=== PATIENT | male | born 1960 | race Caucasian/White ===

== ENCOUNTER 2020-05-17 12:04 | Outpatient (REF) | payer MEDICARE, MEDICAID, SELFPAY | END 2020-05-17 12:05 | disposition home or self-care (01) | LOC: HO.WFDLDS 12:04 | PROVIDERS: Visit Provider Internal Medicine | DX: Z20.822 Contact with and (suspected) exposure to COVID-19 (principal) | CPT/HCPCS: 36415; C9803; U0003 ==

== ENCOUNTER 2020-05-28 09:44 | Outpatient (REF) | payer MEDICARE, MEDICAID, SELFPAY ==
[2020-05-28 11:38] LABS: Anion Gap 13 (12-20); Blood Urea Nitrogen 15 mg/dL (9-16); Calcium 8.6 mg/dL (8.4-10.2); Carbon Dioxide 30 mmol/L (22-29); Chloride 102 mmol/L (96-108); Estimated Glomerular Filt Rate > 60; Glucose Random 97 mg/dL (60-115); Potassium 4.4 mmol/l (3.3-5.1); Sodium 141 mmol/L (135-145)
== END 2020-05-28 09:45 | disposition home or self-care (01) ==
LOC: HO.WFDLDS 09:44
PROVIDERS: Visit Provider Family Medicine
DX: I10 Essential (primary) hypertension (principal)
CPT/HCPCS: 36415; 80048

== ENCOUNTER 2020-09-12 09:05 | Outpatient (REF) | payer MEDICARE, MEDICAID, SELFPAY ==
[2020-09-12 11:26] LABS: Alanine Aminotransferase 14 U/L (0-40); Albumin Level 4.1 g/dL (3.5-5.0); Alkaline Phosphatase 111 U/L (39-117); Anion Gap 11 (12-20); Aspartate Amino Transferase 14 U/L (5-37); Bilirubin Total 0.8 mg/dL (0.0-1.0); Blood Urea Nitrogen 25 mg/dL (9-16); Calcium 9.1 mg/dL (8.4-10.2); Carbon Dioxide 30 mmol/L (22-29); Chloride 102 mmol/L (96-108); Cholesterol 122 mg/dL; Estimated Glomerular Filt Rate > 60; Glucose Random 92 mg/dL (60-115); HDL Cholesterol 35 mg/dL; LDL Cholesterol Calculated 67 mg/dl; Potassium 4.6 mmol/L (3.3-5.1); Sodium 138 mmol/L (135-145); Total Protein 6.6 g/dL (6.5-8.0); Triglycerides 100 mg/dL
[2020-09-12 11:41] LABS: TSH reflex Free T4 1.84 uIU/mL (0.32-4.0)
== END 2020-09-12 09:06 | disposition home or self-care (01) ==
LOC: HO.WFDLDS 09:05
PROVIDERS: Visit Provider Family Medicine
DX: Z00.00 Encounter for general adult medical examination without abnormal findings (principal)
CPT/HCPCS: 36415; 80053; 80061; 84443

== ENCOUNTER 2021-02-13 07:37 | Outpatient (REF) | payer MEDICARE, MEDICAID, SELFPAY ==
[2021-02-13 11:37] LABS: MANUAL DIFF FLAG NO
[2021-02-13 11:45] LABS: Basophils Absolute Auto 0.1 X10*3/uL (0.0-0.2); Basophils Percent Auto 0.9 % (0-2); Eosinophils Absolute Auto 0.2 X10*3/uL (0.0-0.4); Eosinophils Percent Auto 3.6 % (0-4); Hematocrit 39.3 % (42-52); Hemoglobin 12.7 g/dl (14.0-18.0); Imm Gran Abs Auto 0.01 X10*3/uL (0.00-0.03); Imm Gran Pct Auto 0.2 % (0.0-0.4); Lymphocytes Absolute Auto 1.6 X10*3/uL (1.2-4.9); Lymphocytes Percent Auto 28.1 % (20-40); Mean Corpuscular HGB Conc 32.3 g/dl (31.0-36.0); Mean Corpuscular Hemoglobin 28.2 pg (27.0-33.0); Mean Corpuscular Volume 87.3 fL (80-98); Mean Platelet Volume 10.9 fL (9.4-12.4); Monocytes Absolute Auto 0.6 X10*3/uL (0.1-1.2); Monocytes Percent Auto 11.3 % (2-11); Neutrophils Absolute Auto 3.1 X10*3/uL (2.0-8.3); Neutrophils Percent Auto 55.9 % (45-73); Platelet Count 326 X10*3/uL (160-400); White Blood Count 5.6 X10*3/uL (4.8-10.8)
[2021-02-13 12:03] LABS: Appearance Urine CLEAR; Color Urine YELLOW; Glucose Urine UA NEG (NEG); Leukocyte Esterase Urine NEG (NEG); Nitrite Urine NEG (NEG); Specific Gravity - Urine <= 1.005 (1.005-1.025); Urine Blood NEG (NEG); Urine Ketones NEG (NEG); Urine Protein NEG (NEG-TRACE)
[2021-02-13 12:29] LABS: TSH reflex Free T4 2.17 uIU/mL (0.32-4.0)
[2021-02-13 12:37] LABS: Alanine Aminotransferase 12 U/L (0-40); Albumin Level 4.2 g/dL (3.5-5.0); Alkaline Phosphatase 106 U/L (39-117); Anion Gap 11 (12-20); Aspartate Amino Transferase 12 U/L (5-37); Bilirubin Total 0.9 mg/dL (0.0-1.0); Blood Urea Nitrogen 9 mg/dL (9-16); Carbon Dioxide 32 mmol/L (22-29); Chloride 100 mmol/L (96-108); Cholesterol 112 mg/dL; Estimated Glomerular Filt Rate > 60; Glucose Fasting 92 mg/dL (60-99); HDL Cholesterol 37 mg/dL; LDL Cholesterol Calculated 55 mg/dl; Potassium 3.7 mmol/L (3.3-5.1); Sodium 139 mmol/L (135-145); Total Protein 6.5 g/dL (6.5-8.0); Triglycerides 101 mg/dL
== END 2021-02-13 07:38 | disposition home or self-care (01) ==
LOC: HO.WFDLDS 07:37
PROVIDERS: Visit Provider Family Medicine
DX: Z00.00 Encounter for general adult medical examination without abnormal findings (principal)
CPT/HCPCS: 36415; 80053; 80061; 81003; 84443; 85025

== ENCOUNTER 2021-05-22 10:12 | Emergency (ER) | payer MEDICARE, MEDICAID, SELFPAY ==
--- NOTE | ~2021-05-22 | XR_ITS ---
EXAMINATION: XR CHEST CLINICAL INFORMATION: Shortness of breath COMPARISON: June 02, 2019 TECHNIQUE: 2 views of the chest were obtained. FINDINGS: Retrocardiac densities present which may be related to vasculature however focus of disease is not excluded. Cardiac recorder seen in place. No pneumothorax or pleural effusion. Heart normal size. No evidence of pulmonary edema. XR/XR chest 2V IMPRESSION: Retrocardiac density likely vascular in nature however small focus of disease within the left lower lobe is not excluded.
[2021-05-22 10:35] VITALS: BP 135/76; PULSE 74; RESP 19; TEMP 36.1; O2SAT 94; BMI 44.6
[2021-05-22 12:12] LABS: MANUAL DIFF FLAG NO
[2021-05-22 12:13] LABS: Basophils Percent Auto 0.2 % (0-2); Eosinophils Percent Auto 0.3 % (0-4); Hematocrit 40.1 % (42.0-52.0); Hemoglobin 13.2 g/dl (14.0-18.0); Imm Gran Abs Auto 0.04 X10*3/uL (0.00-0.03); Imm Gran Pct Auto 0.5 % (0.0-0.4); Lymphocytes Absolute Auto 0.8 X10*3/uL (1.2-4.9); Lymphocytes Percent Auto 8.8 % (20-40); Mean Corpuscular HGB Conc 32.9 g/dl (31.0-36.0); Mean Corpuscular Hemoglobin 28.8 pg (27.0-33.0); Mean Corpuscular Volume 87.6 fL (80.0-98.0); Mean Platelet Volume 9.9 fL (9.4-12.4); Monocytes Absolute Auto 1.1 X10*3/uL (0.1-1.2); Monocytes Percent Auto 12.1 % (2-11); Neutrophils Absolute Auto 6.9 x10*3/uL (2.0-8.3); Neutrophils Percent Auto 78.1 % (45-73); Platelet Count 204 X10*3/uL (160-400); Red Blood Count 4.58 X10*6/uL (4.60-5.80); Red Cell Distribution Width 14.3 % (11.0-16.0); White Blood Count 8.9 X10*3/uL (4.8-10.8)
[2021-05-22 12:23] LABS: COVID-19 Test Positive (Negative); IDNOW Serial# 9DD0AD1C
[2021-05-22 12:38] LABS: Anion Gap 13 (12-20); Blood Urea Nitrogen 12 mg/dL (9-16); Calcium 8.9 mg/dL (8.4-10.2); Carbon Dioxide 29 mmol/L (22-29); Chloride 103 mmol/L (96-108); Estimated Glomerular Filt Rate > 60; Glucose Random 106 mg/dL (60-115); Potassium 3.7 mmol/L (3.3-5.1); Sodium 141 mmol/L (135-145)
--- NOTE | 2021-05-22 16:41 | ED_ITS ---
HPI - URI/Sore Throat General Chief Complaint: Upper Respiratory Symptoms Stated Complaint: COPD/ CHF Time Seen by Provider: 05/22/21 16:12 Related Data Home Medications Medication Instructions Recorded Confirmed albuterol sulfate mg INHALATION TID PRN 02/23/20 apixaban 5 mg tablet 5 mg PO BID 02/23/20 budesonide-formoterol HFA 80 2 puff PO BID 02/23/20 mcg-4.5 mcg/actuation aerosol inhaler cimetidine 400 mg tablet 400 mg PO BEDTIME 02/23/20 docusate sodium 100 mg capsule 100 mg PO BID PRN 02/23/20 ipratropium bromide 0.02 % INHALATION 02/23/20 solution for inhalation metolazone 5 mg tablet 5 mg PO DAILY 02/23/20 tiotropium bromide 18 mcg capsule 1 cap INHALATION DAILY 02/23/20 with inhalation device Previous Rx's Medication Instructions Recorded famotidine 20 mg tablet 20 mg PO DAILY 90 Days #90 tab 08/23/20 albuterol sulfate 90 mcg/actuation 1 puff INHALATION Q4H PRN #8.5 g 10/25/20 aerosol inhaler metoprolol tartrate 50 mg tablet 75 mg PO BID #270 tab 12/07/20 spironolactone 25 mg tablet 25 mg PO DAILY #90 tab 12/07/20 atorvastatin 80 mg tablet 80 mg PO DAILY #90 tab 02/27/21 furosemide 40 mg tablet 40 mg PO DAILY 30 Days #30 tab 02/27/21 aspirin 81 mg tablet,delayed 81 mg PO DAILY #30 tab 03/05/21 release (Adult Aspirin Regimen) doxycycline hyclate 100 mg tablet 100 mg PO BID 7 Days #14 tab 05/22/21 Allergies Allergy/AdvReac Type Severity Reaction Status Date / Time seafood Allergy Unknown rash, Verified 04/01/21 08:44 swelling LEVONOX Allergy Unknown Rash Uncoded 04/01/21 08:44 ]Swelling [facility] Past Medical History Medical History (Updated 05/22/21 @ 16:41 by MIGNON Arambula) CAD (coronary artery disease) Chronic bronchitis Chronic renal failure, stage 3 (moderate) Essential hypertension GERD (gastroesophageal reflux disease) Paroxysmal atrial fibrillation Surgical History History of carpal tunnel release History of knee replacement Status post laparoscopic sleeve gastrectomy Family History Family History (Updated 04/01/21 @ 08:47 by Madisyn Steve [facility]) Father CVD (cardiovascular disease) Mother Diabetes mellitus Cancer Brother No problems noted. Brother No problems noted. Son No problems noted. Sister No problems noted. Sister No problems noted. Sister No problems noted. Sister No problems noted. Sister No problems noted. Sister No problems noted. Other Mental health disorder Substance use disorder Social History Social History Housing: Apartment Patient Tobacco Use Status: Former Tobacco user (quit 12 years ago ) Years Smoked: 40 Advance Directives: No Advance Directives Information Provided: No Current occupational status: disabled Physical Exam 2 Vital Signs: Vital Signs: Last Vital Signs Temp 97 F 05/22/21 10:35 Pulse 74 05/22/21 10:35 Resp 19 05/22/21 10:35 BP 135/76 05/22/21 10:35 Pulse Ox 94 05/22/21 10:35 BMI result Body Mass Index 44.6 Course Course Course Narrative: [id number]--patient left without being seen. Had lab/imaging drawn in triage, called and spoke to patient to make aware that he is COVID-19 positive. Chest x-ray also could not exclude pneumonia. Discussed lab results. I sent in Doxycycline 100 mg b.i.d. x7 days to [facility] in [place]. Patient reports he does not have enough money to get prescription however sent in anyway and discussed worrisome signs and symptoms and strict return precautions and COVID precautions. MDM - URI/Sore Throat Lab Data Result diagrams: 05/22/21 12:08 05/22/21 12:07 Labs: Lab Results 05/22/21 05/22/21 05/22/21 Range/Units 12:07 12:07 12:08 WBC 8.9 (4.8-10.8) X10*3/uL RBC 4.58 L (4.60-5.80) X10*6/uL Hgb 13.2 L (14.0-18.0) g/dl Hct 40.1 L (42.0-52.0) % MCV 87.6 (80.0-98.0) fL MCH 28.8 (27.0-33.0) pg MCHC 32.9 (31.0-36.0) g/dl RDW 14.3 (11.0-16.0) % Plt Count 204 (160-400) X10*3/uL MPV 9.9 (9.4-12.4) fL Immature Gran % (Auto) 0.5 H (0.0-0.4) % Neut % (Auto) 78.1 H (45-73) % Lymph % (Auto) 8.8 L (20-40) % [place] % (Auto) 12.1 H (2-11) % Eos % (Auto) 0.3 (0-4) % Baso % (Auto) 0.2 (0-2) % Lymph # (Auto) 0.8 L (1.2-4.9) X10*3/uL [place] # (Auto) 1.1 (0.1-1.2) X10*3/uL Eos # (Auto) 0.0 (0.0-0.4) X10*3/uL Baso # (Auto) 0.0 (0.0-0.2) X10*3/uL Abs Immat Gran (auto) 0.04 H (0.00-0.03) X10*3/uL Absolute Neuts (auto) 6.9 (2.0-8.3) x10*3/uL Absolute Nucleated RBC 0.000 (0.0-0.012) X10*3/uL Nucleated RBC % (auto) 0.0 (0.0-0.2) /100WBC Sodium 141 (135-145) mmol/L Potassium 3.7 (3.3-5.1) mmol/L Chloride 103 (96-108) mmol/L Carbon Dioxide 29 (22-29) mmol/L Anion Gap 13 (12-20) BUN 12 (9-16) mg/dL Creatinine 0.92 (0.5-1.4) mg/dL Estim Creat Clear Calc 94.0 Estimated GFR > 60 Random Glucose 106 (60-115) mg/dL Calcium 8.9 (8.4-10.2) mg/dL COVID-19 (JACOB) Positive A (Negative) COVID-19 Clin Com See Note Discharge Plan Discharge Clinical Impression: COVID-19 Pneumonia Qualifiers: Pneumonia type: due to unspecified organism Laterality: left Lung location: lower lobe of lung Qualified Code(s): J18.9 - Pneumonia, unspecified organism Patient Disposition: Left Without Being Seen
[2021-05-22 17:01] LABS: Alanine Aminotransferase 12 U/L (0-40); Alkaline Phosphatase 113 U/L (39-117); Aspartate Amino Transferase 19 U/L (5-37); Bilirubin Direct 0.5 mg/dL (0.0-0.5); Bilirubin Total 1.1 mg/dL (0.0-1.0); Magnesium 1.9 mg/dL (1.6-2.6); Total Protein 6.8 g/dL (6.5-8.0)
== END 2021-05-22 16:50 | disposition left against medical advice (07) ==
PROVIDERS: Physician Assistant; Emergency Provider Emergency Medicine; PCP Family Medicine
DX: U07.1 COVID-19 (principal); J12.82 Pneumonia due to coronavirus disease 2019; Z87.891 Personal history of nicotine dependence; Z79.899 Other long term (current) drug therapy
CPT/HCPCS: 71046; 80048; 80076; 83735; 85025; 87635; 99283

== ENCOUNTER 2021-05-23 12:35 | Inpatient (IN) | payer MEDICARE, MEDICAID, SELFPAY ==
[2021-05-23] VITALS (18 sets, daily range): BP systolic 83–123; BP diastolic 40–71; PULSE 65–133; RESP 18–28; TEMP 36.5–37.3; O2SAT 95–100; BMI 44.2
--- NOTE | ~2021-05-23 | US_ITS ---
EXAMINATION: US VENOUS ULTRASOUND WITH DOPPLER LOWER EXTREMITY, LEFT CLINICAL INFORMATION: Swollen leg and painful. Covid positive COMPARISON: None TECHNIQUE: Ultrasound of the deep veins is performed from the hip to the calf with compression sonography and color and pulse Doppler assessment. Spectral analysis with color-flow imaging is performed. FINDINGS: There is normal venous compression and respiratory variation and augmented flow. The visualized common femoral vein, superficial femoral vein, profunda femoral vein, popliteal vein, and the trifurcation region shows no evidence of deep venous thrombosis. There is no significant popliteal fossa cyst. There are multiple enlarged lymph nodes in the groin region. The largest lymph node measures 4.5 x 1.8 x 2.90 cm. It is normal architecture by ultrasound. If the patient's symptoms persist, followup ultrasound in 5 days 7 days might be of value to exclude proximal propagation from a non-visualized calf vein. US/US venous duplex LE LT IMPRESSION: No DVT demonstrated in the left lower extremity. Multiple enlarged lymph nodes in the left groin largest one measuring 4.5 cm and 1.77 cm.
--- NOTE | ~2021-05-23 | XR_ITS ---
EXAMINATION: XR CHEST CLINICAL INFORMATION: Shortness of breath COMPARISON: May 22, 2021 TECHNIQUE: AP portable view of the chest was obtained. FINDINGS: No significant abnormality is noted involving the heart, lungs, mediastinum, bony thorax or soft tissues. Cardiac recorder seen in place. XR/XR chest 1V IMPRESSION: No acute disease.
--- NOTE | 2021-05-23 12:54 | ECG_ITS ---
Test Reason : SOB Blood Pressure : / mmHG Vent. Rate : 109 BPM Atrial Rate : 000 BPM P-R Int : 000 ms QRS Dur : 082 ms QT Int : 350 ms P-R-T Axes : 000 011 032 degrees QTc Int : 471 ms Atrial fibrillation with rapid ventricular response Low voltage QRS Septal infarct , age undetermined Abnormal ECG No previous ECGs available Referred By: Isatu Mccarthy Electronically Signed By:Colby Pederson
--- NOTE | 2021-05-23 12:55 | PC.NURSE ---
palpable pedal pulse left. swelling left calf is significant. warmth and redness noted
--- NOTE | 2021-05-23 12:56 | ED.SOB ---
HPI - SOB/Dyspnea General Chief Complaint: Dyspnea Stated Complaint: COVID PNEUMONIA,PEDAL EDEMA Time Seen by Provider: 05/23/21 12:40 Source: patient and EMS Mode of arrival: EMS Limitations: no limitations History of Present Illness HPI Narrative: Patient comes to the emergency room complaining of shortness of breath. Patient was tested for COVID-19 yesterday, tested positive. Patient left the emergency room without being seen. Patient states that his shortness of breath is worse. Also complaining of red swollen distal lower extremity leg, painful in the calf. This morning, patient's primary care physician call him and told him to come to the emergency room. Patient denies chest pain. Of note, our nurse practitioner tried calling the patient yesterday to let him know that he tested positive for COVID-19 and antibiotic was sent to the patient's pharmacy. However, patient was unable to get his antibiotic. MD elicited complaint: shortness of breath and cough Related Data Home Medications Medication Instructions Recorded Confirmed apixaban 5 mg tablet 5 mg PO BID 02/23/20 05/23/21 budesonide-formoterol HFA 80 2 puff PO BID 02/23/20 05/23/21 mcg-4.5 mcg/actuation aerosol inhaler tiotropium bromide 18 mcg capsule 1 cap INHALATION DAILY 02/23/20 05/23/21 with inhalation device atorvastatin 80 mg tablet 80 mg PO BEDTIME 05/23/21 05/23/21 furosemide 40 mg tablet 40 mg PO SUTUTHSA 05/23/21 05/23/21 melatonin 10 mg tablet 10 mg PO BEDTIME 05/23/21 05/23/21 spironolactone 25 mg tablet 25 mg PO MOWEFR 05/23/21 05/23/21 Previous Rx's Medication Instructions Recorded famotidine 20 mg tablet 20 mg PO DAILY 90 Days #90 tab 08/23/20 albuterol sulfate 90 mcg/actuation 1 puff INHALATION Q4H PRN #8.5 g 10/25/20 aerosol inhaler metoprolol tartrate 50 mg tablet 75 mg PO BID #270 tab 12/07/20 aspirin 81 mg tablet,delayed 81 mg PO DAILY #30 tab 03/05/21 release (Adult Aspirin Regimen) Allergies Allergy/AdvReac Type Severity Reaction Status Date / Time seafood Allergy Unknown rash, Verified 05/23/21 12:50 swelling LEVONOX Allergy Unknown Rash Uncoded 04/01/21 08:44 ]Swelling Review of Systems Review of Systems: Constitutional : No Weight loss, No Fever, No Chills, No Night Sweats, No Fatigue, No Malaise ENT/Mouth : No Hearing loss, No Ear Pain, No Nasal Congestion, No Sinus Pain, No Hoarseness, No sore throat, No Rhinorrhea, No Swallowing Difficulty Eyes: No Eye Pain, No Swelling, No Redness, No Foreign Body, No Discharge, No Vision Changes Cardiovascular : No Chest Pain, No SOB, No Dyspnea on Exertion, No Orthopnea, complaining of lower extremity edema, No Palpitations Respiratory : Complaining of cough, mild wheezing, shortness of breath worse with exertion Gastrointestinal : No Nausea, No Vomiting, No Diarrhea, No Constipation, No abdominal Pain, No Hematochezia, No Melena Genitourinary : no irregular bleeding, No Dysuria, No Urinary Frequency, No Hematuria, No Urinary Incontinence, No Urgency, No Flank Pain, No Urinary Flow Changes, No Hesitancy Musculoskeletal : No joint pain, complaining of lower extremity redness, swelling and pain in the distal left lower extremity Skin : No Skin Lesions, No rash Neuro : No Weakness, No Numbness, No Paresthesias, No Loss of Consciousness, No Dizziness, No Headache Psych : No Anxiety/Panic, No Depression, No SI/HI/AH/VH, No Social Issues, Heme/Lymph: No Bruising, No Bleeding,No Lymphadenopathy Endocrine : No Polyuria, No Polydipsia, No Temperature Intolerance [facility] Past Medical History Medical History CAD (coronary artery disease) Chronic bronchitis Chronic renal failure, stage 3 (moderate) Essential hypertension GERD (gastroesophageal reflux disease) Paroxysmal atrial fibrillation Surgical History History of carpal tunnel release History of knee replacement Status post laparoscopic sleeve gastrectomy Family History Family History Father CVD (cardiovascular disease) Mother Diabetes mellitus Cancer Brother No problems noted. Brother No problems noted. Son No problems noted. Sister No problems noted. Sister No problems noted. Sister No problems noted. Sister No problems noted. Sister No problems noted. Sister No problems noted. Other Mental health disorder Substance use disorder Social History Social History Housing: Apartment Patient Tobacco Use Status: Former Tobacco user Years Smoked: 40 Use of substances other than those prescribed or required for medical reasons: No Advance Directives: No Advance Directives Information Provided: Yes Current occupational status: disabled Physical Exam Vital Signs: Vital Signs: Last Vital Signs Temp 99.2 F 05/23/21 16:15 Pulse 119 H 05/23/21 16:15 Resp 22 H 05/23/21 16:15 BP 102/57 L 05/23/21 16:15 Pulse Ox 95 05/23/21 16:15 BMI result Body Mass Index 44.2 Const: Other: Appearance: Alert. Oriented X3. No acute distress. Eyes: Pupils equal, round and reactive to light. ENT: Pharynx normal. Neck: Normal inspection. Neck supple. No lymph nodes noted. No crepitus CVS: Normal heart rate and rhythm. Pulses normal. Normal S1 and S2 Respiratory: Complaining of worsening shortness of breath since yesterday, worse with exertion. Mild wheezing, complaining of dry cough Abdomen: Soft and nontender. No rigidity. No distention. good BS x4 Skin: Skin warm and dry. Normal skin color. Normal skin turgor. Extremities: +2 Bilateral lower extremity edema. Left lower extremity below the knee is erythematous, significantly larger than the right lower extremity, tender to touch in the calf Neuro: Oriented X 3. No motor deficit. No sensory deficit. Moving all extermities. No slurred speech. Course Course Course Narrative: 13:06: All of patient's labs are pending. Patient's blood pressure stable, no fever. Patient will be empirically treated with IV antibiotics. At this time sepsis is not suspected Ultrasound negative for DVT, patient has cellulitis. MDM - SOB/Dyspnea Lab Data Result diagrams: 05/23/21 13:08 05/23/21 13:08 Labs: Lab Results 05/23/21 05/23/21 05/23/21 Range/Units 13:08 13:08 13:08 WBC 12.3 H (4.8-10.8) X10*3/uL RBC 4.78 (4.60-5.80) X10*6/uL Hgb 13.9 L (14.0-18.0) g/dl Hct 42.0 (42.0-52.0) % MCV 87.9 (80.0-98.0) fL MCH 29.1 (27.0-33.0) pg MCHC 33.1 (31.0-36.0) g/dl RDW 14.3 (11.0-16.0) % Plt Count 208 (160-400) X10*3/uL MPV 11.3 (9.4-12.4) fL Immature Gran % (Auto) Cancelled Neut % (Auto) Cancelled Lymph % (Auto) Cancelled [place] % (Auto) Cancelled Eos % (Auto) Cancelled Baso % (Auto) Cancelled Lymph # (Auto) Cancelled [place] # (Auto) Cancelled Eos # (Auto) Cancelled Baso # (Auto) Cancelled Abs Immat Gran (auto) Cancelled Absolute Neuts (auto) Cancelled Absolute Nucleated RBC 0.000 (0.0-0.012) X10*3/uL Nucleated RBC % (auto) 0.0 (0.0-0.2) /100WBC Neutrophils % (Manual) 68 (45-73) % Band Neutrophils % 26 H (3-5) % Lymphocytes % (Manual) 4 L (20-40) % Atypical Lymphs % (Man) 1 (0-6) % Monocytes % (Manual) 1 L (2-11) % Abs Neuts (Manual) 11.6 H (2.0-8.3) X10*3/uL Lymphocytes # (Manual) 0.5 L (1.2-4.9) X10*3/uL Atyp Lymphs # (Manual) 0.1 x10*3/uL Monocytes # (Manual) 0.1 (0.1-1.2) X10*3/uL WBC Morphology Comment DYSMORPHIC Platelet Estimate NORMAL (NORMAL) Plt Morphology Comment NORM RBC Morphology NOTED Microcytosis 1+ (5-14) /OIF Acanthocytes (Spur) 2+ (3-5) /OIF Schistocytes 1+ (0-2) /OIF D-Dimer High Sensitivty 318 NG/ML VBG pH (7.32-7.43) VBG pCO2 mmHg VBG pO2 mmHg VBG HCO3 (22-26) mmol/L VBG O2 Saturation % VBG Base Excess mmol/L Sodium 140 (135-145) mmol/L Potassium 3.5 (3.3-5.1) mmol/L Chloride 100 (96-108) mmol/L Carbon Dioxide 27 (22-29) mmol/L Anion Gap 17 (12-20) BUN 23 H D (9-16) mg/dL Creatinine 1.40 (0.5-1.4) mg/dL Estim Creat Clear Calc 61.5 Estimated GFR 51 Random Glucose 124 H (60-115) mg/dL Lactic Acid (0.5-2.0) mmol/L Calcium 8.6 (8.4-10.2) mg/dL Total Bilirubin 1.8 H (0.0-1.0) mg/dL Direct Bilirubin 0.8 H (0.0-0.5) mg/dL AST 21 (5-37) U/L ALT 14 (0-40) U/L Alkaline Phosphatase 76 D (39-117) U/L B-Natriuretic Peptide (<100) pg/mL Total Protein 6.4 L (6.5-8.0) g/dL Albumin 3.7 (3.5-5.0) g/dL 05/23/21 05/23/21 05/23/21 Range/Units 13:08 13:08 13:13 WBC (4.8-10.8) X10*3/uL RBC (4.60-5.80) X10*6/uL Hgb (14.0-18.0) g/dl Hct (42.0-52.0) % MCV (80.0-98.0) fL MCH (27.0-33.0) pg MCHC (31.0-36.0) g/dl RDW (11.0-16.0) % Plt Count (160-400) X10*3/uL MPV (9.4-12.4) fL Immature Gran % (Auto) Neut % (Auto) Lymph % (Auto) [place] % (Auto) Eos % (Auto) Baso % (Auto) Lymph # (Auto) [place] # (Auto) Eos # (Auto) Baso # (Auto) Abs Immat Gran (auto) Absolute Neuts (auto) Absolute Nucleated RBC (0.0-0.012) X10*3/uL Nucleated RBC % (auto) (0.0-0.2) /100WBC Neutrophils % (Manual) (45-73) % Band Neutrophils % (3-5) % Lymphocytes % (Manual) (20-40) % Atypical Lymphs % (Man) (0-6) % Monocytes % (Manual) (2-11) % Abs Neuts (Manual) (2.0-8.3) X10*3/uL Lymphocytes # (Manual) (1.2-4.9) X10*3/uL Atyp Lymphs # (Manual) x10*3/uL Monocytes # (Manual) (0.1-1.2) X10*3/uL WBC Morphology Comment Platelet Estimate (NORMAL) Plt Morphology Comment RBC Morphology Microcytosis /OIF Acanthocytes (Spur) /OIF Schistocytes /OIF D-Dimer High Sensitivty NG/ML VBG pH 7.37 (7.32-7.43) VBG pCO2 51 mmHg VBG pO2 46 mmHg VBG HCO3 30 H (22-26) mmol/L VBG O2 Saturation 69.0 % VBG Base Excess 4.0 mmol/L Sodium (135-145) mmol/L Potassium (3.3-5.1) mmol/L Chloride (96-108) mmol/L Carbon Dioxide (22-29) mmol/L Anion Gap (12-20) BUN (9-16) mg/dL Creatinine (0.5-1.4) mg/dL Estim Creat Clear Calc Estimated GFR Random Glucose (60-115) mg/dL Lactic Acid 3.1 H* (0.5-2.0) mmol/L Calcium (8.4-10.2) mg/dL Total Bilirubin (0.0-1.0) mg/dL Direct Bilirubin (0.0-0.5) mg/dL AST (5-37) U/L ALT (0-40) U/L Alkaline Phosphatase (39-117) U/L B-Natriuretic Peptide 879 H (<100) pg/mL Total Protein (6.5-8.0) g/dL Albumin (3.5-5.0) g/dL Imaging Data Chest x-ray: Radiologist's impression: No significant abnormality is noted involving the heart, lungs, mediastinum, bony thorax or soft tissues. Cardiac recorder seen in place. XR/XR chest 1V IMPRESSION: No acute disease. Venous US: Radiologist's impression: FINDINGS: There is normal venous compression and respiratory variation and augmented flow. The visualized common femoral vein, superficial femoral vein, profunda femoral vein, popliteal vein, and the trifurcation region shows no evidence of deep venous thrombosis. ? There is no significant popliteal fossa cyst. There are multiple enlarged lymph nodes in the groin region. The largest lymph node measures 4.5 x 1.8 x 2.90 cm. It is normal architecture by ultrasound. If the patient's symptoms persist, followup ultrasound in 5 days 7 days might be of value to exclude proximal propagation from a non-visualized calf vein. US/US venous duplex LE LT IMPRESSION: No DVT demonstrated in the left lower extremity. ? Multiple enlarged lymph nodes in the left groin largest one measuring 4.5 cm and 1.77 cm. Discharge Plan Discharge Clinical Impression: Cellulitis, CHF (congestive heart failure) Patient Disposition: Admitted As Inpatient
[2021-05-23 13:18] LABS: Venous Blood Gas Refer to POC result
[2021-05-23 13:20] LABS: VBG HCO3 30 mmol/L (22-26); VBG pCO2 51 mmHg; VBG pH 7.37 (7.32-7.43); VBG pO2 46 mmHg
[2021-05-23 13:26] LABS: D Dimer High Sensitivity 318 NG/ML
[2021-05-23 13:33] LABS: Alanine Aminotransferase 14 U/L (0-40); Albumin Level 3.7 g/dL (3.5-5.0); Alkaline Phosphatase 76 U/L (39-117); Anion Gap 17 (12-20); Aspartate Amino Transferase 21 U/L (5-37); Bilirubin Direct 0.8 mg/dL (0.0-0.5); Bilirubin Total 1.8 mg/dL (0.0-1.0); Blood Urea Nitrogen 23 mg/dL (9-16); Calcium 8.6 mg/dL (8.4-10.2); Carbon Dioxide 27 mmol/L (22-29); Chloride 100 mmol/L (96-108); Creatinine Clr Calc Pharmacy 61.5; Estimated Glomerular Filt Rate 51; Glucose Random 124 mg/dL (60-115); Potassium 3.5 mmol/L (3.3-5.1); Sodium 140 mmol/L (135-145); Total Protein 6.4 g/dL (6.5-8.0)
[2021-05-23] MEDS: cefTRIAXone sodium 1 GM in 0.9 % Sodium Chloride 50 ML IV (13:35)
[2021-05-23] MEDS: 0.9 % Sodium Chloride 1,000 ML 500 ML IVCONT (13:37)
[2021-05-23 13:38] LABS: B Type Natriuretic Peptide 879 pg/mL (<100)
[2021-05-23 13:45] LABS: Lactic Acid 3.1 mmol/L (0.5-2.0)
[2021-05-23 13:57] LABS: Hemoglobin 13.9 g/dl (14.0-18.0); Mean Corpuscular HGB Conc 33.1 g/dl (31.0-36.0); Mean Corpuscular Hemoglobin 29.1 pg (27.0-33.0); Mean Corpuscular Volume 87.9 fL (80.0-98.0); Mean Platelet Volume 11.3 fL (9.4-12.4); Platelet Count 208 X10*3/uL (160-400); Red Blood Count 4.78 X10*6/uL (4.60-5.80); Red Cell Distribution Width 14.3 % (11.0-16.0); White Blood Count 12.3 X10*3/uL (4.8-10.8)
--- NOTE | 2021-05-23 14:02 | PHA.MEDREC ---
Pharmacy Consult ? Medication Reconciliation Pharmacy has completed the medication reconciliation. There are no remarkable issues for provider's attention. Eboni Zelaya, EthelD
[2021-05-23 14:17] LABS: Atypical Lymph Absolute Manual 0.1 x10*3/uL; Atypical Lymphs Percent Manual 1 % (0-6); Band Neutrophils Percent 26 % (3-5); Lymphocytes Absolute Manual 0.5 X10*3/uL (1.2-4.9); Lymphocytes Percent Manual 4 % (20-40); Monocytes Absolute Manual 0.1 X10*3/uL (0.1-1.2); Monocytes Percent Manual 1 % (2-11); Neutrophils Absolute Manual 11.6 X10*3/uL (2.0-8.3); Neutrophils Percent Manual 68 % (45-73); RBC Morphology NOTED
[2021-05-23 14:18] LABS: Acanthocytes 2+ (3-5) /OIF; Platelet Estimate NORMAL (NORMAL); Schistocytes 1+ (0-2) /OIF; WBC Morphology Comment DYSMORPHIC
[2021-05-23 14:19] LABS: Microcytosis 1+ (5-14) /OIF; Platelet Morphology Comment NORM
[2021-05-23 15:12] LABS: Reflex Lactate? Lactic Acid Added
[2021-05-23] MEDS: Azithromycin 500 MG in 0.9 % Sodium Chloride 250 ML 125 MG IV (15:23)
--- NOTE | 2021-05-23 16:31 | PM.IMHP ---
History of Present Illness Date of Service: 05/23/21 Attending physician on admission: Suzie Valles Chief Complaint: Shortness of breath/left leg pain and swelling 60-year-old gentleman with past medical history significant for paroxysmal atrial fibrillation, coronary artery disease, chronic bronchitis, chronic kidney disease stage 3, GERD vaccinated against COVID in August of 2020 did not receive booster came to [facility] Room on May 22 but due to long wait left ER without being seen however labs showed positive COVID infection therefore patient was called and made aware and a prescription of doxycycline was sent to the pharmacy, today patient call his primary care physician due to shortness of breath and was referred to [place] [facility], at present patient is complaining of shortness of breath associated with dry cough, and mild low-grade fever last night, he denies PND orthopnea, no chest palpitations, patient also complaining of left lower extremity swelling and redness worsening over last few days patient denies any injury or trauma but agreed he trimmed his left toenail deeply few days ago , he denies any sick contacts, workup in the emergency room revealed the D-dimer of 318, BP and P 879 chest x-ray showed no acute abnormality left lower extremity Doppler study showed no DVT, patient noted to be tachypneic tachycardic with elevated WBC count and lactic acid therefore meets sepsis criteria due to left lower extremity cellulitis and will be admitted for continued monitoring treatment for cellulitis and COVID-19 infection. Review of Systems Review of Systems: General no headache, no dizziness, mild fever overnight CVS no chest pain, no palpitation. Respiratory dry cough, no sputum production Gastrointestinal no nausea no vomiting, no abdominal pain no urinary urgency, no frequency Musculoskeletal left leg pain and swelling Psych no anxiety Yes all other systems are reviewed and are negative [facility] Medical History CAD (coronary artery disease) Chronic bronchitis Chronic renal failure, stage 3 (moderate) Essential hypertension GERD (gastroesophageal reflux disease) Paroxysmal atrial fibrillation Family History Father CVD (cardiovascular disease) Mother Diabetes mellitus Cancer Brother No problems noted. Brother No problems noted. Son No problems noted. Sister No problems noted. Sister No problems noted. Sister No problems noted. Sister No problems noted. Sister No problems noted. Sister No problems noted. Other Mental health disorder Substance use disorder Surgical History History of carpal tunnel release History of knee replacement Status post laparoscopic sleeve gastrectomy Social History Household Members: Spouse Housing: Other Housing Other:: Hotel Do you presently have visiting nurse or other home services: No Patient Tobacco Use Status: Former Tobacco user Years Smoked: 40 Smoked in Last 30 Days: No Second Hand Smoke Exposure: No Use of substances other than those prescribed or required for medical reasons: No Currently Displaying Signs/Symptoms of Drug Intoxication Withdrawal: No Any prior treatment program specific to substance use: No Have you been hit, kicked, punched, or otherwise hurt by someone within the past year? If so, by whom?: No Do you feel safe in your current relationship?: Yes Is there a partner from a previous relationship who is making you feel unsafe now?: No Are you made to feel afraid or neglected: No Advance Directives: No Advance Directives Information Provided: Yes Do you have thoughts of harming others: None Do you have a plan to hurt others: No Plan Recently lost weight without trying: No Eating poorly because of decreased appetite: No Nutrition Risks: No Nutritional Risk Poor oral hygiene: No service: Yes Current occupational status: disabled Meds Allergies Allergy/AdvReac Type Severity Reaction Status Date / Time seafood Allergy Unknown rash, Verified 05/23/21 12:50 swelling LEVONOX Allergy Unknown Rash Uncoded 04/01/21 08:44 ]Swelling Active Medications: Current Medications Acetaminophen (Acetaminophen 325 Mg Tablet) 650 mg PO Q6H PRN PRN Reason: Pain, Mild (Pain Scale 1-3) Albuterol Sulfate (Albuterol Sulfate 90 Mcg 8 Gm Inhaler) 1 puff INHALE Q4H PRN PRN Reason: for wheezing Apixaban (Apixaban 5 Mg Tablet) 5 mg PO BID [facility] Aspirin (Aspirin Enteric Coated 81 Mg Tablet.) 81 mg PO DAILY [facility] Atorvastatin Calcium (Atorvastatin Calcium 80 Mg Tablet) 80 mg PO BEDTIME [facility] Famotidine (Famotidine 20 Mg Tablet) 20 mg PO DAILY [facility] Furosemide (Furosemide 40 Mg Tablet) 40 mg PO [facility]; Protocol Guaifenesin/Dextromethorphan (Guaifenesin Dm 100/10/5 Ml 5 Ml Syrup) 10 ml PO TID [facility] Vancomycin HCl 1,250 mg/ (Sodium Chloride) 250 mls @ 166.667 mls/hr IV ONCE ONE Stop: 05/23/21 17:57 Piperacillin Sod/Tazobactam (Sod 3.375 gm/ Sodium Chloride) 50 mls @ 100 mls/hr IV Q6H [facility] Metoprolol Tartrate (Metoprolol Tartrate 25 Mg Tablet) 75 mg PO BID [facility]; Protocol Non-Formulary Medication (Budesonide-Formoterol) 2 puff PO BID [facility] Non-Formulary Medication (Melatonin) 10 mg PO BEDTIME [facility] Ondansetron HCl (Ondansetron Hcl 4 Mg/2 Ml Vial) 4 mg IVPUSH Q8H PRN PRN Reason: Nausea and Vomiting Pharmacy Consult (Consult Rx Perform Med Rec) 1 each MISCELLANE ONCE PRN PRN Reason: Consult order Pharmacy Consult (Consult Rx Vancomycin Dosing) 1 each MISCELLANE DAILY PRN PRN Reason: Consult order Sodium Chloride (0.9 % Sodium Chloride Flush 3 Ml Syringe) 3 ml IVFLUSH QSHIFT [facility] Spironolactone (Spironolactone 25 Mg Tablet) 25 mg PO MOWEFR [facility]; Protocol Tiotropium Somers (Tiotropium Somers 18 Mcg Cap.W.Dev) puff INHALE DAILY [facility] Home Medications Medication Instructions Recorded Confirmed Last Taken Type apixaban 5 mg tablet 5 mg PO BID 02/23/20 05/23/21 05/23/21 History budesonide-formoterol HFA 80 2 puff PO BID 02/23/20 05/23/21 05/23/21 History mcg-4.5 mcg/actuation aerosol inhaler tiotropium bromide 18 mcg capsule 1 cap INHALATION DAILY 02/23/20 05/23/21 05/23/21 History with inhalation device atorvastatin 80 mg tablet 80 mg PO BEDTIME 05/23/21 05/23/21 05/22/21 History furosemide 40 mg tablet 40 mg PO SUTUTHSA 05/23/21 05/23/21 05/23/21 History melatonin 10 mg tablet 10 mg PO BEDTIME 05/23/21 05/23/21 05/22/21 History spironolactone 25 mg tablet 25 mg PO MOWEFR 05/23/21 05/23/21 05/23/21 History Physical Exam Vital Signs and Narrative: Vital Signs: Last Vital Signs Temp 99.2 F 05/23/21 16:15 Pulse 119 H 05/23/21 16:15 Resp 22 H 05/23/21 16:15 BP 102/57 L 05/23/21 16:15 Pulse Ox 95 05/23/21 16:15 BMI result Body Mass Index 44.2 General awake alert in no acute distress. Neck supple, no JVD. CVS irregular rate rhythm, Respiratory lungs clear to auscultation, no respiratory distress, no wheeze, no rhonchi. Gastrointestinal abdomen soft, nontender, bowel sounds audible, no guarding , no rigidity. Extremities right lower extremity no edema good peripheral pulses, left lower extremity significant swelling extending from cough to left thigh, with warmth and tenderness to palpation, left toenail mild swelling Neuro nonfocal , speech clear. Psych appropriate affect Back no CVA tenderness Results Labs CBC and Chem 7: 05/24/21 06:22 05/24/21 06:22 Labs: Laboratory Results - last 24 hr 05/23/21 05/23/21 05/23/21 13:08 13:08 13:08 MCV 87.9 MCH 29.1 MCHC 33.1 RDW 14.3 Plt Count 208 MPV 11.3 Immature Gran % (Auto) Cancelled Neut % (Auto) Cancelled Lymph % (Auto) Cancelled [place] % (Auto) Cancelled Eos % (Auto) Cancelled Baso % (Auto) Cancelled Lymph # (Auto) Cancelled [place] # (Auto) Cancelled Eos # (Auto) Cancelled Baso # (Auto) Cancelled Abs Immat Gran (auto) Cancelled Absolute Neuts (auto) Cancelled Absolute Nucleated RBC 0.000 Nucleated RBC % (auto) 0.0 Neutrophils % (Manual) 68 Band Neutrophils % 26 H Lymphocytes % (Manual) 4 L Atypical Lymphs % (Man) 1 Monocytes % (Manual) 1 L Abs Neuts (Manual) 11.6 H Lymphocytes # (Manual) 0.5 L Atyp Lymphs # (Manual) 0.1 Monocytes # (Manual) 0.1 WBC Morphology Comment DYSMORPHIC Platelet Estimate NORMAL Plt Morphology Comment NORM RBC Morphology NOTED Microcytosis 1+ (5-14) Acanthocytes (Spur) 2+ (3-5) Schistocytes 1+ (0-2) D-Dimer High Sensitivty 318 VBG pH VBG pCO2 VBG pO2 VBG HCO3 VBG O2 Saturation VBG Base Excess Anion Gap 17 Estim Creat Clear Calc 61.5 Estimated GFR 51 Random Glucose 124 H Lactic Acid Calcium 8.6 Total Bilirubin 1.8 H Direct Bilirubin 0.8 H AST 21 ALT 14 Alkaline Phosphatase 76 D B-Natriuretic Peptide Total Protein 6.4 L Albumin 3.7 05/23/21 05/23/21 05/23/21 13:08 13:08 13:13 MCV MCH MCHC RDW Plt Count MPV Immature Gran % (Auto) Neut % (Auto) Lymph % (Auto) [place] % (Auto) Eos % (Auto) Baso % (Auto) Lymph # (Auto) [place] # (Auto) Eos # (Auto) Baso # (Auto) Abs Immat Gran (auto) Absolute Neuts (auto) Absolute Nucleated RBC Nucleated RBC % (auto) Neutrophils % (Manual) Band Neutrophils % Lymphocytes % (Manual) Atypical Lymphs % (Man) Monocytes % (Manual) Abs Neuts (Manual) Lymphocytes # (Manual) Atyp Lymphs # (Manual) Monocytes # (Manual) WBC Morphology Comment Platelet Estimate Plt Morphology Comment RBC Morphology Microcytosis Acanthocytes (Spur) Schistocytes D-Dimer High Sensitivty VBG pH 7.37 VBG pCO2 51 VBG pO2 46 VBG HCO3 30 H VBG O2 Saturation 69.0 VBG Base Excess 4.0 Anion Gap Estim Creat Clear Calc Estimated GFR Random Glucose Lactic Acid 3.1 H* Calcium Total Bilirubin Direct Bilirubin AST ALT Alkaline Phosphatase B-Natriuretic Peptide 879 H Total Protein Albumin Imaging Radiologist's Impressions: Impressions Venous Duplex 05/23/21 14:40 IMPRESSION: No DVT demonstrated in the left lower extremity. Multiple enlarged lymph nodes in the left groin largest one measuring 4.5 cm and 1.77 cm. Chest X-Ray 05/23/21 15:42 IMPRESSION: No acute disease. Assessment and Plan (1) COVID-19: Status: Acute (2) Sepsis: Status: Acute (3) Left leg cellulitis: Status: Acute (4) Atrial fibrillation with RVR: Status: Acute (5) CAD (coronary artery disease): Status: Acute (6) Essential hypertension: Status: Acute (7) Paroxysmal atrial fibrillation: Status: Acute (8) Chronic renal failure, stage 3 (moderate): Status: Acute 60-year-old gentleman with past medical history significant for paroxysmal atrial fibrillation, chronic kidney disease stage 3, coronary artery disease presented to [facility] due to symptoms of shortness of breath low-grade fever and dry cough as well as left lower extremity redness and swelling of couple days duration patient workup showed that he has COVID-19 infection patient also noted to have elevated BNP, D-dimer, stable LFTs, mildly elevated lactic acid and leukocytosis patient meets sepsis criteria due to tachycardia, tachypnea and leukocytosis related to left lower extremity cellulitis. Sepsis due to left lower extremity cellulitis Extensive cellulitis extending from left lower leg to left thigh Sepsis focused examination done Will give IV fluids 30 mL/kg, place patient on IV vancomycin and Zosyn Follow CBC, lactic acid and clinical course closely Follow 2 set of blood cultures, id consult COVID-19 infection Patient vaccinated but no booster no evidence of hypoxia Supportive care with cough medications oxygen as needed Paroxysmal atrial fibrillation with rapid ventricular rate Likely due to low-grade fever and infection Patient asymptomatic, soft BP will give digoxin if ventricular rate remains elevated , continue tele monitor Resume home medication metoprolol and Eliquis Chronic kidney disease stage 3 Mild dehydration, received 500 mL of IV fluid in ER, hold Aldactone and Lasix follow BMP Coronary artery disease no chest pain Continue metoprolol, aspirin and statin Chronic bronchitis stable Continue home inhalers will add as needed Xopenex Morbid obesity weight reduction recommended Code status full code DVT prophylaxis with Eliquis Quality Stroke Does the patient have a stroke diagnosis?: No VTE Prior VTE?: No VTE Risk Level:: Medical - moderate - high VTE Device Contraindication: Treatment Not Indicated VTE Drug Contraindication: N/A - Med Ordered
--- NOTE | 2021-05-23 17:35 | PC.NURSE ---
lungs - diminished all lobes.
[2021-05-23] MEDS: Piperacillin Sodium/Tazobactam 3.375 GM in 0.9 % Sodium Chloride 50 ML IV ×2 (17:42→22:55)
[2021-05-23] MEDS: guaiFENesin DM 100/10/5 ML 5 ML SYRUP 10 ML PO ×2 (17:42→20:56)
[2021-05-23 17:49] LABS: ~Lactic Acid-LAB USE ONLY 3.5 mmol/L (0.5-2.0)
[2021-05-23] MEDS: 0.9 % Sodium Chloride 1,000 ML 999 ML IVCONT (17:54)
[2021-05-23 18:24] LABS: COVID-19 Test Positive (Negative)
[2021-05-23] MEDS: vancomycin HCL 1,500 MG in 0.9 % Sodium Chloride 500 ML 333.33 MG IV (18:42)
[2021-05-23 19:32] LABS: Reflex Lactate? 2 Y
[2021-05-23] MEDS: Melatonin 3 MG TABLET 9 MG PO (20:56)
[2021-05-23] MEDS: Metoprolol Tartrate 25 MG TABLET PO (20:56)
[2021-05-23] MEDS: Apixaban 5 MG TABLET PO (20:57)
[2021-05-23] MEDS: Atorvastatin Calcium 80 MG TABLET PO (20:57)
[2021-05-23] MEDS: 0.9 % Sodium Chloride 1,000 ML 75 ML IVCONT (21:06)
[2021-05-24 04:00] VITALS: BP 102/62; PULSE 85; RESP 18; TEMP 37.4; O2SAT 95
[2021-05-24 04:18] VITALS: BMI 45.0
--- NOTE | 2021-05-24 04:21 | PM.EVENT ---
Event Note Date of Service: 06/09/21 Event Note: Afib with RVR: given Dig 0.25mg x1 IV; pt BP soft side. cardiology follow up .
[2021-05-24] MEDS: Piperacillin Sodium/Tazobactam 3.375 GM in 0.9 % Sodium Chloride 50 ML IV ×2 (05:02→12:09)
[2021-05-24] MEDS: Digoxin 0.5 MG/2 ML AMPUL 0.25 MG IVPUSH (05:02)
[2021-05-24 06:52] LABS: MANUAL DIFF FLAG NO
[2021-05-24 06:54] LABS: Basophils Percent Auto 0.1 % (0-2); Hematocrit 38.1 % (42.0-52.0); Hemoglobin 11.9 g/dl (14.0-18.0); Imm Gran Abs Auto 0.06 X10*3/uL (0.00-0.03); Imm Gran Pct Auto 0.6 % (0.0-0.4); Lymphocytes Percent Auto 10.4 % (20-40); Mean Corpuscular HGB Conc 31.2 g/dl (31.0-36.0); Mean Corpuscular Hemoglobin 28.5 pg (27.0-33.0); Mean Corpuscular Volume 91.1 fL (80.0-98.0); Mean Platelet Volume 11.1 fL (9.4-12.4); Monocytes Absolute Auto 0.7 X10*3/uL (0.1-1.2); Monocytes Percent Auto 7.5 % (2-11); Neutrophils Absolute Auto 7.8 x10*3/uL (2.0-8.3); Neutrophils Percent Auto 81.4 % (45-73); Platelet Count 152 X10*3/uL (160-400); Red Blood Count 4.18 X10*6/uL (4.60-5.80); Red Cell Distribution Width 14.5 % (11.0-16.0); White Blood Count 9.6 X10*3/uL (4.8-10.8)
[2021-05-24 07:09] LABS: Anion Gap 11 (12-20); Blood Urea Nitrogen 23 mg/dL (9-16); Calcium 7.8 mg/dL (8.4-10.2); Carbon Dioxide 26 mmol/L (22-29); Chloride 108 mmol/L (96-108); Creatinine Clr Calc Pharmacy 78.3; Estimated Glomerular Filt Rate > 60; Glucose Random 82 mg/dL (60-115); Potassium 3.3 mmol/L (3.3-5.1); Sodium 142 mmol/L (135-145)
[2021-05-24 08:00] VITALS: BP 102/67; PULSE 141; RESP 22; TEMP 36.6; O2SAT 98
--- NOTE | 2021-05-24 08:43 | MHC.CM.PN ---
Patient is Covid (+); CM was able to speak with Patient over the phone, on his cell, at [phone] and address IMM with him, providing him with the original, via Nursing and placing a copy on the chart. Patient lives in an apartment with his /HCP and 16 year old Son and he uses no DME to assist with mobility. Patient receives [employer] assistance 2 hours/day, through [employer] and Patient's goal is to return home with said services. Patient has received Covid vax X2 and his PCP is Dr. Salvador Leon.Patient's or Daughter will provide transport to home.
--- NOTE | 2021-05-24 09:14 | P.CDIC_ITS ---
CDI Concurrent Query Documentation Clarification: PHYSICIAN'S DOCUMENTATION REQUEST Date of Query: 05/24/21913 Patient Name: Andrew Clinton Admit Date: 05/23/21 Dear Doctor, A review of the medical record indicates additional documentation may be needed. Please review below and update the documentation accordingly: Risk Factors/Clinical Indicators/Treatments Nursing assessment height and weight - BMI 44.2 Extreme obesity III S/P Gastrectomy If possible, please provide an associated diagnosis related to the abnormal BMI, such as: For a BMI >= 40: * Overweight * Obesity * Due to excess calories * Drug induced * Due to other cause * Severe or Morbid Obesity * With alveolar hypoventilation * Without alveolar hypoventilation Use of terms such as suspected, likely, concern for, or probable (associated with a specific diagnosis that is being evaluated, monitored, or treated as if it exists) are acceptable and can be coded in the inpatient setting, when documented at the time of discharge. Thank you, Mounika Dey [facility], [facility] Extension: [phone] Please use your independent medical judgment in providing your response. THIS QUERY IS PART OF THE PERMANENT MEDICAL RECORD Provider Response: Other Other Diagnosis: see note
[2021-05-24] MEDS: 0.9 % Sodium Chloride Flush 3 ML SYRINGE IVFLUSH ×2 (09:51→20:10)
[2021-05-24] MEDS: guaiFENesin DM 100/10/5 ML 5 ML SYRUP 10 ML PO ×3 (09:52→20:09)
[2021-05-24] MEDS: Aspirin Enteric Coated 81 MG TABLET.DR PO (09:52)
[2021-05-24] MEDS: Metoprolol Tartrate 25 MG TABLET PO ×4 (09:52→20:10)
[2021-05-24] MEDS: Apixaban 5 MG TABLET PO ×2 (09:52→20:10)
[2021-05-24] MEDS: Famotidine 20 MG TABLET PO (09:52)
--- NOTE | 2021-05-24 11:26 | HO.PM.IMPN ---
Subjective Subjective Date of Service: 05/24/21 Interval History: Feeling better this morning, less shortness of breath, admits to have decreased redness left lower extremity, denies fever, no chills, no headache, no dizziness, tolerating diet, no overnight events. Review of Systems Review of Systems: Yes all other systems are reviewed and are negative Physical Exam Vital Signs: Vital Signs: Last Vital Signs Temp 97.8 F 05/24/21 08:00 Pulse 141 H 05/24/21 08:00 Resp 22 H 05/24/21 08:00 BP 102/67 05/24/21 08:00 Pulse Ox 98 05/24/21 08:00 BMI result Body Mass Index 45.0 General awake aler t in no acute dist ress.? Neck? suppl e, no JVD. CVS irr egular rate rhythm , Respiratory lung s clear to auscult ation, no respirat ory distress, no w heeze, no rhonchi. Gastrointestinal abdomen soft, nont lyn, bowel sound s audible, no guar ding , no rigidity . Extremities righ t lower extremity no edema good amrk pheral pulses left lower extremity s ignificant swellin g extending from c [facility] to left thigh, hyperemia signifi cantly improved,le ss warmth and tend erness to palpatio n, left toenail la teral margin mild erythema and swell ing Neuro nonfocal , speech clear. P sych appropriate a ffect Back no CVA tenderness Objective Data Active Medications Acetaminophen (Acetaminophen 325 Mg Tablet) 650 mg PO Q6H PRN PRN Reason: Pain, Mild (Pain Scale 1-3) Albuterol Sulfate (Albuterol Sulfate 90 Mcg 8 Gm Inhaler) 1 puff INHALE Q4H PRN PRN Reason: for wheezing Apixaban (Apixaban 5 Mg Tablet) 5 mg PO BID [facility] Last Admin: 05/24/21 09:52 Dose: 5 mg Documented by: MANOHAR Aspirin (Aspirin Enteric Coated 81 Mg Tablet.) 81 mg PO DAILY [facility] Last Admin: 05/24/21 09:52 Dose: 81 mg Documented by: MANOHAR Atorvastatin Calcium (Atorvastatin Calcium 80 Mg Tablet) 80 mg PO BEDTIME [facility] Last Admin: 05/23/21 20:57 Dose: 80 mg Documented by: ROBE Famotidine (Famotidine 20 Mg Tablet) 20 mg PO DAILY [facility] Last Admin: 05/24/21 09:52 Dose: 20 mg Documented by: MANOHAR Fluticasone/Vilanterol (Fluticasone/Vilanterol 100/25 Blst.W.Dev) 1 puff INHALE DAILY [facility] Last Admin: 05/24/21 11:12 Dose: Not Given Documented by: VIANEY Non-Admin Reason: Med Not Available Furosemide (Furosemide 40 Mg Tablet) 40 mg PO SUTUTHSA [facility]; Protocol Last Admin: 05/23/21 17:30 Dose: Not Given Documented by: JARRETT Non-Admin Reason: per dr. noe Romeroaifenesin/Dextromethorphan (Guaifenesin Dm 100/10/5 Ml 5 Ml Syrup) 10 ml PO TID [facility] Last Admin: 05/24/21 09:52 Dose: 10 ml Documented by: MANOHAR Piperacillin Sod/Tazobactam (Sod 3.375 gm/ Sodium Chloride) 50 mls @ 100 mls/hr IV Q6H [facility] Last Infusion: 05/24/21 05:36 Dose: 0 mls/hr Documented by: LEONOR Vancomycin HCl 1,500 mg/ (Sodium Chloride) 500 mls @ 333.333 mls/hr IV Q24H [facility] Last Infusion: 05/23/21 20:57 Dose: 0 mls/hr Documented by: ROBE Levalbuterol HCl (Levalbuterol Hcl 1.25 Mg/0.5 Ml Vial.Neb) 1.25 mg INHALE Q3H PRN PRN Reason: sob Melatonin (Melatonin 3 Mg Tablet) 9 mg PO BEDTIME [facility] Last Admin: 05/23/21 20:56 Dose: 9 mg Documented by: ROBE Metoprolol Tartrate (Metoprolol Tartrate 25 Mg Tablet) 25 mg PO BID [facility]; Protocol Last Admin: 05/24/21 09:52 Dose: 25 mg Documented by: MANOHAR Ondansetron HCl (Ondansetron Hcl 4 Mg/2 Ml Vial) 4 mg IVPUSH Q8H PRN PRN Reason: Nausea and Vomiting Pharmacy Consult (Consult Rx Perform Med Rec) 1 each MISCELLANE ONCE PRN PRN Reason: Consult order Pharmacy Consult (Consult Rx Vancomycin Dosing) 1 each MISCELLANE DAILY PRN PRN Reason: Consult order Sodium Chloride (0.9 % Sodium Chloride Flush 3 Ml Syringe) 3 ml IVFLUSH QSHIFT [facility] Last Admin: 05/24/21 09:51 Dose: 3 ml Documented by: MANOHAR Tiotropium [place] (Tiotropium [place] 18 Mcg Cap.W.Dev) 1 puff INHALE DAILY [facility] Last Admin: 05/24/21 08:33 Dose: Not Given Documented by: VIANEY Non-Admin Reason: Med Not Available Labs CBC & Chem 7: 05/24/21 06:22 05/24/21 06:22 Labs: Laboratory Results - last 24 hr 05/23/21 05/23/21 05/23/21 13:08 13:08 13:08 MCV 87.9 MCH 29.1 MCHC 33.1 RDW 14.3 Plt Count 208 MPV 11.3 Immature Gran % (Auto) Cancelled Neut % (Auto) Cancelled Lymph % (Auto) Cancelled Ness % (Auto) Cancelled Eos % (Auto) Cancelled Baso % (Auto) Cancelled Lymph # (Auto) Cancelled Ness # (Auto) Cancelled Eos # (Auto) Cancelled Baso # (Auto) Cancelled Abs Immat Gran (auto) Cancelled Absolute Neuts (auto) Cancelled Absolute Nucleated RBC 0.000 Nucleated RBC % (auto) 0.0 Neutrophils % (Manual) 68 Band Neutrophils % 26 H Lymphocytes % (Manual) 4 L Atypical Lymphs % (Man) 1 Monocytes % (Manual) 1 L Abs Neuts (Manual) 11.6 H Lymphocytes # (Manual) 0.5 L Atyp Lymphs # (Manual) 0.1 Monocytes # (Manual) 0.1 WBC Morphology Comment DYSMORPHIC Platelet Estimate NORMAL Plt Morphology Comment NORM RBC Morphology NOTED Microcytosis 1+ (5-14) Acanthocytes (Spur) 2+ (3-5) Schistocytes 1+ (0-2) D-Dimer High Sensitivty 318 VBG pH VBG pCO2 VBG pO2 VBG HCO3 VBG O2 Saturation VBG Base Excess Anion Gap 17 Estim Creat Clear Calc 61.5 Estimated GFR 51 Random Glucose 124 H Lactic Acid Lactic Acid F/U @ 2Hr Lactic Acid F/U @ 4Hr Calcium 8.6 Total Bilirubin 1.8 H Direct Bilirubin 0.8 H AST 21 ALT 14 Alkaline Phosphatase 76 D B-Natriuretic Peptide Total Protein 6.4 L Albumin 3.7 COVID-19 (JACOB) COVID-19 [facility] 05/23/21 05/23/21 05/23/21 13:08 13:08 13:13 MCV MCH MCHC RDW Plt Count MPV Immature Gran % (Auto) Neut % (Auto) Lymph % (Auto) Ness % (Auto) Eos % (Auto) Baso % (Auto) Lymph # (Auto) Ness # (Auto) Eos # (Auto) Baso # (Auto) Abs Immat Gran (auto) Absolute Neuts (auto) Absolute Nucleated RBC Nucleated RBC % (auto) Neutrophils % (Manual) Band Neutrophils % Lymphocytes % (Manual) Atypical Lymphs % (Man) Monocytes % (Manual) Abs Neuts (Manual) Lymphocytes # (Manual) Atyp Lymphs # (Manual) Monocytes # (Manual) WBC Morphology Comment Platelet Estimate Plt Morphology Comment RBC Morphology Microcytosis Acanthocytes (Spur) Schistocytes D-Dimer High Sensitivty VBG pH 7.37 VBG pCO2 51 VBG pO2 46 VBG HCO3 30 H VBG O2 Saturation 69.0 VBG Base Excess 4.0 Anion Gap Estim Creat Clear Calc Estimated GFR Random Glucose Lactic Acid 3.1 H* Lactic Acid F/U @ 2Hr Lactic Acid F/U @ 4Hr Calcium Total Bilirubin Direct Bilirubin AST ALT Alkaline Phosphatase B-Natriuretic Peptide 879 H Total Protein Albumin COVID-19 (JACOB) COVID-19 [facility] 05/23/21 05/23/21 05/23/21 17:27 18:06 19:49 MCV MCH MCHC RDW Plt Count MPV Immature Gran % (Auto) Neut % (Auto) Lymph % (Auto) Ness % (Auto) Eos % (Auto) Baso % (Auto) Lymph # (Auto) Ness # (Auto) Eos # (Auto) Baso # (Auto) Abs Immat Gran (auto) Absolute Neuts (auto) Absolute Nucleated RBC Nucleated RBC % (auto) Neutrophils % (Manual) Band Neutrophils % Lymphocytes % (Manual) Atypical Lymphs % (Man) Monocytes % (Manual) Abs Neuts (Manual) Lymphocytes # (Manual) Atyp Lymphs # (Manual) Monocytes # (Manual) WBC Morphology Comment Platelet Estimate Plt Morphology Comment RBC Morphology Microcytosis Acanthocytes (Spur) Schistocytes D-Dimer High Sensitivty VBG pH VBG pCO2 VBG pO2 VBG HCO3 VBG O2 Saturation VBG Base Excess Anion Gap Estim Creat Clear Calc Estimated GFR Random Glucose Lactic Acid Lactic Acid F/U @ 2Hr 3.5 H* Lactic Acid F/U @ 4Hr 2.0 Calcium Total Bilirubin Direct Bilirubin AST ALT Alkaline Phosphatase B-Natriuretic Peptide Total Protein Albumin COVID-19 (JACOB) Positive A COVID-19 Clin Com See Note 05/24/21 05/24/21 06:22 06:22 MCV 91.1 MCH 28.5 MCHC 31.2 RDW 14.5 Plt Count 152 L D MPV 11.1 Immature Gran % (Auto) 0.6 H Neut % (Auto) 81.4 H Lymph % (Auto) 10.4 L Ness % (Auto) 7.5 Eos % (Auto) 0.0 Baso % (Auto) 0.1 Lymph # (Auto) 1.0 L Ness # (Auto) 0.7 Eos # (Auto) 0.0 Baso # (Auto) 0.0 Abs Immat Gran (auto) 0.06 H Absolute Neuts (auto) 7.8 Absolute Nucleated RBC 0.000 Nucleated RBC % (auto) 0.0 Neutrophils % (Manual) Band Neutrophils % Lymphocytes % (Manual) Atypical Lymphs % (Man) Monocytes % (Manual) Abs Neuts (Manual) Lymphocytes # (Manual) Atyp Lymphs # (Manual) Monocytes # (Manual) WBC Morphology Comment Platelet Estimate Plt Morphology Comment RBC Morphology Microcytosis Acanthocytes (Spur) Schistocytes D-Dimer High Sensitivty VBG pH VBG pCO2 VBG pO2 VBG HCO3 VBG O2 Saturation VBG Base Excess Anion Gap 11 L Estim Creat Clear Calc 78.3 Estimated GFR > 60 Random Glucose 82 Lactic Acid Lactic Acid F/U @ 2Hr Lactic Acid F/U @ 4Hr Calcium 7.8 L D Total Bilirubin Direct Bilirubin AST ALT Alkaline Phosphatase B-Natriuretic Peptide Total Protein Albumin COVID-19 (JACOB) COVID-19 Clin Com Assessment and Plan (1) Atrial fibrillation with RVR: Status: Acute (2) Left leg cellulitis: Status: Acute (3) Sepsis: Status: Acute (4) COVID-19: Status: Acute (5) Essential hypertension: Status: Acute (6) Paroxysmal atrial fibrillation: Status: Acute (7) Morbid obesity: Status: Acute Assessment and Plan: 60-year-old gentleman with past medical history significant for paroxysmal atrial fibrillation, chronic kidney disease stage 3, coronary artery disease presented to [facility] due to symptoms of shortness of breath low-grade fever and dry cough as well as left lower extremity redness and swelling of couple days duration patient workup showed that he has COVID-19 infection patient also noted to have elevated BNP, D-dimer, stable LFTs, mildly elevated lactic acid and leukocytosis patient meets sepsis criteria due to tachycardia, tachypnea and leukocytosis related to left lower extremity cellulitis. Sepsis due to left lower extremity cellulitis Left left lower extremity redness improved, persistent swelling extending from left lower leg to left thigh Sepsis resolved, WBC and lactic acidosis normalized, intermittent tachycardia likely due to atrial fibrillation Keep leg elevated on IV vancomycin and Zosyn day 2 Follow 2 set of blood cultures Await ID input COVID-19 infection Patient vaccinated but no booster no evidence of hypoxia Supportive care with cough medications, oxygen as needed Paroxysmal atrial fibrillation with rapid ventricular rate Likely due to low-grade fever and infection Patient asymptomatic,? soft BP , ventricular rate fluctuating, received 1 dose of digoxin At home takes metoprolol 75 mg b.i.d., will change to metoprolol 25 mg q.6 hours due to soft blood pressure and continue tele monitor A ventricular rate remains elevated will use low-dose digoxin with close follow-up due to chronic kidney disease Continue Eliquis Chronic kidney disease stage 3 Mild dehydration, resolved status post IV fluid, soft blood pressure will hold Lasix and Aldactone History of diastolic congestive heart failure No decompensation hold diuretics due to soft blood pressure resume if noted to have worsening shortness of breath Coronary artery disease no chest pain Continue metoprolol, aspirin and statin Chronic bronchitis stable Continue home inhalers will add as needed Xopenex Morbid obesity weight reduction recommended Code status full code DVT prophylaxis with [employer] Quality Stroke Does the patient have a stroke diagnosis?: No VTE Prior VTE?: No VTE Risk Level:: Medical - moderate - high VTE Device Contraindication: Treatment Not Indicated VTE Drug Contraindication: N/A - Med Ordered
--- NOTE | 2021-05-24 11:46 | MHC.CLN ---
PT REPORTED HX BARIATRIC SX 1.5 YEARS AGO RECOMMEND ADDING ENSURE MAX TID-PT IS RECEPTIVE TO DRINKING PT REQUESTING INCREASED FLUIDS WITH MEALS ORDERED PROPEL WATER WITH MEALS VIA KITCHEN
[2021-05-24 12:00] VITALS: BP 108/58; PULSE 116; RESP 18; TEMP 36.8; O2SAT 98
[2021-05-24 15:36] VITALS: BP 106/73; PULSE 92; RESP 19; TEMP 37.1; O2SAT 97
--- NOTE | 2021-05-24 15:52 | P.CNID_ITS ---
History of Present Illness Data of Consult Service Date: 05/24/21 Requesting physician: Suzie Valles Primary Care Provider: Unknown Physician HPI Reason for consult: COVID,RLE erythema He presents with fever and chills and shortness of breath for 3 days as well as LLE redness and swelling below knee He has COVID positivity Review of Systems Verdana 4l Review of Systems: Yes all other systems are reviewed and Verdana 4d are negative PMFSH Past Medical History Medical History CAD (coronary artery disease) Chronic bronchitis Chronic renal failure, stage 3 (moderate) Essential hypertension GERD (gastroesophageal reflux disease) Paroxysmal atrial fibrillation Family History Family History Father CVD (cardiovascular disease) Mother Diabetes mellitus Cancer Brother No problems noted. Brother No problems noted. Son No problems noted. Sister No problems noted. Sister No problems noted. Sister No problems noted. Sister No problems noted. Sister No problems noted. Sister No problems noted. Other Mental health disorder Substance use disorder Family history: reviewed and not pertinent Surgical History Surgical History History of carpal tunnel release History of knee replacement Status post laparoscopic sleeve gastrectomy Social History Social History Household Members: Spouse Housing: Other Housing Other:: Hotel Do you presently have visiting nurse or other home services: No Patient Tobacco Use Status: Former Tobacco user Years Smoked: 40 Second Hand Smoke Exposure: No service: Yes Current occupational status: disabled Meds Allergies Allergy/AdvReac Type Severity Reaction Status Date / Time seafood Allergy Unknown rash, Verified 05/23/21 12:50 swelling LEVONOX Allergy Unknown Rash Uncoded 04/01/21 08:44 ]Swelling Active Medications: Current Medications Acetaminophen (Acetaminophen 325 Mg Tablet) 650 mg PO Q6H PRN PRN Reason: Pain, Mild (Pain Scale 1-3) Albuterol Sulfate (Albuterol Sulfate 90 Mcg 8 Gm Inhaler) 1 puff INHALE Q4H PRN PRN Reason: for wheezing Apixaban (Apixaban 5 Mg Tablet) 5 mg PO BID [facility] Last Admin: 05/24/21 09:52 Dose: 5 mg Documented by: Aspirin (Aspirin Enteric Coated 81 Mg Tablet.) 81 mg PO DAILY [facility] Last Admin: 05/24/21 09:52 Dose: 81 mg Documented by: Atorvastatin Calcium (Atorvastatin Calcium 80 Mg Tablet) 80 mg PO BEDTIME [facility] Last Admin: 05/23/21 20:57 Dose: 80 mg Documented by: Famotidine (Famotidine 20 Mg Tablet) 20 mg PO DAILY [facility] Last Admin: 05/24/21 09:52 Dose: 20 mg Documented by: Fluticasone/Vilanterol (Fluticasone/Vilanterol 100/25 Blst.W.Dev) 1 puff INHALE DAILY [facility] Last Admin: 05/24/21 11:12 Dose: Not Given Documented by: Furosemide (Furosemide 40 Mg Tablet) 40 mg PO SUTUTHSA [facility]; Protocol Last Admin: 05/23/21 17:30 Dose: Not Given Documented by: Guaifenesin/Dextromethorphan (Guaifenesin Dm 100/10/5 Ml 5 Ml Syrup) 10 ml PO TID [facility] Last Admin: 05/24/21 14:28 Dose: 10 ml Documented by: Piperacillin Sod/Tazobactam (Sod 3.375 gm/ Sodium Chloride) 50 mls @ 100 mls/hr IV Q6H [facility] Last Infusion: 05/24/21 12:53 Dose: Infused Documented by: Vancomycin HCl 1,500 mg/ (Sodium Chloride) 500 mls @ 333.333 mls/hr IV Q24H [facility] Last Infusion: 05/23/21 20:57 Dose: Infused Documented by: Levalbuterol HCl (Levalbuterol Hcl 1.25 Mg/0.5 Ml Vial.Vikas) 1.25 mg INHALE Q3H PRN PRN Reason: sob Melatonin (Melatonin 3 Mg Tablet) 9 mg PO BEDTIME [facility] Last Admin: 05/23/21 20:56 Dose: 9 mg Documented by: Metoprolol Tartrate (Metoprolol Tartrate 25 Mg Tablet) 25 mg PO QID [facility]; Protocol Last Admin: 05/24/21 14:28 Dose: 25 mg Documented by: Ondansetron HCl (Ondansetron Hcl 4 Mg/2 Ml Vial) 4 mg IVPUSH Q8H PRN PRN Reason: Nausea and Vomiting Pharmacy Consult (Consult Rx Perform Med Rec) 1 each MISCELLANE ONCE PRN PRN Reason: Consult order Pharmacy Consult (Consult Rx Vancomycin Dosing) 1 each MISCELLANE DAILY PRN PRN Reason: Consult order Sodium Chloride (0.9 % Sodium Chloride Flush 3 Ml Syringe) 3 ml IVFLUSH QSHIFT [facility] Last Admin: 05/24/21 09:51 Dose: 3 ml Documented by: Tiotropium [place] (Tiotropium [place] 18 Mcg Cap.W.Dev) 1 puff INHALE DAILY [facility] Last Admin: 05/24/21 08:33 Dose: Not Given Documented by: Home Medications Medication Instructions Recorded Confirmed Last Taken Type apixaban 5 mg 5 mg PO BID 02/23/20 05/23/21 05/23/21 History tablet budesonide-formot 2 puff PO BID 02/23/20 05/23/21 05/23/21 History mely HFA 80 mcg-4.5 mcg/actuation aerosol inhaler tiotropium 1 cap INHALATION 02/23/20 05/23/21 05/23/21 History bromide 18 mcg DAILY capsule with inhalation device atorvastatin 80 80 mg PO BEDTIME 05/23/21 05/23/21 05/22/21 History mg tablet furosemide 40 mg 40 mg PO 05/23/21 05/23/21 05/23/21 History tablet SUTUTHSA melatonin 10 mg 10 mg PO BEDTIME 05/23/21 05/23/21 05/22/21 History tablet spironolactone 25 25 mg PO MOWEFR 05/23/21 05/23/21 05/23/21 History mg tablet Physical Exam Verdana 4l Vital Signs: Verdana 4d Verdana 4d Vital Signs: Verdana 4d Verdana 4Bd Last Vital Signs Verdana 4d Supervisor Liquid Yeast New 4d Supervisor Liquid Yeast New 4d Temp 98.7 F 05/24/21 15:36 Supervisor Liquid Yeast New 4d Pulse 92 05/24/21 15:36 Supervisor Liquid Yeast New 4d Resp 19 05/24/21 15:36 BP 106/73 05/24/21 15:36 Pulse Ox 97 05/24/21 15:36 BMI result Body Mass Index 45.0 Const: General: cooperative Eyes: General: appearance normal, both eyes and all related structures Pupils: Equal, round and reactive pupils present Resp: Effort & Inspection: normal respiratory effort Cardio: Rate: regular rate Rhythm: regular rhythm GI: Palpation (GI): nontender Skin: General skin exam: no rashes or lesions noted Neuro: Cranial nerves: Yes Equal, round and reactive pupils present Results Labs CBC & Chem 7: 05/26/21 06:19 05/29/21 07:45 Labs: Short CBC 05/24/21 Range/Units 06:22 WBC 9.6 (4.8-10.8) X10*3/uL Hgb 11.9 L (14.0-18.0) g/dl Hct 38.1 L (42.0-52.0) % Plt Count 152 L D (160-400) X10*3/uL BMP 05/24/21 06:22 Sodium 142 Potassium 3.3 Chloride 108 Carbon Dioxide 26 BUN 23 H Creatinine 1.11 Calcium 7.8 L D Microbiology Microbiology Results: Microbiology 05/23/21 13:18 Blood - Venous Blood Culture - Preliminary No growth after 24 hours. 05/23/21 13:08 Blood - Venous Blood Culture - Preliminary No growth after 24 hours. Assessment and Plan (1) COVID-19: Status: Acute He has positive COVID of recent oxygen with low level oxygen demands Would give Remdesivir since LFTs unremarkable and continue oxygen and Dexamethasone (2) Left leg cellulitis: Status: Acute He has cellulitis,probable gram positive Would give Vancomycin alone and then po Doxycycline for a week
[2021-05-24] MEDS: vancomycin HCL 1,500 MG in 0.9 % Sodium Chloride 500 ML 333.33 MG IV (16:23)
[2021-05-24] MEDS: Remdesivir 200 MG in 0.9 % Sodium Chloride 210 ML 105 MG IV (18:05)
[2021-05-24 19:39] VITALS: BP 95/73; PULSE 101; RESP 17; TEMP 37.1; O2SAT 98
[2021-05-24] MEDS: Melatonin 3 MG TABLET 9 MG PO (20:10)
[2021-05-24] MEDS: Atorvastatin Calcium 80 MG TABLET PO (20:10)
[2021-05-24] MEDS: Acetaminophen 325 MG TABLET 650 MG PO (20:14)
[2021-05-25] VITALS (8 sets, daily range): BP systolic 101–111; BP diastolic 65–75; PULSE 83–110; RESP 18–20; TEMP 35.9–37.6; O2SAT 96–99
[2021-05-25 07:47] LABS: Estimated Glomerular Filt Rate > 60
[2021-05-25] MEDS: Fluticasone/Vilanterol 100/25 BLST.W.DEV 1 PUFF INHALE (08:37)
[2021-05-25] MEDS: Aspirin Enteric Coated 81 MG TABLET.DR PO (09:20)
[2021-05-25] MEDS: 0.9 % Sodium Chloride Flush 3 ML SYRINGE IVFLUSH ×3 (09:20→19:45)
[2021-05-25] MEDS: guaiFENesin DM 100/10/5 ML 5 ML SYRUP 10 ML PO ×3 (09:20→19:44)
[2021-05-25] MEDS: Famotidine 20 MG TABLET PO (09:20)
[2021-05-25] MEDS: Metoprolol Tartrate 25 MG TABLET PO (09:20)
[2021-05-25] MEDS: dexAMETHasone sod phosphate 4 MG/ML VIAL 6 MG IVPUSH (09:20)
[2021-05-25] MEDS: Apixaban 5 MG TABLET PO ×2 (09:20→19:45)
[2021-05-25] MEDS: Metoprolol Tartrate 12.5 MG HALFTAB 37.5 MG PO ×3 (13:32→19:45)
--- NOTE | 2021-05-25 15:02 | HO.PM.IMPN ---
Subjective Subjective Date of Service: 05/25/21 Interval History: Ventricular rates 80s-140s Coughing + dyspnea improved L leg redness improved Review of Systems Review of Systems: Yes all other systems are reviewed and are negative Physical Exam Vital Signs: Vital Signs: Last Vital Signs Temp 97.6 F 05/25/21 11:58 Pulse 100 05/25/21 11:58 Resp 20 05/25/21 11:58 BP 102/75 05/25/21 11:58 Pulse Ox 98 05/25/21 11:58 BMI result Body Mass Index 45.0 Gen: in no acute distress HEENT: sclera anicteric, moist mucus membranes Neck: supple Lungs: clear to auscultation bilaterally Heart: irregularly irregular, no murmurs Abd: soft, non-tender, non-distended, morbidly obese Ext: no edema Skin: L calf with faint erythema + warmth, no purulence, edges poorly defined Neuro: alert and oriented x3, no focal findings Psych: appropriate affect Objective Data Active Medications Acetaminophen (Acetaminophen 325 Mg Tablet) 650 mg PO Q6H PRN PRN Reason: Pain, Mild (Pain Scale 1-3) Last Admin: 05/24/21 20:14 Dose: 650 mg Documented by: SAM Albuterol Sulfate (Albuterol Sulfate 90 Mcg 8 Gm Inhaler) 1 puff INHALE Q4H PRN PRN Reason: for wheezing Apixaban (Apixaban 5 Mg Tablet) 5 mg PO BID [facility] Last Admin: 05/25/21 09:20 Dose: 5 mg Documented by: MANOHAR Aspirin (Aspirin Enteric Coated 81 Mg Tablet.) 81 mg PO DAILY [facility] Last Admin: 05/25/21 09:20 Dose: 81 mg Documented by: MANOHAR Atorvastatin Calcium (Atorvastatin Calcium 80 Mg Tablet) 80 mg PO BEDTIME [facility] [place] Last Admin: 05/24/21 20:10 Dose: 80 mg Documented by: SAM Benzonatate (Benzonatate 100 Mg Capsule) 100 mg PO TID PRN PRN Reason: Cough Dexamethasone Sodium Phosphate (Dexamethasone Sod Phosphate 4 Mg/Ml Vial) 6 mg IVPUSH DAILY [facility] Stop: 06/03/21 09:01 Last Admin: 05/25/21 09:20 Dose: 6 mg Documented by: MANOHAR Famotidine (Famotidine 20 Mg Tablet) 20 mg PO DAILY [facility] Last Admin: 05/25/21 09:20 Dose: 20 mg Documented by: MANOHAR Fluticasone/Vilanterol (Fluticasone/Vilanterol 100/25 Blst.W.Dev) 1 puff INHALE DAILY [facility] [place] Last Admin: 05/25/21 08:37 Dose: 1 puff Documented by: KAL Furosemide (Furosemide 40 Mg Tablet) 40 mg PO SUTUTHSA [facility] [place]; Protocol Last Admin: 05/23/21 17:30 Dose: Not Given Documented by: JARRETT Non-Admin Reason: per dr. noe Romeroaifenesin/Dextromethorphan (Guaifenesin Dm 100/10/5 Ml 5 Ml Syrup) 10 ml PO TID [facility] [place] Last Admin: 05/25/21 09:20 Dose: 10 ml Documented by: MANOHAR Vancomycin HCl 1,500 mg/ (Sodium Chloride) 500 mls @ 333.333 mls/hr IV Q24H [facility] Last Infusion: 05/24/21 18:10 Dose: 0 mls/hr Documented by: MANOHAR Remdesivir 100 mg/ Sodium (Chloride) 230 mls @ 115 mls/hr IV Q24H [facility] [place] Stop: 05/28/21 17:59 Levalbuterol HCl (Levalbuterol Hcl 1.25 Mg/0.5 Ml Vial.Neb) 1.25 mg INHALE Q3H PRN PRN Reason: sob Melatonin (Melatonin 3 Mg Tablet) 9 mg PO BEDTIME [facility] [place] Last Admin: 05/24/21 20:10 Dose: 9 mg Documented by: SAM Metoprolol Tartrate (Metoprolol Tartrate 12.5 Mg Halftab) 37.5 mg PO QID [facility] [place]; Protocol Last Admin: 05/25/21 13:32 Dose: 37.5 mg Documented by: MANOHAR Ondansetron HCl (Ondansetron Hcl 4 Mg/2 Ml Vial) 4 mg IVPUSH Q8H PRN PRN Reason: Nausea and Vomiting Pharmacy Consult (Consult Rx Perform Med Rec) 1 each MISCELLANE ONCE PRN PRN Reason: Consult order Pharmacy Consult (Consult Rx Vancomycin Dosing) 1 each MISCELLANE DAILY PRN PRN Reason: Consult order Sodium Chloride (0.9 % Sodium Chloride Flush 3 Ml Syringe) 3 ml IVFLUSH QSHIFT [facility] [place] Last Admin: 05/25/21 09:20 Dose: 3 ml Documented by: BRODurga Tiotropium Odon (Tiotropium Odon 18 Mcg Cap.W.Dev) 1 puff INHALE DAILY [facility] [place] Last Admin: 05/25/21 11:43 Dose: 1 puff Documented by: KAL Labs CBC & Chem 7: 05/24/21 06:22 05/25/21 07:16 Labs: Laboratory Results - last 24 hr 05/25/21 07:16 Estim Creat Clear Calc 86.0 Estimated GFR > 60 Microbiology Microbiology Results: Microbiology 05/23/21 13:18 Blood Culture - Preliminary Blood - Venous No growth after 24 hours. 05/23/21 13:08 Blood Culture - Preliminary Blood - Venous No growth after 24 hours. Assessment and Plan (1) Atrial fibrillation with RVR: Status: Acute (2) Left leg cellulitis: Status: Acute (3) Sepsis: Status: Acute (4) COVID-19: Status: Acute (5) Essential hypertension: Status: Acute (6) Paroxysmal atrial fibrillation: Status: Acute (7) Morbid obesity: Status: Acute Assessment and Plan: hospital d#3 60yo M with pAF, CKD3, CAD admitted for sepsis due to LLE cellulitis + Covid-19 pneumonia # LLE cellulitis - ID consulted, continue vancomycin d#3, BCx NGTD, improving clinically, transition to doxycycline upon discharge # Covid-19 pneumonia, breakthrough [tough not booster] - remdesivir d#2, dexamethasone d#1, ID consulted, trend inflammatory markers # acute hypoxic respiratory failure - supplemental O2, wean as tolerated # pAF with RVR - due to sepsis - received 1 dose of IV digoxin, if needs more caution with CKD - metoprolol tartrate, increase from 25 to 37.5 mg q6h - apixaban for AC # CKD3 - monitor SCr carefully, holding furosemide + spironolactone for now due to soft BP # chronic HFpEF - holding diuretics due to soft BP; continue metoprolol # CAD - continue ASA, statin, metoprolol # chronic bronchitis - continue home inhalers, prn levalbuterol # morbid obesity - consider outpt bariatrics referral # VTE ppx - apixaban Quality Stroke Does the patient have a stroke diagnosis?: No VTE Prior VTE?: No VTE Risk Level:: Medical - moderate - high VTE Device Contraindication: Treatment Not Indicated VTE Drug Contraindication: N/A - Med Ordered
[2021-05-25] MEDS: Remdesivir 100 MG in 0.9 % Sodium Chloride 230 ML 115 MG IV (16:26)
[2021-05-25] MEDS: Furosemide 40 MG TABLET PO (18:15)
[2021-05-25] MEDS: vancomycin HCL 1,500 MG in 0.9 % Sodium Chloride 500 ML 333.33 MG IV (18:48)
[2021-05-25] MEDS: Melatonin 3 MG TABLET 9 MG PO (19:45)
[2021-05-25] MEDS: Atorvastatin Calcium 80 MG TABLET PO (19:45)
[2021-05-26 02:56] VITALS: BP 113/72; PULSE 90; RESP 18; TEMP 36.8; O2SAT 97
[2021-05-26 06:51] LABS: Hematocrit 35.3 % (42.0-52.0); Hemoglobin 11.5 g/dl (14.0-18.0); Mean Corpuscular HGB Conc 32.6 g/dl (31.0-36.0); Mean Corpuscular Hemoglobin 29.2 pg (27.0-33.0); Mean Corpuscular Volume 89.6 fL (80.0-98.0); Mean Platelet Volume 10.7 fL (9.4-12.4); Platelet Count 204 X10*3/uL (160-400); Red Blood Count 3.94 X10*6/uL (4.60-5.80); Red Cell Distribution Width 14.5 % (11.0-16.0); White Blood Count 7.7 X10*3/uL (4.8-10.8)
[2021-05-26 07:27] LABS: Alanine Aminotransferase 15 U/L (0-40); Albumin Level 2.8 g/dL (3.5-5.0); Alkaline Phosphatase 65 U/L (39-117); Anion Gap 12 (12-20); Aspartate Amino Transferase 16 U/L (5-37); Bilirubin Total 0.5 mg/dL (0.0-1.0); Blood Urea Nitrogen 21 mg/dL (9-16); Calcium 8.4 mg/dL (8.4-10.2); Carbon Dioxide 24 mmol/L (22-29); Chloride 108 mmol/L (96-108); Creatinine Clr Calc Pharmacy 96.6; Estimated Glomerular Filt Rate > 60; Glucose Random 116 mg/dL (60-115); Potassium 3.3 mmol/L (3.3-5.1); Sodium 141 mmol/L (135-145); Total Protein 5.1 g/dL (6.5-8.0)
[2021-05-26] MEDS: Fluticasone/Vilanterol 100/25 BLST.W.DEV 1 PUFF INHALE (07:31)
[2021-05-26 07:33] VITALS: PULSE 92; RESP 18; O2SAT 98
[2021-05-26 07:39] VITALS: BP 117/78; PULSE 100; RESP 17; TEMP 36.1; O2SAT 93
[2021-05-26 08:39] LABS: C Reactive Protein 14.44 mg/dL (< or = 0.50)
[2021-05-26] MEDS: guaiFENesin DM 100/10/5 ML 5 ML SYRUP 10 ML PO ×3 (09:27→19:57)
[2021-05-26] MEDS: Aspirin Enteric Coated 81 MG TABLET.DR PO (09:28)
[2021-05-26] MEDS: Metoprolol Tartrate 12.5 MG HALFTAB 37.5 MG PO (09:28)
[2021-05-26] MEDS: dexAMETHasone sod phosphate 4 MG/ML VIAL 6 MG IVPUSH (09:28)
[2021-05-26] MEDS: 0.9 % Sodium Chloride Flush 3 ML SYRINGE IVFLUSH ×3 (09:28→19:58)
[2021-05-26] MEDS: Apixaban 5 MG TABLET PO ×2 (09:28→19:58)
[2021-05-26] MEDS: Famotidine 20 MG TABLET PO (09:28)
--- NOTE | 2021-05-26 10:07 | HO.PM.IMPN ---
Subjective Subjective Date of Service: 05/26/21 Interval History: LLE redness/swelling improved ventricular rate in 80s-90s overnight, now in 110s no fever has cough dyspnea improved Review of Systems Review of Systems: Yes all other systems are reviewed and are negative Physical Exam Vital Signs: Vital Signs: Last Vital Signs Temp 97 F 05/26/21 07:39 Pulse 100 05/26/21 07:39 Resp 17 05/26/21 07:39 BP 117/78 05/26/21 07:39 Pulse Ox 93 05/26/21 07:39 BMI result Body Mass Index 45.0 Gen: in no acute distress HEENT: sclera anicteric, moist mucus membranes Neck: supple Lungs: clear to auscultation bilaterally Heart: irregularly irregular, rapid, no murmurs Abd: soft, non-tender, non-distended, morbidly obese Ext: no edema Skin: L calf and kimball swollen with faint erythema + warmth improved from yesterday, no purulence, edges poorly defined Neuro: alert and oriented x3, no focal findings Psych: appropriate affect Objective Data Active Medications Acetaminophen (Acetaminophen 325 Mg Tablet) 650 mg PO Q6H PRN PRN Reason: Pain, Mild (Pain Scale 1-3) Last Admin: 05/24/21 20:14 Dose: 650 mg Documented by: SAM Albuterol Sulfate (Albuterol Sulfate 90 Mcg 8 Gm Inhaler) 1 puff INHALE Q4H PRN PRN Reason: for wheezing Apixaban (Apixaban 5 Mg Tablet) 5 mg PO BID [facility] Last Admin: 05/26/21 09:28 Dose: 5 mg Documented by: MANOHAR Aspirin (Aspirin Enteric Coated 81 Mg Tablet.) 81 mg PO DAILY [facility] Last Admin: 05/26/21 09:28 Dose: 81 mg Documented by: MANOHAR Atorvastatin Calcium (Atorvastatin Calcium 80 Mg Tablet) 80 mg PO BEDTIME [facility] Last Admin: 05/25/21 19:45 Dose: 80 mg Documented by: MYLENE Benzonatate (Benzonatate 100 Mg Capsule) 100 mg PO TID PRN PRN Reason: Cough Dexamethasone Sodium Phosphate (Dexamethasone Sod Phosphate 4 Mg/Ml Vial) 6 mg IVPUSH DAILY [facility] Stop: 06/03/21 09:01 Last Admin: 05/26/21 09:28 Dose: 6 mg Documented by: MANOHAR Famotidine (Famotidine 20 Mg Tablet) 20 mg PO DAILY [facility] Last Admin: 05/26/21 09:28 Dose: 20 mg Documented by: MANOHAR Fluticasone/Vilanterol (Fluticasone/Vilanterol 100/25 Blst.W.Dev) 1 puff INHALE DAILY [facility] Last Admin: 05/26/21 07:31 Dose: 1 puff Documented by: CHELA Furosemide (Furosemide 40 Mg Tablet) 40 [facility]; Protocol Last Admin: 05/25/21 18:15 Dose: 40 mg Documented by: MANOHAR Guaifenesin/Dextromethorphan (Guaifenesin Dm 100/10/5 Ml 5 Ml Syrup) 10 ml PO TID [facility] Last Admin: 05/26/21 09:27 Dose: 10 ml Documented by: MANOHAR Vancomycin HCl 1,500 mg/ (Sodium Chloride) 500 mls @ 333.333 mls/hr IV Q24H [facility] Last Infusion: 05/25/21 20:28 Dose: 0 mls/hr Documented by: MYLENE Remdesivir 100 mg/ Sodium (Chloride) 230 mls @ 115 mls/hr IV Q24H [facility] Stop: 05/28/21 17:59 Last Infusion: 05/25/21 18:52 Dose: 0 mls/hr Documented by: MANOHAR Levalbuterol HCl (Levalbuterol Hcl 1.25 Mg/0.5 Ml Vial.Neb) 1.25 mg INHALE Q3H PRN PRN Reason: sob Melatonin (Melatonin 3 Mg Tablet) 9 mg PO BEDTIME [facility] Last Admin: 05/25/21 19:45 Dose: 9 mg Documented by: MYLENE Metoprolol Tartrate (Metoprolol Tartrate 50 Mg Tablet) 50 mg PO QID [facility]; Protocol Ondansetron HCl (Ondansetron Hcl 4 Mg/2 Ml Vial) 4 mg IVPUSH Q8H PRN PRN Reason: Nausea and Vomiting Pharmacy Consult (Consult Rx Perform Med Rec) 1 each MISCELLANE ONCE PRN PRN Reason: Consult order Pharmacy Consult (Consult Rx Vancomycin Dosing) 1 each MISCELLANE DAILY PRN PRN Reason: Consult order Sodium Chloride (0.9 % Sodium Chloride Flush 3 Ml Syringe) 3 ml IVFLUSH QSHIFT [facility] Last Admin: 05/26/21 09:28 Dose: 3 ml Documented by: BRODurga Tiotropium [place] (Tiotropium [place] 18 Mcg Cap.W.Dev) 1 puff INHALE DAILY [facility] Last Admin: 05/26/21 07:31 Dose: 1 puff Documented by: CHELA Labs CBC & Chem 7: 05/26/21 06:19 05/26/21 06:19 Labs: Laboratory Results - last 24 hr 05/26/21 05/26/21 05/26/21 06:19 06:19 06:19 MCV 89.6 MCH 29.2 MCHC 32.6 RDW 14.5 Plt Count 204 D MPV 10.7 Absolute Nucleated RBC 0.000 Nucleated RBC % (auto) 0.0 Anion Gap 12 Estim Creat Clear Calc 96.6 Estimated GFR > 60 Random Glucose 116 H D Calcium 8.4 D Total Bilirubin 0.5 AST 16 ALT 15 Alkaline Phosphatase 65 C-Reactive Protein 14.44 H C-React Prot High Sens Cancelled Total Protein 5.1 L D Albumin 2.8 L D Microbiology Microbiology Results: Microbiology 05/23/21 13:18 Blood Culture - Preliminary Blood - Venous No growth after 48 hours. 05/23/21 13:08 Blood Culture - Preliminary Blood - Venous No growth after 48 hours. Assessment and Plan (1) Atrial fibrillation with RVR: Status: Acute (2) Left leg cellulitis: Status: Acute (3) Sepsis: Status: Acute (4) COVID-19: Status: Acute (5) Essential hypertension: Status: Acute (6) Paroxysmal atrial fibrillation: Status: Acute (7) Morbid obesity: Status: Acute Assessment and Plan: hospital d#4 60yo M with pAF, CKD3, CAD, morbid obesity admitted for sepsis due to LLE cellulitis + Covid-19 pneumonia # nonpurulent LLE cellulitis - ID consulted, continue vancomycin d#4, BCx negative at 48hr, improving clinically, transition to doxycycline upon discharge # Covid-19 pneumonia, breakthrough [2 doses mRNA vaccine but not boosted] - remdesivir d#3/5, dexamethasone d#2/10, ID consulted, trend inflammatory markers # acute hypoxic respiratory failure - supplemental O2, wean as tolerated # pAF with RVR - due to sepsis - received 1 dose of IV digoxin, if needs more caution with CKD - metoprolol tartrate, increase from 37.5 to 50 mg q6h - apixaban for anticoagulation # CKD2-3 - monitor SCr carefully, holding furosemide + spironolactone for now due to soft BP + increased metoprolol dose # chronic HFpEF - holding diuretics due to soft BP; continue metoprolol # CAD - continue ASA, statin, metoprolol # chronic bronchitis - continue home inhalers, prn levalbuterol # morbid obesity - consider outpt bariatrics referral # VTE ppx - apixaban # dispo - PT consult Quality Stroke Does the patient have a stroke diagnosis?: No VTE Prior VTE?: No VTE Risk Level:: Medical - moderate - high VTE Device Contraindication: Treatment Not Indicated VTE Drug Contraindication: N/A - Med Ordered
[2021-05-26 10:52] VITALS: BP 107/69; PULSE 81; RESP 18; TEMP 36.6; O2SAT 97
[2021-05-26] MEDS: Metoprolol Tartrate 50 MG TABLET PO ×3 (13:10→19:59)
[2021-05-26 16:00] VITALS: BP 108/81; TEMP 36.5; O2SAT 96
[2021-05-26] MEDS: Remdesivir 100 MG in 0.9 % Sodium Chloride 230 ML 115 MG IV (16:18)
[2021-05-26 16:37] LABS: Vancomycin Trough 13.2 mcg/mL (10.0-20.0)
[2021-05-26] MEDS: Furosemide 40 MG TABLET PO (17:55)
[2021-05-26] MEDS: vancomycin HCL 1,500 MG in 0.9 % Sodium Chloride 500 ML 333.33 MG IV (19:58)
[2021-05-26] MEDS: Atorvastatin Calcium 80 MG TABLET PO (19:58)
[2021-05-26] MEDS: Melatonin 3 MG TABLET 9 MG PO (19:58)
[2021-05-26 20:00] VITALS: BP 104/72; PULSE 92; TEMP 36; O2SAT 95
[2021-05-27] VITALS (7 sets, daily range): BP systolic 102–125; BP diastolic 66–83; PULSE 67–90; RESP 18–20; TEMP 36.6–37; O2SAT 95–98
[2021-05-27 07:05] LABS: Creatinine Clr Calc Pharmacy 96.6; Estimated Glomerular Filt Rate > 60
[2021-05-27] MEDS: Fluticasone/Vilanterol 100/25 BLST.W.DEV 1 PUFF INHALE (07:40)
[2021-05-27] MEDS: guaiFENesin DM 100/10/5 ML 5 ML SYRUP 10 ML PO ×3 (08:50→21:01)
[2021-05-27] MEDS: Famotidine 20 MG TABLET PO (08:50)
[2021-05-27] MEDS: Metoprolol Tartrate 50 MG TABLET PO ×4 (08:50→21:02)
[2021-05-27] MEDS: 0.9 % Sodium Chloride Flush 3 ML SYRINGE IVFLUSH ×3 (08:51→21:05)
[2021-05-27] MEDS: Aspirin Enteric Coated 81 MG TABLET.DR PO (08:51)
[2021-05-27] MEDS: Apixaban 5 MG TABLET PO ×2 (08:51→21:02)
[2021-05-27] MEDS: dexAMETHasone sod phosphate 4 MG/ML VIAL 6 MG IVPUSH (08:51)
--- NOTE | 2021-05-27 12:31 | HO.PM.IMPN ---
Subjective Subjective Date of Service: 05/27/21 Interval History: Patient complaining intermittent palpitation, denies chest pain, complaining of itching left leg, otherwise denies pain, no fevers, no chills, no other acute complaints, telemonitor noted to AFib with RVR 120-130. Review of Systems Review of Systems: Yes all other systems are reviewed and are negative Physical Exam Vital Signs: Vital Signs: Last Vital Signs Temp 98.0 F 05/27/21 11:17 Pulse 82 05/27/21 11:17 Resp 20 05/27/21 11:17 BP 121/75 05/27/21 11:17 Pulse Ox 95 05/27/21 11:17 BMI result Body Mass Index 45.0 Const: Other: Gen: Awake alert, in no acute distress HEENT: sclera anicteric, moist mucus membranes Neck: supple, no JVD Lungs: clear to auscultation bilaterally Heart: irregularly irregular, rapid, no murmurs Abd: soft, non-tender, non-distended, morbidly obese Ext: no edema Skin: L calf and kimball swollen with faint erythema , non tender, no warmth slowly improving. Neuro: alert and oriented x3, no focal findings Psych: appropriate affect Objective Data Active Medications Acetaminophen (Acetaminophen 325 Mg Tablet) 650 mg PO Q6H PRN PRN Reason: Pain, Mild (Pain Scale 1-3) Last Admin: 05/24/21 20:14 Dose: 650 mg Documented by: SAM Albuterol Sulfate (Albuterol Sulfate 90 Mcg 8 Gm Inhaler) 1 puff INHALE Q4H PRN PRN Reason: for wheezing Apixaban (Apixaban 5 Mg Tablet) 5 mg PO BID [facility] Last Admin: 05/27/21 08:51 Dose: 5 mg Documented by: MANAV Aspirin (Aspirin Enteric Coated 81 Mg Tablet.) 81 mg PO DAILY [facility] Last Admin: 05/27/21 08:51 Dose: 81 mg Documented by: MANAV Atorvastatin Calcium (Atorvastatin Calcium 80 Mg Tablet) 80 mg PO BEDTIME [facility] Last Admin: 05/26/21 19:58 Dose: 80 mg Documented by: LEONOR Benzonatate (Benzonatate 100 Mg Capsule) 100 mg PO TID PRN PRN Reason: Cough Dexamethasone Sodium Phosphate (Dexamethasone Sod Phosphate 4 Mg/Ml Vial) 6 mg IVPUSH DAILY [facility] Stop: 06/03/21 09:01 Last Admin: 05/27/21 08:51 Dose: 6 mg Documented by: MANAV Famotidine (Famotidine 20 Mg Tablet) 20 mg PO DAILY [facility] Last Admin: 05/27/21 08:50 Dose: 20 mg Documented by: MANAV Fluticasone/Vilanterol (Fluticasone/Vilanterol 100/25 Blst.W.Dev) 1 puff INHALE DAILY [facility] Last Admin: 05/27/21 07:40 Dose: 1 puff Documented by: CHELA Furosemide (Furosemide 40 Mg Tablet) 40 mg PO [facility]; Protocol Last Admin: 05/26/21 17:55 Dose: 40 mg Documented by: MANOHAR Guaifenesin/Dextromethorphan (Guaifenesin Dm 100/10/5 Ml 5 Ml Syrup) 10 ml PO TID [facility] Last Admin: 05/27/21 08:50 Dose: 10 ml Documented by: MANAV Vancomycin HCl 1,500 mg/ (Sodium Chloride) 500 mls @ 333.333 mls/hr IV Q24H [facility] Last Infusion: 05/26/21 21:38 Dose: 0 mls/hr Documented by: LEONOR Remdesivir 100 mg/ Sodium (Chloride) 230 mls @ 115 mls/hr IV Q24H [facility] Stop: 05/28/21 17:59 Last Infusion: 05/26/21 19:27 Dose: 0 mls/hr Documented by: MANOHAR Levalbuterol HCl (Levalbuterol Hcl 1.25 Mg/0.5 Ml Vial.Neb) 1.25 mg INHALE Q3H PRN PRN Reason: sob Melatonin (Melatonin 3 Mg Tablet) 9 mg PO BEDTIME [facility] Last Admin: 05/26/21 19:58 Dose: 9 mg Documented by: LEONOR Metoprolol Tartrate (Metoprolol Tartrate 50 Mg Tablet) 50 mg PO QID [facility]; Protocol Last Admin: 05/27/21 08:50 Dose: 50 mg Documented by: MANAV Ondansetron HCl (Ondansetron Hcl 4 Mg/2 Ml Vial) 4 mg IVPUSH Q8H PRN PRN Reason: Nausea and Vomiting Pharmacy Consult (Consult Rx Perform Med Rec) 1 each MISCELLANE ONCE PRN PRN Reason: Consult order Pharmacy Consult (Consult Rx Vancomycin Dosing) 1 each MISCELLANE DAILY PRN PRN Reason: Consult order Sodium Chloride (0.9 % Sodium Chloride Flush 3 Ml Syringe) 3 ml IVFLUSH QSHIFT [facility] Last Admin: 05/27/21 08:51 Dose: 3 ml Documented by: MANAV Tiotropium [place] (Tiotropium [place] 18 Mcg Cap.W.Dev) 1 puff INHALE DAILY [facility] Last Admin: 05/27/21 07:39 Dose: 1 puff Documented by: CHELA Labs CBC & Chem 7: 05/26/21 06:19 05/27/21 06:19 Labs: Laboratory Results - last 24 hr 05/26/21 05/27/21 15:51 06:19 Estim Creat Clear Calc 96.6 Estimated GFR > 60 Vancomycin Trough 13.2 Assessment and Plan (1) Atrial fibrillation with RVR: Status: Acute (2) Left leg cellulitis: Status: Acute (3) Sepsis: Status: Acute (4) COVID-19: Status: Acute (5) Essential hypertension: Status: Acute (6) Paroxysmal atrial fibrillation: Status: Acute (7) Morbid obesity: Status: Acute Assessment and Plan: 60yo M with pAF, CKD3, CAD, morbid obesity admitted for sepsis due to LLE cellulitis + Covid-19 pneumonia # nonpurulent LLE cellulitis - ID consulted, continue vancomycin d#5, BCx negative at 48hr, improving clinically, transition to doxycycline upon discharge Recommend to keep leg elevated # Covid-19 pneumonia, breakthrough [2 doses mRNA vaccine but not boosted] - remdesivir d#4/5, dexamethasone d#3/10, ID consulted, trend inflammatory markers # acute hypoxic respiratory failure - supplemental O2, wean as tolerated # pAF with RVR - due to sepsis, tele shows intermittent AFib with RVR - received 1 dose of IV digoxin, now on metoprolol 50 mg q.6 hours, will repeat digoxin if needed - continue apixaban for anticoagulation # CKD2-3 - monitor SCr carefully, holding furosemide + spironolactone for now due to soft BP + increased metoprolol dose # chronic HFpEF - soft BP; continue metoprolol, received Lasix yesterday on hold today, no evidence of acute CHF, follow clinical course. # CAD - continue ASA, statin, metoprolol # chronic bronchitis - continue home inhalers, prn levalbuterol # morbid obesity - consider outpt bariatrics referral # VTE ppx - apixaban # dispo - PT consult Quality Stroke Does the patient have a stroke diagnosis?: No VTE Prior VTE?: No VTE Risk Level:: Medical - moderate - high VTE Device Contraindication: Treatment Not Indicated VTE Drug Contraindication: N/A - Med Ordered
[2021-05-27] MEDS: Remdesivir 100 MG in 0.9 % Sodium Chloride 230 ML 115 MG IV (15:15)
[2021-05-27] MEDS: vancomycin HCL 1,500 MG in 0.9 % Sodium Chloride 500 ML 333.33 MG IV (18:02)
[2021-05-27] MEDS: Atorvastatin Calcium 80 MG TABLET PO (21:02)
[2021-05-27] MEDS: Melatonin 3 MG TABLET 9 MG PO (21:02)
[2021-05-28] VITALS (8 sets, daily range): BP systolic 104–138; BP diastolic 74–89; PULSE 61–79; RESP 15–20; TEMP 36.3–36.6; O2SAT 93–98
[2021-05-28 07:01] LABS: Creatinine Clr Calc Pharmacy 102.2; Estimated Glomerular Filt Rate > 60
[2021-05-28] MEDS: Fluticasone/Vilanterol 100/25 BLST.W.DEV 1 PUFF INHALE (07:37)
[2021-05-28] MEDS: 0.9 % Sodium Chloride Flush 3 ML SYRINGE IVFLUSH ×2 (08:33→16:00)
[2021-05-28] MEDS: dexAMETHasone sod phosphate 4 MG/ML VIAL 6 MG IVPUSH (08:33)
[2021-05-28] MEDS: Apixaban 5 MG TABLET PO ×2 (08:34→19:42)
[2021-05-28] MEDS: Famotidine 20 MG TABLET PO (08:34)
[2021-05-28] MEDS: Metoprolol Tartrate 50 MG TABLET PO ×2 (08:34→13:50)
[2021-05-28] MEDS: guaiFENesin DM 100/10/5 ML 5 ML SYRUP 10 ML PO ×3 (08:34→19:42)
[2021-05-28] MEDS: Aspirin Enteric Coated 81 MG TABLET.DR PO (08:34)
[2021-05-28] MEDS: Remdesivir 100 MG in 0.9 % Sodium Chloride 230 ML 115 MG IV (15:59)
[2021-05-28] MEDS: Furosemide 40 MG TABLET PO (15:59)
--- NOTE | 2021-05-28 16:20 | P.PNIM_ITS ---
Subjective Subjective Date of Service: 05/29/21 Interval History: Noted to have hypoxia and tachycardia after ambulation, persistent left lower extremity swelling, no pain, no redness, no acute symptoms of nausea,no vomiting, fever, chills overnight. Review of Systems Review of Systems: Yes all other systems are reviewed and are negative Physical Exam Verdana 4l Vital Signs: Verdana 4d Verdana 4d Vital Signs: Verdana 4d Verdana 4Bd Last Vital Signs Verdana 4d Cotton Classer New 4d Cotton Classer New 4d Temp 97.9 F 05/28/21 14:55 Cotton Classer New 4d Pulse 79 05/28/21 14:55 Cotton Classer New 4d Resp 16 05/28/21 14:55 BP 105/78 05/28/21 14:55 Pulse Ox 96 05/28/21 14:55 BMI result Body Mass Index 45.0 Const: Other: Gen:? Awake alert, in no acute distress HEENT: sclera anicteric, moist mucus membranes Neck: supple, no JVD Lungs: clear to auscultation bilaterally Heart: irregularly irregular, rapid, no murmurs Abd: soft, non-tender, non-distended, morbidly obese Ext: no edema Skin: L calf and kimball significantly swollen with faint erythema , non tender, no warmth slowly improving. Neuro: alert and oriented x3, no focal findings Psych: appropriate affect Objective Data Active Medications Acetaminophen (Acetaminophen 325 Mg Tablet) 650 mg PO Q6H PRN PRN Reason: Pain, Mild (Pain Scale 1-3) Last Admin: 05/24/21 20:14 Dose: 650 mg Documented by: SAM Albuterol Sulfate (Albuterol Sulfate 90 Mcg 8 Gm Inhaler) 1 puff INHALE Q4H PRN PRN Reason: for wheezing Apixaban (Apixaban 5 Mg Tablet) 5 mg PO BID [facility] Last Admin: 05/28/21 08:34 Dose: 5 mg Documented by: MANOHAR Aspirin (Aspirin Enteric Coated 81 Mg Tablet.) 81 mg PO DAILY [facility] Last Admin: 05/28/21 08:34 Dose: 81 mg Documented by: MANOHAR Atorvastatin Calcium (Atorvastatin Calcium 80 Mg Tablet) 80 mg PO BEDTIME [facility] Last Admin: 05/27/21 21:02 Dose: 80 mg Documented by: SUDHEERROA Benzonatate (Benzonatate 100 Mg Capsule) 100 mg PO TID PRN PRN Reason: Cough Dexamethasone Sodium Phosphate (Dexamethasone Sod Phosphate 4 Mg/Ml Vial) 6 mg IVPUSH DAILY [facility] Stop: 06/03/21 09:01 Last Admin: 05/28/21 08:33 Dose: 6 mg Documented by: MANOHAR Famotidine (Famotidine 20 Mg Tablet) 20 mg PO DAILY [facility] Last Admin: 05/28/21 08:34 Dose: 20 mg Documented by: MANOHAR Fluticasone/Vilanterol (Fluticasone/Vilanterol 100/25 Blst.W.Dev) 1 puff INHALE DAILY [facility] Last Admin: 05/28/21 07:37 Dose: 1 puff Documented by: RONNI Furosemide (Furosemide 40 Mg Tablet) 40 mg PO [facility]; Protocol Last Admin: 05/28/21 15:59 Dose: 40 mg Documented by: SHAR Guaifenesin/Dextromethorphan (Guaifenesin Dm 100/10/5 Ml 5 Ml Syrup) 10 ml PO TID [facility] Last Admin: 05/28/21 15:59 Dose: 10 ml Documented by: SHAR Vancomycin HCl 1,500 mg/ (Sodium Chloride) 500 mls @ 333.333 mls/hr IV Q24H [facility] Last Infusion: 05/27/21 20:28 Dose: 0 mls/hr Documented by: LEONOR Remdesivir 100 mg/ Sodium (Chloride) 230 mls @ 115 mls/hr IV Q24H [facility] Stop: 05/28/21 17:59 Last Admin: 05/28/21 15:59 Dose: 115 mls/hr Documented by: SHAR Levalbuterol HCl (Levalbuterol Hcl 1.25 Mg/0.5 Ml Vial.Neb) 1.25 mg INHALE Q3H PRN PRN Reason: sob Melatonin (Melatonin 3 Mg Tablet) 9 mg PO BEDTIME [facility] Last Admin: 05/27/21 21:02 Dose: 9 mg Documented by: LEONOR Metoprolol Tartrate (Metoprolol Tartrate 50 Mg Tablet) 50 mg PO QID [facility]; Protocol Last Admin: 05/28/21 13:50 Dose: 50 mg Documented by: HO.DOBROB Ondansetron HCl (Ondansetron Hcl 4 Mg/2 Ml Vial) 4 mg IVPUSH Q8H PRN PRN Reason: Nausea and Vomiting Pharmacy Consult (Consult Rx Perform Med Rec) 1 each MISCELLANE ONCE PRN PRN Reason: Consult order Pharmacy Consult (Consult Rx Vancomycin Dosing) 1 each MISCELLANE DAILY PRN PRN Reason: Consult order Sodium Chloride (0.9 % Sodium Chloride Flush 3 Ml Syringe) 3 ml IVFLUSH QSHIFT [facility] Last Admin: 05/28/21 16:00 Dose: 3 ml Documented by: SHAR Tiotropium [place] (Tiotropium [place] 18 Mcg Cap.W.Dev) 1 puff INHALE DAILY [facility] Last Admin: 05/28/21 07:37 Dose: 1 puff Documented by: RONNI Labs CBC & Chem 7: 05/26/21 06:19 05/29/21 07:45 Labs: Laboratory Results - last 24 hr 05/28/21 06:12 Estim Creat Clear Calc 102.2 Estimated GFR > 60 Microbiology Microbiology Results: Microbiology 05/23/21 13:18 Blood Culture - Final Blood - Venous No growth after 5 days. 05/23/21 13:08 Blood Culture - Final Blood - Venous No growth after 5 days. Assessment and Plan (1) Atrial fibrillation with RVR: Status: Acute (2) Left leg cellulitis: Status: Acute (3) Sepsis: Status: Acute (4) COVID-19: Status: Acute (5) Essential hypertension: Status: Acute (6) Paroxysmal atrial fibrillation: Status: Acute (7) Morbid obesity: Status: Acute Plan 60yo M with pAF, CKD3, CAD, morbid obesity admitted for sepsis due to LLE cellulitis + Covid-19 pneumonia # nonpurulent LLE cellulitis - left lower extremity redness resolved persistent swelling, continue vancomycin d#6, BCx negative at 48hr, improving clinically, transition to doxycycline upon discharge Recommend to keep leg elevated # Covid-19 pneumonia, breakthrough [2 doses mRNA vaccine but not boosted] - remdesivir d#5/5, dexamethasone d#4/10, ID consulted, trend inflammatory markers # acute hypoxic respiratory failure - supplemental O2, wean as tolerated, patient not on home oxygen # pAF with RVR - stable ventricular rate, likely was due to sepsis, - received 1 dose of IV digoxin, now on metoprolol 100mg bid - continue apixaban for anticoagulation # CKD2-3 - monitor SCr carefully, continue furosemide + spironolactone , stable renal function and BP # chronic HFpEF - soft BP; continue metoprolol, and diuretic,no evidence of acute CHF, follow clinical course. has chronic left lower extremity edema after knee surgery # CAD - continue ASA, statin, metoprolol # chronic bronchitis - continue home inhalers, prn levalbuterol # morbid obesity - consider outpt bariatrics referral # VTE ppx - apixaban # dispo - PT consult Quality Stroke Does the patient have a stroke diagnosis?: No VTE Prior VTE?: No VTE Risk Level:: Medical - moderate - high VTE Device Contraindication: Treatment Not Indicated VTE Drug Contraindication: N/A - Med Ordered
[2021-05-28 16:37] LABS: Vancomycin Trough 14.4 mcg/mL (10.0-20.0)
[2021-05-28] MEDS: Potassium Chloride ER 20 MEQ TAB.ER.PRT PO (17:10)
[2021-05-28] MEDS: vancomycin HCL 1,500 MG in 0.9 % Sodium Chloride 500 ML 333.33 MG IV (19:40)
[2021-05-28] MEDS: Atorvastatin Calcium 80 MG TABLET PO (19:42)
[2021-05-28] MEDS: Metoprolol Tartrate 100 MG TABLET PO (19:42)
[2021-05-28] MEDS: Melatonin 3 MG TABLET 9 MG PO (22:48)
[2021-05-29] MEDS: 0.9 % Sodium Chloride Flush 3 ML SYRINGE IVFLUSH ×2 (00:40→09:27)
[2021-05-29 02:23] VITALS: BP 132/76; PULSE 76; RESP 18; TEMP 36.6; O2SAT 97
[2021-05-29 07:37] VITALS: BP 126/79; PULSE 68; RESP 20; TEMP 36.3; O2SAT 96
[2021-05-29 08:12] LABS: Anion Gap 10 (12-20); Blood Urea Nitrogen 23 mg/dL (9-16); Calcium 8.2 mg/dL (8.4-10.2); Carbon Dioxide 31 mmol/L (22-29); Chloride 106 mmol/L (96-108); Creatinine Clr Calc Pharmacy 96.6; Estimated Glomerular Filt Rate > 60; Glucose Random 90 mg/dL (60-115); Potassium 3.6 mmol/L (3.3-5.1); Sodium 143 mmol/L (135-145)
[2021-05-29] MEDS: Fluticasone/Vilanterol 100/25 BLST.W.DEV 1 PUFF INHALE (08:48)
[2021-05-29 08:51] VITALS: PULSE 68; RESP 20; O2SAT 96
[2021-05-29] MEDS: Famotidine 20 MG TABLET PO (09:27)
[2021-05-29] MEDS: guaiFENesin DM 100/10/5 ML 5 ML SYRUP 10 ML PO ×2 (09:27→15:00)
[2021-05-29] MEDS: Apixaban 5 MG TABLET PO (09:28)
[2021-05-29] MEDS: Aspirin Enteric Coated 81 MG TABLET.DR PO (09:28)
[2021-05-29] MEDS: dexAMETHasone sod phosphate 4 MG/ML VIAL 6 MG IVPUSH (09:28)
[2021-05-29] MEDS: Metoprolol Tartrate 100 MG TABLET PO (09:28)
[2021-05-29] MEDS: Spironolactone 25 MG TABLET PO (09:30)
[2021-05-29 11:02] VITALS: PULSE 80; PULSE 84; O2SAT 94
[2021-05-29 11:32] VITALS: BP 105/71; PULSE 62; RESP 20; TEMP 36.6; O2SAT 95
--- NOTE | 2021-05-29 13:46 | PC.NURSE ---
Skin/wound assessment completed. Patient has left leg edema/cellulitis with great toe redness. No other skin issues noted at this time.
--- NOTE | 2021-05-29 15:07 | P.DS_ITS ---
DS: Providers Provider Date of Service: 05/29/21 Date of admission: 05/23/21 16:24 Primary care physician: Unknown Physician Consults: 05/24/21 11:43 Consult to Infectious Diseases Routine Consulting Provider: Diamond Avery Reason for consultation: cellulitis Has provider been notified: No DS: Diagnosis Discharge Diagnosis (1) Atrial fibrillation with RVR: Status: Acute (2) Left leg cellulitis: Status: Acute (3) Sepsis: Status: Acute (4) COVID-19: Status: Acute (5) Essential hypertension: Status: Acute (6) Paroxysmal atrial fibrillation: Status: Acute (7) Morbid obesity: Status: Acute DS: Summary Hospital Course Hospital Course: Chief Complaint: Shortness of breath/left leg pain and swelling 60-year-old gentleman with past medical history significant for paroxysmal atrial fibrillation, coronary artery disease, chronic bronchitis, chronic kidney disease stage 3, GERD vaccinated against COVID in August of 2020 did not receive booster came to [facility] on May 22 but due to long wait left ER without being seen however labs showed positive COVID infection therefore patient was called and made aware and a prescription of doxycycline was sent to the pharmacy, today patient call his primary care physician due to shortness of breath and was referred to [facility], at present patient is complaining of shortness of breath associated with dry cough, and mild low-grade fever last night, he denies PND orthopnea, no chest palpitations, patient also complaining of left lower extremity swelling and redness worsening over last few days patient denies any injury or trauma but agreed he trimmed his left toenail deeply few days ago , he denies any sick contacts, workup in the emergency room revealed the D-dimer of 318, BP and P 879 chest x-ray showed no acute abnormality left lower extremity Doppler study showed no DVT, patient noted to be tachypneic tachycardic with elevated WBC count and lactic acid therefore meets sepsis criteria due to left lower extremity cellulitis and will be admitted for continued monitoring treatment for cellulitis and COVID-19 infection. hospital course 60yo M with pAF, CKD3, CAD, morbid obesity admitted for sepsis due to LLE cellulitis + Covid-19 pneumonia, patient treated with IV vancomycin with good response subsequently seen by infectious disease Dr. Avery she recommended doxycycline for 7 days left lower extremity swelling and redness is significantly improved, in regard to COVID infection patient treated with remdesivir and dexamethasone initially required oxygen prior to discharge obtain home O2 eval patient does not qualify for oxygen, during course of hospitalization patient noted to be in atrial fibrillation with RVR therefore treated with 1 dose of IV digoxin and continued on beta-amando with good response currently ventricular rate is stable, since patient is doing better with no fever, chills, with negative blood cultures, WBC of normalized therefore he is being discharged home to finish course of antibiotics and he has been recommended to keep his left leg elevated. In regard to chronic kidney disease , chronic bronchitis and chronic heart failure with preserved EF he has been recommend to continue all home medications including aspirin statin and metoprolol in regard morbid obesity recommended low-calorie diet question outpatient bariatric referral as per PCP Time Spent with Patient Time attestation: Total time spent providing and/or coordinating discharge services: Discharge coordination time: Greater than 30 minutes Quality: Stroke Does the patient have a stroke diagnosis?: No Physical Exam Verdana 4l Vital Signs: Verdana 4d Verdana 4d Vital Signs: Verdana 4d Verdana 4Bd Last Vital Signs Verdana 4d Medicare Contact Specialist New 4d Medicare Contact Specialist New 4d Temp 97.8 F 05/29/21 11:32 Medicare Contact Specialist New 4d Pulse 62 05/29/21 11:32 Medicare Contact Specialist New 4d Resp 20 05/29/21 11:32 BP 105/71 05/29/21 11:32 Pulse Ox 95 05/29/21 11:32 BMI result Body Mass Index 45.0 Const: Other: Gen:? Awake alert, in no acute distr ess HEENT: sclera anicteric, moist m ucus membranes Nec k: supple, no JVD Lungs: clear to au scultation bilater ally Heart: irregu larly irregular, r apid, no murmurs A bd: soft, non-tend er, non-distended, morbidly obese Ex t: no edema Skin: L calf and kimball si gnificantly swolle n, erythema resol jerson , non tender. Neuro: alert and o riented x3, no foc al findings. Psych : appropriate affe ct DS: Data Data Completed and Pending Labs on day of discharge: Laboratory Results - last 24 hr 05/28/21 05/29/21 15:39 07:45 Sodium 143 Potassium 3.6 Chloride 106 Carbon Dioxide 31 H Anion Gap 10 L BUN 23 H Creatinine 0.90 Estim Creat Clear Calc 96.6 Estimated GFR > 60 Random Glucose 90 Calcium 8.2 L Vancomycin Trough 14.4 Discharge Plan Discharge Patient Disposition: Home, Self-Care Discharge Diagnosis: Atrial fibrillation with RVR sepsis due to left lower extremity cellulitis COVID-19 acute hypoxic respiratory failure Referrals: Physician,Unknown J [Primary Care Provider] - 1 Week Discharge Medications: New doxycycline hyclate 100 mg Tablet 100 mg PO Q12H Qty: 14 0RF Continued famotidine 20 mg tablet 20 mg PO DAILY 90 Days Qty: 90 3RF albuterol sulfate 90 mcg/actuation HFA aerosol inhaler 1 puff inhalation Q4H PRN (Reason: for wheezing) Qty: 8.5 4RF aspirin [Adult Aspirin Regimen] 81 mg tablet,delayed release (DR/EC) 81 mg PO DAILY Qty: 30 0RF metoprolol tartrate 50 mg tablet 75 mg PO BID Qty: 270 3RF melatonin 10 mg Tablet 10 mg PO BEDTIME 0RF furosemide 40 mg tablet 40 mg PO SUTUTHSA 0RF atorvastatin 80 mg tablet 80 mg PO BEDTIME 0RF spironolactone 25 mg tablet 25 mg PO MOWEFR 0RF apixaban 5 mg tablet 5 mg PO BID 0RF budesonide-formoterol 80-4.5 mcg/actuation HFA aerosol inhaler 2 puff PO BID 0RF tiotropium bromide 18 mcg capsule, w/inhalation device 1 cap inhalation DAILY 0RF Discharge Orders: Discharge Order (Routine); Ordered 05/29/21 Ordered By: Suzie Valles Diet: low fat, low cholesterol and low salt diet Activity on Discharge: As tolerated Stand Alone Forms: Patient Portal Discharge page Care Plan Goals: COVID-19 infection /left lower extremity cellulitis/atrial fibrillation with RVR, keep left leg elevated and take doxycycline 1 tablet twice daily for 7 days continue using diuretics as before, follow up with Cardiology Health Concerns: COPD/ hyperlipidemia /chronic left lower extremity edema, take all medications as before Plan of Treatment: outpatient follow-up with PCP in 1 to 2 week call for appointment Assessment: Per discharge summary
--- NOTE | 2021-05-29 15:12 | MHC.CM.PN ---
Patient has been medically cleared for dc to home today, no skilled services ordered. Patient's EMERGENCY NURSE services should resume as before. Patient is Covid (+);CM addressed IMM with Patient's /[employer] @ [phone] and the original will be mailed certified letter to Patient and his and a copy has been placed on the chart.
== END 2021-05-29 15:47 | disposition home or self-care (01) | DRG 871 ==
LOC: HO.ED 13:14 → HO.EDOVER 16:40 → HO.IMC 18:44
PROVIDERS: Family Medicine; Admitting Provider Hospitalist; Emergency Provider Emergency Medicine; Visit Provider Hospitalist
DX: A41.9 Sepsis, unspecified organism (principal); U07.1 COVID-19; J12.82 Pneumonia due to coronavirus disease 2019; I13.0 Hypertensive heart and chronic kidney disease with heart failure and stage 1 through stage 4 chronic kidney disease, or unspecified chronic kidney disease; I50.32 Chronic diastolic (congestive) heart failure; L03.116 Cellulitis of left lower limb; Z68.42 Body mass index [BMI] 45.0-49.9, adult; I25.10 Atherosclerotic heart disease of native coronary artery without angina pectoris; E66.01 Morbid (severe) obesity due to excess calories; J42 Unspecified chronic bronchitis; N18.30 Chronic kidney disease, stage 3 unspecified; I48.0 Paroxysmal atrial fibrillation; Z87.891 Personal history of nicotine dependence; Z79.01 Long term (current) use of anticoagulants; Z79.82 Long term (current) use of aspirin; Z79.899 Other long term (current) drug therapy
CPT/HCPCS: 36415; 71045; 80048; 80053; 80076; 80202; 82565; 82803; 83605; 83880; 85007; 85025; 85027; 85379; 86140; 86141; 87040; 87635; 93005; 93971; 96365; 96366; 96367; 97161; 99285; J0248; J0456; J0696; J1100; J1160; J2543; J3370

== ENCOUNTER → 2021-06-28 10:46 | Outpatient (BNVA) | payer MEDICARE, MEDICAID, SELFPAY | PROVIDERS: PCP Family Medicine; Visit Provider Internal Medicine | DX: L03.116 Cellulitis of left lower limb (principal) | CPT/HCPCS: 99202; 99212 ==

== ENCOUNTER 2021-07-05 08:00 | Outpatient (REF) | payer MEDICARE, MEDICAID, SELFPAY ==
[2021-07-05 11:58] LABS: Alanine Aminotransferase 15 U/L (0-40); Albumin Level 3.3 g/dL (3.5-5.0); Alkaline Phosphatase 109 U/L (39-117); Anion Gap 7 (12-20); Aspartate Amino Transferase 15 U/L (5-37); Bilirubin Total 0.8 mg/dL (0.0-1.0); Blood Urea Nitrogen 11 mg/dL (9-16); Calcium 8.6 mg/dL (8.4-10.2); Carbon Dioxide 32 mmol/L (22-29); Chloride 103 mmol/L (96-108); Estimated Glomerular Filt Rate > 60; Glucose Fasting 92 mg/dL (60-99); Potassium 4.1 mmol/L (3.3-5.1); Sodium 138 mmol/L (135-145); Total Protein 6.6 g/dL (6.5-8.0)
[2021-07-05 12:24] LABS: B Type Natriuretic Peptide 150 pg/mL (<100)
== END 2021-07-05 08:01 | disposition home or self-care (01) ==
LOC: HO.WFDLDS 08:00
PROVIDERS: Visit Provider Family Medicine
DX: L03.116 Cellulitis of left lower limb (principal); I50.30 Unspecified diastolic (congestive) heart failure
CPT/HCPCS: 36415; 80048; 80053; 83880

== ENCOUNTER → 2021-07-15 07:38 | Outpatient (BNVA) | payer MEDICARE, MEDICAID, SELFPAY | PROVIDERS: PCP Family Medicine; Referring Provider Family Medicine; Visit Provider Nurse Practitioner Family | DX: Z12.11 Encounter for screening for malignant neoplasm of colon (principal) | CPT/HCPCS: 99202 ==

== ENCOUNTER 2021-08-05 14:36 | Outpatient (REF) | payer MEDICARE, MEDICAID, SELFPAY ==
--- NOTE | ~2021-08-05 | US_ITS ---
EXAMINATION: US VENOUS ULTRASOUND WITH DOPPLER LOWER EXTREMITY, LEFT CLINICAL INFORMATION: Left leg swelling COMPARISON: None TECHNIQUE: Ultrasound of the deep veins is performed from the hip to the calf with compression sonography and color and pulse Doppler assessment. Spectral analysis with color-flow imaging is performed. FINDINGS: There is normal venous compression and respiratory variation and augmented flow. The visualized common femoral vein, superficial femoral vein, profunda femoral vein, popliteal vein, and the trifurcation region shows no evidence of deep venous thrombosis. There is no significant popliteal fossa cyst. If the patient's symptoms persist, followup ultrasound in 5 days 7 days might be of value to exclude proximal propagation from a non-visualized calf vein. US/US venous duplex LE LT IMPRESSION: No DVT demonstrated in the left lower extremity.
== END 2021-08-05 14:37 | disposition home or self-care (01) ==
LOC: HO.US 14:36
PROVIDERS: Visit Provider Family Medicine
DX: M79.89 Other specified soft tissue disorders (principal)
CPT/HCPCS: 93971

== ENCOUNTER → 2021-08-20 10:24 | Outpatient (BNVA) | payer MEDICARE, MEDICAID, SELFPAY | PROVIDERS: PCP Family Medicine; Visit Provider Surgery Vascular Surgery | DX: I83.12 Varicose veins of left lower extremity with inflammation (principal); I89.0 Lymphedema, not elsewhere classified | CPT/HCPCS: 99202 ==

== ENCOUNTER 2021-08-21 07:51 | Day surgery (SDC) | payer MEDICARE, MEDICAID, SELFPAY ==
[2021-08-14 09:38] VITALS: BMI 46.7
--- NOTE | 2021-08-14 13:28 | P.CONAN_ITS ---
Documented by User: Xiomara Clinton NP 08/14/21 13:31 HPI - Anesthesia Eval Consult details Narrative: 61yo M for Colonoscopy Optimized per cardiology Eliquis for afib PMFSH Active Problems Active Problems: All Active Problems (Updated 08/13/21 @ 15:38 by Valeria Pedraza, RADHA) Laboratory examination ordered as part of a routine general medical examination (Acute) Diaphoresis (Acute) Low HDL (under 40) (Acute) Diastolic heart failure (Acute) Adult general medical exam (Acute) Mild anemia (Acute) Lower extremity edema (Acute) Screening for prostate cancer (Acute) Screening for colon cancer (Acute) COVID-19 (Acute) Left leg cellulitis (Acute) Status post laparoscopic sleeve gastrectomy (Acute) Chronic bronchitis (Acute) GERD (gastroesophageal reflux disease) (Acute) Past Medical History Medical History CAD (coronary artery disease) Chronic bronchitis Chronic renal failure, stage 3 (moderate) COPD (chronic obstructive pulmonary disease) COVID-19 vaccine series completed Essential hypertension GERD (gastroesophageal reflux disease) History of COVID-19 Morbid obesity Myocardial infarction Paroxysmal atrial fibrillation Supraventricular tachycardia Family History Family History Father CVD (cardiovascular disease) Mother Diabetes mellitus Cancer Brother No problems noted. Brother No problems noted. Son No problems noted. Sister No problems noted. Sister No problems noted. Sister No problems noted. Sister No problems noted. Sister No problems noted. Sister No problems noted. Other Mental health disorder Substance use disorder Surgical History Surgical History H/O colonoscopy History of carpal tunnel release History of heart artery stent History of inferior vena caval filter placement History of knee replacement History of sleeve gastrectomy Social History Social History Household Members: Spouse Household Members Other:: & son Housing: Apartment Are you a primary care consultant to a significant other at home: No Do you presently have visiting nurse or other home services: Yes (private duty care when needed) Patient Tobacco Use Status: Former Tobacco user Quit Date: 2008 Tobacco use type: Cigarette Years Smoked: 40 Second Hand Smoke Exposure: No Advance Directives Date on File: 08/21/21 service: Yes Current occupational status: disabled Meds Allergies Allergy/AdvReac Type Severity Reaction Status Date / Time enoxaparin [From Lovenox] Allergy Intermediate rash/swelli Verified 08/20/21 10:27 ng seafood Allergy Intermediate rash/swelli Verified 08/20/21 10:27 ng Home Medications Medication Instructions Recorded Confirmed Last Taken Type apixaban 5 mg tablet 5 mg PO BID 02/23/20 08/13/21 05/23/21 History budesonide-formoterol HFA 80 2 puff PO BID 02/23/20 08/13/21 05/23/21 History mcg-4.5 mcg/actuation aerosol inhaler tiotropium bromide 18 mcg capsule 1 cap INHALATION DAILY 02/23/20 08/13/21 05/23/21 History with inhalation device atorvastatin 80 mg tablet 80 mg PO BEDTIME 05/23/21 08/13/21 05/22/21 History melatonin 10 mg tablet 10 mg PO BEDTIME 05/23/21 08/13/21 05/22/21 History Exam Exam Date and Time: August 14, 2021 1328 Height,Weight and Vital Signs: Height 5 ft 3 in Weight 119.748 kg Pertinent Lab Results Pertinent Lab Results: Laboratory Tests 05/26/21 07/05/21 06:19 08:10 WBC 7.7 Hgb 11.5 L Hct 35.3 L Plt Count 204 D Sodium 138 Potassium 4.1 Chloride 103 Carbon Dioxide 32 H BUN 11 D Creatinine 1.02 Narrative Narrative: EKG 05/2021 Vent. Rate : 109 BPM ? ? Atrial Rate : 000 BPM ?? P-R Int : 000 ms? QRS Dur : 082 ms ? ? QT Int : 350 ms ? ? ? P-R-T Axes : 000 011 032 degrees ?? QTc Int : 471 ms ? Atrial fibrillation with rapid ventricular response Low voltage QRS Septal infarct , age undetermined Abnormal ECG No previous ECGs available US venous duplex LE LT 08/2021 IMPRESSION: No DVT demonstrated in the left lower extremity. Assessment and Plan Assessment Anesthesia Assessment: Chart Reviewed Documented by User: Erum Jara MD 08/21/21 09:36 [facility] Past Medical History Medical History CAD (coronary artery disease) Chronic bronchitis Chronic renal failure, stage 3 (moderate) COPD (chronic obstructive pulmonary disease) COVID-19 vaccine series completed Essential hypertension GERD (gastroesophageal reflux disease) History of COVID-19 Morbid obesity Myocardial infarction Paroxysmal atrial fibrillation Supraventricular tachycardia Family History Family History Father CVD (cardiovascular disease) Mother Diabetes mellitus Cancer Brother No problems noted. Brother No problems noted. Son No problems noted. Sister No problems noted. Sister No problems noted. Sister No problems noted. Sister No problems noted. Sister No problems noted. Sister No problems noted. Other Mental health disorder Substance use disorder Surgical History Surgical History H/O colonoscopy History of carpal tunnel release History of heart artery stent History of inferior vena caval filter placement History of knee replacement History of sleeve gastrectomy History of Problems with Anesthesia: No Social History Social History Household Members: Spouse Household Members Other:: & son Housing: Apartment Are you a primary care consultant to a significant other at home: No Do you presently have visiting nurse or other home services: Yes (private duty care when needed) Patient Tobacco Use Status: Former Tobacco user Quit Date: 2008 Tobacco use type: Cigarette Years Smoked: 40 Second Hand Smoke Exposure: No Advance Directives Date on File: 08/21/21 service: Yes Current occupational status: disabled Meds Allergies Allergy/AdvReac Type Severity Reaction Status Date / Time enoxaparin [From Lovenox] Allergy Intermediate rash/swelli Verified 08/20/21 10:27 ng seafood Allergy Intermediate rash/swelli Verified 08/20/21 10:27 ng Home Medications Medication Instructions Recorded Confirmed Last Taken Type apixaban 5 mg tablet 5 mg PO BID 02/23/20 08/13/21 05/23/21 History budesonide-formoterol HFA 80 2 puff PO BID 02/23/20 08/13/21 05/23/21 History mcg-4.5 mcg/actuation aerosol inhaler tiotropium bromide 18 mcg capsule 1 cap INHALATION DAILY 02/23/20 08/13/21 05/23/21 History with inhalation device atorvastatin 80 mg tablet 80 mg PO BEDTIME 05/23/21 08/13/21 05/22/21 History melatonin 10 mg tablet 10 mg PO BEDTIME 05/23/21 08/13/21 05/22/21 History Exam Airway Mallampati Class: III TM Dist: >3cm Neck ROM: Limited Loose/Missing/Broken Teeth: Yes, Upper and Lower Heart: RRR Lungs: CTA Assessment and Plan Final Anesthetic Review History of Problems with Anesthesia: No NPO: Yes ASA Class: III Final Preanesthetic Review: Meds/Allgs Chart Reviewed, Consent Obtained/Reviewed and Anes Risks/Benef Reviewed Patient Risk: Intermediate Procedure Risk: Low Anesthetic Plan Anesthetic Plan: MAC: Disposition: Standard PACU
[2021-08-21 08:55] VITALS: BP 136/58; PULSE 54; RESP 18; TEMP 36.2; O2SAT 98
--- NOTE | 2021-08-21 08:58 | P.HPSUR_ITS ---
Pre-Procedural Eval Section A Date of Service: 08/21/21 Section B Chief Complaint: screening Relevant Family History (Specify if Yes): No Relevant Social History: None Present Medications: see Short Stay Collaborative assessment Medical History: Significant History (CAD (coronary artery disease) Chronic bronchitis Chronic renal failure, stage 3 (moderate) COPD (chronic obstructive pulmonary disease) COVID-19 vaccine series completed Essential hypertension GERD (gastroesophageal reflux disease) History of COVID-19 Morbid obesity Myocardial infarction Paroxysmal ) History of Previous Operations: Relevant previous surgery/procedure and date(s) (H/O colonoscopy History of carpal tunnel release History of heart artery stent History of inferior vena caval filter placement History of knee replacement History of sleeve gastrectomy) Allergies: Allergies Allergy/AdvReac Type Severity Reaction Status Date / Time enoxaparin [From Lovenox] Allergy Intermediate rash/swelli Verified 08/20/21 10:27 ng seafood Allergy Intermediate rash/swelli Verified 08/20/21 10:27 ng Review of Systems Sugical H&P ROS: Negative: Constitution, Cardiovascular, Respiratory, Neurological, Psychiatric, Hem-Onc, Allergic/Immunologic, Gastrointestinal, Genitourinary, Musculoskeletal, Integumentary, Endocrine and Eyes/Ears/Nose/Throat Exam Surgical H&P Exam: Normal: HEENT, Normal: Heart, Normal: Lungs, Normal: Extre mities, Normal: Abdomen, Normal: Skin and Normal: Neurological Plan Diagnosis/Plan: Unchanged I have reviewed the history and physical and performed a pertinent physical examination on my patient. No changes have occurred unless specified.
[2021-08-21] MEDS: Lactated Ringers 1,000 ML 50 ML IVCONT (09:07)
--- NOTE | 2021-08-21 09:41 | P.OP_ITS ---
Operative Note Operative Note Date of Service: 08/21/21 Narrative: Operative Information Procedure Description: Colonoscopy Indication: colon screening, hx of colon polyps, last colonoscopies were at [facility] Anesthesia: MAC COLONOSCOPY Instrument: Olympus variable stiffness ADULT scope 190L Colonoscopy Monitoring: Vital signs and clinical assessment, continuous EKG monitoring, Pulse oximetry, Carbon Dioxide monitoring and blood pressure monitoring were done throughout the procedure. Colon withdrawal time was 14 minutes. Procedure: The patient was placed in the left lateral decubitis position and pre-procedure medications were administered. After a digital rectal examination of the ano-rectum, the video colonoscope was inserted into the rectum and advanced through the colon to the cecum/TI. The colonoscope was slowly withdrawn in a retrograde panoramic fashion and the colon mucosa was carefully examined including a retroflexed view of the rectum. Findings and interventions are described below. Procedure Difficulty: easy Findings: Terminal Ileum-normal Cecum:normal Retroflexion with 12 mm sessile polyp noted in the mid ascending colon, removed with cold snare with x 3 clips applied for hemostasis. Ascending Colon: as above Transverse Colon -normal Descending Colon: 4-5 mm sessile polyp removed with cold forceps Sigmoid Colon: normal, tattoo tr from prior procedures noted at around 40 cm, no residual polyp tissue seen Rectum: Retroflexion with moderate sized internal hemorrhoids, grade II Anorectum - edge of internal hemorrhoids seen Colon preparation: [place] Bowel Preparation Scale Right colon; 1-2 Transverse colon: 2 Left colon; 1-2 (0 = Unprepared colon segment with mucosa not seen due to solid stool that cannot be cleared. 1 = Portion of mucosa of the colon segment seen, but other areas of the colon segment not well seen due to staining, residual stool and/or opaque liquid. 2 = Minor amount of residual staining, small fragments of stool and/or opaque liquid, but mucosa of colon segment seen well. 3 = Entire mucosa of colon segment seen well with no residual staining, small fragments of stool or opaque liquid) Impression and Post Procedure Diagnosis: polyps internal hemorrhoids Plan: High fiber diet leaflet Avoid straining at stool, epsom salts and sitz bath, anusol supps or cream Repeat Colonoscopy in 2-3 years due to hx of polyps and prep being not so good in certain parts or earlier if clinically indicated restart eliquis in 2 days ie Thursday night or Thursday morning Above findings were reviewed with the patient and relevant handouts were provided if indicated.
--- NOTE | 2021-08-21 09:41 | P.BOP_ITS ---
Brief Operative Note Date of Service: 08/21/21 Pre-op diagnosis: colon screening, hx of colon polyps Post-op diagnosis: same Procedure: see op note Surgeon: Natalie De Leon MD Anesthesia: MAC Was an Deputy General Counsel used for this Procedure?: No Estimated blood loss (mL): 0 Condition: stable Disposition: PACU
[2021-08-21 09:45] VITALS: BP 97/51; PULSE 57; RESP 16; TEMP 36.1; O2SAT 100
[2021-08-21 10:00] VITALS: BP 119/75; PULSE 54; RESP 16; TEMP 36.1; O2SAT 98
== END 2021-08-21 11:01 | disposition home or self-care (01) ==
PROVIDERS: PCP Family Medicine; Visit Provider Internal Medicine Gastroenterology
PROC: 0DJD8ZZ Inspection of Lower Intestinal Tract, Via Natural or Artificial Opening Endoscopic (ICD-10-PCS; CPT 45378; principal; 2021-08-21 09:20)
DX: Z12.11 Encounter for screening for malignant neoplasm of colon (principal); Z86.010 Personal history of colon polyps; I12.9 Hypertensive chronic kidney disease with stage 1 through stage 4 chronic kidney disease, or unspecified chronic kidney disease; N18.30 Chronic kidney disease, stage 3 unspecified; I25.10 Atherosclerotic heart disease of native coronary artery without angina pectoris; I48.0 Paroxysmal atrial fibrillation; Z79.01 Long term (current) use of anticoagulants; J44.9 Chronic obstructive pulmonary disease, unspecified; K21.9 Gastro-esophageal reflux disease without esophagitis; Z79.899 Other long term (current) drug therapy; Z88.8 Allergy status to other drugs, medicaments and biological substances; Z86.16 Personal history of COVID-19; Z87.891 Personal history of nicotine dependence; E66.01 Morbid (severe) obesity due to excess calories; Z68.42 Body mass index [BMI] 45.0-49.9, adult; Z98.84 Bariatric surgery status; Z90.3 Acquired absence of stomach [part of]; Z96.653 Presence of artificial knee joint, bilateral
CPT/HCPCS: 45385; 45380; 88305

== ENCOUNTER 2021-08-28 12:55 | Outpatient (REF) | payer MEDICARE, MEDICAID, SELFPAY ==
--- NOTE | ~2021-08-28 | US_ITS ---
EXAMINATION: US LOWER EXTREMITY VENOUS (REFLUX EXAM), BILATERAL CLINICAL INDICATION: This is a 61-year-old male with venous insufficiency and varicose veins. COMPARISON: None. TECHNIQUE: Color flow triplex imaging and compression Doppler was performed to evaluate both the deep and the superficial systems bilaterally. To evaluate the superficial system, the examination was performed in the upright position. Color-flow Doppler ultrasound and compression ultrasound were utilized. In addition, maneuvers were utilized to demonstrate reflux. FINDINGS: 1. DEEP VENOUS ULTRASOUND OF THE RIGHT LOWER EXTREMITY: Common Femoral Vein: Compressible, normal respiratory variation and augmented flow. Femoral vein: Compressible, normal color flow and augmentation. There is reflux of greater than 3 seconds within the mid femoral vein. Popliteal Vein: Compressible, normal augmentation. Deep Reflux: There is evidence of reflux in the mid femoral vein. There is no evidence of a Pillai's cyst. 2. SUPERFICIAL ULTRASOUND WITH DOPPLER OF RIGHT LOWER EXTREMITY: GREAT SAPHENOUS VEIN: Saphenofemoral Junction: 0.6 cm Mid Thigh: 0.3 cm Above Knee: 0.2 cm Below Knee: 0.2 cm Mid Calf: 0.2 cm Ankle: 0.2 cm GSV REFLUX: No evidence of reflux. DUPLICATED GREAT SAPHENOUS VEIN: None SMALL SAPHENOUS VEIN: Proximal: 0.5 cm. The reflux time is 3384 ms. Distal: 0.3 cm. The reflux time is 3380 ms. SSV REFLUX: No evidence of reflux. VEIN OF GIACOMINI: None Imaged. 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 VARICOSITIES: There is a 0.4 cm proximal thigh varicose vein without reflux. 3. DEEP VENOUS ULTRASOUND OF THE LEFT LOWER EXTREMITY: Common Femoral Vein: Compressible, normal respiratory variation and augmented flow. Femoral Vein: Compressible, normal color flow and augmentation. Popliteal Vein: Compressible, normal augmentation. There is reflux of 3088 ms in the popliteal vein. Deep Reflux: There is evidence of reflux in the deep system in the popliteal vein. There is no evidence of a Pillai's cyst. 4. SUPERFICIAL ULTRASOUND WITH DOPPLER OF LEFT LOWER EXTREMITY: GREAT SAPHENOUS VEIN: Saphenofemoral Junction: 1.1 cm Mid Thigh: 0.2 cm Above Knee: 0.2 cm Below Knee: 0.2 cm Mid Calf: 0.2 cm Ankle: 0.2 cm GSV REFLUX: No evidence of reflux. DUPLICATED GREAT SAPHENOUS VEIN: None SMALL SAPHENOUS VEIN: The small saphenous vein is not seen. SSV REFLUX: No evidence of reflux. VEIN OF GIACOMINI: None Imaged. 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 VARICOSITIES: There are 0.4 cm and 0.6 cm thigh varicose veins with 1160 ms of reflux. US/US venous duplex LE BI IMPRESSION: 1. There are patent bilateral great saphenous veins without evidence of reflux. 2. The right small saphenous vein is patent with reflux at the junction and extending into the distal calf. 3. The left small saphenous vein is not seen. 4. There are varicose veins seen bilaterally. 5. There is deep vein reflux seen bilaterally as noted.
== END 2021-08-28 12:56 | disposition home or self-care (01) ==
LOC: HO.US 12:55
PROVIDERS: Visit Provider Surgery Vascular Surgery
DX: I83.12 Varicose veins of left lower extremity with inflammation (principal)
CPT/HCPCS: 93970

== ENCOUNTER → 2021-09-03 08:45 | Outpatient (BNVA) | payer MEDICARE, MEDICAID, SELFPAY | PROVIDERS: Visit Provider Nurse Practitioner Family | DX: K21.9 Gastro-esophageal reflux disease without esophagitis (principal); K59.01 Slow transit constipation; Z86.010 Personal history of colon polyps; Z79.899 Other long term (current) drug therapy; Z98.890 Other specified postprocedural states | CPT/HCPCS: 99212 ==

== ENCOUNTER → 2021-09-19 10:11 | Outpatient (BNVA) | payer MEDICARE, MEDICAID, SELFPAY | PROVIDERS: PCP Family Medicine; Visit Provider Surgery Vascular Surgery | DX: I83.12 Varicose veins of left lower extremity with inflammation (principal) | CPT/HCPCS: 99212 ==

== ENCOUNTER → 2021-09-24 10:19 | Outpatient (BNVA) | payer MEDICARE, MEDICAID, SELFPAY | PROVIDERS: Visit Provider Internal Medicine | DX: L03.116 Cellulitis of left lower limb (principal) | CPT/HCPCS: 99212 ==

== ENCOUNTER → 2021-09-27 10:10 | Outpatient (BNVA) | payer MEDICARE, MEDICAID, SELFPAY | PROVIDERS: PCP Family Medicine; Visit Provider Surgery Vascular Surgery | DX: I83.12 Varicose veins of left lower extremity with inflammation (principal) | CPT/HCPCS: 36475 ==

== ENCOUNTER → 2021-10-10 15:34 | Outpatient (BNVA) | payer MEDICARE, MEDICAID, SELFPAY | PROVIDERS: PCP Family Medicine; Visit Provider Surgery Vascular Surgery | DX: I83.11 Varicose veins of right lower extremity with inflammation (principal); I89.0 Lymphedema, not elsewhere classified | CPT/HCPCS: 99212 ==

== ENCOUNTER → 2021-11-01 07:26 | Outpatient (BNVA) | payer MEDICARE, MEDICAID, SELFPAY | PROVIDERS: PCP Family Medicine; Visit Provider Surgery Vascular Surgery | DX: I83.12 Varicose veins of left lower extremity with inflammation (principal) | CPT/HCPCS: 36475 ==

== ENCOUNTER 2021-11-14 15:18 | Outpatient (REF) | payer MEDICARE, MEDICAID, SELFPAY ==
--- NOTE | ~2021-11-14 | US_ITS ---
EXAMINATION: US VENOUS ULTRASOUND WITH DOPPLER LOWER EXTREMITY, RIGHT CLINICAL INFORMATION: Right leg pain status post small saphenous vein RFA COMPARISON: Lower extremity venous ultrasound 08/28/2021 TECHNIQUE: Ultrasound of the deep veins is performed from the hip to the calf with compression sonography and color and pulse Doppler assessment. Spectral analysis with color-flow imaging is performed. FINDINGS: There is normal venous compression and respiratory variation and augmented flow. The visualized common femoral vein, superficial femoral vein, profunda femoral vein, popliteal vein, and the trifurcation region shows no evidence of deep venous thrombosis. Posterior tibial and peroneal veins appear patent. There is a thrombosis of the small saphenous vein to approximately 1.1 cm proximal to the confluence with the popliteal vein. US/US venous duplex LE RT IMPRESSION: 1. Thrombosis of the small saphenous vein to approximately 1 cm proximal to the confluence with the popliteal vein. 2. No evidence of deep venous thrombosis.
== END 2021-11-14 15:19 | disposition home or self-care (01) ==
LOC: HO.US 15:18
PROVIDERS: PCP Family Medicine; Visit Provider Surgery Vascular Surgery
DX: I83.11 Varicose veins of right lower extremity with inflammation (principal); M79.604 Pain in right leg
CPT/HCPCS: 93971; 99212

== ENCOUNTER 2022-01-30 08:40 | Outpatient (REF) | payer MEDICARE, MEDICAID, SELFPAY ==
--- NOTE | ~2022-01-30 | US_ITS ---
EXAMINATION: US VENOUS ULTRASOUND WITH DOPPLER LOWER EXTREMITY, LEFT CLINICAL INFORMATION: Left lower extremity swelling and edema COMPARISON: DVT studies left lower extremity 08/05/2021 and 08/28/2021 TECHNIQUE: Ultrasound of the deep veins is performed from the hip to the calf with compression sonography and color and pulse Doppler assessment. Spectral analysis with color-flow imaging is performed. This study is limited secondary to body habitus, swelling FINDINGS: There is venous compression and respiratory variation and augmented flow through most of the left lower extremity. The visualized common femoral vein, superficial femoral vein, profunda femoral vein, popliteal vein, and the trifurcation region shows no evidence of deep venous thrombosis. Limited visualization of the distal femoral vein secondary to body habitus and peroneal veins were not visualized probably secondary to swelling and edema. There is no significant popliteal fossa cyst. If the patient's symptoms persist, followup ultrasound in 5 days 7 days might be of value to exclude proximal propagation from a non-visualized calf vein. US/US venous duplex LE LT IMPRESSION: No DVT demonstrated in the left lower extremity.
== END 2022-01-30 08:41 | disposition home or self-care (01) ==
LOC: HO.US 08:40
PROVIDERS: PCP Family Medicine; Visit Provider Family Medicine
DX: R60.0 Localized edema (principal); M79.89 Other specified soft tissue disorders
CPT/HCPCS: 93971

== ENCOUNTER → 2022-02-11 09:34 | Outpatient (BNVA) | payer MEDICARE, MEDICAID, SELFPAY | PROVIDERS: PCP Family Medicine; Visit Provider Surgery Vascular Surgery | DX: I89.0 Lymphedema, not elsewhere classified (principal); E66.01 Morbid (severe) obesity due to excess calories | CPT/HCPCS: 99212 ==

== ENCOUNTER → 2022-03-19 08:15 | Outpatient (BNVA) | payer MEDICARE, MEDICAID, SELFPAY | PROVIDERS: PCP Family Medicine; Visit Provider Nurse Practitioner Family | DX: K21.9 Gastro-esophageal reflux disease without esophagitis (principal); K59.01 Slow transit constipation | CPT/HCPCS: 99212 ==

== ENCOUNTER 2022-03-26 07:42 | Outpatient (REF) | payer MEDICARE, MEDICAID, SELFPAY ==
[2022-03-26 11:16] LABS: MANUAL DIFF FLAG NO
[2022-03-26 11:30] LABS: Basophils Absolute Auto 0.1 X10*3/uL (0.0-0.2); Basophils Percent Auto 1.4 % (0-2); Eosinophils Absolute Auto 0.3 X10*3/uL (0.0-0.4); Eosinophils Percent Auto 5.2 % (0-4); Hematocrit 41.7 % (42.0-52.0); Hemoglobin 13.6 g/dl (14.0-18.0); Imm Gran Abs Auto 0.01 X10*3/uL (0.00-0.03); Imm Gran Pct Auto 0.2 % (0.0-0.4); Lymphocytes Absolute Auto 1.2 X10*3/uL (1.2-4.9); Lymphocytes Percent Auto 23.2 % (20-40); Mean Corpuscular HGB Conc 32.6 g/dl (31.0-36.0); Mean Corpuscular Hemoglobin 29.5 pg (27.0-33.0); Mean Corpuscular Volume 90.5 fL (80.0-98.0); Mean Platelet Volume 10.8 fL (9.4-12.4); Monocytes Absolute Auto 0.6 X10*3/uL (0.1-1.2); Monocytes Percent Auto 12.6 % (2-11); Neutrophils Absolute Auto 2.9 x10*3/uL (2.0-8.3); Neutrophils Percent Auto 57.4 % (45-73); Platelet Count 232 X10*3/uL (160-400); Red Blood Count 4.61 X10*6/uL (4.60-5.80); Red Cell Distribution Width 13.4 % (11.0-16.0)
[2022-03-26 11:57] LABS: Alanine Aminotransferase 11 U/L (0-40); Albumin Level 3.9 g/dL (3.5-5.0); Alkaline Phosphatase 100 U/L (39-117); Anion Gap 11 (12-20); Aspartate Amino Transferase 14 U/L (5-37); Bilirubin Total 0.7 mg/dL (0.0-1.0); Blood Urea Nitrogen 12 mg/dL (9-16); Calcium 8.7 mg/dL (8.4-10.2); Carbon Dioxide 30 mmol/L (22-29); Chloride 107 mmol/L (96-108); Cholesterol 188 mg/dL; Estimated Glomerular Filt Rate > 60; Glucose Fasting 93 mg/dL (60-99); HDL Cholesterol 46 mg/dL; LDL Cholesterol Calculated 124 mg/dl; Sodium 144 mmol/L (135-145); Total Protein 6.3 g/dL (6.5-8.0); Triglycerides 91 mg/dL
[2022-03-26 12:02] LABS: Prostate Specific Antigen Scr 0.64 ng/mL (<0.05-4.0); TSH reflex Free T4 2.18 uIU/mL (0.32-4.0)
== END 2022-03-26 07:43 | disposition home or self-care (01) ==
LOC: HO.WFDLDS 07:42
PROVIDERS: Visit Provider Family Medicine
DX: Z00.00 Encounter for general adult medical examination without abnormal findings (principal); Z12.5 Encounter for screening for malignant neoplasm of prostate
CPT/HCPCS: 36415; 80053; 80061; 84153; 84443; 85025

== ENCOUNTER → 2022-03-31 10:18 | Outpatient (BNVA) | payer MEDICARE, MEDICAID, SELFPAY | PROVIDERS: PCP Family Medicine; Visit Provider Internal Medicine | DX: L03.119 Cellulitis of unspecified part of limb (principal) | CPT/HCPCS: 99212 ==

== ENCOUNTER 2022-05-30 07:13 | Outpatient (REF) | payer MEDICARE, MEDICAID, SELFPAY ==
--- NOTE | ~2022-05-30 | XR_ITS ---
EXAMINATION: XR KNEE STANDING, BILATERAL XR KNEE, RIGHT CLINICAL INFORMATION: Right knee pain. COMPARISON: None TECHNIQUE: AP bilateral knee standing. Right knee 2 views. FINDINGS: AP BILATERAL KNEE: There is a total bilateral knee arthroplasty with prosthetic components in satisfactory alignment. No periprosthetic fracture or soft tissue abnormality seen. RIGHT KNEE: Two views of the right knee reveal prosthetic components in satisfactory alignment. No loose pain or fracture seen. No abnormal joint effusion. XR/XR knee standing BI IMPRESSION: Right knee arthroplasty with prosthetic components in satisfactory alignment. No periprosthetic soft tissue abnormality seen. Right knee lateral and patellofemoral views are unremarkable.
--- NOTE | ~2022-05-30 | XR_ITS ---
EXAMINATION: XR KNEE STANDING, BILATERAL XR KNEE, RIGHT CLINICAL INFORMATION: Right knee pain. COMPARISON: None TECHNIQUE: AP bilateral knee standing. Right knee 2 views. FINDINGS: AP BILATERAL KNEE: There is a total bilateral knee arthroplasty with prosthetic components in satisfactory alignment. No periprosthetic fracture or soft tissue abnormality seen. RIGHT KNEE: Two views of the right knee reveal prosthetic components in satisfactory alignment. No loose pain or fracture seen. No abnormal joint effusion. XR/XR knee RT 2V IMPRESSION: Right knee arthroplasty with prosthetic components in satisfactory alignment. No periprosthetic soft tissue abnormality seen. Right knee lateral and patellofemoral views are unremarkable.
== END 2022-05-30 07:14 | disposition home or self-care (01) ==
LOC: HO.HOSX 07:13
PROVIDERS: Visit Provider Physician Assistant
DX: M25.561 Pain in right knee (principal); M25.562 Pain in left knee; Z96.651 Presence of right artificial knee joint
CPT/HCPCS: 73560; 73565; 99202

== ENCOUNTER 2022-07-30 08:53 | Outpatient (REF) | payer MEDICARE, MEDICAID, SELFPAY ==
[2022-07-30 12:26] LABS: Alanine Aminotransferase 14 U/L (0-40); Albumin Level 3.7 g/dL (3.5-5.0); Alkaline Phosphatase 109 U/L (39-117); Anion Gap 11 (12-20); Aspartate Amino Transferase 16 U/L (5-37); Bilirubin Total 1.3 mg/dL (0.0-1.0); Blood Urea Nitrogen 9 mg/dL (9-16); Calcium 8.8 mg/dL (8.4-10.2); Carbon Dioxide 30 mmol/L (22-29); Chloride 107 mmol/L (96-108); Cholesterol 123 mg/dL; Estimated Glomerular Filt Rate > 60; Glucose Fasting 86 mg/dL (60-99); HDL Cholesterol 39 mg/dL; LDL Cholesterol Calculated 61 mg/dl; Potassium 4.2 mmol/L (3.3-5.1); Sodium 144 mmol/L (135-145); Total Protein 6.2 g/dL (6.5-8.0); Triglycerides 115 mg/dL
== END 2022-07-30 08:54 | disposition home or self-care (01) ==
LOC: HO.WFDLDS 08:53
PROVIDERS: Visit Provider Family Medicine
DX: Z00.00 Encounter for general adult medical examination without abnormal findings (principal); E78.5 Hyperlipidemia, unspecified
CPT/HCPCS: 36415; 80053; 80061

== ENCOUNTER 2022-11-11 08:26 | Outpatient (AMB) | payer MEDICARE, MEDICAID, SELFPAY ==
[2022-11-11 08:34] VITALS: BP 132/74; PULSE 79; O2SAT 97; BMI 49.8
--- NOTE | 2022-11-11 08:34 | A.OFFPC_ITS ---
Vital Signs 11/11/22 08:34 Height 5 ft 3 in Weight 281 lb 4 oz BMI 49.8 BP 132/74 Blood Pressure Location Lt brachial Position Sitting Pulse 79 Pulse Source Pulse Oximeter Pulse Oximetry (%) 97 Oxygen Delivery Method Room Air Intake Visit Reasons: f/u hypertension and chronic conditions Intake Note: Patient is here for follow up on hypertension and chronic conditions. Patient is requesting refill of furosemide at this time. Allergies enoxaparin [From Lovenox] Allergy (Intermediate, Verified 11/11/22 08:38) rash/swelling seafood Allergy (Intermediate, Verified 11/11/22 08:38) rash/swelling Tobacco use date assessed: 05/08/22 Dental Screening Did you have a dental visit in the last 12 months?: No Did you have a dental problem in the last 6 months where you did not have access to dental care?: No Was dental information given to patient?: No HPI f/u hypertension and chronic conditions HPI Details 62 y/o male with hx of CAD presents to f/u hypertension and chronic conditions. Blood pressure today is 132/74. He is on metoprolol 75mg b.i.d. He is unsure when his next visit with Cardiology is. Pt reports he tries to do some exercise but his legs do start hurting after a bit. He states he uses a wheelchair at home to get down his driveway and back. Pt states rash has improved. HPI Comments History of Present Illness Details Documentation assistance for Salvador Leon MD, was provided by Umang Lawson, Speech Therapy Teacher on 11/11/2022 8:50 AM EST. I, Dr. Leon, have read, observed, and verified documentation. [facility] Medical History CAD (coronary artery disease) Chronic bronchitis Chronic renal failure, stage 3 (moderate) COPD (chronic obstructive pulmonary disease) COVID-19 vaccine series completed Essential hypertension GERD (gastroesophageal reflux disease) History of COVID-19 Morbid obesity Myocardial infarction Paroxysmal atrial fibrillation Recurrent cellulitis of lower leg Supraventricular tachycardia Surgical History H/O colonoscopy History of carpal tunnel release History of heart artery stent History of inferior vena caval filter placement History of knee replacement History of sleeve gastrectomy Family History Father CVD (cardiovascular disease) Mother Diabetes mellitus Cancer Brother No problems noted. Brother No problems noted. Son No problems noted. Sister No problems noted. Sister No problems noted. Sister No problems noted. Sister No problems noted. Sister No problems noted. Sister No problems noted. Other Mental health disorder Substance use disorder Social History Household Members: Spouse Household Members Other:: & son Housing: Apartment Are you a primary neonatal intensive care unit nurse to a significant other at home: No Do you presently have visiting nurse or other home services: Yes (private duty care when needed) Patient Tobacco Use Status: Former Tobacco user Quit Date: 2008 Tobacco use type: Cigarette Years Smoked: 40 e-Cigarette/Vaping Use: Never Used Second Hand Smoke Exposure: No Advance Directives Date on File: 08/21/21 service: Yes Current occupational status: disabled Current occupational exposures/hazards: No Cognitive needs: No Hearing needs: No Vision needs: No Questionnaire PHQ-9 Over the last 2 weeks, how often have you been bothered by any of the following problems? 1. Little interest or pleasure in doing things: not at all 2. Feeling down, depressed, or hopeless: not at all 3. Trouble falling or staying asleep, or sleeping too much: not at all 4. Feeling tired or having little energy: not at all 5. Poor appetite or overeating: not at all 6. Feeling bad about yourself - or that you are a failure or have let yourself or your family down: not at all 7. Trouble concentrating on things, such as reading the newspaper or watching television: not at all 8. Moving or speaking so slowly that other people could have noticed. Or the opposite - being so fidgety or restless that you have been moving around a lot more than usual: not at all 9. Thoughts that you would be better off or of hurting yourself in some way: not at all Total score: 0 Source: Developed by Drs. Alex Adam, Bhumi Mckinley, Jam Gibson and colleagues, with an educational edgar from [employer]. Thrive Questionnaire Date Thrive assessed: 05/08/22 I am a: Patient What is your living situation today?: I have a steady place to live Within the past 12 months, did the food you bought not last and you didn't have the money to get more?: Never true Within the past 12 months, did you worry whether your food would run out before you got money to buy more?: Never true Do you have trouble paying for medicines?: No Do you have trouble getting transportation to medical appointments?: No Do you have trouble paying your heating and electricity bill?: No Do you have trouble taking care of your child, family member or friend?: No Do you have trouble with day-to-day activities such as bathing, preparing meals, shopping, managing finances, etc.?: No Are you currently unemployed and looking for a job?: No Are you interested in more education?: No AUDIT C Alcohol Use Questionnaire (AUDIT-C) 1. How often do you have a drink containing alcohol?: Never 3. How often do you have six or more drinks on one occasion?: Never Total Score: 0 MARIAH-7 AMB Questionnaire MARIAH-7 Date MARIAH - 7 assessed: 05/08/22 Feeling nervous, anxious, or on edge: 0 = Not at all Not being able to stop or control worryin = Not at all Worrying too much about different things: 0 = Not at all Trouble relaxin = Not at all Being so restless that it is hard to sit still: 0 = Not at all Becoming easily annoyed or irritable: 0 = Not at all Feeling afraid as if something awful might happen: 0 = Not at all Total MARIAH-7 score (0-4 normal; 5-9 mild; 10-14 moderate; 15-21 severe): 0 Source: Developed by Drs. Alex Adam, Bhumi Mckinley, Jam Gibson and colleagues, with an educational edgar from [employer]. ACT Questionnaire In the past 4 weeks, how much of the time did your asthma keep you from getting as much done at work, school or at home?: None of the time During the past 4 weeks, how often have you had shortness of breath?: 3-6 times a week During the past 4 weeks, how often did your asthma symptoms wake you up at night or earlier than usual in the morning?: Not at all During the past 4 weeks, how often have you had to use your rescue inhaler or nebulizer medication?: Not at all How would you rate your asthma control during the past 4 weeks?: Well controlled Score: 22 Review of Systems Const Denies chills, Denies fatigue, Denies fever(s), Denies headache(s) and Denies weakness ENT Denies dizziness and Denies headache(s) Card Denies chest pain, Denies lightheadedness, Denies dyspnea and Denies other (Palpitations) Resp Denies cough, Denies dyspnea, Denies wheezing and Denies other ( shortness of breath) Musc Denies numbness and Denies tingling Neuro Denies dizziness, Denies headache(s), Denies numbness, Denies tingling, Denies paresthesias and Denies weakness Psych Denies anxiety and Denies depression Endo Denies fatigue Aller/Immun Denies wheezing Physical exam (Primary Care) Vital Signs: Last Vital Signs Pulse 79 11/11/22 08:34 BP 132/74 11/11/22 08:34 Pulse Ox 97 11/11/22 08:34 Oxygen Delivery Method Room Air 11/11/22 08:34 BMI result Body Mass Index 49.8 Tobacco/Smoking Status: Tobacco use Status Tobacco use date assessed 05/08/22 11/11/22 08:45 Patient Tobacco Use Status Former Tobacco user 11/11/22 08:45 Tobacco use type Cigarette 11/11/22 08:45 e-Cigarette/Vaping Use Never Used 11/11/22 08:45 PHQ-9: PHQ-9 Score PHQ-9: Total score 0 11/11/22 08:49 Thrive Assessment: Date of Thrive Assessment Date Thrive assessed 05/08/22 11/11/22 08:45 Const General: no acute distress and well developed Nutritional Appearance: well nourished and obese morbidly obese Orientation/consciousness: patient oriented x3 HENMT Head: Yes normocephalic and Yes atraumatic Eyes General: appearance normal, both eyes and all related structures Pupils: Equal, round and reactive pupils present EOM: EOMs intact bilaterally Resp Effort & Inspection: normal respiratory effort Auscultation: clear to auscultation bilaterally Cardio Rate: regular rate Rhythm: regular rhythm Heart sounds: S1 normal heart sound present, S2 normal heart sound present, no gallops, no murmurs and no rubs Neuro General: patient oriented x3 and gait normal Cranial nerves: Yes Equal, round and reactive pupils present Psych Affect: normal affect Assessment and Plan Assessment & Plan (1) Essential hypertension: Code(s): I10 - Essential (primary) hypertension Plan: Blood pressure is fairly well controlled. 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 Coding Level of Care Code Est Pt Level 4 (21911) Diagnoses Essential hypertension I10 CAD (coronary artery disease) I25.10 Dermatitis L30.9
== END 2022-11-11 08:55 | disposition home or self-care (01) ==
PROVIDERS: Visit Provider Family Medicine
DX: I10 Essential (primary) hypertension (principal); I25.10 Atherosclerotic heart disease of native coronary artery without angina pectoris; L30.9 Dermatitis, unspecified
CPT/HCPCS: 99214

== ENCOUNTER 2023-02-12 11:20 | Outpatient (AMB) | payer MEDICARE, MEDICAID, SELFPAY ==
[2023-02-12 11:32] VITALS: BP 126/78; PULSE 84; O2SAT 96; BMI 48.4
--- NOTE | 2023-02-12 11:32 | MHC.PC.OV ---
Vital Signs 02/12/23 11:32 Height 5 ft 3 in Weight 273 lb 6 oz BMI 48.4 BP 126/78 Blood Pressure Location Lt brachial Position Sitting Pulse 84 Pulse Source Pulse Oximeter Pulse Oximetry (%) 96 Oxygen Delivery Method Room Air Intake Visit Reasons: f/u hypertension and chronic conditions Intake Note: Patient is here for follow up on hypertension and chronic conditions. Allergies enoxaparin [From Lovenox] Allergy (Intermediate, Verified 02/12/23 11:34) rash/swelling seafood Allergy (Intermediate, Verified 02/12/23 11:34) rash/swelling Medication List - Last Reconciled 02/12/23 by Salvador Leon MD albuterol sulfate 1.25 mg (3 mL) inhalation QID PRN albuterol sulfate 90 mcg/actuation 1 puff inhalation Q4H PRN apixaban 5 mg PO BID aspirin (Adult Aspirin Regimen) 81 mg PO DAILY atorvastatin 80 mg PO BEDTIME 90 days blood pressure monitor Automatic, Digital. Dx: I10. Daily As directed, 999 days/lifetime budesonide-formoterol 80-4.5 mcg/actuation 2 puffs PO BID clotrimazole-betamethasone 1-0.05 % 1 appl topical BID 2 weeks ezetimibe 10 mg PO DAILY famotidine 20 mg PO DAILY 90 days furosemide 40 mg PO SUTUTHSA 30 days melatonin 10 mg PO BEDTIME metoprolol tartrate 75 mg (1.5 x 50 mg) PO BID miscellaneous medical supply Reclining chair. Daily As directed 999 days. nebulizers (Altera Nebulizer Handset) As directed sennosides (Natural Senna Laxative) 8.6 mg PO BEDTIME tiotropium bromide 1 cap inhalation DAILY Tobacco use date assessed: 02/12/23 Fall risk assessment: No Falls in past year Last assessed Fall Risk: 02/12/23 Dental Screening Dental Screen Date: 02/12/23 Did you have a dental visit in the last 12 months?: Yes Did you have a dental problem in the last 6 months where you did not have access to dental care?: No Was dental information given to patient?: Patient declined HPI f/u hypertension and chronic conditions HPI Details 62 y/o male presents to f/u hypertension and chronic conditions. Blood pressure today 126/78. He is on metoprolol 75mg b.i.d. [facility] Medical History Recurrent cellulitis of lower leg COVID-19 vaccine series completed Supraventricular tachycardia COPD (chronic obstructive pulmonary disease) Myocardial infarction History of COVID-19 Morbid obesity Chronic bronchitis GERD (gastroesophageal reflux disease) Chronic renal failure, stage 3 (moderate) CAD (coronary artery disease) Paroxysmal atrial fibrillation Essential hypertension Surgical History History of inferior vena caval filter placement H/O colonoscopy History of sleeve gastrectomy History of heart artery stent History of carpal tunnel release History of knee replacement Family History Father CVD (cardiovascular disease) Mother Diabetes mellitus Cancer Brother No problems noted. Brother No problems noted. Son No problems noted. Sister No problems noted. Sister No problems noted. Sister No problems noted. Sister No problems noted. Sister No problems noted. Sister No problems noted. Other Mental health disorder Substance use disorder Social History Household Members: Spouse Household Members Other:: & son Housing: Apartment Are you a primary day care provider to a significant other at home: No Do you presently have visiting nurse or other home services: Yes (private duty care when needed) Patient Tobacco Use Status: Former Tobacco user Quit Date: 2008 Tobacco use type: Cigarette Years Smoked: 40 e-Cigarette/Vaping Use: Never Used Second Hand Smoke Exposure: No Advance Directives Date on File: 08/21/21 service: Yes Current occupational status: disabled Current occupational exposures/hazards: No Cognitive needs: No Hearing needs: No Vision needs: No Questionnaire Thrive Questionnaire Date Thrive assessed: 05/08/22 MARIAH-7 AMB Questionnaire MAIRAH-7 Date MARIAH - 7 assessed: 05/08/22 Source: Developed by Drs. Alex Adam, Bhumi Mckinley, Jam Gibson and colleagues, with an educational edgar from [employer]. Review of Systems Const Denies chills, Denies fatigue, Denies fever(s), Denies headache(s) and Denies weakness ENT Denies dizziness and Denies headache(s) Card Denies dyspnea Resp Denies cough, Denies dyspnea, Denies wheezing and Denies other (shortness of breath) Musc Denies numbness and Denies tingling Neuro Denies dizziness, Denies headache(s), Denies numbness, Denies tingling and Denies weakness Psych Denies anxiety and Denies depression Endo Denies fatigue Aller/Immun Denies wheezing Physical exam (Primary Care) Vital Signs: Last Vital Signs Pulse 84 02/12/23 11:32 BP 126/78 02/12/23 11:32 Pulse Ox 96 02/12/23 11:32 Oxygen Delivery Method Room Air 02/12/23 11:32 BMI result Body Mass Index 48.4 Tobacco/Smoking Status: Tobacco use Status Tobacco use date assessed 02/12/23 02/12/23 11:39 Patient Tobacco Use Status Former Tobacco user 02/12/23 11:39 Tobacco use type Cigarette 02/12/23 11:39 e-Cigarette/Vaping Use Never Used 02/12/23 11:39 Thrive Assessment: Date of Thrive Assessment Date Thrive assessed 05/08/22 02/12/23 11:39 Const General: well developed; No acute distress Nutritional Appearance: well nourished Orientation/consciousness: patient oriented x3 HENMT Head: Yes normocephalic and Yes atraumatic Eyes General: appearance normal, both eyes and all related structures Pupils: Equal, round and reactive pupils present EOM: EOMs intact bilaterally Resp Effort & Inspection: normal respiratory effort Neuro General: patient oriented x3 and gait normal Cranial nerves: Yes Equal, round and reactive pupils present Psych Affect: normal affect Assessment and Plan Assessment & Plan (1) Essential hypertension: Code(s): I10 - Essential (primary) hypertension Plan: Blood?pressure?is?controlled.??Goal?is?less?than?130/90?for?patient?with?coronary?artery?disease Continue?current?medication?regimen (2) Paroxysmal atrial fibrillation: Code(s): I48.0 - Paroxysmal atrial fibrillation Plan: Heart?rate?is?controlled He?is?anticoagulated?with?Eliquis No?problems?with?his?medications Continue?current?regimen (3) Immunization counseling: Code(s): Z71.85 - Encounter for immunization safety counseling Plan: Due?for?flu?shot?and?will?be?given?today Also?advised?he?get?latest?COVID?booster?at?his?pharmacy Orders: Orders Influenza [id number] Immunization Today Z23 - Encounter for immunization Medications: New flu vacc [id number] 6mos up(PF) 0.5 mL IM ONCE 0.5 mL 0RF Z23 - Encounter for immunization Coding Level of Care Code Est Pt Level 4 (53476) Diagnoses Essential hypertension I10 Paroxysmal atrial fibrillation I48.0 Immunization counseling Z71.85
== END 2023-02-12 12:24 | disposition home or self-care (01) ==
PROVIDERS: PCP Family Medicine; Visit Provider Family Medicine
DX: I10 Essential (primary) hypertension (principal); I48.0 Paroxysmal atrial fibrillation; Z71.85 Encounter for immunization safety counseling; Z23 Encounter for immunization
CPT/HCPCS: 90471; 90686; 99214

== ENCOUNTER 2023-03-16 09:20 | Outpatient (AMB) | payer MEDICARE, SELFPAY ==
--- NOTE | 2023-03-16 10:39 | MHC.OFFVIS ---
Intake Vital Signs 03/16/23 10:40 Height 5 ft 3 in Weight 277 lb 5.464 oz BMI 49.1 BP 122/69 Blood Pressure Location Lt brachial Position Sitting Pulse 81 Intake Visit Reasons: 1year f/u GERD, Constipation Intake Note: Andrew presents in office today in a one year follow up of GERD and constipation. CC: Patient reports he is doing well and denies having any new GI symptom or concerns. He reports he has lost over 200 pounds s/p bariatric surgery in February. 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 Patient states that he has been feeling well when he takes it. There are days when he has to take a 2nd dose, however he states that usually 1 dose of famotidine helps to suppress his symptoms. Discussed with patient the importance of avoiding dietary triggers and large meals. Staying upright for minimal 3 hours after meals discussed with patient. Constipation Patient has not taking Senokot for over a month, constipated no BM for 2-3 days. Will restart Senokot again. Patient was encouraged to get [id number] okay to get a store brand. I will see him in 1 year, sooner on as needed basis. Patient is agreeable to this plan and verbalizes understanding of instructions. He was given the opportunity to ask questions and all questions answered. ? Thank you for allowing me to participate in his care Plan Medications Refilled sennosides (Natural Senna Laxative) 8.6 mg PO BEDTIME 90 tabs 3RF constipation K59.00 famotidine 20 mg PO DAILY 90 days 90 tabs 3RF TODAY'S VISIT Patient is here today for follow-up. Patient reports that since he started taking senna he has had moving his bowels better. Patient takes 1 senna every evening. Patient reports that he eats vegetables. Denies any dyspepsia, dysphagia or odynophagia. Takes famotidine in the morning. Patient states that if he forgets to take famotidine he will have epigastric discomfort postprandially. Patient denies any nausea or vomiting. Denies any melena, hematochezia, unintentional weight loss or ribbon like stools. Patient will be due for colorectal screening in August of 2024. Patient denies any other GI concerning symptoms today. [facility] Medical History Recurrent cellulitis of lower leg COVID-19 vaccine series completed Supraventricular tachycardia COPD (chronic obstructive pulmonary disease) Myocardial infarction History of COVID-19 Morbid obesity Chronic bronchitis GERD (gastroesophageal reflux disease) Chronic renal failure, stage 3 (moderate) CAD (coronary artery disease) Paroxysmal atrial fibrillation Essential hypertension Surgical History History of inferior vena caval filter placement H/O colonoscopy History of sleeve gastrectomy History of heart artery stent History of carpal tunnel release History of knee replacement Family History Father CVD (cardiovascular disease) Mother Diabetes mellitus Cancer Brother No problems noted. Brother No problems noted. Son No problems noted. Sister No problems noted. Sister No problems noted. Sister No problems noted. Sister No problems noted. Sister No problems noted. Sister No problems noted. Other Mental health disorder Substance use disorder Social History Household Members: Spouse Household Members Other:: & son Housing: Apartment Are you a primary housekeeper child care to a significant other at home: No Do you presently have visiting nurse or other home services: Yes (private duty care when needed) Patient Tobacco Use Status: Former Tobacco user Quit Date: 2008 Tobacco use type: Cigarette Years Smoked: 40 e-Cigarette/Vaping Use: Never Used Second Hand Smoke Exposure: No Advance Directives Date on File: 08/21/21 service: Yes Current occupational status: disabled Current occupational exposures/hazards: No Cognitive needs: No Hearing needs: No Vision needs: No Review of Systems Const Denies weight gain and Denies weight loss ENT Reports no additional complaints, Denies dysphagia and Denies odynophagia Card Reports no additional complaints Resp Reports no additional complaints GI Denies abdominal pain, Denies belching, Denies melena, Denies bloating, Denies change in bowel habits, Denies dysphagia, Denies excessive flatus, Denies dyspepsia, Denies heartburn, Denies diarrhea, Denies loose stools, Denies nausea, Denies odynophagia and Denies vomiting Reports no additional complaints Musc Reports no additional complaints Neuro Reports no additional complaints Psych Reports no additional complaints Endo Reports no additional complaints Physical Exam Vital Signs: Last Vital Signs Pulse 81 03/16/23 10:40 BP 122/69 03/16/23 10:40 BMI result Body Mass Index 49.1 Const General: healthy appearing, no acute distress and well developed Nutritional Appearance: obese Orientation/consciousness: patient oriented x3 HEENT Head: Yes normal to inspection, Yes normocephalic and Yes atraumatic Face and sinus: Yes normal facial exam Mouth: Normal oral and palatal mucosa present Throat: Yes posterior oropharynx normal, Yes tonsils normal and Yes uvula midline Eyes General: appearance normal, both eyes and all related structures Neck Neck: Yes normal visual inspection, Yes full ROM and Yes trachea midline Thyroid: Thyroid normal Resp Effort & Inspection: normal respiratory effort, able to speak in complete sentences, no tracheal deviation and symmetric chest movement Auscultation: clear to auscultation bilaterally Cardio Rate: regular rate Heart sounds: S1 normal heart sound present and S2 normal heart sound present GI Inspection: Yes normal to inspection, No distended and Yes obesity Palpation (GI): Soft to palpation, not firm, nontender and No hepatosplenomegaly present Auscultation: normal bowel sounds General: Yes no CVA tenderness Back/Spine/Pelvis Back: no CVA tenderness Skin General skin exam: elasticity normal, turgor normal and dry skin Neuro General: patient oriented x3 Psych Appearance: grossly normal Mental Status: mental status grossly normal Affect: normal affect Assessment & Plan Assessment & Plan (1) GERD (gastroesophageal reflux disease): Code(s): K21.9 - Gastro-esophageal reflux disease without esophagitis Qualifiers: Esophagitis presence: esophagitis presence not specified Qualified Code(s): K21.9 - Gastro-esophageal reflux disease without esophagitis (2) Constipation: Code(s): K59.00 - Constipation, unspecified Qualifiers: Constipation type: slow transit constipation Qualified Code(s): K59.01 - Slow transit constipation Plan Continue famotidine every day. Discussed with patient the importance of avoiding dietary triggers and late night snacking. Staying upright for minimum 3 hours after meals discussed with patient. Patient will continue taking senna. Discussed with patient increasing fluid intake and activity to promote better bowel motility. I will see patient in 1 year, he will be due to go for colorectal screening in 2024. Patient is agreeable to this plan and verbalizes understanding of instructions. He was given the opportunity to ask questions and all questions answered. Thank you for allowing me to participate in his care Medications: Refilled famotidine 20 mg PO DAILY 90 days 90 tabs 5RF sennosides (Natural Senna Laxative) 8.6 mg PO BEDTIME 90 tabs 4RF constipation K59.00 - Constipation, unspecified Coding Level of Care Code Est Pt Level 3 (52997) Diagnoses Gastroesophageal reflux disease, unspecified whether esophagitis present K21.9 Esophagitis presence: esophagitis presence not specified Slow transit constipation K59.01 Constipation type: slow transit constipation Time Spent (min) 25 Comment 15 minutes spent with patient and additional 10 minutes spent reviewing his records
[2023-03-16 10:40] VITALS: BP 122/69; PULSE 81; BMI 49.1
== END 2023-03-16 10:58 | disposition home or self-care (01) ==
PROVIDERS: PCP Family Medicine; Visit Provider Nurse Practitioner Family
DX: K21.9 Gastro-esophageal reflux disease without esophagitis (principal); K59.01 Slow transit constipation
CPT/HCPCS: 99213

== ENCOUNTER → 2023-03-16 09:20 | Outpatient (BNVA) | payer MEDICARE, MEDICAID, SELFPAY | PROVIDERS: PCP Family Medicine; Visit Provider Nurse Practitioner Family | DX: K21.9 Gastro-esophageal reflux disease without esophagitis (principal); K59.01 Slow transit constipation | CPT/HCPCS: 99212 ==

== ENCOUNTER 2023-05-07 10:28 | Outpatient (REF) | payer MEDICARE, SELFPAY ==
[2023-05-07 14:51] LABS: MANUAL DIFF FLAG NO
[2023-05-07 15:15] LABS: Appearance Urine Clear; Color Urine Yellow; Glucose Urine UA Negative (Negative); Leukocyte Esterase Urine Negative (Negative); Nitrite Urine Negative (Negative); Specific Gravity - Urine <= 1.005 (1.005-1.025); Urine Blood Negative (Negative); Urine Ketones Negative (Negative); Urine Protein Negative (Neg-Trace)
[2023-05-07 15:17] LABS: Basophils Absolute Auto 0.1 X10*3/uL (0.0-0.2); Basophils Percent Auto 1.5 % (0-2); Eosinophils Absolute Auto 0.2 X10*3/uL (0.0-0.4); Eosinophils Percent Auto 3.1 % (0-4); Hematocrit 43.3 % (42.0-52.0); Hemoglobin 14.5 g/dl (14.0-18.0); Imm Gran Abs Auto 0.01 X10*3/uL (0.00-0.03); Imm Gran Pct Auto 0.2 % (0.0-0.4); Lymphocytes Absolute Auto 1.8 X10*3/uL (1.2-4.9); Lymphocytes Percent Auto 30.8 % (20-40); Mean Corpuscular HGB Conc 33.5 g/dl (31.0-36.0); Mean Corpuscular Hemoglobin 29.8 pg (27.0-33.0); Mean Corpuscular Volume 88.9 fL (80.0-98.0); Mean Platelet Volume 10.7 fL (9.4-12.4); Monocytes Absolute Auto 0.7 X10*3/uL (0.1-1.2); Monocytes Percent Auto 11.6 % (2-11); Neutrophils Absolute Auto 3.1 x10*3/uL (2.0-8.3); Neutrophils Percent Auto 52.8 % (45-73); Platelet Count 257 X10*3/uL (160-400); Red Blood Count 4.87 X10*6/uL (4.60-5.80); Red Cell Distribution Width 13.3 % (11.0-16.0); White Blood Count 5.8 X10*3/uL (4.8-10.8)
[2023-05-07 15:42] LABS: Alanine Aminotransferase 16 U/L (0-40); Albumin Level 3.8 g/dL (3.5-5.0); Alkaline Phosphatase 95 U/L (39-117); Anion Gap 13 (12-20); Aspartate Amino Transferase 18 U/L (5-37); Bilirubin Total 1.1 mg/dL (0.0-1.0); Blood Urea Nitrogen 13 mg/dL (9-16); Calcium 8.9 mg/dL (8.4-10.2); Carbon Dioxide 29 mmol/L (22-29); Chloride 104 mmol/L (96-108); Cholesterol 96 mg/dL (<200); Estimated Glomerular Filt Rate > 60; Glucose Fasting 92 mg/dL (60-99); HDL Cholesterol 36 mg/dL (>40); LDL Cholesterol Calculated 46 mg/dL (<100); Potassium 3.8 mmol/L (3.3-5.1); Sodium 142 mmol/L (135-145); Total Protein 6.6 g/dL (6.5-8.0); Triglycerides 70 mg/dL (<150)
[2023-05-07 15:48] LABS: Prostate Specific Antigen Scr 0.87 ng/mL (<0.05-4.0)
[2023-05-07 15:48] LABS: Creatinine Urine 45.43 mg/dL; Microalbumin Urine < 5.0 mg/L
[2023-05-07 15:57] LABS: TSH reflex Free T4 3.23 uIU/mL (0.32-4.0)
== END 2023-05-07 10:29 | disposition home or self-care (01) ==
LOC: HO.WFDLDS 10:28
PROVIDERS: Visit Provider Family Medicine
DX: Z00.00 Encounter for general adult medical examination without abnormal findings (principal); Z12.5 Encounter for screening for malignant neoplasm of prostate; I10 Essential (primary) hypertension
CPT/HCPCS: 36415; 80053; 80061; 81003; 82570; 84153; 84443; 85025

== ENCOUNTER 2023-05-14 10:48 | Outpatient (AMB) | payer MEDICARE, MEDICAID, SELFPAY ==
[2023-05-14 11:09] VITALS: BP 142/80; PULSE 95; O2SAT 98; BMI 49.6
--- NOTE | 2023-05-14 11:09 | A.OFFPC_ITS ---
Vital Signs 05/14/23 11:09 Height 5 ft 3 in Weight 280 lb BMI 49.6 BP 142/80 H Blood Pressure Location Lt brachial Position Sitting Pulse 95 Pulse Source Pulse Oximeter Pulse Oximetry (%) 98 Oxygen Delivery Method Room Air Intake Visit Reasons: CPE with f/u labs and health maintenance Intake Note: Patient is here for physical and follow up on labs, and would like reill of the Abixiban. Allergies enoxaparin [From Lovenox] Allergy (Intermediate, Verified 05/14/23 11:09) rash/swelling seafood Allergy (Intermediate, Verified 05/14/23 11:09) rash/swelling Tobacco use date assessed: 02/12/23 HPI CPE with f/u labs and health maintenance HPI Details 62 y/o male presents for a CPE with f/u labs and health maintenance. Labs were drawn 05/07/23. Reviewed labs with pt. Triglycerides 70. TC 96. LDL 46. HDL low at 36. He is on ezetimibe 10mg, artovastatin 80mg. PSA 0.87. Blood pressure today 142/80. He is on metoprolol 75mg b.i.d. Hx of CAD. Pt states he does not get much exercise. Pt reports constipation which he continues to use stool softeners for. [facility] Medical History Recurrent cellulitis of lower leg COVID-19 vaccine series completed Supraventricular tachycardia COPD (chronic obstructive pulmonary disease) Myocardial infarction History of COVID-19 Morbid obesity Chronic bronchitis GERD (gastroesophageal reflux disease) Chronic renal failure, stage 3 (moderate) CAD (coronary artery disease) Paroxysmal atrial fibrillation Essential hypertension Surgical History History of inferior vena caval filter placement H/O colonoscopy History of sleeve gastrectomy History of heart artery stent History of carpal tunnel release History of knee replacement Family History Father CVD (cardiovascular disease) Mother Diabetes mellitus Cancer Brother No problems noted. Brother No problems noted. Son No problems noted. Sister No problems noted. Sister No problems noted. Sister No problems noted. Sister No problems noted. Sister No problems noted. Sister No problems noted. Other Mental health disorder Substance use disorder Social History Household Members: Spouse Household Members Other:: & son Housing: Apartment Are you a primary healthcare management consultant to a significant other at home: No Do you presently have visiting nurse or other home services: Yes (private duty care when needed) Comment: uses cane on occasion Patient Tobacco Use Status: Former Tobacco user Quit Date: 2008 Tobacco use type: Cigarette Years Smoked: 40 e-Cigarette/Vaping Use: Never Used Second Hand Smoke Exposure: No Advance Directives Date on File: 08/21/21 service: Yes Current occupational status: disabled Current occupational exposures/hazards: No Cognitive needs: No Hearing needs: No Vision needs: No Questionnaire Thrive Questionnaire Date Thrive assessed: 05/08/22 MARIAH-7 AMB Questionnaire MARIAH-7 Date MARIAH - 7 assessed: 05/08/22 Source: Developed by Drs. Alex Adam, Bhumi Mckinley, Jam Gibson and colleagues, with an educational edgar from [employer]. Review of Systems Const Denies chills, Denies fatigue, Denies fever(s), Denies headache(s) and Denies weakness Eyes Denies change in vision ENT Denies dizziness, Denies headache(s), Denies hearing loss, Denies nasal congestion, Denies sinus pain, Denies sinus pressure and Denies sore throat Card Denies chest pain, Denies lightheadedness, Denies dyspnea, Reports dyspnea on exertion (Short of breath with ambulation of only 25 feet) and Denies other (palpitations) Resp Denies cough, Denies dyspnea, Reports dyspnea on exertion (Short of breath with ambulation of only 25 feet) and Denies wheezing GI Denies abdominal pain, Denies melena, Denies hematochezia, Denies change in bowel habits, Reports constipation, Denies dyspepsia and Denies nausea Denies hematuria and Denies dysuria Musc Denies abnormal gait, Denies myalgias, Denies arthralgias, Denies numbness and Denies tingling Skin/Breast Denies rash, Denies unusual bruising and Denies wounds Neuro Denies abnormal gait, Denies dizziness, Denies headache(s), Denies memory loss, Denies numbness, Denies Sensory deficit (Neuro), Denies tingling and Denies weakness Psych Denies anxiety, Denies depression and Denies memory loss Endo Denies cold intolerance, Denies fatigue, Denies heat intolerance, Denies polydipsia and Denies polyuria Taran/Lymph Denies easy bleeding and Denies easy bruising Aller/Immun Denies wheezing Physical exam (Primary Care) Vital Signs: Last Vital Signs Pulse 95 05/14/23 11:09 BP 142/80 H 05/14/23 11:09 Pulse Ox 98 05/14/23 11:09 Oxygen Delivery Method Room Air 05/14/23 11:09 BMI result Body Mass Index 49.6 Tobacco/Smoking Status: Tobacco use Status Tobacco use date assessed 02/12/23 05/14/23 11:16 Patient Tobacco Use Status Former Tobacco user 05/14/23 11:16 Tobacco use type Cigarette 05/14/23 11:16 e-Cigarette/Vaping Use Never Used 05/14/23 11:16 Thrive Assessment: Date of Thrive Assessment Date Thrive assessed 05/08/22 05/14/23 11:16 Const General: no acute distress, well developed, alert and awake Nutritional Appearance: well nourished and obese morbidly obese Orientation/consciousness: patient oriented x3 HENMT Head: Yes normocephalic and Yes atraumatic Ears: hearing grossly normal bilaterally and TM's normal bilaterally General nose exam: Normal external nose present and Normal nares present Mouth: Normal oral and palatal mucosa present and moist mucous membranes Teeth and gingiva: dentition normal Throat: Yes posterior oropharynx normal Eyes General: appearance normal, both eyes and all related structures Pupils: Equal, round and reactive pupils present and Pupil accommodation reflex normal EOM: EOMs intact bilaterally Neck Neck: Yes normal visual inspection, Yes no lymphadenopathy and Yes trachea midline Thyroid: Thyroid normal Carotids: no bruits Lymphatic: no lymphadenopathy noted Chest Chest palpation & inspection: normal inspection of the chest Resp Effort & Inspection: normal respiratory effort Auscultation: clear to auscultation bilaterally Cardio Rate: regular rate Rhythm: abnormal rhythm and abnormal rhythm Heart sounds: S1 normal heart sound present, S2 normal heart sound present, no gallops, no murmurs and no rubs Bruits: no abdominal aortic bruits and no carotid bruits GI Palpation (GI): No Abdominal aortic bruit present, Soft to palpation, nontender, No hepatosplenomegaly present and No Rebound tenderness present Auscultation: normal bowel sounds General: Yes no CVA tenderness Back/Spine/Pelvis Back: no CVA tenderness Cervical Spine: cervical ROM normal and No Cervical spine tenderness Thoracic/Lumbar Spine: thoraco-lumbar ROM normal, No pain with thoraco-lumbar ROM, No thoracic spinal tenderness and No lumbar spinal tenderness Skin Lesions: no lesions Rashes: no rashes Trauma: no lacerations or abrasions Wounds: no wounds Nails: normal Neuro General: patient oriented x3 and No gait normal Cranial nerves: Yes Equal, round and reactive pupils present Cognition (Neuro): normal cognition Gait exam (Neuro): gait abnormal Motor exam (neuro): 5/5 motor strength present throughout Sensory Exam: No Sensory deficit (Neuro) Deep tendon reflexes (DTR's): Right patellar reflex intensity grade: 2+ and Left patellar reflex intensity grade: 2+ Extrem General: Yes normal to inspection and No edema Psych Appearance: grossly normal Affect: normal affect Attitude: cooperative Thought process: Normal thought process present Assessment and Plan Assessment & Plan (1) Adult general medical exam: Code(s): Z00.00 - Encounter for general adult medical examination without abnormal findings Plan: 62-year-old?male?presents?for?complete?physical?exam Encouraged?healthy?diet?with?active?lifestyle?and?exercise?as?tolerated (2) Essential hypertension: Code(s): I10 - Essential (primary) hypertension Plan: Blood?pressure?is?high.??Goal?is?less?than?130/80?for?patient?with?coronary?meenu ry?disease Increasing?his?metoprolol?from 75?mg?b.i.d.?to 100?mg?a.m.?and?75?mg?p.m. (3) Hyperlipidemia: Code(s): E78.5 - Hyperlipidemia, unspecified Plan: LDL?cholesterol?well?controlled?on?atorvastatin?and?Zetia HDL?is?a?little?low?and?I?have?encouraged?exercise?as?tolerated Continue?current?medication?regimen (4) Paroxysmal atrial fibrillation: Code(s): I48.0 - Paroxysmal atrial fibrillation Plan: A?regular?rhythm?and?patient?is?anticoagulated?and?rate?controlled?on?metoprolol Continue?current?medications Patient[place]but[place]they?do?not?take?his?insurance?any? longer.??I?have?referred?him?to?Cardiology?at?[facility] (5) CAD (coronary artery disease): Code(s): I25.10 - Atherosclerotic heart disease of [place] coronary artery without angina pectoris Plan: Patient?had?light out examiner?at[place]?but?they?d o?not?take?his?insurance?any?longer.??Referring?him?to?[facility]?cardiology He?is?stable (6) Screening for colon cancer: Code(s): Z12.11 - Encounter for screening for malignant neoplasm of colon Plan: He?will?have?a?colonoscopy?in?2024?with?[facility]?gastroenterology (7) Screening for prostate cancer: Code(s): Z12.5 - Encounter for screening for malignant neoplasm of prostate Plan: PSA?was?within?normal?limits (8) Constipation: Code(s): K59.00 - Constipation, unspecified Plan: Followed?by?[facility]?gastroenterology?and?has?stool?softeners Does?not?drink?much?water?and?I?encouraged?him?to?increase?his?hydration (9) Unsteady gait: Code(s): R26.81 - Unsteadiness on feet Plan: Somewhat?unsteady?ambulating?gait?and?patient?notes?that?when?he?goes?long?dista nces?he?gets?short?of?breath?and?fatigued. 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 (10) COPD (chronic obstructive pulmonary disease): Code(s): J44.9 - Chronic obstructive pulmonary disease, unspecified Plan: Stable.??Lungs?are?clear?today He?does?get?short?of?breath?with?ambulation?of?only?25?ft Continue?inhaled?medications Orders: Referrals Cardiology Referral I25.10 - Atherosclerotic heart disease of [place] coronary artery without angina pectoris, I48.0 - Paroxysmal atrial fibrillation Medications: Changed From apixaban 5 mg PO BID To apixaban 5 mg PO BID 90 days 180 tabs 3RF From metoprolol tartrate 75 mg (1.5 x 50 mg) PO BID 270 tabs 3RF To metoprolol tartrate 100mg (2 tabs) AM and 75mg (1.5 tabs) PM 90 days 315 tabs 3RF Coding Level of Care Code Est Pt Level 3 (83949) Est Pt Prev Care 40-64y(73358) Diagnoses Adult general medical exam Z00.00 Essential hypertension I10 Hyperlipidemia E78.5 Paroxysmal atrial fibrillation I48.0 CAD (coronary artery disease) I25.10 Screening for colon cancer Z12.11 Screening for prostate cancer Z12.5 Constipation K59.00 Unsteady gait R26.81 COPD (chronic obstructive pulmonary disease) J44.9
== END 2023-05-14 11:58 | disposition home or self-care (01) ==
PROVIDERS: PCP Family Medicine; Visit Provider Family Medicine
DX: Z00.00 Encounter for general adult medical examination without abnormal findings (principal); I48.0 Paroxysmal atrial fibrillation; J44.9 Chronic obstructive pulmonary disease, unspecified; R26.81 Unsteadiness on feet; I10 Essential (primary) hypertension; E78.5 Hyperlipidemia, unspecified; I25.10 Atherosclerotic heart disease of native coronary artery without angina pectoris; Z12.11 Encounter for screening for malignant neoplasm of colon; Z12.5 Encounter for screening for malignant neoplasm of prostate; K59.00 Constipation, unspecified
CPT/HCPCS: 99213; 99396

== ENCOUNTER 2023-07-09 14:15 | Outpatient (AMB) | payer MEDICARE, SELFPAY ==
[2023-07-09 14:22] VITALS: BP 122/68; PULSE 73; O2SAT 98; BMI 51.4
--- NOTE | 2023-07-09 14:22 | MHC.PC.OV ---
Vital Signs 07/09/23 14:22 Height 5 ft 3 in Weight 290 lb 4 oz BMI 51.4 BP 122/68 Blood Pressure Location Lt brachial Position Sitting Pulse 73 Pulse Source Pulse Oximeter Pulse Oximetry (%) 98 Oxygen Delivery Method Room Air Intake Visit Reasons: Mobility exam for power chair Intake Note: Patient is here for forms for mobliity chair. Allergies enoxaparin [From Lovenox] Allergy (Intermediate, Verified 07/09/23 14:24) rash/swelling seafood Allergy (Intermediate, Verified 07/09/23 14:24) rash/swelling Medication List - Last Reconciled 07/09/23 by Salvador Leon MD albuterol sulfate 1.25 mg (3 mL) inhalation QID PRN albuterol sulfate 90 mcg/actuation 1 puff inhalation Q4H PRN apixaban 5 mg PO BID 90 days aspirin (Adult Aspirin Regimen) 81 mg PO DAILY atorvastatin 80 mg PO BEDTIME 90 days blood pressure monitor Automatic, Digital. Dx: I10. Daily As directed, 999 days/lifetime budesonide-formoterol 80-4.5 mcg/actuation 2 puffs PO BID clotrimazole-betamethasone 1-0.05 % 1 appl topical BID 2 weeks ezetimibe 10 mg PO DAILY famotidine 20 mg PO DAILY 90 days furosemide 40 mg orally; melatonin 10 mg PO BEDTIME metoprolol tartrate 100mg (2 tabs) AM and 75mg (1.5 tabs) PM 90 days miscellaneous medical supply Reclining chair. Daily As directed 999 days. miscellaneous medical supply Hoveround mobility?device and 2 batteries. Daily?As directed, 999 days nebulizers ([employer]tera Nebulizer Handset) As directed sennosides (Natural Senna Laxative) 8.6 mg PO BEDTIME tiotropium bromide 1 cap inhalation DAILY Tobacco use date assessed: 07/09/23 Last assessed Fall Risk: 07/09/23 HPI Mobility exam for power chair HPI Details 62 y/o male presents today for a mobility exam. He is here with forms for a mobility chair. Hx of unsteady gait and hx of total R knee replacement. [facility] Medical History Recurrent cellulitis of lower leg COVID-19 vaccine series completed Supraventricular tachycardia COPD (chronic obstructive pulmonary disease) Myocardial infarction History of COVID-19 Morbid obesity Chronic bronchitis GERD (gastroesophageal reflux disease) Chronic renal failure, stage 3 (moderate) CAD (coronary artery disease) Paroxysmal atrial fibrillation Essential hypertension Surgical History History of inferior vena caval filter placement H/O colonoscopy History of sleeve gastrectomy History of heart artery stent History of carpal tunnel release History of knee replacement Family History Father CVD (cardiovascular disease) Mother Diabetes mellitus Cancer Brother No problems noted. Brother No problems noted. Son No problems noted. Sister No problems noted. Sister No problems noted. Sister No problems noted. Sister No problems noted. Sister No problems noted. Sister No problems noted. Other Mental health disorder Substance use disorder Social History Household Members: Spouse Household Members Other:: & son Housing: Apartment Are you a primary patient care nursing assistant to a significant other at home: No Do you presently have visiting nurse or other home services: Yes (private duty care when needed) Comment: uses cane on occasion Patient Tobacco Use Status: Former Tobacco user Quit Date: 2008 Tobacco use type: Cigarette Years Smoked: 40 e-Cigarette/Vaping Use: Never Used Second Hand Smoke Exposure: No Advance Directives Date on File: 08/21/21 service: Yes Current occupational status: disabled Current occupational exposures/hazards: No Cognitive needs: No Hearing needs: No Vision needs: No Questionnaire Thrive Questionnaire Date Thrive assessed: 05/08/22 MARIAH-7 AMB Questionnaire MARIAH-7 Date MARIAH - 7 assessed: 05/08/22 Source: Developed by Drs. Alex Adam, Bhumi Mckinley, Jam Gibson and colleagues, with an educational edgar from [employer]. Review of Systems Const Denies chills, Denies fatigue, Denies fever(s), Denies headache(s) and Denies weakness ENT Denies dizziness and Denies headache(s) Card Denies dyspnea Resp Denies cough, Denies dyspnea, Denies wheezing and Denies other (shortness of breath) Musc Denies numbness and Denies tingling Neuro Denies dizziness, Denies headache(s), Denies numbness, Denies tingling and Denies weakness Psych Denies anxiety and Denies depression Endo Denies fatigue Aller/Immun Denies wheezing Physical exam (Primary Care) Vital Signs: Last Vital Signs Pulse 73 07/09/23 14:22 BP 122/68 07/09/23 14:22 Pulse Ox 98 07/09/23 14:22 Oxygen Delivery Method Room Air 07/09/23 14:22 BMI result Body Mass Index 51.4 Tobacco/Smoking Status: Tobacco use Status Tobacco use date assessed 07/09/23 07/09/23 14:27 Patient Tobacco Use Status Former Tobacco user 07/09/23 14:27 Tobacco use type Cigarette 07/09/23 14:27 e-Cigarette/Vaping Use Never Used 07/09/23 14:27 Thrive Assessment: Date of Thrive Assessment Date Thrive assessed 05/08/22 07/09/23 14:27 Const General: well developed; No acute distress Nutritional Appearance: well nourished and obese Orientation/consciousness: patient oriented x3 HENMT Head: Yes normocephalic and Yes atraumatic Eyes General: appearance normal, both eyes and all related structures Pupils: Equal, round and reactive pupils present EOM: EOMs intact bilaterally Resp Other: Shortness of breath with ambulation of about 15 yards Effort & Inspection: normal respiratory effort Neuro Other: Decreased ROM b/L knees with waddling unsteady gait General: patient oriented x3 and No gait normal Cranial nerves: Yes Equal, round and reactive pupils present Gait exam (Neuro): gait abnormal Motor exam (neuro): strength not 5/5 throughout (4/5 strength bilateral lower extremities ) Extrem Other: Decreased ROM b/L knees Psych Affect: normal affect Assessment and Plan Assessment & Plan (1) Unsteady gait: Code(s): R26.81 - Unsteadiness on feet Plan: Decreased?range?of?motion?of?bilateral?knees?and?waddling, unsteady?gait. 4/5?strength?at?bilateral?lower?extremities. Increased?fall?risk?with?long?distances (2) History of total right knee replacement (TKR): Code(s): Z96.651 - Presence of right artificial knee joint Plan: History?of?knee?replacement?and?decreased?range?of?motion, altering?his?gait (3) COPD (chronic obstructive pulmonary disease): Code(s): J44.9 - Chronic obstructive pulmonary disease, unspecified Plan: Cleared?distant?breath?sounds?consistent?with?COPD; no?current?exacerbation Gets?short?of?breath?with?short?distances?of?ambulation;?15?yd (4) Essential hypertension: Code(s): I10 - Essential (primary) hypertension Plan: Blood?pressure?much?improved?with?adjustment?of?his?medications. Continue?current?medication?regimen Plan Due?to?the?above?diagnoses?as?well?as?coronary?artery?disease?I?am?recommending a?motorized?scooter?for?distances?longer?than?50-100?yd Paperwork?and?script?are?completed Encouraged?patient?to?continue?to?exercise?and?ambulate?for?shorter?distances?to?maintain?current?conditioning. Coding Level of Care Code Est Pt Level 4 (21890) Diagnoses Unsteady gait R26.81 History of total right knee replacement (TKR) Z96.651 COPD (chronic obstructive pulmonary disease) J44.9 Essential hypertension I10
== END 2023-07-09 15:33 | disposition home or self-care (01) ==
PROVIDERS: PCP Family Medicine; Visit Provider Family Medicine
DX: R26.81 Unsteadiness on feet (principal); Z96.651 Presence of right artificial knee joint; J44.9 Chronic obstructive pulmonary disease, unspecified; I10 Essential (primary) hypertension
CPT/HCPCS: 99214

== ENCOUNTER 2023-07-30 09:57 | Outpatient (REF) | payer MEDICARE, SELFPAY ==
[2023-07-30 11:58] LABS: B Type Natriuretic Peptide 162 pg/mL (<100)
== END 2023-07-30 09:58 | disposition home or self-care (01) ==
LOC: HO.LAB 09:57
PROVIDERS: PCP Family Medicine; Visit Provider Internal Medicine Cardiovascular Disease
DX: R06.02 Shortness of breath (principal); I25.10 Atherosclerotic heart disease of native coronary artery without angina pectoris; I25.2 Old myocardial infarction; I50.30 Unspecified diastolic (congestive) heart failure; I48.19 Other persistent atrial fibrillation; Z79.82 Long term (current) use of aspirin; Z79.899 Other long term (current) drug therapy
CPT/HCPCS: 36415; 83880; 93005; 99202

== ENCOUNTER 2023-07-30 09:57 | Outpatient (AMB) | payer MEDICARE, MEDICAID, SELFPAY ==
--- NOTE | 2023-07-30 09:59 | MHC.OFFVIS ---
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/Paroxysmal atrial fibrillation Intake Note: New patient dx afib and hx cad with stent was Dr Veloz patient Washroom Attendant Required: No Allergies enoxaparin [From Lovenox] Allergy (Intermediate, Verified 07/09/23 14:24) rash/swelling seafood Allergy (Intermediate, Verified 07/09/23 14:24) rash/swelling Medication List - Last Reconciled 07/30/23 by Gabe Mello MD albuterol sulfate 1.25 mg (3 mL) inhalation QID PRN albuterol sulfate 90 mcg/actuation 1 puff inhalation Q4H PRN apixaban 5 mg PO BID 90 days aspirin (Adult Aspirin Regimen) 81 mg PO DAILY atorvastatin 80 mg PO BEDTIME 90 days blood pressure monitor Automatic, Digital. Dx: I10. Daily As directed, 999 days/lifetime budesonide-formoterol 80-4.5 mcg/actuation 2 puffs PO BID clotrimazole-betamethasone 1-0.05 % 1 appl topical BID 2 weeks ezetimibe 10 mg PO DAILY famotidine 20 mg PO DAILY 90 days furosemide 40 mg orally; melatonin 10 mg PO BEDTIME metoprolol tartrate 100mg (2 tabs) AM and 75mg (1.5 tabs) PM 90 days miscellaneous medical supply Reclining chair. Daily As directed 999 days. miscellaneous medical supply Hoveround mobility?device and 2 batteries. Daily?As directed, 999 days nebulizers (Altera Nebulizer Handset) As directed sennosides (Natural Senna Laxative) 8.6 mg PO BEDTIME tiotropium bromide 1 cap inhalation DAILY HPI HPI Comments History of Present Illness Details Thank you for referring Andrew in cardiology consultation today for management of his cardiovascular disease. He has a pleasant 63-year-old male who wanted to switch to cardiology services in 1 healthcare system. Patient has prior history of coronary artery disease status post anterior STEMI in 2017 for which she underwent drug-eluting stent to LAD. He says since then he was put on prolonged antiplatelet therapy for 3 years and now he is on aspirin therapy along with high-intensity statin therapy. He is done well. He had a myocardial perfusion imaging 3 years ago prior to gastric bariatric surgery which was as per him negative. He also carries a history of paroxysmal atrial fibrillation although he comes in today and is noted to be in persistent atrial fibrillation. Unknown duration. He has been noticing over the last few months increased exertional shortness of breath. He said this he thought was related to his COPD. He has not noticed any new wheezing or cough productive of phlegm. No fever or chills. He has not noticed any worsening leg edema and also denies any significant orthopnea. He has prior history of diastolic heart failure currently on Lasix 40 mg daily. No recent hospitalization for heart failure. History of morbid obesity status post bariatric surgery and has lost about 110 lb but has remained around 290 lb. He takes all his medications regularly. He denies any palpitations, lightheadedness, syncope. No bleeding issues or neurologic events. No clear exertional chest pain. [facility] Medical History Paroxysmal atrial fibrillation Recurrent cellulitis of lower leg COVID-19 vaccine series completed Supraventricular tachycardia COPD (chronic obstructive pulmonary disease) Myocardial infarction History of COVID-19 Morbid obesity Chronic bronchitis GERD (gastroesophageal reflux disease) Chronic renal failure, stage 3 (moderate) CAD (coronary artery disease) Essential hypertension Surgical History History of inferior vena caval filter placement H/O colonoscopy History of sleeve gastrectomy History of heart artery stent History of carpal tunnel release History of knee replacement Family History Father CVD (cardiovascular disease) Mother Diabetes mellitus Cancer Brother No problems noted. Brother No problems noted. Son No problems noted. Sister No problems noted. Sister No problems noted. Sister No problems noted. Sister No problems noted. Sister No problems noted. Sister No problems noted. Other Mental health disorder Substance use disorder Social History Household Members: Spouse Household Members Other:: & son Housing: Apartment Are you a primary urgent care physician to a significant other at home: No Do you presently have visiting nurse or other home services: Yes (private duty care when needed) Comment: uses cane on occasion Patient Tobacco Use Status: Former Tobacco user Quit Date: 2008 Tobacco use type: Cigarette Years Smoked: 40 e-Cigarette/Vaping Use: Never Used Second Hand Smoke Exposure: No Advance Directives Date on File: 08/21/21 service: Yes Current occupational status: disabled Current occupational exposures/hazards: No Cognitive needs: No Hearing needs: No Vision needs: No Review of Systems Const Denies chills, Denies daytime sleepiness, Denies fatigue, Denies fever(s), Denies frequent falls, Denies poor appetite, Denies snoring, Denies stops breathing during sleep, Denies weakness, Denies weight gain and Denies weight loss Eyes Denies loss of vision ENT Denies dizziness and Denies hearing loss Card Denies chest pain, Denies claudication, Denies leg edema, Denies lightheadedness, Denies palpitations, Denies dyspnea, Denies dyspnea on exertion and Denies orthopnea Resp Denies cough, Denies excessive phlegm production, Denies dyspnea, Denies dyspnea on exertion, Denies snoring and Denies wheezing GI Denies abdominal pain, Denies hematochezia, Denies change in bowel habits, Denies nausea and Denies vomiting Denies dysuria and Denies urinary frequency Musc Denies arthralgias, Denies muscle weakness, Denies numbness and Denies other (frequent falls) Skin/Breast Denies nail changes and Denies rash Neuro Denies Abnormal speech present, Denies dizziness, Denies frequent falls, Denies loss of vision, Denies memory loss, Denies numbness and Denies weakness Psych Denies depression and Denies memory loss Endo Denies fatigue and Denies palpitations Taran/Lymph Reports easy bruising and Reports other (anemia) Aller/Immun Denies wheezing Physical Exam Vital Signs: Last Vital Signs Pulse 70 07/30/23 10:00 BP 120/80 07/30/23 10:00 BMI result Body Mass Index 50.4 Neuro Speech: No Abnormal speech present Office Procedures EKG Details: EKG shows atrial fibrillation with septal QS pattern at 70 beats per minute [id number], Complete Assessment & Plan Assessment & Plan (1) SOB (shortness of breath) on exertion: Code(s): R06.02 - Shortness of breath Plan: Patient with increasing exertional shortness of breath which is not secondary to COPD which is stable and he has not smoking currently. Other factors include persistent atrial fibrillation that could contribute to shortness of breath. No overt signs of heart failure. Will check for BNP. Other possibilities include restrictive pulmonary defect related to significant obesity as well as underlying COPD. Progressive systolic dysfunction and/or myocardial ischemia needs to be ruled out. Will obtain an echocardiogram as well as a vasodilating myocardial perfusion imaging. If these are within reasonably normal limits should pursue rhythm control approach. Discussed with him about the management plan. He understands and agrees. (2) Persistent atrial fibrillation: Code(s): I48.19 - Other persistent atrial fibrillation Plan: Persistent rate control atrial fibrillation. Clinically rate is controlled and that is why he has probably not having symptoms of palpitations. He thought that he had paroxysmal atrial fibrillation although this duration of atrial fibrillation is unknown. He has been on oral anticoagulation therapy since few years. Has been regularly taking it. There is no indication for additional aspirin therapy as his coronary artery disease is stable. Will discontinue aspirin therapy. Continue current rate control with metoprolol. Echocardiogram and assess biatrial chamber size. If biatrial chamber size and significantly enlarged and possibility of pursuing rhythm control approach is low. Will discuss this at the coming up visit in 4 weeks time. (3) CAD (coronary artery disease): Code(s): I25.10 - Atherosclerotic heart disease of [place] coronary artery without angina pectoris Plan: CAD with remote stenting of the LAD for anterior STEMI. No recurrent symptoms suggestive of angina since then. However he has limited exercise capacity. Myocardial perfusion imaging as above to assess for myocardial ischemia and progressive coronary disease. Continue aggressive risk factor modification. Continue high-intensity statin therapy. LDL is extremely well optimized. Blood pressure is currently well optimized advised to monitor blood pressure at home maintain a log. Goal blood pressure less than 130/84. Also continue concomitant ezetimibe therapy. Importance of aggressive weight loss program was discussed. He said he is going to pursue the same. (4) Diastolic heart failure: Code(s): I50.30 - Unspecified diastolic (congestive) heart failure Plan: Prior history of diastolic heart failure clinically appears to be euvolemic although difficult to assess fluid status given his body habitus. Continue current diuretic therapy. Daily weight monitoring avoidance of salt loading was discussed. Additional diuretics as need be. Progressive heart failure syndrome related to atrial fibrillation as well as morbid obesity was discussed. Continue aggressive risk factor modification. Will pursue rhythm control approach if he has reasonable biatrial chamber size. Will follow up in the clinic in 4 weeks time, sooner p.r.n.. Thank you for allowing me to partake in his care Orders: Orders B Type Natriuretic Peptide Today R06.02 - Shortness of breath CA echo transthoracic complete Today R06.02 - Shortness of breath CA lexiscan stress w hanna Today R06.02 - Shortness of breath Coding Level of Care Code New Pt Level 4 (29005) Diagnoses SOB (shortness of breath) on exertion R06.02 Persistent atrial fibrillation I48.19 CAD (coronary artery disease) I25.10 Diastolic heart failure I50.30 CPT Codes EKG - CPT: 02365-[id number], Complete ([id number])
[2023-07-30 10:00] VITALS: BP 120/80; PULSE 70; BMI 50.4
== END 2023-07-30 10:30 | disposition home or self-care (01) ==
PROVIDERS: PCP Family Medicine; Visit Provider Internal Medicine Cardiovascular Disease
DX: R06.02 Shortness of breath (principal); I48.19 Other persistent atrial fibrillation; I25.10 Atherosclerotic heart disease of native coronary artery without angina pectoris; I50.30 Unspecified diastolic (congestive) heart failure
CPT/HCPCS: 93010; 99204; 99214

== ENCOUNTER 2023-08-20 10:28 | Outpatient (AMB) | payer MEDICARE, SELFPAY ==
[2023-08-20 10:44] VITALS: BP 132/78; PULSE 95; O2SAT 98; BMI 49.6
--- NOTE | 2023-08-20 10:44 | MHC.PC.OV ---
Vital Signs 08/20/23 10:44 Height 5 ft 3 in Weight 280 lb BMI 49.6 BP 132/78 Blood Pressure Location Lt brachial Position Sitting Pulse 95 Pulse Source Pulse Oximeter Pulse Oximetry (%) 98 Oxygen Delivery Method Room Air Intake Visit Reasons: f/u hypertension - see comments Intake Note: Patient is here for follow up on hypertension. Allergies enoxaparin [From Lovenox] Allergy (Intermediate, Verified 08/20/23 10:46) rash/swelling seafood Allergy (Intermediate, Verified 08/20/23 10:46) rash/swelling Medication List - Last Reconciled 08/20/23 by Salvador Leon MD albuterol sulfate 1.25 mg (3 mL) inhalation QID PRN albuterol sulfate 90 mcg/actuation 1 puff inhalation Q4H PRN apixaban 5 mg PO BID 90 days atorvastatin 80 mg PO BEDTIME 90 days blood pressure monitor Automatic, Digital. Dx: I10. Daily As directed, 999 days/lifetime budesonide-formoterol 80-4.5 mcg/actuation 2 puffs PO BID clotrimazole-betamethasone 1-0.05 % 1 appl topical BID 2 weeks ezetimibe 10 mg PO DAILY famotidine 20 mg PO DAILY 90 days furosemide 40 mg orally; melatonin 10 mg PO BEDTIME metoprolol tartrate 100mg (2 tabs) AM and 75mg (1.5 tabs) PM 90 days miscellaneous medical supply Reclining chair. Daily As directed 999 days. miscellaneous medical supply Hoveround mobility?device and 2 batteries. Daily?As directed, 999 days nebulizers (Altera Nebulizer Handset) As directed sennosides (Natural Senna Laxative) 8.6 mg PO BEDTIME tiotropium bromide 1 cap inhalation DAILY Tobacco use date assessed: 08/20/23 Fall risk assessment: No Falls in past year Last assessed Fall Risk: 08/20/23 Dental Screening Dental Screen Date: 08/20/23 Did you have a dental visit in the last 12 months?: Yes Did you have a dental problem in the last 6 months where you did not have access to dental care?: No Was dental information given to patient?: Patient declined HPI f/u hypertension - see comments HPI Details 63 y/o male presents to f/u hypertension. Had an appt. with [facility] 07/30/23 for CAD and paroxysmal AFib. He follows up with them - echocardiogram was ordered and nuclear stress test. Blood pressure today 132/78. He is on metorpolol. HPI Comments History of Present Illness Details Documentation assistance for Salvador Leon MD, was provided by Umang Lawson,? Automatic Buffing Wheel Former on 08/20/2023 11:42 AM EST. I, Dr. Leon, have read, observed, and verified documentation. [facility] Medical History Paroxysmal atrial fibrillation Recurrent cellulitis of lower leg COVID-19 vaccine series completed Supraventricular tachycardia COPD (chronic obstructive pulmonary disease) Myocardial infarction History of COVID-19 Morbid obesity Chronic bronchitis GERD (gastroesophageal reflux disease) Chronic renal failure, stage 3 (moderate) CAD (coronary artery disease) Essential hypertension Surgical History History of inferior vena caval filter placement H/O colonoscopy History of sleeve gastrectomy History of heart artery stent History of carpal tunnel release History of knee replacement Family History Father CVD (cardiovascular disease) Mother Diabetes mellitus Cancer Brother No problems noted. Brother No problems noted. Son No problems noted. Sister No problems noted. Sister No problems noted. Sister No problems noted. Sister No problems noted. Sister No problems noted. Sister No problems noted. Other Mental health disorder Substance use disorder Social History Household Members: Spouse Household Members Other:: & son Housing: Apartment Are you a primary healthcare recruiter to a significant other at home: No Do you presently have visiting nurse or other home services: Yes (private duty care when needed) Comment: uses cane on occasion Patient Tobacco Use Status: Former Tobacco user Quit Date: 2008 Tobacco use type: Cigarette Years Smoked: 40 e-Cigarette/Vaping Use: Never Used Second Hand Smoke Exposure: No Advance Directives Date on File: 08/21/21 service: Yes Current occupational status: disabled Current occupational exposures/hazards: No Cognitive needs: No Hearing needs: No Vision needs: No Questionnaire PHQ-9 Over the last 2 weeks, how often have you been bothered by any of the following problems? 1. Little interest or pleasure in doing things: not at all 2. Feeling down, depressed, or hopeless: not at all 3. Trouble falling or staying asleep, or sleeping too much: nearly every day 4. Feeling tired or having little energy: not at all 5. Poor appetite or overeating: not at all 6. Feeling bad about yourself - or that you are a failure or have let yourself or your family down: not at all 7. Trouble concentrating on things, such as reading the newspaper or watching television: not at all 8. Moving or speaking so slowly that other people could have noticed. Or the opposite - being so fidgety or restless that you have been moving around a lot more than usual: not at all 9. Thoughts that you would be better off or of hurting yourself in some way: not at all Total score: 3 Depression Screening Interpretation: Negative Depression Screening Done: Yes Source: Developed by Drs. Alex Adam, Bhumi Mckinley, Jam Gibson and colleagues, with an educational edgar from [employer]. Thrive Questionnaire Date Thrive assessed: 08/20/23 I am a: Patient What is your living situation today?: I have a steady place to live Within the past 12 months, did the food you bought not last and you didn't have the money to get more?: Never true Within the past 12 months, did you worry whether your food would run out before you got money to buy more?: Never true Do you have trouble paying for medicines?: No Do you have trouble getting transportation to medical appointments?: No Do you have trouble paying your heating and electricity bill?: No Do you have trouble taking care of your child, family member or friend?: No Do you have trouble with day-to-day activities such as bathing, preparing meals, shopping, managing finances, etc.?: No Are you currently unemployed and looking for a job?: No Are you interested in more education?: No THRIVE Score: 0 AUDIT C Alcohol Use Questionnaire (AUDIT-C) 1. How often do you have a drink containing alcohol?: Never 3. How often do you have six or more drinks on one occasion?: Never Total Score: 0 MARIAH-7 AMB Questionnaire MARIAH-7 Date MARIAH - 7 assessed: 08/20/23 Feeling nervous, anxious, or on edge: 0 = Not at all Not being able to stop or control worryin = Not at all Worrying too much about different things: 0 = Not at all Trouble relaxin = Not at all Being so restless that it is hard to sit still: 0 = Not at all Becoming easily annoyed or irritable: 0 = Not at all Feeling afraid as if something awful might happen: 0 = Not at all Total MARIAH-7 score (0-4 normal; 5-9 mild; 10-14 moderate; 15-21 severe): 0 Source: Developed by Drs. Alex Adam, Bhumi Mckinley, Jam Gibson and colleagues, with an educational edgar from [employer]. Review of Systems Const Denies chills, Denies fatigue, Denies fever(s), Denies headache(s) and Denies weakness ENT Denies dizziness and Denies headache(s) Card Denies dyspnea Resp Denies cough, Denies dyspnea, Denies wheezing and Denies other (shortness of breath) Musc Denies numbness and Denies tingling Neuro Denies dizziness, Denies headache(s), Denies numbness, Denies tingling and Denies weakness Psych Denies anxiety and Denies depression Endo Denies fatigue Aller/Immun Denies wheezing Physical exam (Primary Care) Vital Signs: Last Vital Signs Pulse 95 08/20/23 10:44 BP 132/78 08/20/23 10:44 Pulse Ox 98 08/20/23 10:44 Oxygen Delivery Method Room Air 08/20/23 10:44 BMI result Body Mass Index 49.6 Tobacco/Smoking Status: Tobacco use Status Tobacco use date assessed 08/20/23 08/20/23 10:48 Patient Tobacco Use Status Former Tobacco user 08/20/23 10:48 Tobacco use type Cigarette 08/20/23 10:48 e-Cigarette/Vaping Use Never Used 08/20/23 10:48 PHQ-9: PHQ-9 Score PHQ-9: Total score 3 08/20/23 11:20 Depression Screening Interpretation: Negative Thrive Assessment: Date of Thrive Assessment Date Thrive assessed 08/20/23 08/20/23 10:54 Const General: well developed; No acute distress Nutritional Appearance: obese morbidly obese Orientation/consciousness: patient oriented x3 HENMT Head: Yes normocephalic and Yes atraumatic Eyes General: appearance normal, both eyes and all related structures Pupils: Equal, round and reactive pupils present EOM: EOMs intact bilaterally Resp Effort & Inspection: normal respiratory effort Neuro Other: Waddling gait General: patient oriented x3 and No gait normal Cranial nerves: Yes Equal, round and reactive pupils present Psych Affect: normal affect Assessment and Plan Assessment & Plan (1) Essential hypertension: Code(s): I10 - Essential (primary) hypertension Plan: Blood?pressure?is?fairly?well?controlled.??Goal?is?less?than?130/80 Continue?current?medication Encouraged?a?diet?low?in?salt/sodium Encouraged?ongoing?weight?loss Encouraged?good?sleep?hygiene (2) SOB (shortness of breath) on exertion: Code(s): R06.02 - Shortness of breath Plan: Lungs?are?clear?today (3) Persistent atrial fibrillation: Code(s): I48.19 - Other persistent atrial fibrillation Plan: Patient?has?an?echocardiogram?and?Lexiscan?scheduled?and?has?follow-up?with?Cardiology Follow-up?with?Cardiology?as?recommended Continue?metoprolol Continue?apixaban (4) Unsteady gait: Code(s): R26.81 - Unsteadiness on feet Plan: Motorized?scooter?was?denied?by?insurance He?has?a?wheelchair 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 Coding Level of Care Code Est Pt Level 4 (41117) Diagnoses Essential hypertension I10 SOB (shortness of breath) on exertion R06.02 Persistent atrial fibrillation I48.19 Unsteady gait R26.81 CAD (coronary artery disease) I25.10
== END 2023-08-20 11:48 | disposition home or self-care (01) ==
PROVIDERS: PCP Family Medicine; Visit Provider Family Medicine
DX: I10 Essential (primary) hypertension (principal); R06.02 Shortness of breath; I48.19 Other persistent atrial fibrillation; R26.81 Unsteadiness on feet; I25.10 Atherosclerotic heart disease of native coronary artery without angina pectoris
CPT/HCPCS: 99214

== ENCOUNTER → 2023-09-09 07:39 | Outpatient (REF) | payer MEDICARE, MEDICAID, SELFPAY ==
--- NOTE | ~2023-09-09 | NM_ITS ---
Lexiscan Myocardial perfusion study Indication: Abnormal EKG, shortness of breath, assess for ischemia Technique: The patient was brought in for a Lexiscan perfusion study on 09/09/2023 and was injected 0.4 mg of Lexiscan intravenously. Within a minute of this injection 45 mCi of sestamibi was given intravenously. Images were obtained using the SPECT gamma camera interlaced with the gating device. Images were obtained in supine position. Resting perfusion study was performed on 09/16/2023. Patient was administered 45 mCi of sestamibi intravenously at rest. Images were then obtained in supine position. Images were processed with the software and compared side to side in short axis, horizontal long axis and vertical long axis views. Total DLP 146mGy-cm. Findings: Raw acquisition reviewed. The stress perfusion study showed markedly diminished tracer uptake in the apex. No significant change with CT attenuation correction. The gated study low normal LV systolic function with calculated LVEF of 54%. LV cavity is normal in size. The gated study shows reduced contractility at the apex. Resting study shows markedly diminished tracer uptake at the apex. No significant change with CT attenuation correction. Gating at rest reveals reduced contractility in the apex with the gated LVEF of 32% The findings are consistent with fixed apical perfusion defect. No clear reversible defects. NM/NM hanna perf SPECT rest & str Impression: 1. Myocardial perfusion imaging study shows prior apical infarction. No clear evidence of ischemia. 2. Gated LVEF is 54% during stress and 32% during rest. Correlate with echocardiogram. 3. Transient ischemic dilatation not present. EKG component of the test reported separately.
--- NOTE | 2023-09-09 07:43 | CA_ITS ---
Transthoracic Echocardiogram Patient (Last, First, Middle): Andrew Clinton J Gender: Male Date of : 1960 Age: 63 Procedure Date: 09/09/2023 Procedure Type: Transthoracic Echocardiogram Location: OP Height: 160.02 cm Weight: 127.01 kg BSA: 2.23 m2 Heart Rate: bpm BP: 124 / 80 mmHg Immunology Specialist: Referring MD: Gabe Mello MD Speedometer Inspector: Gabe Mello MD Symptoms: R06.02 - Shortness of breath Study Quality: Technically Difficult due to obesity ECG Rhythm: Atrial Fibrillation Conclusions: - 1. Moderately reduced LV ejection fraction of 35-40% with underlying regional wall motion abnormality consistent with his ischemic cardiomyopathy 2. Mildly dilated left atrium 3. Normal cardiac valvular Doppler 4. Normal RV systolic pressure 5. No gross pericardial effusion Findings Procedure Information Contrast agent, definity, is being given per protocol without apparent complications. Left Ventricle Normal left ventricular cavity size. There is mildly increased left ventricular wall thickness. The left ventricular systolic function is moderately decreased. The visually estimated ejection fraction is between 35 40%. There is evidence of regional wall motion abnormalities. Diastolic function is indeterminate on the basis of available data. Wall Motion Rest Echo Findings The apical anterior, apical lateral, and mid inferoseptal segments are hypokinetic. The apex, apical septum, and mid anteroseptal segments are akinetic. All other scored wall segments showed normal motion. Right Ventricle Mildly increased right ventricular cavity size. There is normal right ventricular systolic function. Atria The left atrium is mildly dilated. There is no evidence of interatrial shunt. The right atrium is normal in size. Aortic Valve The aortic valve structure and function is likely normal. There is no aortic valve stenosis. There is no aortic valve regurgitation. Mitral Valve There is mild anterior mitral leaflet thickening. There is mild mitral annular calcification. There is trace mitral valve regurgitation. There is no mitral valve stenosis. Pulmonic Valve The pulmonic valve was not well visualized. Tricuspid Valve Likely normal tricuspid valve structure and function. There is trace tricuspid valve regurgitation. The right ventricular systolic pressure is normal. The right ventricular systolic pressure is 19 mmHg. Normal right atrial pressure. There is no evidence of pulmonary hypertension. Great Vessels The pulmonary artery was not well visualized. There is no dilatation of the ascending aorta measuring 3.30 cm. Venous The inferior vena cava is normal in size and collapses greater than 50% with inspiration. Pericardium/Pleural There is no evidence of pericardial effusion. Prior Study Comparison No prior study available for comparison. Measurements 2D Linear Measurements IVSd: 1.27 0.6-0.9/0.6-1.0 cm LVIDd: 3.86 3.9-5.3/4.2-5.9 cm LVIDd Index: 1.73 2.4-3.2/2.2-3.1 cm/m2 LVIDs: 3.04 2.0-3.6 cm LVPWd: 1.26 0.7-1.1 cm Ao Root: 3.00 2.1-3.5 cm LA Diam: 4.00 2.7-3.8/3.0-4.0 cm LAIDs Index: 1.79 1.5-2.3 cm/m2 LV Mass: 211.54 67-162/88-224 g LV Mass Index: 94.86 43-95/49-115 g/m2 LVOT Diam: 2.10 3.0+(-)1.3 cm 2D Systolic Function EF 4C: 38.60 >55% EF 2C: 43.30 >55% EF BiP: 38.40 >55% Mitral Valve MV VTI: 0.23 MV Pk [place]: 1.10 MV Mn [place]: 0.62 MV Pk Grad: 5.00 MV Mn Grad: 2.00 MV Pk E: 0.93 MV Decel Time: 184.00 E'Lateral: 12.00 E'Medial: 7.18 E/E' Med: 12.90 E/E' Lat: 7.70 PHT: 54.00 MVA PHT: 4.07 MVA Continuity: 1.95 Decel [place]: 5.03 Aortic Valve AoV Pk [place]: 0.97 AoV Mn [place]: 0.68 AoV VTI: 0.21 AoV Pk Grad: 4.00 Aov Mn Grad: 2.00 REBECCA Cont.VTI: 2.18 LVOT LVOT Pk [place]: 0.67 LVOT Mn [place]: 0.44 LVOT VTI: 0.13 LVOT Pk Grad: 2.00 LVOT Mn Grad: 1.00 LVOT Diam: 2.10 LVOT Area: 3.46 Diastolic Function MV Pk E: 0.93 E'Medial: 7.18 E/E' Med: 12.90 E' Laterial: 12.00 E/E' Lat: 7.70 Right Ventricle TAPSE (mm): 17.00 TVS' [place]: 7.00 Tricuspid Valve TR Pk [place]: 1.98 TR Pk Grad: 16.00 RA Press: 3.00 RVSP: 19.00 Great Vessels Aorta Ao Root-2D: 3.00 2.0-3.7 cm Ao Asc: 3.30 2.1-3.4 cm Pulmonary Valve PV Pk [place]: 0.79 Peak PV Grad: 2.00 Updated in Other Vendor System with Status of Final Gabe Mello MD electronically signed on 09/09/2023 11:28:56 AM with status of Final
--- NOTE | 2023-09-09 07:43 | CA_ITS ---
Acquisition Time: 2023-09-09 09:31:21 Total Exercise Time: 00:02:00 Test Indications: Abnormal ECG Medications: SEE H Protocol: LEXISCAN Max HR: 125 BPM 80% of Pred: 155 BPM Max BP: 112/078 mmHG Max Work Load: 1.0 METS Pharmacological stress test with Lexiscan injection, while sitting without anginal symptoms, with isolated PVCs, with normotensive response to injection, with nondiagnoisitic EKGs. Aminophylline 75mg IVP given to reverse Lexiscan. Nuclear images pending. Test reviewed with Dr. Pederson Referred By: Gabe Mello Overread By: Rajni Luna
== END ==
LOC: HO.CARD 07:39
PROVIDERS: PCP Family Medicine; Visit Provider Internal Medicine Cardiovascular Disease
DX: R06.02 Shortness of breath (principal)
CPT/HCPCS: 78452; 93017; 93306; A9500; J0280; J2785; Q9957

== ENCOUNTER 2023-09-15 12:14 | Outpatient (AMB) | payer MEDICARE, MEDICAID, SELFPAY ==
--- NOTE | 2023-09-15 12:35 | MHC.OFFVIS ---
Vital Signs 09/15/23 12:37 Height 5 ft 3 in Weight 279 lb 15.793 oz BMI 49.6 BP 114/72 Blood Pressure Location Lt brachial Position Sitting Pulse 83 Intake Visit Reasons: 4 wk f/up after testing Intake Note: 4 week follow-up after stress and echo c/o palpitations at times and leg swelling Allergies enoxaparin [From Lovenox] Allergy (Intermediate, Verified 08/20/23 10:46) rash/swelling seafood Allergy (Intermediate, Verified 08/20/23 10:46) rash/swelling Medication List - Last Reconciled 09/15/23 by Gabe Mello MD albuterol sulfate 1.25 mg (3 mL) inhalation QID PRN albuterol sulfate 90 mcg/actuation 1 puff inhalation Q4H PRN apixaban 5 mg PO BID 90 days atorvastatin 80 mg PO BEDTIME 90 days blood pressure monitor Automatic, Digital. Dx: I10. Daily As directed, 999 days/lifetime budesonide-formoterol 80-4.5 mcg/actuation 2 puffs PO BID clotrimazole-betamethasone 1-0.05 % 1 appl topical BID 2 weeks ezetimibe 10 mg PO DAILY famotidine 20 mg PO DAILY 90 days furosemide 40 mg orally; melatonin 10 mg PO BEDTIME metoprolol tartrate 100mg (2 tabs) AM and 75mg (1.5 tabs) PM 90 days miscellaneous medical supply Reclining chair. Daily As directed 999 days. miscellaneous medical supply Hoveround mobility?device and 2 batteries. Daily?As directed, 999 days nebulizers (Altera Nebulizer Handset) As directed sennosides (Natural Senna Laxative) 8.6 mg PO BEDTIME tiotropium bromide 1 cap inhalation DAILY HPI Comments Details: Andrew comes for follow-up. He is still waiting for the resting perfusion study which is scheduled for tomorrow. Echocardiogram shows moderate LV systolic dysfunction with underlying regional wall motion abnormality consistent with ischemic cardiomyopathy with mild left atrial enlargement. He continues to have exertional shortness of breath but denies any worsening orthopnea, PND, leg edema. Continues to have symptoms of palpitations intermittently. Taking all his medications. Has been taking his oral anticoagulation. No bleeding issues or neurologic events. [facility]LY [facility] Medical History Paroxysmal atrial fibrillation Recurrent cellulitis of lower leg COVID-19 vaccine series completed Supraventricular tachycardia COPD (chronic obstructive pulmonary disease) Myocardial infarction History of COVID-19 Morbid obesity Chronic bronchitis GERD (gastroesophageal reflux disease) Chronic renal failure, stage 3 (moderate) CAD (coronary artery disease) Essential hypertension Surgical History History of inferior vena caval filter placement H/O colonoscopy History of sleeve gastrectomy History of heart artery stent History of carpal tunnel release History of knee replacement Family History Father CVD (cardiovascular disease) Mother Diabetes mellitus Cancer Brother No problems noted. Brother No problems noted. Son No problems noted. Sister No problems noted. Sister No problems noted. Sister No problems noted. Sister No problems noted. Sister No problems noted. Sister No problems noted. Other Mental health disorder Substance use disorder Social History Household Members: Spouse Household Members Other:: & son Housing: Apartment Are you a primary wound care physician to a significant other at home: No Do you presently have visiting nurse or other home services: Yes (private duty care when needed) Comment: uses cane on occasion Patient Tobacco Use Status: Former Tobacco user Quit Date: 2008 Tobacco use type: Cigarette Years Smoked: 40 e-Cigarette/Vaping Use: Never Used Second Hand Smoke Exposure: No Advance Directives Date on File: 08/21/21 service: Yes Current occupational status: disabled Current occupational exposures/hazards: No Cognitive needs: No Hearing needs: No Vision needs: No Review of Systems Const Denies chills, Denies fatigue, Denies fever(s), Denies frequent falls, Denies weakness, Denies weight gain and Denies weight loss ENT Denies dizziness Card Denies chest pain, Reports leg edema, Denies lightheadedness, Reports palpitations, Denies dyspnea, Denies dyspnea on exertion, Denies orthopnea and Denies other (loss of consciousness) Resp Denies cough, Denies dyspnea and Denies dyspnea on exertion GI Denies hematochezia and Denies change in stool character Musc Denies abnormal gait, Denies muscle weakness, Denies numbness, Denies radiating pain into limb and Denies tingling Neuro Denies abnormal gait, Denies dizziness, Denies frequent falls, Denies numbness, Denies tingling and Denies weakness Endo Denies fatigue and Reports palpitations Physical Exam Vital Signs: Last Vital Signs Pulse 83 09/15/23 12:37 BP 114/72 09/15/23 12:37 BMI result Body Mass Index 49.6 Const General: cooperative, comfortable, no acute distress, alert and awake Nutritional Appearance: obese morbidly obese Orientation/consciousness: patient oriented x3 Neck Neck: Yes trachea midline, Yes supple and Yes no JVD Resp Effort & Inspection: normal respiratory effort Auscultation: clear to auscultation bilaterally Cardio Jugular venous distension: no JVD Rhythm: abnormal rhythm irregularly irregular Heart sounds: S1 normal heart sound present, S2 normal heart sound present, no click, no gallops, no murmurs and no rubs GI Auscultation: normal bowel sounds Skin General skin exam: no rashes or lesions noted Neuro General: patient oriented x3 and no focal motor deficits Assessment & Plan Assessment & Plan (1) Persistent atrial fibrillation: Code(s): I48.19 - Other persistent atrial fibrillation Category: Medical Plan: Persistent rate control atrial fibrillation with LV systolic dysfunction. He continues to have symptoms exertional shortness of without any signs of overt congestive heart failure. At this point time will pursue rhythm control approach if he has no significant ischemia by myocardial perfusion imaging. Will most likely require antiarrhythmic drug support. Once his stress test is reported as having no significant ischemia will start him on amiodarone loading 400 mg b.i.d. for 2 weeks followed by 200 mg daily and then performed synchronized cardioversion 2 weeks. Discussed with him the risks, benefits, alternatives to synchronized cardioversion including the procedure in detail. He understands agrees and is agreeable to pursue the same. Will set that up in near future. 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 Continue aggressive participate in weight loss program. Continue optimization of his heart failure management. Was started on amiodarone his metoprolol will be reduced to 50 mg b.i.d.. Will require baseline workup with chest x-ray, liver panel and TSH which will be done tomorrow (2) Ischemic cardiomyopathy: Code(s): I25.5 - Ischemic cardiomyopathy Category: Medical Plan: Ischemic cardiomyopathy, clinically euvolemic and well compensated current diuretic dose. Moderate LV systolic dysfunction may have a component of tachycardia mediated cardiomyopathy related to atrial fibrillation. Further treatment based on response to atrial fibrillation management. Continue current diuretic dose. Daily weight monitoring avoidance of salt loading was discussed. Continue metoprolol which will be reduced months started on amiodarone therapy. Will also start him on valsartan therapy for neurohormonal modulation eventually switch to Entresto therapy. Once maintains rhythm will follow with echocardiogram in 3 months time to see if there is improvement in his LV systolic function. If he has significant ischemia will need to pursue cardiac catheterization. This was discussed with him. He understands and agrees. Will follow with him after cardioversion in 6-7 weeks time. Thank you for allowing me to partake in his care Coding Level of Care Code Est Pt Level 4 (27946) Diagnoses Persistent atrial fibrillation I48.19 Ischemic cardiomyopathy I25.5
[2023-09-15 12:37] VITALS: BP 114/72; PULSE 83; BMI 49.6
== END 2023-09-15 13:04 | disposition home or self-care (01) ==
PROVIDERS: PCP Family Medicine; Visit Provider Internal Medicine Cardiovascular Disease
DX: I48.19 Other persistent atrial fibrillation (principal); I25.5 Ischemic cardiomyopathy
CPT/HCPCS: 99214

== ENCOUNTER → 2023-09-15 12:14 | Outpatient (BNVA) | payer MEDICARE, MEDICAID, SELFPAY | PROVIDERS: PCP Family Medicine; Visit Provider Internal Medicine Cardiovascular Disease | DX: I48.19 Other persistent atrial fibrillation (principal); I25.5 Ischemic cardiomyopathy; Z79.899 Other long term (current) drug therapy | CPT/HCPCS: 99212 ==

== ENCOUNTER 2023-09-16 07:23 | Outpatient (REF) | payer MEDICARE, SELFPAY ==
--- NOTE | ~2023-09-16 | XR_ITS ---
EXAMINATION: XR CHEST CLINICAL INFORMATION: Atrial fibrillation. COMPARISON: Chest radiograph dated 05/23/2021. TECHNIQUE: 2 views of the chest were obtained. FINDINGS: Cardiac size is normal. The cardiac loop monitor seen on the prior study is no longer visualized. The lungs are clear. The pleural spaces are clear. There is no pneumothorax. No acute osseous abnormality. There are degenerative changes of the glenohumeral joints. XR/XR chest 2V IMPRESSION: No acute cardiopulmonary disease.
[2023-09-16 08:49] LABS: Alanine Aminotransferase 13 U/L (0-40); Alkaline Phosphatase 127 U/L (39-117); Aspartate Amino Transferase 16 U/L (5-37); Bilirubin Direct 0.4 mg/dL (0.0-0.5); Bilirubin Total 1.2 mg/dL (0.0-1.0); Total Protein 6.9 g/dL (6.5-8.0)
== END 2023-09-16 07:24 | disposition home or self-care (01) ==
LOC: HO.XRAY 07:23
PROVIDERS: PCP Family Medicine; Visit Provider Internal Medicine Cardiovascular Disease
DX: I48.19 Other persistent atrial fibrillation (principal)
CPT/HCPCS: 36415; 71046; 80076; 84443

== ENCOUNTER 2023-10-06 11:51 | Day surgery (SDC) | payer MEDICARE, SELFPAY ==
--- NOTE | 2023-10-02 14:34 | P.CONAN_ITS ---
Documented by User: Xiomara Clinton NP 10/02/23 14:35 HPI - Anesthesia Eval Consult details Narrative: 63yo M for Cardioversion Eliquis for afib PMFSH Active Problems Active Problems: All Active Problems Ischemic cardiomyopathy (Acute) Persistent atrial fibrillation (Acute) SOB (shortness of breath) on exertion (Acute) Unsteady gait (Acute) Constipation (Acute) Dermatitis (Acute) History of total right knee replacement (TKR) (Acute) Immunization counseling (Acute) Essential hypertension (Acute) Knee pain (Acute) COPD (chronic obstructive pulmonary disease) (Acute) Hyperlipidemia (Acute) Mild chronic anemia (Acute) Recurrent cellulitis of lower leg (Acute) Swelling of left lower extremity (Acute) CAD (coronary artery disease) (Acute) Varicose veins of right lower extremity with inflammation (Acute) Lymphedema (Acute) Varicose veins of left lower extremity with inflammation (Acute) Laboratory examination ordered as part of a routine general medical examination (Acute) Diaphoresis (Acute) Low HDL (under 40) (Acute) Diastolic heart failure (Acute) Adult general medical exam (Acute) Mild anemia (Acute) Lower extremity edema (Acute) Screening for prostate cancer (Acute) Screening for colon cancer (Acute) COVID-19 (Acute) Left leg cellulitis (Acute) Status post laparoscopic sleeve gastrectomy (Acute) Chronic bronchitis (Acute) GERD (gastroesophageal reflux disease) (Acute) Past Medical History Medical History Paroxysmal atrial fibrillation Recurrent cellulitis of lower leg COVID-19 vaccine series completed Supraventricular tachycardia COPD (chronic obstructive pulmonary disease) Myocardial infarction History of COVID-19 Morbid obesity Chronic bronchitis GERD (gastroesophageal reflux disease) Chronic renal failure, stage 3 (moderate) CAD (coronary artery disease) Essential hypertension Family History Family History Father CVD (cardiovascular disease) Mother Diabetes mellitus Cancer Brother No problems noted. Brother No problems noted. Son No problems noted. Sister No problems noted. Sister No problems noted. Sister No problems noted. Sister No problems noted. Sister No problems noted. Sister No problems noted. Other Mental health disorder Substance use disorder Surgical History Surgical History History of inferior vena caval filter placement H/O colonoscopy History of sleeve gastrectomy History of heart artery stent History of carpal tunnel release History of knee replacement History of Problems with Anesthesia: No Social History Social History Household Members: Spouse Household Members Other:: & son Housing: Apartment Are you a primary lawn care professional to a significant other at home: No Do you presently have visiting nurse or other home services: Yes (private duty care when needed) Comment: uses cane on occasion Patient Tobacco Use Status: Former Tobacco user Tobacco use type: Cigarette Years Smoked: 40 e-Cigarette/Vaping Use: Never Used Second Hand Smoke Exposure: No Use of substances other than those prescribed or required for medical reasons: No Are you DNR?: No Advance Directives: No Advance Directives Information Provided: Yes Advance Directives Date on File: 08/21/21 service: Yes Current occupational status: disabled Current occupational exposures/hazards: No Cognitive needs: No Hearing needs: No Vision needs: No Meds Allergies Allergy/AdvReac Type Severity Reaction Status Date / Time enoxaparin [From Lovenox] Allergy Intermediate rash/swelli Verified 08/20/23 10:46 ng seafood Allergy Intermediate rash/swelli Verified 08/20/23 10:46 ng Home Medications ?Medication ?Instructions ?Recorded ?Confirmed ?Last Taken ?Type budesonide-formoterol HFA 80 2 puff PO BID 02/23/20 09/15/23 10/06/23 History mcg-4.5 mcg/actuation aerosol inhaler tiotropium bromide 18 mcg capsule 1 cap inhalation DAILY 02/23/20 09/15/23 10/06/23 History with inhalation device melatonin 10 mg tablet 10 mg PO BEDTIME 05/23/21 09/15/23 05/22/21 History Exam Narrative Narrative: ECHO 09/2023 Conclusions: - 1. Moderately reduced LV ejection fraction of 35-40% with underlying regional wall motion abnormality consistent with his ischemic cardiomyopathy 2. Mildly dilated left atrium 3. Normal cardiac valvular Doppler 4. Normal RV systolic pressure 5. No gross pericardial effusion NM hanna perf SPECT rest & str 09/2023 Impression: 1. Myocardial perfusion imaging study shows prior apical infarction. No clear evidence of ischemia. 2. Gated LVEF is 54% during stress and 32% during rest. Correlate with echocardiogram. 3. Transient ischemic dilatation not present. Assessment and Plan Assessment Anesthesia Assessment: Chart Reviewed Final Anesthetic Review History of Problems with Anesthesia: No Documented by User: Juan Can MD 10/06/23 13:15 [facility] Past Medical History Medical History Paroxysmal atrial fibrillation Recurrent cellulitis of lower leg COVID-19 vaccine series completed Supraventricular tachycardia COPD (chronic obstructive pulmonary disease) Myocardial infarction History of COVID-19 Morbid obesity Chronic bronchitis GERD (gastroesophageal reflux disease) Chronic renal failure, stage 3 (moderate) CAD (coronary artery disease) Essential hypertension Family History Family History Father CVD (cardiovascular disease) Mother Diabetes mellitus Cancer Brother No problems noted. Brother No problems noted. Son No problems noted. Sister No problems noted. Sister No problems noted. Sister No problems noted. Sister No problems noted. Sister No problems noted. Sister No problems noted. Other Mental health disorder Substance use disorder Family history of problems with anesthesia: No Surgical History Surgical History History of inferior vena caval filter placement H/O colonoscopy History of sleeve gastrectomy History of heart artery stent History of carpal tunnel release History of knee replacement History of Problems with Anesthesia: Yes (ponv) Social History Social History Household Members: Spouse Household Members Other:: & son Housing: Apartment Are you a primary lawn care professional to a significant other at home: No Do you presently have visiting nurse or other home services: Yes (private duty care when needed) Comment: uses cane on occasion Patient Tobacco Use Status: Former Tobacco user Tobacco use type: Cigarette Years Smoked: 40 e-Cigarette/Vaping Use: Never Used Second Hand Smoke Exposure: No Use of substances other than those prescribed or required for medical reasons: No Are you DNR?: No Advance Directives: No Advance Directives Information Provided: Yes Advance Directives Date on File: 08/21/21 service: Yes Current occupational status: disabled Current occupational exposures/hazards: No Cognitive needs: No Hearing needs: No Vision needs: No Meds Allergies Allergy/AdvReac Type Severity Reaction Status Date / Time enoxaparin [From Lovenox] Allergy Intermediate rash/swelli Verified 08/20/23 10:46 ng seafood Allergy Intermediate rash/swelli Verified 08/20/23 10:46 ng Home Medications ?Medication ?Instructions ?Recorded ?Confirmed ?Last Taken ?Type budesonide-formoterol HFA 80 2 puff PO BID 02/23/20 09/15/23 10/06/23 History mcg-4.5 mcg/actuation aerosol inhaler tiotropium bromide 18 mcg capsule 1 cap inhalation DAILY 02/23/20 09/15/23 10/06/23 History with inhalation device melatonin 10 mg tablet 10 mg PO BEDTIME 05/23/21 09/15/23 05/22/21 History Exam Airway Mallampati Class: III TM Dist: <=3cm Neck ROM: Full Loose/Missing/Broken Teeth: Yes (8,9; multiple, very poor) Heart: irr rhythm Lungs: clear but distant Assessment and Plan Final Anesthetic Review Family History of Problems with Anesthesia: No History of Problems with Anesthesia: Yes (ponv) NPO: Yes ASA Class: III Final Preanesthetic Review: No Changes in Pt Med Stat, Meds/Allgs Chart Reviewed, Consent Obtained/Reviewed and Anes Risks/Benef Reviewed Patient Risk: High Procedure Risk: Intermediate Anesthetic Plan Anesthetic Plan: TIVA Disposition: Standard PACU
[2023-10-06 12:38] VITALS: BP 107/80; PULSE 64; RESP 16; TEMP 36.1; O2SAT 96; BMI 49.4
[2023-10-06] MEDS: Lactated Ringers 1,000 ML 50 ML IVCONT (12:59)
--- NOTE | 2023-10-06 13:36 | MHC.SHP ---
Pre-Procedural Eval Section A - 24 Hr Update-Section A only Date of Service: 10/06/23 The patient is an INPATIENT: No Changes since office visit: Yes Changes in Medication and Yes Patient answered all questions; No Cold of Flu in the past 2 weeks and No New Medical Problems The patient has been examined within 24 hours of the surgical procedure. The History & Physical has been completed within 30 days and I have reviewed it.: Yes Section B - Complete if H&P > 30 days Chief Complaint: Other persistent atrial fibrillation Allergies: Allergies Allergy/AdvReac Type Severity Reaction Status Date / Time enoxaparin [From Lovenox] Allergy Intermediate rash/swelli Verified 08/20/23 10:46 ng seafood Allergy Intermediate rash/swelli Verified 08/20/23 10:46 ng Plan I have reviewed the history and physical and performed a pertinent physical examination on my patient. No changes have occurred unless specified. Time Spent With Patient Time: Total time managing care of this patient today ____ minutes.
[2023-10-06 14:30] VITALS: BP 98/68; PULSE 67; RESP 16; TEMP 36.1; O2SAT 98
--- NOTE | 2023-10-06 14:30 | HO.CARDIVERS ---
Cardioversion Procedure Note Cardioversion Date of Procedure: 10/06/2023 Ordering Provider: Geo Mello Performing Provider: Geo Mello Indication for Procedure: Persistent symptomatic atrial fibrillation with underlying cardiomyopathy Pre-Op Diagnosis: Same Post-Op Diagnosis: Same Performed with Transesophageal Echo: No Consent: Verbal and Written consent was obtained from the patient before starting and after confirming amiodarone and oral anticoagulation use. The patient was made aware of the risk of synchronized cardioversion including benefits and alternatives Procedure: After consent obtained, cardioversion pads were attached in anteroposterior configuration and the patient was sedated by the anesthesia team. Once adequate sedation achieved, patient was delivered 200 joules of biphasic synchronized energy in anteroposterior configuration x2 Complications: None Impression: Unsuccessful conversion to sinus rhythm Recommendations: 1. Continue full oral anticoagulation with Eliquis 2. Unsuccessful attempt at cardioversion and therefore suggestive of permanent atrial fibrillation. Will discuss with patient about discontinuing amiodarone therapy 3. Follow up in the clinic in 4 weeks time
[2023-10-06 14:35] VITALS: BP 94/70; PULSE 66; RESP 18; O2SAT 98
[2023-10-06 14:40] VITALS: BP 94/66; PULSE 60; RESP 18; O2SAT 98
[2023-10-06 14:45] VITALS: BP 105/59; PULSE 59; RESP 18; O2SAT 98
[2023-10-06 15:00] VITALS: BP 112/71; PULSE 59; RESP 18; O2SAT 98
== END 2023-10-06 15:30 | disposition home or self-care (01) ==
PROVIDERS: PCP Family Medicine; Visit Provider Internal Medicine Cardiovascular Disease
PROC: 5A2204Z Restoration of Cardiac Rhythm, Single (ICD-10-PCS; principal; 2023-10-06 14:00)
DX: I48.19 Other persistent atrial fibrillation (principal); I25.5 Ischemic cardiomyopathy; I12.9 Hypertensive chronic kidney disease with stage 1 through stage 4 chronic kidney disease, or unspecified chronic kidney disease; N18.30 Chronic kidney disease, stage 3 unspecified; J44.9 Chronic obstructive pulmonary disease, unspecified; Z79.01 Long term (current) use of anticoagulants; Z79.899 Other long term (current) drug therapy; Z88.8 Allergy status to other drugs, medicaments and biological substances
CPT/HCPCS: 92960; J2704

== ENCOUNTER → 2023-10-06 11:51 | Outpatient (BNV) | payer MEDICARE, SELFPAY | PROVIDERS: PCP Family Medicine; Visit Provider Internal Medicine Cardiovascular Disease | DX: I48.19 Other persistent atrial fibrillation (principal) | CPT/HCPCS: 92960 ==

== ENCOUNTER → 2023-10-13 10:19 | Outpatient (REF) | payer MEDICARE, SELFPAY ==
--- NOTE | 2023-10-13 10:22 | HM_ITS ---
* Total monitoring time 2 days. * Underlying rhythm is atrial fibrillation with an average ventricular rate of 71/Min. * Rare ventricular ectopy. * No sustained arrhythmias. * No significant pauses or AV blocks. * No patient markers or diary events. MTDD
== END ==
LOC: HO.CARD 10:19
PROVIDERS: PCP Family Medicine; Visit Provider Internal Medicine Cardiovascular Disease
DX: I25.5 Ischemic cardiomyopathy (principal); I48.19 Other persistent atrial fibrillation
CPT/HCPCS: 93225

== ENCOUNTER → 2023-10-13 10:22 | Outpatient (BNV) | payer MEDICARE, SELFPAY | PROVIDERS: PCP Family Medicine; Visit Provider Internal Medicine | DX: I48.91 Unspecified atrial fibrillation (principal) | CPT/HCPCS: 93227 ==

== ENCOUNTER 2023-11-02 12:32 | Outpatient (AMB) | payer MEDICARE, MEDICAID, SELFPAY ==
--- NOTE | 2023-11-02 12:44 | MHC.OFFVIS ---
Vital Signs 11/02/23 12:46 Height 5 ft 3 in Weight 282 lb 3.067 oz BMI 50.0 BP 132/82 Blood Pressure Location Lt brachial Position Sitting Pulse 83 Intake Visit Reasons: 3m follow up Intake Note: 3 month follow-up with ekg feeling ok Physical Therapy Technician Required: No Reservation Sales Agent: Reservation Sales Agent Present Accompanied by: Spouse Allergies enoxaparin [From Lovenox] Allergy (Intermediate, Verified 08/20/23 10:46) rash/swelling seafood Allergy (Intermediate, Verified 08/20/23 10:46) rash/swelling Medication List - Last Reconciled 11/02/23 by Gabe Mello MD albuterol sulfate 1.25 mg (3 mL) inhalation QID PRN albuterol sulfate 90 mcg/actuation 1 puff inhalation Q4H PRN apixaban 5 mg PO BID 90 days atorvastatin 80 mg PO BEDTIME 90 days blood pressure monitor Automatic, Digital. Dx: I10. Daily As directed, 999 days/lifetime budesonide-formoterol 80-4.5 mcg/actuation 2 puffs PO BID clotrimazole-betamethasone 1-0.05 % 1 appl topical BID 2 weeks ezetimibe 10 mg PO DAILY famotidine 20 mg PO DAILY 90 days furosemide 40 mg orally; melatonin 10 mg PO BEDTIME metoprolol tartrate 100mg (2 tabs) AM and 75mg (1.5 tabs) PM 90 days miscellaneous medical supply Reclining chair. Daily As directed 999 days. miscellaneous medical supply Hoveround mobility?device and 2 batteries. Daily?As directed, 999 days nebulizers (Altera Nebulizer Handset) As directed sennosides (Natural Senna Laxative) 8.6 mg PO BEDTIME tiotropium bromide 1 cap inhalation DAILY HPI Comments Details: Andrew comes for follow-up. He failed rhythm control approach after cardioversion on amiodarone therapy. Switch to just rate control approach. Continues to have symptoms exertional shortness of breath with minimal exertion as per the . Also has increasing leg swelling and some abdominal distension. He has not noticed much weight gain. Currently taking Lasix 3 days a week. He said this was done due to renal function issues. Also occasionally has symptoms of palpitations. No lightheadedness, syncope. Blood pressures been stable. [facility] Medical History (Updated 11/02/23 @ 13:13 by Gabe Mello MD) Chronic HFrEF (heart failure with reduced ejection fraction) Paroxysmal atrial fibrillation Recurrent cellulitis of lower leg COVID-19 vaccine series completed Supraventricular tachycardia COPD (chronic obstructive pulmonary disease) Myocardial infarction History of COVID-19 Morbid obesity Chronic bronchitis GERD (gastroesophageal reflux disease) Chronic renal failure, stage 3 (moderate) CAD (coronary artery disease) Essential hypertension Surgical History History of inferior vena caval filter placement H/O colonoscopy History of sleeve gastrectomy History of heart artery stent History of carpal tunnel release History of knee replacement Family History Father CVD (cardiovascular disease) Mother Diabetes mellitus Cancer Brother No problems noted. Brother No problems noted. Son No problems noted. Sister No problems noted. Sister No problems noted. Sister No problems noted. Sister No problems noted. Sister No problems noted. Sister No problems noted. Other Mental health disorder Substance use disorder Social History Household Members: Spouse Household Members Other:: & son Housing: Apartment Are you a primary critical care transport nurse to a significant other at home: No Do you presently have visiting nurse or other home services: Yes (private duty care when needed) Comment: uses cane on occasion Patient Tobacco Use Status: Former Tobacco user Tobacco use type: Cigarette Years Smoked: 40 e-Cigarette/Vaping Use: Never Used Second Hand Smoke Exposure: No Advance Directives Date on File: 08/21/21 service: Yes Current occupational status: disabled Current occupational exposures/hazards: No Cognitive needs: No Hearing needs: No Vision needs: No Review of Systems Const Denies chills, Denies fatigue, Denies fever(s), Denies frequent falls, Denies weakness, Denies weight gain and Denies weight loss ENT Denies dizziness Card Denies chest pain, Denies leg edema, Denies lightheadedness, Denies palpitations, Denies dyspnea, Denies dyspnea on exertion, Denies orthopnea and Denies other (loss of consciousness) Resp Denies cough, Denies dyspnea and Denies dyspnea on exertion GI Denies hematochezia and Denies change in stool character Musc Denies abnormal gait, Denies muscle weakness, Denies numbness, Denies radiating pain into limb and Denies tingling Neuro Denies abnormal gait, Denies dizziness, Denies frequent falls, Denies numbness, Denies tingling and Denies weakness Endo Denies fatigue and Denies palpitations Physical Exam Vital Signs: Last Vital Signs Pulse 83 11/02/23 12:46 BP 132/82 11/02/23 12:46 BMI result Body Mass Index 50.0 Const General: cooperative, comfortable, no acute distress, alert, awake and poor hygiene Nutritional Appearance: obese morbidly obese Orientation/consciousness: patient oriented x3 Neck Neck: Yes trachea midline, Yes supple and Yes no JVD (Positive AJR) Resp Effort & Inspection: normal respiratory effort Auscultation: clear to auscultation bilaterally Cardio Jugular venous distension: no JVD Rhythm: abnormal rhythm irregularly irregular Heart sounds: S1 normal heart sound present, S2 normal heart sound present, no click, no gallops, no murmurs and no rubs GI Auscultation: normal bowel sounds Skin General skin exam: no rashes or lesions noted Neuro General: patient oriented x3 and no focal motor deficits Extrem General: No clubbing, No cyanosis and Yes edema Office Procedures EKG Details: EKG shows atrial fibrillation with septal QS pattern 83 beats per minute [id number], Complete Assessment & Plan Assessment & Plan (1) Persistent atrial fibrillation: Code(s): I48.19 - Other persistent atrial fibrillation Category: Medical Plan: Persistent and resistant atrial fibrillation rhythm control despite use of amiodarone. 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 This was discussed with him. Will continue pursue rate control approach with increase risk for development of heart failure syndrome. This was discussed with him. Continue participate in aggressive weight loss program. Given symptoms of palpitation will increase metoprolol to 100 mg b.i.d.. Follow-up Holter monitor in near future. Continue full oral anticoagulation, currently on Eliquis 5 mg b.i.d.. Quarterly renal function test should be pursued. (2) Chronic HFrEF (heart failure with reduced ejection fraction): Code(s): I50.22 - Chronic systolic (congestive) heart failure Category: Medical Plan: Chronic heart failure with reduced ejection fraction worsening symptoms with NYHA class 2-3 symptoms. Increase leg edema. The symptoms most likely related to underlying LV systolic dysfunction related to ischemic cardiomyopathy as well as atrial fibrillation which is persistent. Advise metoprolol as about to have better rate control as well as neurohormonal modulation. Will add Entresto to his regimen for neurohormonal modulation heart failure management. Check BMP and BNP today and in 1 week's time. Continue metoprolol for neurohormonal modulation will gradually uptitrate. Management of heart failure was discussed. Daily weight monitoring avoidance of salt loading was discussed. If there is sudden worsening is advised to seek emergency care as he may require IV diuresis. Will follow up in the clinic in 6 weeks time, sooner p.r.n.. Thank you for allowing me to partake in his care Coding Level of Care Code Est Pt Level 4 (09221) Diagnoses Persistent atrial fibrillation I48.19 Chronic HFrEF (heart failure with reduced ejection fraction) I50.22 CPT Codes EKG - CPT: [id number]-[id number], Complete ([id number])
[2023-11-02 12:46] VITALS: BP 132/82; PULSE 83; BMI 50.0
== END 2023-11-02 13:12 | disposition home or self-care (01) ==
PROVIDERS: PCP Family Medicine; Visit Provider Internal Medicine Cardiovascular Disease
DX: I48.19 Other persistent atrial fibrillation (principal); I50.22 Chronic systolic (congestive) heart failure
CPT/HCPCS: 93010; 99214

== ENCOUNTER 2023-11-02 12:32 | Outpatient (REF) | payer MEDICARE, MEDICAID, SELFPAY ==
[2023-11-02 15:10] LABS: Anion Gap 12 (12-20); Blood Urea Nitrogen 12 mg/dL (9-16); Calcium 8.6 mg/dL (8.4-10.2); Carbon Dioxide 26 mmol/L (22-29); Chloride 103 mmol/L (96-108); Estimated Glomerular Filt Rate > 60; Glucose Random 102 mg/dL (60-115); Potassium 3.6 mmol/L (3.3-5.1); Sodium 137 mmol/L (135-145)
[2023-11-02 15:12] LABS: B Type Natriuretic Peptide 123 pg/mL (<100)
== END 2023-11-02 12:33 | disposition home or self-care (01) ==
LOC: HO.LAB 12:32
PROVIDERS: PCP Family Medicine; Visit Provider Internal Medicine Cardiovascular Disease
DX: I48.19 Other persistent atrial fibrillation (principal); I50.22 Chronic systolic (congestive) heart failure
CPT/HCPCS: 36415; 80048; 83880; 93005; 99212

== ENCOUNTER 2023-11-09 08:15 | Outpatient (REF) | payer MEDICARE, MEDICAID, SELFPAY ==
[2023-11-09 11:09] LABS: Anion Gap 12 (12-20); Blood Urea Nitrogen 20 mg/dL (9-16); Carbon Dioxide 29 mmol/L (22-29); Chloride 105 mmol/L (96-108); Estimated Glomerular Filt Rate > 60; Glucose Random 97 mg/dL (60-115); Potassium 3.8 mmol/L (3.3-5.1); Sodium 142 mmol/L (135-145)
== END 2023-11-09 08:16 | disposition home or self-care (01) ==
LOC: HO.WFDLDS 08:15
PROVIDERS: Visit Provider Internal Medicine Cardiovascular Disease
DX: I50.22 Chronic systolic (congestive) heart failure (principal)
CPT/HCPCS: 36415; 80048

== ENCOUNTER 2023-11-19 11:06 | Outpatient (AMB) | payer MEDICARE, MEDICAID, SELFPAY ==
--- NOTE | 2023-11-19 11:21 | MHC.PC.OV ---
Vital Signs 11/19/23 11:24 Height 5 ft 3 in Weight 283 lb BMI 50.1 BP 110/68 Blood Pressure Location Lt brachial Position Sitting Respiration 18 Pulse 59 Pulse Source Pulse Oximeter Pulse Oximetry (%) 96 Oxygen Delivery Method Room Air Intake Visit Reasons: f/u hypertension - see comments Digital Retoucher Name: Follow up hypertension Allergies enoxaparin [From Lovenox] Allergy (Intermediate, Verified 08/20/23 10:46) rash/swelling seafood Allergy (Intermediate, Verified 08/20/23 10:46) rash/swelling Tobacco use date assessed: 08/20/23 Dental Screening Dental Screen Date: 08/20/23 HPI HPI Comments History of Present Illness Details This is a 63-year-old male with a past medical history of ischemic cardiomyopathy, persistent atrial fibrillation, hypertension, COPD, CAD and morbid obesity presenting to follow up. I am seeing the patient for his PCP today. He saw his sizer hand on 11/02/2023. Patient failed rhythm control approach after cardioversion on amiodarone therapy. Switched to rate control approach. Exertional shortness of breath at baseline per patient. He reported increased leg edema. Patient reports metoprolol was increased, he was instructed to take his Lasix every day instead of 4 days a week, and Dr. Mello added Entresto. His blood pressure is 110/68, 132/82 prior to medication changes. Heart rate is 59 today, 83 prior to medication changes. Patient reports that he did notice a couple of times that he got lightheaded when he stood up quickly so he is being more mindful of this. No falls. Notices improved lower extremity edema though no weight loss (1 lb gain since last appointment). Occasionally has palpitations. No chest pain or syncope. Patient had blood work drawn on 11/09/[address] Mello. Creatinine and GFR stable with mild increase in BUN. He is scheduled for Holter monitor and then will follow up with Dr. Mello. ROS: Constitutional: No fevers or chills. Eyes: No vision change Respiratory: No increased cough or sputum production. + exertional dyspnea, chronic. Cardiovascular: No chest pain, see HPI Physical exam: Constitutional: Alert, in no distress. Eyes: Pupils are equal, round and reactive to light Respiratory: Clear to auscultation. Cardiovascular: Irregularly irregular rhythm, normal rate, no murmur Neurologic: No focal neurological deficits Extremities: Chronic stasis changes to bilateral lower extremities and bilateral lower extremity edema. Psychiatric: Normal mood and affect COUNT INCLUDES THE [facility] Medical History (Updated 11/19/23 @ 12:47 by MIGNON Garvin) Chronic HFrEF (heart failure with reduced ejection fraction) Paroxysmal atrial fibrillation Recurrent cellulitis of lower leg COVID-19 vaccine series completed Supraventricular tachycardia COPD (chronic obstructive pulmonary disease) Myocardial infarction History of COVID-19 Morbid obesity Chronic bronchitis GERD (gastroesophageal reflux disease) Chronic renal failure, stage 3 (moderate) CAD (coronary artery disease) Essential hypertension Surgical History History of inferior vena caval filter placement H/O colonoscopy History of sleeve gastrectomy History of heart artery stent History of carpal tunnel release History of knee replacement Family History Father CVD (cardiovascular disease) Mother Diabetes mellitus Cancer Brother No problems noted. Brother No problems noted. Son No problems noted. Sister No problems noted. Sister No problems noted. Sister No problems noted. Sister No problems noted. Sister No problems noted. Sister No problems noted. Other Mental health disorder Substance use disorder Social History Household Members: Spouse Household Members Other:: & son Housing: Apartment Are you a primary memory care director to a significant other at home: No Do you presently have visiting nurse or other home services: Yes (private duty care when needed) Comment: uses cane on occasion Patient Tobacco Use Status: Former Tobacco user Tobacco use type: Cigarette Years Smoked: 40 e-Cigarette/Vaping Use: Never Used Second Hand Smoke Exposure: No Advance Directives Date on File: 08/21/21 service: Yes Current occupational status: disabled Current occupational exposures/hazards: No Cognitive needs: No Hearing needs: No Vision needs: No Questionnaire Thrive Questionnaire Date Thrive assessed: 08/20/23 MARIAH-7 AMB Questionnaire MARIAH-7 Date MARIAH - 7 assessed: 08/20/23 Source: Developed by Drs. Alex Adam, Bhumi Mckinley, Jam Gibson and colleagues, with an educational edgar from [employer]. Physical exam (Primary Care) Vital Signs: Last Vital Signs Pulse 59 11/19/23 11:24 Resp 18 11/19/23 11:24 BP 110/68 11/19/23 11:24 Pulse Ox 96 11/19/23 11:24 Oxygen Delivery Method Room Air 11/19/23 11:24 BMI result Body Mass Index 50.1 Tobacco/Smoking Status: Tobacco use Status Tobacco use date assessed 08/20/23 11/19/23 11:23 Patient Tobacco Use Status Former Tobacco user 11/19/23 11:23 Tobacco use type Cigarette 11/19/23 11:23 e-Cigarette/Vaping Use Never Used 11/19/23 11:23 Thrive Assessment: Date of Thrive Assessment Date Thrive assessed 08/20/23 11/19/23 11:23 Assessment and Plan Assessment & Plan (1) Chronic HFrEF (heart failure with reduced ejection fraction): Code(s): I50.22 - Chronic systolic (congestive) heart failure (2) Persistent atrial fibrillation: Code(s): I48.19 - Other persistent atrial fibrillation (3) SOB (shortness of breath) on exertion: Code(s): R06.02 - Shortness of breath (4) Hyperlipidemia: Code(s): E78.5 - Hyperlipidemia, unspecified Qualifiers: Hyperlipidemia type: pure hypercholesterolemia Qualified Code(s): E78.00 - Pure hypercholesterolemia, unspecified (5) Essential hypertension: Code(s): I10 - Essential (primary) hypertension Plan The patient's heart rate and blood pressure are running on the lower side of normal, but he has only had lightheadedness a couple of times. Advised him to stand up slowly and give himself a moment before ambulating. These are common side effects to his medications, but if the symptoms start to significantly impact him I advised him to contact his sizer hand. Reviewed renal function tests with the patient. He is tolerating the diuretic daily and addition of Entresto. He will follow up with Cardiology as planned and have the Holter monitor completed. Coding Level of Care Code Est Pt Level 4 (21064) Complex EM visit Add On G2211 Diagnoses Chronic HFrEF (heart failure with reduced ejection fraction) I50.22 Persistent atrial fibrillation I48.19 SOB (shortness of breath) on exertion R06.02 Pure hypercholesterolemia E78.00 Hyperlipidemia type: pure hypercholesterolemia Essential hypertension I10
[2023-11-19 11:24] VITALS: BP 110/68; PULSE 59; RESP 18; O2SAT 96; BMI 50.1
== END 2023-11-19 12:15 | disposition home or self-care (01) ==
PROVIDERS: PCP Family Medicine; Visit Provider Physician Assistant Medical
DX: I50.22 Chronic systolic (congestive) heart failure (principal); I48.19 Other persistent atrial fibrillation; R06.02 Shortness of breath; E78.00 Pure hypercholesterolemia, unspecified; I10 Essential (primary) hypertension
CPT/HCPCS: 99214; G2211

== ENCOUNTER → 2023-12-07 09:22 | Outpatient (REF) | payer MEDICARE, MEDICAID, SELFPAY ==
--- NOTE | 2023-12-07 09:25 | HM_ITS ---
Conclusion: 1. Patient was monitored for total period of 2 days and 23 hours 2. Baseline was atrial fibrillation with average heart of 72 beats per minute with good rate control 3. Occasional PVCs noted 4. No significant pauses noted 5. No patient reported events MTDD
== END ==
LOC: HO.CARD 09:22
PROVIDERS: PCP Family Medicine; Visit Provider Internal Medicine Cardiovascular Disease
DX: I48.19 Other persistent atrial fibrillation (principal)
CPT/HCPCS: 93242

== ENCOUNTER → 2023-12-07 09:25 | Outpatient (BNV) | payer MEDICARE, MEDICAID, SELFPAY | PROVIDERS: PCP Family Medicine; Visit Provider Internal Medicine Cardiovascular Disease | DX: I48.91 Unspecified atrial fibrillation (principal) | CPT/HCPCS: 93244 ==

== ENCOUNTER → 2023-12-07 10:05 | Outpatient (AMB) | payer MEDICARE, MEDICAID, SELFPAY ==
--- NOTE | 2023-12-07 10:20 | MHC.OFFWIV ---
Intake Vital Signs 12/07/23 10:25 BMI Reason not done Patient refused/unable BP 90/52 L Blood Pressure Location Rt brachial Position Sitting Respiration 16 Pulse 79 Pulse Source Pulse Oximeter Temp 97.9 F Temp Source Oral Pulse Oximetry (%) 96 Oxygen Delivery Method Room Air Intake Visit Reasons: est/shaky/ fell twice over the weekend Intake Note: Unsteadiness and lightheaded, worse then usual. Fell twice this weekend. Patient Tobacco Use Status: Former Tobacco user Allergies enoxaparin [From Lovenox] Allergy (Intermediate, Verified 12/07/23 11:07) rash/swelling seafood Allergy (Intermediate, Verified 12/07/23 11:07) rash/swelling Medication List - Last Reconciled 12/07/23 by ALEK Kapoor- albuterol sulfate 1.25 mg (3 mL) inhalation QID PRN albuterol sulfate 90 mcg/actuation 1 puff inhalation Q4H PRN apixaban 5 mg PO BID 90 days atorvastatin 80 mg PO BEDTIME 90 days blood pressure monitor Automatic, Digital. Dx: I10. Daily As directed, 999 days/lifetime budesonide-formoterol 80-4.5 mcg/actuation 2 puffs PO BID clotrimazole-betamethasone 1-0.05 % 1 appl topical BID 2 weeks ezetimibe 10 mg PO DAILY famotidine 20 mg PO DAILY 90 days furosemide 40 mg PO DAILY melatonin 10 mg PO BEDTIME metoprolol tartrate 100 mg PO Q12H miscellaneous medical supply Reclining chair. Daily As directed 999 days. miscellaneous medical supply Hoveround mobility?device and 2 batteries. Daily?As directed, 999 days nebulizers (Altera Nebulizer Handset) As directed sacubitril-valsartan 24-26 mg (Entresto) 1 tab PO BID sennosides (Natural Senna Laxative) 8.6 mg PO BEDTIME tiotropium bromide 1 cap inhalation DAILY Do you need a note to return to daycare/school/sports/work: No HPI HPI Comments History of Present Illness Details 63-year-old male with ischemic cardiomyopathy, persistent atrial fibrillation, hypertension, COPD, CAD and morbid obesity Here today for the walk-in visit for chief complaints of falls. He states that when he returned home from his vacation in [place], he went to get out of his car, lifted up 1 leg and then fell flat onto his chest. Reports he did not brace his fall. The son witnessed this. He reports he did not lose any consciousness however he does not really recall the reason for falling. He did not hit his head. He refused medical intervention. He was able to get up with physical assist. A few days later he had a fall in the middle of the night while walking to the bathroom. This time he landed on his buttocks. He denies tripping. He denies any chest pain, dizziness. He also did not hit his head at this time. He has not been able to monitor his vital signs during the time of these events. Overall he reports feeling weak, shaky at times. He does endorse recent medication changes due to his AFib. No reports of seizure like activity. He is able to recall all of the events of the 2 falls. He saw his branch coordinator on 11/02/2023. Patient failed rhythm control approach after cardioversion on amiodarone therapy. Switched to rate control approach. Exertional shortness of breath at baseline per patient. He reported increased leg edema. Patient reports metoprolol was increased, he was instructed to take his Lasix every day instead of 4 days a week, and Dr. Mello added Entresto. His blood pressure is 110/68, 132/82 prior to medication changes. Patient had blood work drawn on 11/09/[address] Mello. Creatinine and GFR stable with mild increase in BUN. Currently wearing Holter monitor and is scheduled for follow up with Dr. Mello 12/15/23 Upon review of systems, reports that the folks he went to see an [place] tested positive for COVID, he would like to be tested. He denies any URI symptoms today. ROS: Constitutional: No fevers or chills. Eyes: No vision change Respiratory: No increased cough or sputum production. + exertional dyspnea, chronic. Cardiovascular: No chest pain, see HPI Physical exam: Constitutional: Alert, in no distress, sitting in wheelchair Eyes: Pupils are equal, round and reactive to light Respiratory: Clear to auscultation. Cardiovascular: Irregularly irregular rhythm, , no murmur EKG completed. Neurologic: No focal neurological deficits Extremities: Chronic stasis changes to bilateral lower extremities and bilateral lower extremity edema. Psychiatric: Normal mood and affect , accompanied by Plan EKG no change ? syncope vs mechanical fall given physical limitations. Discuss case with primary care provider. No focal findings today on the exam. Reassuring EKG. The plan at this time we will be to Hydrate well, as he reports overall poor p.o. intake. He does not endorse some orthostasis, so question if this is the cause of the 2 falls that he had. He would benefit from a life Alert. I will send a referral to the nurse navigator to help assist in getting him a life Alert. I have also sent a message to the cardiology team to give him a heads up about today's visit. He does have follow up scheduled on the of this month. I did perform a COVID swab. He will be updated once the results are available. Once again he is asymptomatic in regards to URI. Educated on reasons to seek additional care. This note is constructed using voice recognition software. While every effort has been made to ensure accuracy in bariatric coordinator, still errors may have been included Sometimes, these errors may affect the content or meaning of the given sentence . Total time spent caring for the patient today was 45 minutes. This includes time spent before the visit reviewing the chart, time spent during the visit, and time spent after the visit on documentation [facility] Medical History (Updated 12/07/23 @ 12:53 by Riddhi Hernández, [facility]) Chronic HFrEF (heart failure with reduced ejection fraction) Paroxysmal atrial fibrillation Recurrent cellulitis of lower leg COVID-19 vaccine series completed Supraventricular tachycardia COPD (chronic obstructive pulmonary disease) Myocardial infarction History of COVID-19 Morbid obesity Chronic bronchitis GERD (gastroesophageal reflux disease) Chronic renal failure, stage 3 (moderate) CAD (coronary artery disease) Essential hypertension Surgical History History of inferior vena caval filter placement H/O colonoscopy History of sleeve gastrectomy History of heart artery stent History of carpal tunnel release History of knee replacement Family History Father CVD (cardiovascular disease) Mother Diabetes mellitus Cancer Brother No problems noted. Brother No problems noted. Son No problems noted. Sister No problems noted. Sister No problems noted. Sister No problems noted. Sister No problems noted. Sister No problems noted. Sister No problems noted. Other Mental health disorder Substance use disorder Social History Household Members: Spouse Household Members Other:: & son Housing: Apartment Are you a primary health care law specialist to a significant other at home: No Do you presently have visiting nurse or other home services: Yes (private duty care when needed) Comment: uses cane on occasion Patient Tobacco Use Status: Former Tobacco user Tobacco use type: Cigarette Years Smoked: 40 e-Cigarette/Vaping Use: Never Used Second Hand Smoke Exposure: No Advance Directives Date on File: 08/21/21 service: Yes Current occupational status: disabled Current occupational exposures/hazards: No Cognitive needs: No Hearing needs: No Vision needs: No Physical Exam Vital Signs: Last Vital Signs Temp 97.9 F 12/07/23 10:25 Pulse 79 12/07/23 10:25 Resp 16 12/07/23 10:25 BP 90/52 L 12/07/23 10:25 Pulse Ox 96 12/07/23 10:25 Oxygen Delivery Method Room Air 12/07/23 10:25 Office Procedures EKG [id number], Complete Assessment & Plan Assessment & Plan (1) Syncope: Comment: questionable Code(s): R55 - Syncope and collapse Qualifiers: Syncope type: unspecified Qualified Code(s): R55 - Syncope and collapse Plan: . (2) Recurrent falls: Code(s): R29.6 - Repeated falls Plan: . Plan . Orders: Orders AMB EKG-In Office Today R55 - Syncope and collapse, Z13.6 - Encounter for screening for cardiovascular disorders SARS-CoV2/FLU/RSV Today R09.89 - Other specified symptoms and signs involving the circulatory and respiratory systems Referrals Nurse Navigator Referral R29.6 - Repeated falls, R55 - Syncope and collapse Coding Level of Care Code Est Pt Level 5 (96703) Diagnoses Syncope, unspecified syncope type R55 Syncope type: unspecified Recurrent falls R29.6 CPT Codes EKG - CPT: 26777-[id number], Complete ([id number])
[2023-12-07 10:25] VITALS: BP 90/52; PULSE 79; RESP 16; TEMP 36.6; O2SAT 96
== END ==
PROVIDERS: PCP Family Medicine; Visit Provider Nurse Practitioner Family
DX: R55 Syncope and collapse (principal); R29.6 Repeated falls
CPT/HCPCS: 93000; 99214

== ENCOUNTER 2023-12-07 17:49 | Outpatient (REF) | payer MEDICARE, MEDICAID, SELFPAY ==
[2023-12-07 18:43] LABS: Influenza A PCR NEGATIVE (Negative); Influenza B PCR NEGATIVE (Negative); Resp Syncy Virus RNA Qual PCR NEGATIVE (Negative); SARS COV2 PCR INHOUSE NEGATIVE (Negative)
== END 2023-12-07 17:50 | disposition home or self-care (01) ==
LOC: HO.LNP 17:49
PROVIDERS: Visit Provider Nurse Practitioner Family
DX: R09.89 Other specified symptoms and signs involving the circulatory and respiratory systems (principal); J06.9 Acute upper respiratory infection, unspecified
CPT/HCPCS: 0241U

== ENCOUNTER 2023-12-15 13:07 | Outpatient (AMB) | payer MEDICARE, MEDICAID, SELFPAY ==
--- NOTE | 2023-12-15 13:11 | MHC.OFFVIS ---
Vital Signs 12/15/23 13:13 Height 5 ft 3 in BP 100/62 Blood Pressure Location Lt brachial Position Sitting Pulse 68 Intake Visit Reasons: 6 wk f/up labs/ holter/ med chgs Intake Note: 6 week follow-up after holter and labs feeling better Lighting Director Required: No Tobacco Warehouse Manager: Tobacco Warehouse Manager Present Accompanied by: Spouse Allergies enoxaparin [From Lovenox] Allergy (Intermediate, Verified 12/07/23 11:07) rash/swelling seafood Allergy (Intermediate, Verified 12/07/23 11:07) rash/swelling Medication List - Last Reconciled 12/15/23 by Gaeb Mello MD albuterol sulfate 1.25 mg (3 mL) inhalation QID PRN albuterol sulfate 90 mcg/actuation 1 puff inhalation Q4H PRN apixaban 5 mg PO BID 90 days atorvastatin 80 mg PO BEDTIME 90 days blood pressure monitor Automatic, Digital. Dx: I10. Daily As directed, 999 days/lifetime budesonide-formoterol 80-4.5 mcg/actuation 2 puffs PO BID clotrimazole-betamethasone 1-0.05 % 1 appl topical BID 2 weeks ezetimibe 10 mg PO DAILY famotidine 20 mg PO DAILY 90 days furosemide 40 mg PO DAILY melatonin 10 mg PO BEDTIME metoprolol tartrate 100 mg PO Q12H miscellaneous medical supply Reclining chair. Daily As directed 999 days. miscellaneous medical supply Hoveround mobility?device and 2 batteries. Daily?As directed, 999 days nebulizers (Altera Nebulizer Handset) As directed sacubitril-valsartan 24-26 mg (Entresto) 1 tab PO BID sennosides (Natural Senna Laxative) 8.6 mg PO BEDTIME tiotropium bromide 1 cap inhalation DAILY HPI Comments Details: Andrew comes for follow-up. Recent Holter monitor shows good heart rate control. He has not had any worsening heart failure symptoms. Continue takes his current diuretics at current dose. Denies any orthopnea, PND worsening leg edema or weight gain. Recently has had 2 episodes of syncopal episode. One was while he was returning from [place] in a long car ride, getting other car he passed out and fell down. He does not recall having passed out but also does not recall how he got on the ground. Following that following night he ended up passing out again getting out of bed to go to the bathroom. He went to the local urgent care with blood pressure was in the systolic 90s. He said he does get occasional lightheadedness. He tries to take precautions to get up. Denies any prolonged palpitation irregular heartbeat. No chest pain [facility] Medical History Chronic HFrEF (heart failure with reduced ejection fraction) Paroxysmal atrial fibrillation Recurrent cellulitis of lower leg COVID-19 vaccine series completed Supraventricular tachycardia COPD (chronic obstructive pulmonary disease) Myocardial infarction History of COVID-19 Morbid obesity Chronic bronchitis GERD (gastroesophageal reflux disease) Chronic renal failure, stage 3 (moderate) CAD (coronary artery disease) Essential hypertension Surgical History History of inferior vena caval filter placement H/O colonoscopy History of sleeve gastrectomy History of heart artery stent History of carpal tunnel release History of knee replacement Family History Father CVD (cardiovascular disease) Mother Diabetes mellitus Cancer Brother No problems noted. Brother No problems noted. Son No problems noted. Sister No problems noted. Sister No problems noted. Sister No problems noted. Sister No problems noted. Sister No problems noted. Sister No problems noted. Other Mental health disorder Substance use disorder Social History Household Members: Spouse Household Members Other:: & son Housing: Apartment Are you a primary hearing care practitioner to a significant other at home: No Do you presently have visiting nurse or other home services: Yes (private duty care when needed) Comment: uses cane on occasion Patient Tobacco Use Status: Former Tobacco user Tobacco use type: Cigarette Years Smoked: 40 e-Cigarette/Vaping Use: Never Used Second Hand Smoke Exposure: No Advance Directives Date on File: 08/21/21 service: Yes Current occupational status: disabled Current occupational exposures/hazards: No Cognitive needs: No Hearing needs: No Vision needs: No Review of Systems Const Denies chills, Denies fatigue, Denies fever(s), Denies frequent falls, Denies weakness, Denies weight gain and Denies weight loss ENT Denies dizziness Card Denies chest pain, Denies leg edema, Denies lightheadedness, Denies palpitations, Denies dyspnea, Denies dyspnea on exertion, Denies orthopnea and Denies other (loss of consciousness) Resp Denies cough, Denies dyspnea and Denies dyspnea on exertion GI Denies hematochezia and Denies change in stool character Musc Denies abnormal gait, Denies muscle weakness, Denies numbness, Denies radiating pain into limb and Denies tingling Neuro Denies abnormal gait, Denies dizziness, Denies frequent falls, Denies numbness, Denies tingling and Denies weakness Endo Denies fatigue and Denies palpitations Physical Exam Vital Signs: Last Vital Signs Pulse 68 12/15/23 13:13 BP 100/62 12/15/23 13:13 Const General: cooperative, comfortable, no acute distress, alert, awake and poor hygiene Nutritional Appearance: obese morbidly obese Orientation/consciousness: patient oriented x3 Neck Neck: Yes trachea midline, Yes supple and Yes no JVD (Positive AJR) Resp Effort & Inspection: normal respiratory effort Auscultation: clear to auscultation bilaterally Cardio Jugular venous distension: no JVD Rhythm: abnormal rhythm irregularly irregular Heart sounds: S1 normal heart sound present, S2 normal heart sound present, no click, no gallops, no murmurs and no rubs GI Auscultation: normal bowel sounds Skin General skin exam: no rashes or lesions noted Neuro General: patient oriented x3 and no focal motor deficits Extrem General: No clubbing, No cyanosis and Yes edema Assessment & Plan Assessment & Plan (1) Chronic HFrEF (heart failure with reduced ejection fraction): Code(s): I50.22 - Chronic systolic (congestive) heart failure Category: Medical Plan: Heart failure with reduced ejection fraction in this elderly man with ischemic cardiomyopathy moderate LV systolic dysfunction persistent atrial fibrillation. No worsening signs of heart failure. This is difficult to assess in him due to his chronic leg edema, poor functional status. Although he is not having any worsening symptoms. Advised daily weight monitoring. Continue current diuretic dose. Continue current metoprolol and rate control dose. Not able to tolerate Entresto therapy, see below. Will change it to valsartan 40 mg b.i.d. for neurohormonal modulation. Advised to monitor blood pressure at home. (2) Persistent atrial fibrillation: Code(s): I48.19 - Other persistent atrial fibrillation Category: Medical Plan: Persistent rate control atrial fibrillation has failed rhythm control approach. Will continue rate control approach at this point time. Overall prognosis guarded. Continue metoprolol therapy which is working well. If blood pressure remains an issue may need to cut down metoprolol and add digoxin. Continue full oral anticoagulation Eliquis. (3) Syncope: Comment: questionable Code(s): R55 - Syncope and collapse Category: Medical Qualifiers: Syncope type: unspecified Qualified Code(s): R55 - Syncope and collapse Plan: Recent 2 episodes appear to be orthostatic syncope. Discussed management. Most likely due to neurohormonal modulation. Advised to maintain adequate oral hydration. Will change Entresto to Diovan therapy. Advised to monitor blood pressure at home and report it to us. If blood pressure remains low may need to taper and discontinue Diovan therapy. Will follow up in the clinic in 3 months time, sooner p.r.n.. Thank you for allowing me to partake in his care Medications: New valsartan 40 mg PO BID 60 tabs 3RF Discontinued sacubitril-valsartan 24-26 mg (Entresto) Discontinued Reason: Doctor's Order 1 tab PO BID 180 tabs 1RF Coding Level of Care Code Est Pt Level 4 (23467) Diagnoses Chronic HFrEF (heart failure with reduced ejection fraction) I50.22 Persistent atrial fibrillation I48.19 Syncope, unspecified syncope type R55 Syncope type: unspecified
[2023-12-15 13:13] VITALS: BP 100/62; PULSE 68
== END 2023-12-15 13:39 | disposition home or self-care (01) ==
PROVIDERS: PCP Family Medicine; Visit Provider Internal Medicine Cardiovascular Disease
DX: I50.22 Chronic systolic (congestive) heart failure (principal); I48.19 Other persistent atrial fibrillation; R55 Syncope and collapse
CPT/HCPCS: 99214

== ENCOUNTER → 2023-12-15 13:07 | Outpatient (BNVA) | payer MEDICARE, MEDICAID, SELFPAY | PROVIDERS: PCP Family Medicine; Visit Provider Internal Medicine Cardiovascular Disease | DX: I11.0 Hypertensive heart disease with heart failure (principal); I50.22 Chronic systolic (congestive) heart failure; I48.19 Other persistent atrial fibrillation; R55 Syncope and collapse; Z95.828 Presence of other vascular implants and grafts; Z95.5 Presence of coronary angioplasty implant and graft | CPT/HCPCS: 99212 ==

== ENCOUNTER 2024-02-22 09:29 | Outpatient (AMB) | payer MEDICARE, MEDICAID, SELFPAY ==
--- NOTE | 2024-02-22 09:34 | MHC.PC.OV ---
Vital Signs 02/22/24 09:37 Height 5 ft 3 in Weight 282 lb 6 oz BMI 50.0 BP 101/56 L Blood Pressure Location Lt brachial Position Sitting Respiration 16 Pulse 77 Pulse Source Pulse Oximeter Temp 97.0 F Temp Source Temporal Artery Scan Pulse Oximetry (%) 98 Oxygen Delivery Method Room Air Intake Visit Reasons: HTN/ CVD F/U Intake Note: f/u for htn and cvd Allergies enoxaparin [From Lovenox] Allergy (Intermediate, Verified 02/22/24 09:34) rash/swelling seafood Allergy (Intermediate, Verified 02/22/24 09:34) rash/swelling Medication List - Last Reconciled 02/22/24 by Salvador Leon MD albuterol sulfate 1.25 mg (3 mL) inhalation QID PRN albuterol sulfate 90 mcg/actuation 1 puff inhalation Q4H PRN apixaban 5 mg PO BID 90 days atorvastatin 80 mg PO BEDTIME 90 days blood pressure monitor Automatic, Digital. Dx: I10. Daily As directed, 999 days/lifetime budesonide-formoterol 80-4.5 mcg/actuation 2 puffs PO BID clotrimazole-betamethasone 1-0.05 % 1 appl topical BID 2 weeks ezetimibe 10 mg PO DAILY famotidine 20 mg PO DAILY 90 days furosemide 40 mg PO DAILY melatonin 10 mg PO BEDTIME metoprolol tartrate 100 mg PO Q12H miscellaneous medical supply Reclining chair. Daily As directed 999 days. miscellaneous medical supply Hoveround mobility?device and 2 batteries. Daily?As directed, 999 days nebulizers (Altera Nebulizer Handset) As directed sennosides (Natural Senna Laxative) 8.6 mg PO BEDTIME tiotropium bromide 1 cap inhalation DAILY valsartan 20 mg PO BID Tobacco use date assessed: 08/20/23 Dental Screening Dental Screen Date: 08/20/23 HPI HTN/ CVD F/U HPI Details 63 y/o male presents to f/u hypertension. Blood pressure today 101/56, 77p. He is on metoprolol 100mg, valsartan 20mg b.i.d. Follows up with Cardiology for chronic HFrEF. Had last seen them in December. Denies any new syncopal events. Pt notes memory changes. Reports mild sleep apnea. Notes he has not had his pneumonia shot yet. PFSH Medical History Chronic HFrEF (heart failure with reduced ejection fraction) Paroxysmal atrial fibrillation Recurrent cellulitis of lower leg COVID-19 vaccine series completed Supraventricular tachycardia COPD (chronic obstructive pulmonary disease) Myocardial infarction History of COVID-19 Morbid obesity Chronic bronchitis GERD (gastroesophageal reflux disease) Chronic renal failure, stage 3 (moderate) CAD (coronary artery disease) Essential hypertension Surgical History History of inferior vena caval filter placement H/O colonoscopy History of sleeve gastrectomy History of heart artery stent History of carpal tunnel release History of knee replacement Family History Father CVD (cardiovascular disease) Mother Diabetes mellitus Cancer Brother No problems noted. Brother No problems noted. Son No problems noted. Sister No problems noted. Sister No problems noted. Sister No problems noted. Sister No problems noted. Sister No problems noted. Sister No problems noted. Other Mental health disorder Substance use disorder Social History Household Members: Spouse Household Members Other:: & son Housing: Apartment Are you a primary care director rn to a significant other at home: No Do you presently have visiting nurse or other home services: Yes (private duty care when needed) Comment: uses cane on occasion Patient Tobacco Use Status: Former Tobacco user Tobacco use type: Cigarette Years Smoked: 40 e-Cigarette/Vaping Use: Never Used Second Hand Smoke Exposure: No Advance Directives Date on File: 08/21/21 service: Yes Current occupational status: disabled Current occupational exposures/hazards: No Cognitive needs: No Hearing needs: No Vision needs: No Questionnaire PHQ-9 Over the last 2 weeks, how often have you been bothered by any of the following problems? 1. Little interest or pleasure in doing things: not at all 2. Feeling down, depressed, or hopeless: not at all 3. Trouble falling or staying asleep, or sleeping too much: not at all 4. Feeling tired or having little energy: not at all 5. Poor appetite or overeating: not at all 6. Feeling bad about yourself - or that you are a failure or have let yourself or your family down: not at all 7. Trouble concentrating on things, such as reading the newspaper or watching television: not at all 8. Moving or speaking so slowly that other people could have noticed. Or the opposite - being so fidgety or restless that you have been moving around a lot more than usual: not at all 9. Thoughts that you would be better off or of hurting yourself in some way: not at all Total score: 0 Source: Developed by Drs. Alex Adam, Bhumi Mckinley, Jam Gibson and colleagues, with an educational edgar from [employer]. Thrive Questionnaire Date Thrive assessed: 08/20/23 I am a: Patient What is your living situation today?: I have a steady place to live Within the past 12 months, did the food you bought not last and you didn't have the money to get more?: Never true Within the past 12 months, did you worry whether your food would run out before you got money to buy more?: Never true Do you have trouble paying for medicines?: No Do you have trouble getting transportation to medical appointments?: No Do you have trouble paying your heating and electricity bill?: No Do you have trouble taking care of your child, family member or friend?: No Do you have trouble with day-to-day activities such as bathing, preparing meals, shopping, managing finances, etc.?: No Are you currently unemployed and looking for a job?: No Are you interested in more education?: No Please select the resources that you would like help with: None Currently or been in a relationship where the following occur: No concerns reported THRIVE Score: 0 AUDIT C Alcohol Use Questionnaire (AUDIT-C) 1. How often do you have a drink containing alcohol?: Never Total Score: 0 MARIAH-7 AMB Questionnaire MARIAH-7 Date MARIAH - 7 assessed: 08/20/23 Feeling nervous, anxious, or on edge: 0 = Not at all Not being able to stop or control worryin = Not at all Worrying too much about different things: 0 = Not at all Trouble relaxin = Not at all Being so restless that it is hard to sit still: 0 = Not at all Becoming easily annoyed or irritable: 0 = Not at all Feeling afraid as if something awful might happen: 0 = Not at all Total MARIAH-7 score (0-4 normal; 5-9 mild; 10-14 moderate; 15-21 severe): 0 Source: Developed by Drs. Alex Adam, Bhumi Mckinley, Jam Gibson and colleagues, with an educational edgar from [employer]. Review of Systems Const Denies chills, Denies fatigue, Denies fever(s), Denies headache(s) and Denies weakness ENT Denies dizziness and Denies headache(s) Card Denies dyspnea Resp Denies cough, Denies dyspnea, Denies wheezing and Denies other (shortness of breath) Musc Denies numbness and Denies tingling Neuro Denies dizziness, Denies headache(s), Denies numbness, Denies tingling and Denies weakness Psych Denies anxiety and Denies depression Endo Denies fatigue Aller/Immun Denies wheezing Physical exam (Primary Care) Vital Signs: Last Vital Signs Temp 97.0 F 02/22/24 09:37 Pulse 77 02/22/24 09:37 Resp 16 02/22/24 09:37 BP 101/56 L 02/22/24 09:37 Pulse Ox 98 02/22/24 09:37 Oxygen Delivery Method Room Air 02/22/24 09:37 BMI result Body Mass Index 50.0 Tobacco/Smoking Status: Tobacco use Status Tobacco use date assessed 08/20/23 02/22/24 09:39 Patient Tobacco Use Status Former Tobacco user 02/22/24 09:39 Tobacco use type Cigarette 02/22/24 09:39 e-Cigarette/Vaping Use Never Used 02/22/24 09:39 PHQ-9: PHQ-9 Score PHQ-9: Total score 0 02/22/24 10:08 Thrive Assessment: Date of Thrive Assessment Date Thrive assessed 08/20/23 02/22/24 09:39 Currently or been in a relationship where the following occur: No concerns reported Const General: well developed; No acute distress Nutritional Appearance: well nourished and obese morbidly obese Orientation/consciousness: patient oriented x3 HENMT Head: Yes normocephalic and Yes atraumatic Eyes General: appearance normal, both eyes and all related structures Pupils: Equal, round and reactive pupils present EOM: EOMs intact bilaterally Resp Effort & Inspection: normal respiratory effort Auscultation: clear to auscultation bilaterally Cardio Rate: regular rate Rhythm: abnormal rhythm and abnormal rhythm Heart sounds: S1 normal heart sound present, S2 normal heart sound present, no gallops, no murmurs and no rubs Neuro General: patient oriented x3 and gait normal Cranial nerves: Yes Equal, round and reactive pupils present Psych Affect: normal affect Coding Level of Care Code Est Pt Level 4 (87662) Diagnoses Essential hypertension I10 CAD (coronary artery disease) I25.10 Chronic HFrEF (heart failure with reduced ejection fraction) I50.22 Memory changes R41.3 Sleep apnea G47.30 Immunization counseling Z71. Assessment & Plan Assessment & Plan (1) Essential hypertension: Code(s): I10 - Essential (primary) hypertension Category: Medical Plan: Blood?pressure?is?controlled. Cardiology?adjusted?his?medications?due?to?syncope. No?further?syncopal?episodes. Continue?current?medication (2) CAD (coronary artery disease): Code(s): I25.10 - Atherosclerotic heart disease of [place] coronary artery without angina pectoris Category: Medical Plan: Stable Follow-up?with?Cardiology?as?recommended - has?appointment?next?month. (3) Chronic HFrEF (heart failure with reduced ejection fraction): Code(s): I50.22 - Chronic systolic (congestive) heart failure Category: Medical Plan: As?above, stable (4) Memory changes: Code(s): R41.3 - Other amnesia Category: Medical Plan: Possibly?secondary?to?cardiac/perfusion?issues However,?patient?has?a?history?of?mild?sleep?apnea.??Has?not?been?re-evaluated?in?a?couple?of?years. ?Referred?to?Sleep?Medicine. He?also?notes?he?has?a?family?history?of?Alzheimer's.??Referred?to?neuropsychiatry. (5) Sleep apnea: Code(s): G47.30 - Sleep apnea, unspecified Category: Medical Plan: As?above,?referred?to?Sleep?Medicine (6) Immunization counseling: Code(s): Z71.85 - Encounter for immunization safety counseling Category: Medical Plan: Patient?has?not?had?his?2023?influenza?shot?so?he?will?receive?this?today. He?is?now?63?and?due?for?pneumonia?shot - recommend?he?contact?his?pharmacy?for?this. Should?also?receive?RSV Orders: Orders Influenza [id number] Immunization Today Salvador Leon MD Z23 - Encounter for immunization Referrals Sleep Medicine Referral Salvador Leon MD G47.30 - Sleep apnea, unspecified, R41.3 - Other amnesia Neuropsychiatry Referral Salvador Leon MD R41.3 - Other amnesia Medications: New Fluarix Triv [id number] (PF) (flu vacc [id number] 6mos up(PF)) 0.5 mL IM ONCE 0.5 mL 0RF NS Salvador Leon MD Z23 - Encounter for immunization Changed From valsartan 40 mg PO BID 60 tabs 3RF To valsartan 20 mg PO BID Gabe Mello MD
[2024-02-22 09:37] VITALS: BP 101/56; PULSE 77; RESP 16; TEMP 36.1; O2SAT 98; BMI 50.0
== END 2024-02-22 10:10 | disposition home or self-care (01) ==
PROVIDERS: PCP Family Medicine; Visit Provider Family Medicine
DX: I10 Essential (primary) hypertension (principal); I25.10 Atherosclerotic heart disease of native coronary artery without angina pectoris; I50.22 Chronic systolic (congestive) heart failure; R41.3 Other amnesia; G47.30 Sleep apnea, unspecified; Z71.85 Encounter for immunization safety counseling; Z23 Encounter for immunization

== ENCOUNTER → 2024-02-22 09:29 | Outpatient (BNVA) | payer MEDICARE, MEDICAID, SELFPAY | PROVIDERS: PCP Family Medicine; Visit Provider Family Medicine | DX: I11.0 Hypertensive heart disease with heart failure (principal); I50.22 Chronic systolic (congestive) heart failure; I25.10 Atherosclerotic heart disease of native coronary artery without angina pectoris; R41.3 Other amnesia; G47.30 Sleep apnea, unspecified; Z23 Encounter for immunization; Z71.85 Encounter for immunization safety counseling | CPT/HCPCS: 90471; 90656; 96127; 99212 ==

== ENCOUNTER 2024-03-23 08:15 | Outpatient (AMB) | payer MEDICARE, MEDICAID, SELFPAY ==
--- NOTE | 2024-03-23 08:19 | A.OFFVIS_ITS ---
Vital Signs 03/23/24 08:20 Height 5 ft 3 in Weight 279 lb 1.683 oz BMI 49.4 BP 116/74 Blood Pressure Location Rt brachial Position Sitting Pulse 78 Pulse Source Pulse Oximeter Pulse Oximetry (%) 96 Oxygen Delivery Method Room Air Intake Visit Reasons: 1 year follow up constipation, GERD Intake Note: PRESCRIPTIONS LAST GENERATED sennosides 8.6 mg tablet?(Natural Senna Laxative)?8.6 mg PO BEDTIME 90 tabs 4RF Gill,Sushma D 03/16/23 10:54 (Transmitted) famotidine 20 mg tablet?20 mg PO DAILY 90 tabs 5RF 90 days Gill,Sushma D 03/16/23 10:54 (Transmitted) Relevant Flags or Indicators ? Requires Motor Runner? Geo Morales presents in office today for a scheduled 1 year FUV. CC; No recent labs, diagnostics Relevant GI Sx as reported per pt? None ? Hx of any recent surgeries? None Motor Runner Required: No Accompanied by: Family/Other Allergies enoxaparin [From Lovenox] Allergy (Intermediate, Verified 03/23/24 08:20) rash/swelling seafood Allergy (Intermediate, Verified 03/23/24 08:20) rash/swelling HPI HPI 1 year follow up constipation, GERD: Details: LAST VISIT: GERD (gastroesophageal reflux disease) Constipation Plan Continue famotidine every day. Discussed with patient the importance of avoiding dietary triggers and late night snacking. Staying upright for minimum 3 hours after meals discussed with patient. Patient will continue taking senna. Discussed with patient increasing fluid intake and activity to promote better bowel motility. I will see patient in 1 year, he will be due to go for color ectal screening in 2024. Patient is agreeable to this plan and verbalizes understanding of instructions. He was given the opportunity to ask questions and all questions answered. ? Thank you for allowing me to participate in his care Medications Refilled famotidine 20 mg PO DAILY 90 days 90 tabs 5RF sennosides (Natural Senna Laxative) 8.6 mg PO BEDTIME 90 tabs 4RF constipation K59.00 TODAY'S VISIT Patient is here today for follow-up and to discuss going for colonoscopy. Patient is due to go for colorectal screening. Currently patient reports that he has been doing fairly well. His of reflux suppressed with famotidine, however admits that if he does not take famotidine he will reflux and dyspepsia even when drinking water. Patient denies any nausea or vomiting. Patient reports that he is moving his bowel better now that he takes senna, however he still feels like he does not empty his bowels completely. Patient is on Eliquis, has cardiology appointment next week on Thursday will send a message to have patient be cleared before sending him for patient had no issues with anesthesia in the past. History of sleep apnea. [facility] Medical History Chronic HFrEF (heart failure with reduced ejection fraction) Paroxysmal atrial fibrillation Recurrent cellulitis of lower leg COVID-19 vaccine series completed Supraventricular tachycardia COPD (chronic obstructive pulmonary disease) Myocardial infarction History of COVID-19 Morbid obesity Chronic bronchitis GERD (gastroesophageal reflux disease) Chronic renal failure, stage 3 (moderate) CAD (coronary artery disease) Essential hypertension Surgical History History of inferior vena caval filter placement H/O colonoscopy History of sleeve gastrectomy History of heart artery stent History of carpal tunnel release History of knee replacement Family History Father CVD (cardiovascular disease) Mother Diabetes mellitus Cancer Brother No problems noted. Brother No problems noted. Son No problems noted. Sister No problems noted. Sister No problems noted. Sister No problems noted. Sister No problems noted. Sister No problems noted. Sister No problems noted. Other Mental health disorder Substance use disorder Social History Household Members: Spouse Household Members Other:: & son Housing: Apartment Are you a primary care asst to a significant other at home: No Do you presently have visiting nurse or other home services: Yes (private duty care when needed) Comment: uses cane on occasion Patient Tobacco Use Status: Former Tobacco user Tobacco use type: Cigarette Years Smoked: 40 e-Cigarette/Vaping Use: Never Used Second Hand Smoke Exposure: No Advance Directives Date on File: 08/21/21 service: Yes Current occupational status: disabled Current occupational exposures/hazards: No Cognitive needs: No Hearing needs: No Vision needs: No Review of Systems Const Denies weight gain and Denies weight loss ENT Reports no additional complaints, Reports dysphagia and Denies odynophagia Card Reports no additional complaints Resp Reports no additional complaints GI Denies abdominal pain, Denies belching, Denies melena, Denies bloating, Denies change in bowel habits, Reports constipation, Reports dysphagia, Denies excessive flatus, Denies dyspepsia, Reports heartburn (Occasional), Denies diarrhea, Denies loose stools, Denies nausea, Denies odynophagia and Denies vomiting Reports no additional complaints Musc Reports no additional complaints Neuro Reports no additional complaints Psych Reports no additional complaints Endo Reports no additional complaints Physical Exam Vital Signs: Last Vital Signs Pulse 78 03/23/24 08:20 BP 116/74 03/23/24 08:20 Pulse Ox 96 03/23/24 08:20 Oxygen Delivery Method Room Air 03/23/24 08:20 BMI result Body Mass Index 49.4 Const General: healthy appearing and no acute distress Nutritional Appearance: obese Orientation/consciousness: patient oriented x3 Resp Effort & Inspection: normal respiratory effort, able to speak in complete sentences, no tracheal deviation and symmetric chest movement Auscultation: clear to auscultation bilaterally Cardio Rate: regular rate GI Inspection: Yes normal to inspection, No distended and Yes obesity Palpation (GI): Soft to palpation, not firm, nontender and No hepatosplenomegaly present Auscultation: normal bowel sounds General: Yes no CVA tenderness Back/Spine/Pelvis Back: no CVA tenderness Skin General skin exam: elasticity normal, turgor normal and dry skin Neuro General: patient oriented x3 Psych Appearance: grossly normal Mental Status: mental status grossly normal Assessment & Plan Assessment & Plan (1) GERD (gastroesophageal reflux disease): Code(s): K21.9 - Gastro-esophageal reflux disease without esophagitis Category: Medical Qualifiers: Esophagitis presence: esophagitis presence not specified Qualified Code(s): K21.9 - Gastro-esophageal reflux disease without esophagitis (2) Screening for colon cancer: Code(s): Z12.11 - Encounter for screening for malignant neoplasm of colon Category: Medical (3) Constipation: Code(s): K59.00 - Constipation, unspecified Qualifiers: Constipation type: slow transit constipation Qualified Code(s): K59.01 - Slow transit constipation Plan Patient reports that he is not moving his bowels as good as he should. Cu rrently taking Senokot daily. Will switch to Dulcolax. Patient will be due to go for colonoscopy in August. Has appointment with his Cardiology next Thursday and will ask for clearance before going for procedure. Prep and clear liquid diet day before procedure discussed with patient. Patient will be sent for upper endoscopy as he complains of acid reflux and epigastric pain postprandially and even when he drinks water. Currently patient famotidine, might need to switch for short-term PPI depending on biopsy results from upper endoscopy. Patient will return after procedure, sooner on as needed basis. He is agreeable to this plan and verbalizes understanding of instructions. He was given the opportunity to ask questions and all questions answered. Thank you for allowing me to participate in his care Medications: New bisacodyl (Dulcolax (bisacodyl)) take 4 tabs at noon the day before your colonoscopy 20 mg (4 x 5 mg) PO ONCE 1 day 4 tabs 0RF Z12.11 - Encounter for screening for malignant neoplasm of colon bisacodyl (Dulcolax (bisacodyl)) 10 mg (2 x 5 mg) PO BEDTIME 180 tabs 4RF polyethylene glycol 3350 (Miralax) As directed by gastro[facility]ology [facility] at [facility] 238 grams PO ONCE 238 grams 0RF Z12.11 - Encounter for screening for malignant neoplasm of colon Discontinued sennosides (Natural Senna Laxative) Discontinued Reason: Doctor's Order 8.6 mg PO BEDTIME 90 tabs 4RF constipation K59.00 - Constipation, unspecified Coding Level of Care Code Est Pt Level 3 (18595) Diagnoses Gastroesophageal reflux disease, unspecified whether esophagitis present K21.9 Esophagitis presence: esophagitis presence not specified Screening for colon cancer Z12.11 Slow transit constipation K59.01 Constipation type: slow transit constipation Time Spent (min) 30 Comment 20 minutes spent with patient and additional 10 minutes spent reviewing his records
[2024-03-23 08:20] VITALS: BP 116/74; PULSE 78; O2SAT 96; BMI 49.4
== END 2024-03-23 09:05 | disposition home or self-care (01) ==
PROVIDERS: PCP Family Medicine; Visit Provider Nurse Practitioner Family
DX: K21.9 Gastro-esophageal reflux disease without esophagitis (principal); Z12.11 Encounter for screening for malignant neoplasm of colon; K59.01 Slow transit constipation
CPT/HCPCS: 99213

== ENCOUNTER → 2024-03-23 08:15 | Outpatient (BNVA) | payer MEDICARE, SELFPAY | PROVIDERS: PCP Family Medicine; Visit Provider Nurse Practitioner Family | DX: K59.01 Slow transit constipation (principal); K21.9 Gastro-esophageal reflux disease without esophagitis; Z12.11 Encounter for screening for malignant neoplasm of colon | CPT/HCPCS: 99212 ==

== ENCOUNTER 2024-03-29 14:21 | Outpatient (AMB) | payer MEDICARE, MEDICAID, SELFPAY ==
[2024-03-29 14:34] VITALS: BP 118/68; PULSE 78; BMI 49.2
--- NOTE | 2024-03-29 14:34 | MHC.OFFVIS ---
Vital Signs 03/29/24 14:34 Height 5 ft 3 in Weight 277 lb 12.519 oz BMI 49.2 BP 118/68 Blood Pressure Location Lt brachial Position Sitting Pulse 78 Pulse Source Pulse Oximeter Intake Visit Reasons: 3 mth f/up/ preop colonoscopy Allergies enoxaparin [From Lovenox] Allergy (Intermediate, Verified 03/23/24 08:20) rash/swelling seafood Allergy (Intermediate, Verified 03/23/24 08:20) rash/swelling Medication List - Last Reconciled 03/29/24 by Gabe Mello MD albuterol sulfate 1.25 mg (3 mL) inhalation QID PRN albuterol sulfate 90 mcg/actuation 1 puff inhalation Q4H PRN apixaban 5 mg PO BID 90 days atorvastatin 80 mg PO BEDTIME 90 days bisacodyl (Dulcolax (bisacodyl)) 20 mg (4 x 5 mg) PO ONCE 1 day bisacodyl (Dulcolax (bisacodyl)) 10 mg (2 x 5 mg) PO BEDTIME blood pressure monitor Automatic, Digital. Dx: I10. Daily As directed, 999 days/lifetime budesonide-formoterol 80-4.5 mcg/actuation 2 puffs PO BID clotrimazole-betamethasone 1-0.05 % 1 appl topical BID 2 weeks ezetimibe 10 mg PO DAILY famotidine 20 mg PO DAILY 90 days furosemide 40 mg PO DAILY melatonin 10 mg PO BEDTIME metoprolol tartrate 100 mg PO Q12H miscellaneous medical supply Reclining chair. Daily As directed 999 days. miscellaneous medical supply Hoveround mobility?device and 2 batteries. Daily?As directed, 999 days nebulizers (Altera Nebulizer Handset) As directed polyethylene glycol 3350 (Miralax) 238 grams PO ONCE tiotropium bromide 1 cap inhalation DAILY valsartan 40 mg PO BID HPI Comments Details: Andrew comes for follow-up. No recent significant hospitalization. He has been doing well with heart failure syndrome. No significant leg swelling. No worsening orthopnea, PND, leg edema. No weight gain. Using all his medications. No prolonged palpitation irregular heartbeat. No lightheadedness, syncope after changing from Entresto to valsartan with improved blood pressure. [facility] Medical History Chronic HFrEF (heart failure with reduced ejection fraction) Paroxysmal atrial fibrillation Recurrent cellulitis of lower leg COVID-19 vaccine series completed Supraventricular tachycardia COPD (chronic obstructive pulmonary disease) Myocardial infarction History of COVID-19 Morbid obesity Chronic bronchitis GERD (gastroesophageal reflux disease) Chronic renal failure, stage 3 (moderate) CAD (coronary artery disease) Essential hypertension Surgical History History of inferior vena caval filter placement H/O colonoscopy History of sleeve gastrectomy History of heart artery stent History of carpal tunnel release History of knee replacement Family History Father CVD (cardiovascular disease) Mother Diabetes mellitus Cancer Brother No problems noted. Brother No problems noted. Son No problems noted. Sister No problems noted. Sister No problems noted. Sister No problems noted. Sister No problems noted. Sister No problems noted. Sister No problems noted. Other Mental health disorder Substance use disorder Social History Household Members: Spouse Household Members Other:: & son Housing: Apartment Are you a primary career guidance counselor to a significant other at home: No Do you presently have visiting nurse or other home services: Yes (private duty care when needed) Comment: uses cane on occasion Patient Tobacco Use Status: Former Tobacco user Tobacco use type: Cigarette Years Smoked: 40 e-Cigarette/Vaping Use: Never Used Second Hand Smoke Exposure: No Advance Directives Date on File: 08/21/21 service: Yes Current occupational status: disabled Current occupational exposures/hazards: No Cognitive needs: No Hearing needs: No Vision needs: No Review of Systems Const Denies weakness ENT Denies dizziness Card Denies chest pain, Denies chest pain with activity, Denies syncope, Denies rapid heart rate, Denies pedal edema, Denies edema, Denies leg edema, Denies lightheadedness, Denies palpitations, Denies dyspnea, Denies dyspnea on exertion and Denies orthopnea Resp Denies cough, Denies dyspnea and Denies dyspnea on exertion GI Denies hematochezia and Denies change in stool character Musc Denies abnormal gait, Denies muscle cramps, Denies muscle weakness, Denies numbness, Denies radiating pain into limb and Denies tingling Neuro Denies abnormal gait, Denies dizziness, Denies syncope, Denies numbness, Denies tingling and Denies weakness Endo Denies palpitations Physical Exam Vital Signs: Last Vital Signs Pulse 78 03/29/24 14:34 BP 118/68 03/29/24 14:34 BMI result Body Mass Index 49.2 Const General: cooperative, comfortable, no acute distress, alert, awake and poor hygiene Nutritional Appearance: obese morbidly obese Orientation/consciousness: patient oriented x3 Neck Neck: Yes trachea midline, Yes supple and Yes no JVD (Positive AJR) Resp Effort & Inspection: normal respiratory effort Auscultation: clear to auscultation bilaterally Cardio Jugular venous distension: no JVD Rhythm: abnormal rhythm irregularly irregular Heart sounds: S1 normal heart sound present, S2 normal heart sound present, no click, no gallops, no murmurs and no rubs GI Auscultation: normal bowel sounds Skin General skin exam: no rashes or lesions noted Neuro General: patient oriented x3 and no focal motor deficits Extrem General: No clubbing, No cyanosis and Yes edema Assessment & Plan Assessment & Plan (1) Chronic HFrEF (heart failure with reduced ejection fraction): Code(s): I50.22 - Chronic systolic (congestive) heart failure Category: Medical Plan: Heart failure reduced ejection fraction with moderate LV systolic dysfunction. Clinically euvolemic and well compensated. Continue current diuretic dose. Continue current neurohormonal modulation with valsartan and metoprolol therapy. Can not use Entresto therapy given his low blood pressure response and intolerance. Will add Jardiance 10 mg to his regimen. Possible benefits and possible side effects were discussed. Follow-up basic metabolic profile in 2 weeks time. Daily weight monitoring avoidance of salt loading was discussed. Continue current diuretic dose and additional diuretics as need be. Management was discussed in details. Follow-up echocardiogram in 6 months time. (2) Persistent atrial fibrillation: Code(s): I48.19 - Other persistent atrial fibrillation Category: Medical Plan: Persistent chronic atrial fibrillation has failed rhythm control approach. Continue rate control approach metoprolol therapy. Continue full oral anticoagulation, currently on Eliquis. Semi annual renal function test to be pursued. Continue CPAP therapy. Continue participate in weight loss program. (3) CAD (coronary artery disease): Code(s): I25.10 - Atherosclerotic heart disease of [place] coronary artery without angina pectoris Category: Medical Plan: Stable coronary artery disease without any recurrent symptoms of angina. Continue aggressive risk factor modification. Blood pressure is currently well optimized. Continue high-intensity statin therapy and ezetimibe with target goal LDL closer to 60 mg/dL. Continue aggressive diabetes management goal hemoglobin A1c less than 7%. Will follow up in the clinic in 6 months time, sooner p.r.n.. Thank you for allowing me to partake in his care Orders: Orders CA echo transthorac w con 6 Months I50.22 - Chronic systolic (congestive) heart failure Basic Metabolic Panel 2 Weeks I50.22 - Chronic systolic (congestive) heart failure Medications: New empagliflozin (Jardiance) 10 mg PO DAILY 30 tabs 5RF Coding Level of Care Code Est Pt Level 4 (80450) Complex EM visit Add On G2211 Diagnoses Chronic HFrEF (heart failure with reduced ejection fraction) I50.22 Persistent atrial fibrillation I48.19 CAD (coronary artery disease) I25.10
== END 2024-03-29 14:55 | disposition home or self-care (01) ==
PROVIDERS: PCP Family Medicine; Visit Provider Internal Medicine Cardiovascular Disease
DX: I50.22 Chronic systolic (congestive) heart failure (principal); I48.19 Other persistent atrial fibrillation; I25.10 Atherosclerotic heart disease of native coronary artery without angina pectoris
CPT/HCPCS: 99214; G2211

== ENCOUNTER → 2024-03-29 14:21 | Outpatient (BNVA) | payer MEDICARE, MEDICAID, SELFPAY | PROVIDERS: PCP Family Medicine; Visit Provider Internal Medicine Cardiovascular Disease | DX: I50.22 Chronic systolic (congestive) heart failure (principal); I48.19 Other persistent atrial fibrillation; I25.10 Atherosclerotic heart disease of native coronary artery without angina pectoris | CPT/HCPCS: 99212 ==

== ENCOUNTER → 2024-06-17 11:48 | Outpatient (BNVA) | payer MEDICARE, MEDICAID, SELFPAY | PROVIDERS: PCP Family Medicine; Visit Provider Family Medicine ==

== ENCOUNTER 2024-07-07 13:20 | Outpatient (AMB) | payer MEDICARE, MEDICAID, SELFPAY ==
--- NOTE | 2024-07-07 13:32 | MHC.PC.OV ---
Vital Signs 07/07/24 13:37 Height 5 ft 3 in Weight 280 lb 2 oz BMI 49.6 BP 120/60 Blood Pressure Location Rt brachial Position Sitting Respiration 16 Pulse 67 Pulse Source Pulse Oximeter Temp 97.5 F Temp Source Oral Pulse Oximetry (%) 99 Oxygen Delivery Method Room Air Intake Visit Reasons: fu blood pressure Intake Note: Patient is here to follow up on b/p Director Of Psychiatry Required: No Allergies enoxaparin [From Lovenox] Allergy (Intermediate, Verified 07/07/24 13:36) rash/swelling seafood Allergy (Intermediate, Verified 07/07/24 13:36) rash/swelling Medication List - Last Reconciled 07/07/24 by Salvador Leon MD albuterol sulfate 1.25 mg (3 mL) inhalation QID PRN albuterol sulfate 90 mcg/actuation 1 puff inhalation Q4H PRN apixaban 5 mg PO BID 90 days atorvastatin 80 mg PO BEDTIME 90 days bisacodyl (Dulcolax (bisacodyl)) 20 mg (4 x 5 mg) PO ONCE 1 day bisacodyl (Dulcolax (bisacodyl)) 10 mg (2 x 5 mg) PO BEDTIME blood pressure monitor Automatic, Digital. Dx: I10. Daily As directed, 999 days/lifetime budesonide-formoterol 80-4.5 mcg/actuation 2 puffs PO BID clotrimazole-betamethasone 1-0.05 % 1 appl topical BID 2 weeks empagliflozin (Jardiance) 10 mg PO DAILY ezetimibe 10 mg PO DAILY famotidine 20 mg PO DAILY furosemide 40 mg PO DAILY melatonin 10 mg PO BEDTIME metoprolol tartrate 100 mg PO Q12H miscellaneous medical supply Reclining chair. Daily As directed 999 days. miscellaneous medical supply Hoveround mobility?device and 2 batteries. Daily?As directed, 999 days nebulizers (Altera Nebulizer Handset) As directed polyethylene glycol 3350 (Miralax) 238 grams PO ONCE tiotropium bromide 1 cap inhalation DAILY valsartan 40 mg PO BID Tobacco use date assessed: 08/20/23 Dental Screening Dental Screen Date: 08/20/23 HPI fu blood pressure HPI Details Patient?presents?for?follow-up?hypertension History?of?coronary?artery?disease,?atrial?fibrillation,?ischemic?cardiomyopathy?and heart?failure?with?reduced?EF. Blood?pressure?120/60?today Taking?his?medications?as?prescribed No?shortness?of?breath,?orthopnea, rapid?weight?gain, or?chest?pain.??Lower?extremity?edema?has?improved?lately. He?has?no?complaints?today. Working?on?weight?loss?though?he?is?having?difficulty?with?this. Walking?with?a?walking?stick?daily. He?is?on?Jardiance?for?neuro?hormonal?modulation [facility] Medical History Chronic HFrEF (heart failure with reduced ejection fraction) Paroxysmal atrial fibrillation Recurrent cellulitis of lower leg COVID-19 vaccine series completed Supraventricular tachycardia COPD (chronic obstructive pulmonary disease) Myocardial infarction History of COVID-19 Morbid obesity Chronic bronchitis GERD (gastroesophageal reflux disease) Chronic renal failure, stage 3 (moderate) CAD (coronary artery disease) Essential hypertension Surgical History History of inferior vena caval filter placement H/O colonoscopy History of sleeve gastrectomy History of heart artery stent History of carpal tunnel release History of knee replacement Family History Father CVD (cardiovascular disease) Mother Diabetes mellitus Cancer Brother No problems noted. Brother No problems noted. Son No problems noted. Sister No problems noted. Sister No problems noted. Sister No problems noted. Sister No problems noted. Sister No problems noted. Sister No problems noted. Other Mental health disorder Substance use disorder Social History Household Members: Spouse Household Members Other:: & son Housing: Apartment Are you a primary director of career services to a significant other at home: No Do you presently have visiting nurse or other home services: Yes (private duty care when needed) Comment: uses cane on occasion Patient Tobacco Use Status: Former Tobacco user Tobacco use type: Cigarette Years Smoked: 40 e-Cigarette/Vaping Use: Never Used Second Hand Smoke Exposure: No Advance Directives Date on File: 08/21/21 service: Yes Current occupational status: disabled Current occupational exposures/hazards: No Cognitive needs: No Hearing needs: No Vision needs: No Questionnaire Thrive Questionnaire Date Thrive assessed: 06/10/24 I am a: Patient What is your living situation today?: I have a steady place to live Within the past 12 months, did the food you bought not last and you didn't have the money to get more?: Never true Within the past 12 months, did you worry whether your food would run out before you got money to buy more?: Never true Do you have trouble paying for medicines?: No Do you have trouble getting transportation to medical appointments?: No Do you have trouble paying your heating and electricity bill?: No Do you have trouble taking care of your child, family member or friend?: No Do you have trouble with day-to-day activities such as bathing, preparing meals, shopping, managing finances, etc.?: No Are you currently unemployed and looking for a job?: No Are you interested in more education?: No Please select the resources that you would like help with: None Currently or been in a relationship where the following occur: No concerns reported THRIVE Score: 0 AUDIT C Alcohol Use Questionnaire (AUDIT-C) 3. How often do you have six or more drinks on one occasion?: Never Total Score: 0 MARIAH-7 AMB Questionnaire MARIAH-7 Date MARIAH - 7 assessed: 08/20/23 Source: Developed by Drs. Alex Adam, Bhumi Mckinley, Jam Gibson and colleagues, with an educational edgar from [employer]. Review of Systems Const Denies chills, Denies fatigue, Denies fever(s), Denies headache(s) and Denies weakness ENT Denies dizziness and Denies headache(s) Card Denies chest pain, Denies lightheadedness, Denies dyspnea and Denies other (Palpitations) Resp Denies cough, Denies dyspnea, Denies wheezing and Denies other ( shortness of breath) Musc Denies numbness and Denies tingling Neuro Denies dizziness, Denies headache(s), Denies numbness, Denies tingling, Denies paresthesias and Denies weakness Psych Denies anxiety and Denies depression Endo Denies fatigue Aller/Immun Denies wheezing Physical exam (Primary Care) Vital Signs: Last Vital Signs Temp 97.5 F 03/06/25 13:37 Pulse 67 07/07/24 13:37 Resp 16 07/07/24 13:37 BP 120/60 07/07/24 13:37 Pulse Ox 99 07/07/24 13:37 Oxygen Delivery Method Room Air 07/07/24 13:37 BMI result Body Mass Index 49.6 Tobacco/Smoking Status: Tobacco use Status Tobacco use date assessed 08/20/23 07/07/24 13:34 Patient Tobacco Use Status Former Tobacco user 07/07/24 13:34 Tobacco use type Cigarette 07/07/24 13:34 e-Cigarette/Vaping Use Never Used 07/07/24 13:34 Thrive Assessment: Date of Thrive Assessment Date Thrive assessed 06/10/24 07/07/24 13:34 Currently or been in a relationship where the following occur: No concerns reported Const General: no acute distress and well developed Nutritional Appearance: well nourished Orientation/consciousness: patient oriented x3 HENMT Head: Yes normocephalic and Yes atraumatic Eyes General: appearance normal, both eyes and all related structures Pupils: Equal, round and reactive pupils present EOM: EOMs intact bilaterally Resp Effort & Inspection: normal respiratory effort Auscultation: clear to auscultation bilaterally Cardio Rate: regular rate Rhythm: regular rhythm Heart sounds: S1 normal heart sound present, S2 normal heart sound present, no gallops, no murmurs and no rubs Neuro General: patient oriented x3 and gait normal Cranial nerves: Yes Equal, round and reactive pupils present Psych Affect: normal affect Coding Level of Care Code Est Pt Level 4 (16574) Diagnoses Essential hypertension I10 Diastolic heart failure I50.30 Ischemic cardiomyopathy I25.5 CAD (coronary artery disease) I25.10 Persistent atrial fibrillation I48.19 Status post laparoscopic sleeve gastrectomy Z98.84 Obesity E66.9 Assessment & Plan Assessment & Plan (1) Essential hypertension: Code(s): I10 - Essential (primary) hypertension Category: Medical Plan: Blood?pressure?is?controlled.??Goal?is?less?than?130/80 Continue?current?medication (2) Diastolic heart failure: Code(s): I50.30 - Unspecified diastolic (congestive) heart failure Category: Medical Plan: Breathing?easily No?rapid?weight?gain?or?lower?extremity?edema Continue?furosemide Follow-up?with?Cardiology?as?recommended Check?labs?including?BNP (3) Ischemic cardiomyopathy: Code(s): I25.5 - Ischemic cardiomyopathy Category: Medical Plan: Stable (4) CAD (coronary artery disease): Code(s): I25.10 - Atherosclerotic heart disease of [place] coronary artery without angina pectoris Category: Medical Plan: Stable Continue?atorvastatin Continue?blood?pressure?control Follow-up?with?Cardiology?as?recommended (5) Persistent atrial fibrillation: Code(s): I48.19 - Other persistent atrial fibrillation Category: Medical Plan: Continue?apixaban Stable (6) Status post laparoscopic sleeve gastrectomy: Code(s): Z98.84 - Bariatric surgery status Category: Surgical Plan: Patient?is?s/p?laparoscopic?gastric?sleeve?at?[facility]?and?was?lost?to?follow-up. He?would?like?to?see?if?[facility] [place]will[place]help?manage weight?loss Referred (7) Obesity: Code(s): E66.9 - Obesity, unspecified Category: Medical Plan: As?above Orders: Orders UA and rflx microscopic Today I10 - Essential (primary) hypertension, Z00.00 - Encounter for general adult medical examination without abnormal findings B Type Natriuretic Peptide Today I50.22 - Chronic systolic (congestive) heart failure, I50.9 - Heart failure, unspecified Comprehensive Met. Panel Today I50.22 - Chronic systolic (congestive) heart failure Basic Metabolic Panel Fasting Today I50.22 - Chronic systolic (congestive) heart failure Lipid Panel Today I25.10 - Atherosclerotic heart disease of [place] coronary artery without angina pectoris, Z00.00 - Encounter for general adult medical examination without abnormal findings LDL Cholesterol Direct Today E78.5 - Hyperlipidemia, unspecified, I25.10 - Atherosclerotic heart disease of [place] coronary artery without angina pectoris Microalbumin, Random (w Creat) Today I10 - Essential (primary) hypertension TSH reflex Free T4 Today I25.10 - Atherosclerotic heart disease of [place] coronary artery without angina pectoris, Z00.00 - Encounter for general adult medical examination without abnormal findings Prostate Specific Antigen Scr Today Z00.00 - Encounter for general adult medical examination without abnormal findings, Z12.5 - Encounter for screening for malignant neoplasm of prostate Referrals Bariatric Surgery Referral E66.9 - Obesity, unspecified, Z98.84 - Bariatric surgery status
[2024-07-07 13:37] VITALS: BP 120/60; PULSE 67; RESP 16; TEMP 36.4; O2SAT 99; BMI 49.6
== END 2024-07-07 14:07 | disposition home or self-care (01) ==
PROVIDERS: PCP Family Medicine; Visit Provider Family Medicine
DX: I10 Essential (primary) hypertension (principal); I50.30 Unspecified diastolic (congestive) heart failure; I48.19 Other persistent atrial fibrillation; Z68.42 Body mass index [BMI] 45.0-49.9, adult; E66.9 Obesity, unspecified; I25.5 Ischemic cardiomyopathy; I25.10 Atherosclerotic heart disease of native coronary artery without angina pectoris; Z98.84 Bariatric surgery status

== ENCOUNTER → 2024-07-07 13:20 | Outpatient (BNVA) | payer MEDICARE, SELFPAY | PROVIDERS: PCP Family Medicine; Visit Provider Family Medicine | DX: Z13.1 Encounter for screening for diabetes mellitus (principal); I11.0 Hypertensive heart disease with heart failure; I50.30 Unspecified diastolic (congestive) heart failure; I25.5 Ischemic cardiomyopathy; I25.10 Atherosclerotic heart disease of native coronary artery without angina pectoris; I48.19 Other persistent atrial fibrillation; Z98.84 Bariatric surgery status | CPT/HCPCS: 83036; 99212 ==

== ENCOUNTER 2024-07-20 08:11 | Outpatient (REF) | payer MEDICARE, SELFPAY ==
[2024-07-20 09:42] LABS: Alanine Aminotransferase 40 U/L (0-40); Albumin Level 3.8 g/dL (3.5-5.0); Alkaline Phosphatase 120 U/L (39-117); Anion Gap 10 (12-20); Aspartate Amino Transferase 33 U/L (5-37); Bilirubin Total 0.8 mg/dL (0.0-1.0); Blood Urea Nitrogen 11 mg/dL (9-16); Calcium 8.5 mg/dL (8.4-10.2); Carbon Dioxide 29 mmol/L (22-29); Chloride 108 mmol/L (96-108); Cholesterol 102 mg/dL (<200); Estimated Glomerular Filt Rate > 60; Glucose Fasting 88 mg/dL (60-99); Glucose Random 88 mg/dL (60-115); HDL Cholesterol 43 mg/dL (>40); LDL Cholesterol Calculated 45 mg/dL (<100); Potassium 3.7 mmol/L (3.3-5.1); Sodium 143 mmol/L (135-145); Total Protein 6.7 g/dL (6.5-8.0); Triglycerides 74 mg/dL (<150)
[2024-07-20 20:05] LABS: TSH reflex Free T4 4.04 uIU/mL (0.32-4.0)
[2024-07-20 20:13] LABS: Prostate Specific Antigen Scr 0.77 ng/mL (<0.05-4.0)
[2024-07-20 20:47] LABS: Free T4 (Free Thyroxine) 1.02 ng/dL (0.71-1.85)
[2024-07-22 09:33] LABS: LDL Cholesterol Direct 44 mg/dL (<100)
== END 2024-07-20 08:12 | disposition home or self-care (01) ==
LOC: HO.WFDLDS 08:11
PROVIDERS: Referring Provider Internal Medicine Cardiovascular Disease; Visit Provider Family Medicine
DX: Z00.00 Encounter for general adult medical examination without abnormal findings (principal); I50.22 Chronic systolic (congestive) heart failure; I25.10 Atherosclerotic heart disease of native coronary artery without angina pectoris; Z12.5 Encounter for screening for malignant neoplasm of prostate; E78.5 Hyperlipidemia, unspecified
CPT/HCPCS: 36415; 80048; 80053; 80061; 83721; 84153; 84439; 84443

== ENCOUNTER 2024-07-22 07:32 | Outpatient (REF) | payer MEDICARE, SELFPAY ==
[2024-07-22 11:31] LABS: Anion Gap 10 (12-20); Blood Urea Nitrogen 16 mg/dL (9-16); Calcium 8.9 mg/dL (8.4-10.2); Carbon Dioxide 28 mmol/L (22-29); Chloride 109 mmol/L (96-108); Estimated Glomerular Filt Rate > 60; Glucose Random 102 mg/dL (60-115); Potassium 4.1 mmol/L (3.3-5.1); Sodium 143 mmol/L (135-145)
[2024-07-22 11:38] LABS: Appearance Urine Clear; Color Urine Yellow; Glucose Urine UA >=1000 mg/dL (Negative); Leukocyte Esterase Urine Negative (Negative); Nitrite Urine Negative (Negative); PH 5.5 (5.0-9.0); UMIC TRIGGER UA YES; Urine Blood Negative (Negative); Urine Ketones Negative (Negative); Urine Protein Negative (Neg-Trace)
[2024-07-22 11:42] LABS: B Type Natriuretic Peptide 173 pg/mL (<100)
[2024-07-22 11:52] LABS: Bacteria Urine None Seen (None Seen); Hyaline Casts Urine 0-2 /LPF (0-2); RBC Urine 0-2 /HPF (0-2); Squamous Epithelial Cell Urine 0-2 /HPF (0-2); WBC Urine 0-5 /HPF (0-5)
[2024-07-22 12:35] LABS: Creatinine Urine 102.32 mg/dL; Microalbumin Urine < 5.0 mg/L
== END 2024-07-22 07:33 | disposition home or self-care (01) ==
LOC: HO.WFDLDS 07:32
PROVIDERS: Referring Provider Internal Medicine Cardiovascular Disease; Visit Provider Family Medicine
DX: I50.9 Heart failure, unspecified (principal); I10 Essential (primary) hypertension; I50.22 Chronic systolic (congestive) heart failure
CPT/HCPCS: 36415; 80048; 81001; 82043; 82570; 83880

== ENCOUNTER 2024-08-08 12:46 | Outpatient (AMB) | payer MEDICARE, SELFPAY ==
--- NOTE | 2024-08-08 12:42 | A.OFFPC_ITS ---
Intake Visit Reasons: F/U Labs Intake Note: patient is scheduled to review labs Server Systems Administrator Required: No Allergies enoxaparin [From Lovenox] Allergy (Intermediate, Verified 08/08/24 12:42) rash/swelling seafood Allergy (Intermediate, Verified 08/08/24 12:42) rash/swelling Medication List - Last Reconciled 08/08/24 by Salvador Leon MD albuterol sulfate 1.25 mg (3 mL) inhalation QID PRN albuterol sulfate 90 mcg/actuation 1 puff inhalation Q4H PRN apixaban 5 mg PO BID 90 days atorvastatin 80 mg PO BEDTIME 90 days bisacodyl (Dulcolax (bisacodyl)) 20 mg (4 x 5 mg) PO ONCE 1 day bisacodyl (Dulcolax (bisacodyl)) 10 mg (2 x 5 mg) PO BEDTIME blood pressure monitor Automatic, Digital. Dx: I10. Daily As directed, 999 days/lifetime budesonide-formoterol 80-4.5 mcg/actuation 2 puffs PO BID clotrimazole-betamethasone 1-0.05 % 1 appl topical BID 2 weeks empagliflozin (Jardiance) 10 mg PO DAILY ezetimibe 10 mg PO DAILY famotidine 20 mg PO DAILY furosemide 40 mg PO DAILY melatonin 10 mg PO BEDTIME metoprolol tartrate 100 mg PO Q12H miscellaneous medical supply Reclining chair. Daily As directed 999 days. miscellaneous medical supply Hoveround mobility?device and 2 batteries. Daily?As directed, 999 days nebulizers (Altera Nebulizer Handset) As directed polyethylene glycol 3350 (Miralax) 238 grams PO ONCE tiotropium bromide 1 cap inhalation DAILY valsartan 40 mg PO BID Tobacco use date assessed: 08/20/23 Dental Screening Dental Screen Date: 08/20/23 HPI F/U Labs HPI Details 64 y/o male presents to f/u labs. Labs drawn 07/22/24. Reviewed labs with pt. BNP 173 pg/mL. TSH?4.04. LDL?44 PSA?77 Patient?feels?well?today.??No?complaints PFSH Medical History Chronic HFrEF (heart failure with reduced ejection fraction) Paroxysmal atrial fibrillation Recurrent cellulitis of lower leg COVID-19 vaccine series completed Supraventricular tachycardia COPD (chronic obstructive pulmonary disease) Myocardial infarction History of COVID-19 Morbid obesity Chronic bronchitis GERD (gastroesophageal reflux disease) Chronic renal failure, stage 3 (moderate) CAD (coronary artery disease) Essential hypertension Surgical History History of inferior vena caval filter placement H/O colonoscopy History of sleeve gastrectomy History of heart artery stent History of carpal tunnel release History of knee replacement Family History Father CVD (cardiovascular disease) Mother Diabetes mellitus Cancer Brother No problems noted. Brother No problems noted. Son No problems noted. Sister No problems noted. Sister No problems noted. Sister No problems noted. Sister No problems noted. Sister No problems noted. Sister No problems noted. Other Mental health disorder Substance use disorder Social History Household Members: Spouse Household Members Other:: & son Housing: Apartment Are you a primary chiropractic care to a significant other at home: No Do you presently have visiting nurse or other home services: Yes (private duty care when needed) Comment: uses cane on occasion Patient Tobacco Use Status: Former Tobacco user Tobacco use type: Cigarette Years Smoked: 40 e-Cigarette/Vaping Use: Never Used Second Hand Smoke Exposure: No Advance Directives Date on File: 08/21/21 service: Yes Current occupational status: disabled Current occupational exposures/hazards: No Cognitive needs: No Hearing needs: No Vision needs: No Questionnaire Thrive Questionnaire Date Thrive assessed: 06/10/24 MARIAH-7 AMB Questionnaire MARIAH-7 Date MARIAH - 7 assessed: 08/20/23 Source: Developed by Drs. Alex Adam, Bhumi Mckinley, Jam Gibson and colleagues, with an educational edgar from [employer] Review of Systems Const Denies chills, Denies fatigue, Denies fever(s), Denies headache(s) and Denies weakness ENT Denies dizziness and Denies headache(s) Card Denies dyspnea Resp Denies cough, Denies dyspnea, Denies wheezing and Denies other (shortness of breath) Musc Denies numbness and Denies tingling Neuro Denies dizziness, Denies headache(s), Denies numbness, Denies tingling and Denies weakness Psych Denies anxiety and Denies depression Endo Denies fatigue Aller/Immun Denies wheezing Physical exam (Primary Care) Tobacco/Smoking Status: Tobacco use Status Tobacco use date assessed 08/20/23 08/08/24 12:45 Patient Tobacco Use Status Former Tobacco user 08/08/24 12:45 Tobacco use type Cigarette 08/08/24 12:45 e-Cigarette/Vaping Use Never Used 08/08/24 12:45 Thrive Assessment: Date of Thrive Assessment Date Thrive assessed 06/10/24 08/08/24 12:45 Telehealth Telehealth Telehealth Platform: Telephone Location of provider rendering services: practice address Location of patient: address on file Patient Identification confirmed using: Name, : Yes Telehealth method: voice only Patient verbally consented to treatment: Yes Patient verbally consented to billing insurance company: Yes Patient informed of any privacy concerns related to visit: Yes Minutes spent on Phone/Video with Pt.: 5 Coding Level of Care Code Tele Est Pt Level 2 (82369) Diagnoses Elevated TSH R79.89 CAD (coronary artery disease) I25.10 Screening for prostate cancer Z12.5 Assessment & Plan Assessment & Plan (1) Elevated TSH: Code(s): R79.89 - Other specified abnormal findings of blood chemistry Category: Medical Plan: Very?mild?elevation?in?TSH Asymptomatic Will?recheck?with?next?blood?drawn?a?few?months (2) CAD (coronary artery disease): Code(s): I25.10 - Atherosclerotic heart disease of [place] coronary artery without angina pectoris Category: Medical Plan: Stable Follow-up?with?Cardiology?as?recommended (3) Screening for prostate cancer: Code(s): Z12.5 - Encounter for screening for malignant neoplasm of prostate Category: Medical Plan: PSA?was?within?normal?limits Orders: Orders Triiodothyronine T3 Total Today E03.9 - Hypothyroidism, unspecified, R79.89 - Other specified abnormal findings of blood chemistry Free T4 (Free Thyroxine) Today E03.9 - Hypothyroidism, unspecified, R79.89 - Other specified abnormal findings of blood chemistry B Type Natriuretic Peptide Today I50.22 - Chronic systolic (congestive) heart failure, I50.9 - Heart failure, unspecified Thyroid Stimulating Hormone Today E03.9 - Hypothyroidism, unspecified, R79.89 - Other specified abnormal findings of blood chemistry Basic Metabolic Panel Today R79.89 - Other specified abnormal findings of blood chemistry, Z00.00 - Encounter for general adult medical examination without abnormal findings Microalbumin, Random (w Creat) Today I10 - Essential (primary) hypertension
== END 2024-08-08 17:05 | disposition home or self-care (01) ==
LOC: HO.HMCFM 12:46
PROVIDERS: PCP Family Medicine; Visit Provider Family Medicine
DX: I25.10 Atherosclerotic heart disease of native coronary artery without angina pectoris (principal); R79.89 Other specified abnormal findings of blood chemistry; Z12.5 Encounter for screening for malignant neoplasm of prostate

== ENCOUNTER → 2024-08-08 12:46 | Outpatient (BNVA) | payer MEDICARE, SELFPAY | PROVIDERS: PCP Family Medicine; Visit Provider Family Medicine ==

== ENCOUNTER 2024-08-24 07:45 | Day surgery (SDC) | payer MEDICARE, SELFPAY ==
[2024-08-19 13:45] VITALS: BMI 49.4
--- NOTE | 2024-08-23 08:18 | HO.ANESPROP2 ---
Documented by User: Xiomara Clinton NP 08/23/24 08:24 HPI - Anesthesia Eval Consult details Narrative: 64yo M for Upper Endoscopy and Colonoscopy BMI 49 Follows [facility] Cardiology for CHF, CAD, Afib. Stable, euvolemic at 03/2024 office visit. Optimized to proceed with endos. [facility] Active Problems Active Problems: All Active Problems Elevated TSH (Acute) Obesity (Acute) Sleep apnea (Acute) Memory changes (Acute) Recurrent falls (Acute) Syncope (Acute) Chronic HFrEF (heart failure with reduced ejection fraction) (Acute) Ischemic cardiomyopathy (Acute) Persistent atrial fibrillation (Acute) SOB (shortness of breath) on exertion (Acute) Unsteady gait (Acute) Constipation (Acute) Dermatitis (Acute) History of total right knee replacement (TKR) (Acute) Immunization counseling (Acute) Essential hypertension (Acute) Knee pain (Acute) COPD (chronic obstructive pulmonary disease) (Acute) Hyperlipidemia (Acute) Mild chronic anemia (Acute) Recurrent cellulitis of lower leg (Acute) Swelling of left lower extremity (Acute) CAD (coronary artery disease) (Acute) Varicose veins of right lower extremity with inflammation (Acute) Lymphedema (Acute) Varicose veins of left lower extremity with inflammation (Acute) Laboratory examination ordered as part of a routine general medical examination (Acute) Diaphoresis (Acute) Low HDL (under 40) (Acute) Diastolic heart failure (Acute) Adult general medical exam (Acute) Mild anemia (Acute) Lower extremity edema (Acute) Screening for prostate cancer (Acute) Screening for colon cancer (Acute) COVID-19 (Acute) Left leg cellulitis (Acute) Status post laparoscopic sleeve gastrectomy (Acute) Chronic bronchitis (Acute) GERD (gastroesophageal reflux disease) (Acute) Past Medical History Medical History Chronic HFrEF (heart failure with reduced ejection fraction) Paroxysmal atrial fibrillation Recurrent cellulitis of lower leg COVID-19 vaccine series completed Supraventricular tachycardia COPD (chronic obstructive pulmonary disease) Myocardial infarction History of COVID-19 Morbid obesity Chronic bronchitis GERD (gastroesophageal reflux disease) Chronic renal failure, stage 3 (moderate) CAD (coronary artery disease) Essential hypertension Family History Family History Father CVD (cardiovascular disease) Mother Diabetes mellitus Cancer Brother No problems noted. Brother No problems noted. Son No problems noted. Sister No problems noted. Sister No problems noted. Sister No problems noted. Sister No problems noted. Sister No problems noted. Sister No problems noted. Other Mental health disorder Substance use disorder Family history of problems with anesthesia: No Surgical History Surgical History History of inferior vena caval filter placement H/O colonoscopy History of sleeve gastrectomy History of heart artery stent History of carpal tunnel release History of knee replacement History of Problems with Anesthesia: Yes (ponv) Social History Social History Household Members: Spouse Household Members Other:: & son Housing: Apartment Are you a primary career technical counselor to a significant other at home: No Do you presently have visiting nurse or other home services: Yes (private duty care when needed) Comment: uses cane on occasion Patient Tobacco Use Status: Former Tobacco user Tobacco use type: Cigarette Years Smoked: 40 e-Cigarette/Vaping Use: Never Used Second Hand Smoke Exposure: No Advance Directives: No Advance Directives Information Provided: Yes Advance Directives Date on File: 08/21/21 service: Yes Current occupational status: disabled Current occupational exposures/hazards: No Cognitive needs: No Hearing needs: No Vision needs: No Meds Allergies Allergy/AdvReac Type Severity Reaction Status Date / Time enoxaparin [From Lovenox] Allergy Intermediate rash/swelli Verified 08/08/24 12:42 ng seafood Allergy Intermediate rash/swelli Verified 08/08/24 12:42 ng Home Medications ?Medication ?Instructions ?Recorded ?Confirmed ?Last Taken ?Type budesonide-formoterol HFA 80 2 puff PO BID 02/23/20 08/08/24 10/06/23 History mcg-4.5 mcg/actuation aerosol inhaler tiotropium bromide 18 mcg capsule 1 cap inhalation DAILY 02/23/20 08/08/24 10/06/23 History with inhalation device melatonin 10 mg tablet 10 mg PO BEDTIME 05/23/21 08/08/24 05/22/21 History Exam Height,Weight and Vital Signs: Height 5 ft 3 in Weight 126.552 kg Pertinent Lab Results Pertinent Lab Results: Laboratory Tests 05/07/23 07/22/24 10:40 07:34 WBC 5.8 Hgb 14.5 Hct 43.3 Plt Count 257 Sodium 143 Potassium 4.1 Chloride 109 H Carbon Dioxide 28 BUN 16 Creatinine 0.90 Narrative Narrative: ECHO 2023 Conclusions: - 1. Moderately reduced LV ejection fraction of 35-40% with underlying regional wall motion abnormality consistent with his ischemic cardiomyopathy 2. Mildly dilated left atrium 3. Normal cardiac valvular Doppler 4. Normal RV systolic pressure 5. No gross pericardial effusion NM hanna perf SPECT rest & str 2023 Impression: 1. Myocardial perfusion imaging study shows prior apical infarction. No clear evidence of ischemia. 2. Gated LVEF is 54% during stress and 32% during rest. Correlate with echocardiogram. 3. Transient ischemic dilatation not present. EKG 12/2023 afib @ 65 Anteroseptal infarct Holter 2023 1. Patient was monitored for total period of 2 days and 23 hours 2. Baseline was atrial fibrillation with average heart of 72 beats per minute with good rate control 3. Occasional PVCs noted 4. No significant pauses noted 5. No patient reported events Assessment and Plan Assessment Anesthesia Assessment: Chart Reviewed Final Anesthetic Review Family History of Problems with Anesthesia: No History of Problems with Anesthesia: Yes (ponv) Documented by User: Marjan Kaufman MD 08/24/24 09:54 HPI - Anesthesia Eval Anesthesia Pre-Procedure Meds Is the patient on any of the following meds?: SGLT2 Inhib (Last dose of empagliflozin 08/20/24) If yes to any meds - educate patient: Pt education - increased risk of aspiration and/or euvolemic DKA [facility] Active Problems Active Problems: All Active Problems Elevated TSH (Acute) Obesity (Acute) Sleep apnea (Acute)- Recent sleep study 07/18/24 negative for CAIT Memory changes (Acute) Recurrent falls (Acute) Syncope (Acute) Chronic HFrEF (heart failure with reduced ejection fraction) (Acute) Ischemic cardiomyopathy (Acute) Persistent atrial fibrillation (Acute) SOB (shortness of breath) on exertion (Acute) Unsteady gait (Acute) Constipation (Acute) Dermatitis (Acute) History of total right knee replacement (TKR) (Acute) Immunization counseling (Acute) Essential hypertension (Acute) Knee pain (Acute) COPD (chronic obstructive pulmonary disease) (Acute) Hyperlipidemia (Acute) Mild chronic anemia (Acute) Recurrent cellulitis of lower leg (Acute) Swelling of left lower extremity (Acute) CAD (coronary artery disease) (Acute) Varicose veins of right lower extremity with inflammation (Acute) Lymphedema (Acute) Varicose veins of left lower extremity with inflammation (Acute) Laboratory examination ordered as part of a routine general medical examination (Acute) Diaphoresis (Acute) Low HDL (under 40) (Acute) Diastolic heart failure (Acute) Adult general medical exam (Acute) Mild anemia (Acute) Lower extremity edema (Acute) Screening for prostate cancer (Acute) Screening for colon cancer (Acute) COVID-19 (Acute) Left leg cellulitis (Acute) Status post laparoscopic sleeve gastrectomy (Acute) Chronic bronchitis (Acute) GERD (gastroesophageal reflux disease) (Acute) Ischemic cardiomyopathy. EF 35-40% Past Medical History Medical History Chronic HFrEF (heart failure with reduced ejection fraction) Paroxysmal atrial fibrillation Recurrent cellulitis of lower leg COVID-19 vaccine series completed Supraventricular tachycardia COPD (chronic obstructive pulmonary disease) Myocardial infarction History of COVID-19 Morbid obesity Chronic bronchitis GERD (gastroesophageal reflux disease) Chronic renal failure, stage 3 (moderate) CAD (coronary artery disease) Essential hypertension Family History Family History Father CVD (cardiovascular disease) Mother Diabetes mellitus Cancer Brother No problems noted. Brother No problems noted. Son No problems noted. Sister No problems noted. Sister No problems noted. Sister No problems noted. Sister No problems noted. Sister No problems noted. Sister No problems noted. Other Mental health disorder Substance use disorder Family history of problems with anesthesia: No Surgical History Surgical History History of inferior vena caval filter placement H/O colonoscopy History of sleeve gastrectomy History of heart artery stent History of carpal tunnel release History of knee replacement History of Problems with Anesthesia: Yes (PONV) Social History Social History Household Members: Spouse Household Members Other:: & son Housing: Apartment Are you a primary career technical counselor to a significant other at home: No Do you presently have visiting nurse or other home services: Yes (private duty care when needed) Comment: uses cane on occasion Patient Tobacco Use Status: Former Tobacco user Tobacco use type: Cigarette Years Smoked: 40 e-Cigarette/Vaping Use: Never Used Second Hand Smoke Exposure: No Advance Directives: No Advance Directives Information Provided: Yes Advance Directives Date on File: 08/21/21 service: Yes Current occupational status: disabled Current occupational exposures/hazards: No Cognitive needs: No Hearing needs: No Vision needs: No Meds Allergies Allergy/AdvReac Type Severity Reaction Status Date / Time enoxaparin [From Lovenox] Allergy Intermediate rash/swelli Verified 08/08/24 12:42 ng seafood Allergy Intermediate rash/swelli Verified 08/08/24 12:42 ng Home Medications ?Medication ?Instructions ?Recorded ?Confirmed ?Last Taken ?Type budesonide-formoterol HFA 80 2 puff PO BID 02/23/20 08/08/24 10/06/23 History mcg-4.5 mcg/actuation aerosol inhaler tiotropium bromide 18 mcg capsule 1 cap inhalation DAILY 02/23/20 08/08/24 10/06/23 History with inhalation device melatonin 10 mg tablet 10 mg PO BEDTIME 05/23/21 08/08/24 05/22/21 History Exam Height,Weight and Vital Signs: Height 5 ft 3 in Weight 126.552 kg Vital Signs Temp Pulse Resp BP Pulse Ox O2 Del Method 08/24/24 08:50 97.1 F 84 20 112/75 98 Room Air Airway Mallampati Class: II TM Dist: >3cm Neck ROM: Full Loose/Missing/Broken Teeth: Yes (Poor dentition. Many broken teeth. Some missing. Denies loose) Heart: Irregular Lungs: CTAB Assessment and Plan Assessment Anesthesia Assessment: Anesthesia Plan Discussed and Chart Reviewed Final Anesthetic Review Family History of Problems with Anesthesia: No History of Problems with Anesthesia: Yes (PONV) NPO: Yes ASA Class: III Final Preanesthetic Review: No Changes in Pt Med Stat, Meds/Allgs Chart Reviewed, Consent Obtained/Reviewed and Anes Risks/Benef Reviewed Patient Risk: Intermediate Procedure Risk: Low Assessment/Block/Sedation in SS: Assess/Block/Sedation-SS Anesthetic Plan Anesthetic Plan: TIVA Disposition: Standard PACU
[2024-08-24 08:50] VITALS: BP 112/75; PULSE 84; RESP 20; TEMP 36.2; O2SAT 98
--- NOTE | 2024-08-24 09:19 | MHC.SHP ---
Pre-Procedural Eval Section A - 24 Hr Update-Section A only Date of Service: 08/24/24 Section B - Complete if H&P > 30 days Chief Complaint: Encounter for screening for malignant neoplasm of Relevant Family History (Specify if Yes): No Relevant Social History: None Present Medications: see Short Stay Collaborative assessment Medical History: Significant History (Chronic HFrEF (heart failure with reduced ejection fraction) Paroxysmal atrial fibrillation Recurrent cellulitis of lower leg COVID-19 vaccine series completed Supraventricular tachycardia COPD (chronic obstructive pulmonary disease) Myocardial infarction History of COVID-19 Morbid obesity Chronic b) History of Previous Operations: Relevant previous surgery/procedure and date(s) (History of inferior vena caval filter placement H/O colonoscopy History of sleeve gastrectomy History of heart artery stent History of carpal tunnel release History of knee replacement) Allergies: Allergies Allergy/AdvReac Type Severity Reaction Status Date / Time enoxaparin [From Lovenox] Allergy Intermediate rash/swelli Verified 08/08/24 12:42 ng seafood Allergy Intermediate rash/swelli Verified 08/08/24 12:42 ng Review of Systems Sugical H&P ROS: Negative: Constitution, Cardiovascular, Respiratory, Neurological, Psychiatric, Hem-Onc, Allergic/Immunologic, Gastrointestinal, Genitourinary, Musculoskeletal, Integumentary, Endocrine and Eyes/Ears/Nose/Throat Exam Surgical H&P Exam: Normal: HEENT, Normal: Heart, Normal: Lungs, Normal: Extremities, Normal: Abdomen, Normal: Skin and Normal: Neurological Plan Diagnosis/Plan: Unchanged I have reviewed the history and physical and performed a pertinent physical examination on my patient. No changes have occurred unless specified. Time Spent With Patient Time: Total time managing care of this patient today ____ minutes.
--- NOTE | 2024-08-24 09:58 | P.OPN-COLO_ITS ---
Colonoscopy Operative Note Operative Note Date of Service: 08/24/24 Narrative: Operative Information Procedure Description: EGD, Colonoscopy Indication: Screening, GERD Anesthesia: MAC FLEXIBLE TRANSORAL UPPER GASTROINTESTINAL ENDOSCOPY AND COLONOSCOPY PROCEDURE NOTE UPPER ENDOSCOPY Consent: Indications for the procedure and potential complications of bleeding, perforation, reaction to medications and missed diagnosis were discussed with the patient and informed consent was obtained. Instrument: Olympus GIF H 190 J mid size upper endoscope Monitoring: Vital signs and clinical assessment, continuous EKG monitoring, Pulse oximetry, Carbon Dioxide monitoring and blood pressure monitoring were done throughout the procedure. Procedure: The patient was placed in the left lateral decubitis position and pre-procedure medications were administered and a bite block was placed. The endoscope was inserted into the mouth and advanced under direct vision to the third part of duodenum. A careful inspection was made as the upper endoscope was withdrawn including a retroflexed examination of the proximal stomach; Findings and interventions are described below. Findings: Larynx:normal Esophagus: GE junction at 40 cm, diaphragm hiatus at 40 cm, mild esophagitis- incompetent LES, bx taken from distal esophagus Stomach: antral erythema. Biopsies were obtained. Grade 2 flap valve on retroflexed examination of the cardia. sleeve gastrectomy noted,. Duodenum: Normal bulb and descending duodenum, Intervention: Biopsies as noted above, COLONOSCOPY Instrument: Olympus variable stiffness adult scope 190L Colonoscopy Monitoring: Vital signs and clinical assessment, continuous EKG monitoring, Pulse oximetry, Carbon Dioxide monitoring and blood pressure monitoring were done throughout the procedure. Colon withdrawal time was 14 minutes. Procedure: The patient was placed in the left lateral decubitis position and pre-procedure medications were administered. After a digital rectal examination of the ano-rectum, the video colonoscope was inserted into the rectum and advanced through the colon to the cecum/TI. The colonoscope was slowly withdrawn in a retrograde panoramic fashion and the colon mucosa was carefully examined including a retroflexed view of the rectum. Findings and interventions are described below. Procedure Difficulty:easy Findings: Terminal Ileum-normal Cecum: 3-4 mm sessile polyp removed with cold forceps Ascending Colon: x 5 sessile polyps 6-8 mm removed with cold snare Transverse Colon -normal Descending Colon:normal Sigmoid Colon: 5-8 mm sessile polyp removed with cold snare Rectum: Retroflexion with small internal hemorrhoids, grade I Anorectum - normal Colon preparation: Caspian Bowel Preparation Scale Right colon; 2 Transverse colon: 2 Left colon; 2 (0 = Unprepared colon segment with mucosa not seen due to solid stool that cannot be cleared. 1 = Portion of mucosa of the colon segment seen, but other areas of the colon segment not well seen due to staining, residual stool and/or opaque liquid. 2 = Minor amount of residual staining, small fragments of stool and/or opaque liquid, but mucosa of colon segment seen well. 3 = Entire mucosa of colon segment seen well with no residual staining, small fragments of stool or opaque liquid) Impression and Post Procedure Diagnosis: Endoscopy Findings: incompetent LES gastritis mild esophagitis Colonoscopy Findings: colon polyps x 7 internal hemorrhoids Plan: Await Pathology results Repeat Colonoscopy in 2-3 years or earlier if clinically indicated High fiber diet leaflet avoid straining at stool, epsom salts and sitz bath, anusol supps or cream can restart apixiban tomorrow afternoon Above findings were reviewed with the patient and relevant handouts were provided if indicated.
[2024-08-24 10:04] VITALS: BP 99/48; PULSE 98; RESP 16; TEMP 36.9; O2SAT 99
[2024-08-24 10:16] VITALS: BP 109/58; PULSE 98; RESP 16; TEMP 36.3; O2SAT 99
== END 2024-08-24 10:40 | disposition home or self-care (01) ==
PROVIDERS: PCP Family Medicine; Visit Provider Internal Medicine Gastroenterology
PROC: (CPT 45385; principal; 2024-08-24 09:30)
DX: Z12.11 Encounter for screening for malignant neoplasm of colon (principal); D12.2 Benign neoplasm of ascending colon; D12.5 Benign neoplasm of sigmoid colon; K63.5 Polyp of colon; K64.0 First degree hemorrhoids; K59.01 Slow transit constipation; K21.9 Gastro-esophageal reflux disease without esophagitis; K29.50 Unspecified chronic gastritis without bleeding; K20.80 Other esophagitis without bleeding; K44.9 Diaphragmatic hernia without obstruction or gangrene; I13.0 Hypertensive heart and chronic kidney disease with heart failure and stage 1 through stage 4 chronic kidney disease, or unspecified chronic kidney disease; I50.22 Chronic systolic (congestive) heart failure; N18.30 Chronic kidney disease, stage 3 unspecified; I48.0 Paroxysmal atrial fibrillation; I25.2 Old myocardial infarction; I25.10 Atherosclerotic heart disease of native coronary artery without angina pectoris; Z95.5 Presence of coronary angioplasty implant and graft; J44.9 Chronic obstructive pulmonary disease, unspecified; E66.01 Morbid (severe) obesity due to excess calories; Z68.42 Body mass index [BMI] 45.0-49.9, adult; Z79.899 Other long term (current) drug therapy; Z88.8 Allergy status to other drugs, medicaments and biological substances; Z98.84 Bariatric surgery status; Z98.890 Other specified postprocedural states; Z87.891 Personal history of nicotine dependence
CPT/HCPCS: 45385; 45380; 43239; 88305; 88313; 88342; J1596; J2003; J2371; J2704

== ENCOUNTER → 2024-08-24 07:45 | Outpatient (BNV) | payer MEDICARE, SELFPAY | PROVIDERS: PCP Family Medicine; Visit Provider Internal Medicine Gastroenterology | DX: Z12.11 Encounter for screening for malignant neoplasm of colon (principal); D12.2 Benign neoplasm of ascending colon; D12.5 Benign neoplasm of sigmoid colon; K63.5 Polyp of colon; K64.8 Other hemorrhoids; K21.00 Gastro-esophageal reflux disease with esophagitis, without bleeding; K29.70 Gastritis, unspecified, without bleeding; Z90.3 Acquired absence of stomach [part of]; Z98.84 Bariatric surgery status | CPT/HCPCS: 43239; 45380; 45385 ==

== ENCOUNTER → 2024-09-21 09:41 | Outpatient (REF) | payer MEDICARE, SELFPAY ==
--- NOTE | 2024-09-21 09:49 | CA_ITS ---
Transthoracic Echocardiogram Patient (Last, First, Middle): Andrew Clinton J Gender: Male Date of : 1960 Age: 64 Procedure Date: 09/21/2024 Procedure Type: Transthoracic Echocardiogram Location: OP Height: 160.02 cm Weight: 127.01 kg BSA: 2.23 m2 Heart Rate: 77 bpm BP: 130 / 80 mmHg Manager Produce: SB/GUERO Referring MD: Gabe Mello MD Lead Press Operator: Gabe Mello MD Symptoms: I50.22 - Chronic systolic (congestive) heart failure Study Quality: Fair ECG Rhythm: Atrial Fibrillation Conclusions: - 1. [id number] LV systolic dysfunction with LVEF of 40-45% 2. At least mildly dilated left atrium 3. Normal cardiac valvular Dopplers 4. Normal measured RV systolic pressure Findings Procedure Information Contrast agent, definity, is being given per protocol without apparent complications. Left Ventricle Normal left ventricular cavity size. There is normal left ventricular wall thickness. The left ventricular systolic function is mild to moderately decreased. The visually estimated ejection fraction is between 40-45%. Diastolic function is indeterminate on the basis of available data. Right Ventricle The right ventricle was not well visualized. There is normal right ventricular systolic function. Atria The left atrium is mildly dilated. Interatrial shunt cannot be excluded. The right atrium was not well visualized. Aortic Valve The aortic valve was not well visualized. There is no aortic valve stenosis. There is no aortic valve regurgitation. Mitral Valve The mitral valve was not well visualized. There is mild mitral annular calcification. There is no mitral valve regurgitation. There is no mitral valve stenosis. Pulmonic Valve The pulmonic valve was not well visualized. Tricuspid Valve The tricuspid valve was not well visualized. There is mild tricuspid valve regurgitation. The right ventricular systolic pressure is normal. The right ventricular systolic pressure is 28 mmHg. Normal right atrial pressure. There is no evidence of pulmonary hypertension. Great Vessels The aorta was not well visualized. The pulmonary artery was not well visualized. Venous The inferior vena cava is normal in size and collapses greater than 50% with inspiration. Pericardium/Pleural There is no evidence of pericardial effusion. Prior Study Comparison Changes noted compared to prior study dated: 09/09/2023. marginal improvement in LV ejection fraction Measurements 2D Linear Measurements IVSd: 0.64 0.6-0.9/0.6-1.0 cm LVIDd: 4.95 3.9-5.3/4.2-5.9 cm LVIDd Index: 2.22 2.4-3.2/2.2-3.1 cm/m2 LVIDs: 3.59 2.0-3.6 cm LVPWd: 0.76 0.7-1.1 cm LA Diam: 4.20 2.7-3.8/3.0-4.0 cm LAIDs Index: 1.88 1.5-2.3 cm/m2 LV Mass: 139.15 67-162/88-224 g LV Mass Index: 62.40 43-95/49-115 g/m2 LVOT Diam: 2.00 3.0+(-)1.3 cm 2D Systolic Function EF 4C: 46.50 >55% EF 2C: 42.30 >55% EF BiP: 44.20 >55% Mitral Valve MV Pk E: 1.01 E'Lateral: 9.53 E'Medial: 10.20 E/E' Med: 9.90 E/E' Lat: 10.60 Aortic Valve AoV Pk [place]: 1.03 AoV Pk Grad: 4.00 REBECCA: 2.56 LVOT LVOT Pk [place]: 0.84 LVOT Mn [place]: 0.63 LVOT VTI: 0.17 LVOT Pk Grad: 3.00 LVOT Mn Grad: 2.00 LVOT Diam: 2.00 LVOT Area: 3.14 Diastolic Function MV Pk E: 1.01 E'Medial: 10.20 E/E' Med: 9.90 E' Laterial: 9.53 E/E' Lat: 10.60 Right Ventricle TAPSE (mm): 11.70 TVS' [place]: 7.18 Tricuspid Valve TR Pk [place]: 2.51 TR Pk Grad: 25.00 RA Press: 3.00 RVSP: 28.00 Great Vessels Aorta Sinus of Valsalva: 2.70 2.0-3.5 cm Ao Asc: 3.10 2.1-3.4 cm Pulmonary Valve PV Pk [place]: 0.68 Peak PV Grad: 2.00 Updated in Other Vendor System with Status of Final Gabe Mello MD electronically signed on 09/21/2024 1:21:17 PM with status of Final
== END ==
LOC: HO.CARD 09:41
PROVIDERS: PCP Family Medicine; Visit Provider Internal Medicine Cardiovascular Disease
DX: I50.22 Chronic systolic (congestive) heart failure (principal)
CPT/HCPCS: 93306; Q9957

== ENCOUNTER → 2024-09-21 09:49 | Outpatient (BNV) | payer MEDICARE, SELFPAY | PROVIDERS: PCP Family Medicine; Visit Provider Internal Medicine Cardiovascular Disease | DX: I50.22 Chronic systolic (congestive) heart failure (principal); I34.81 Nonrheumatic mitral (valve) annulus calcification; I36.1 Nonrheumatic tricuspid (valve) insufficiency | CPT/HCPCS: 93306 ==

== ENCOUNTER 2024-10-10 09:56 | Outpatient (AMB) | payer MEDICARE, SELFPAY ==
--- NOTE | 2024-10-10 10:04 | A.OFFPC_ITS ---
Vital Signs 10/10/24 10:08 Height 5 ft 3 in Weight 277 lb 8 oz BMI 49.2 BP 110/70 Blood Pressure Location Rt brachial Position Sitting Respiration 20 Pulse 76 Pulse Source Pulse Oximeter Temp 97.5 F Temp Source Oral Pulse Oximetry (%) 97 Oxygen Delivery Method Room Air Intake Visit Reasons: f/u HTN, chronic conditions Intake Note: patient is scheduled to follow up on htn and chronic conditions patient needs a med refill for ardiance and metoprolol Nurse'S Assistant Required: No Allergies enoxaparin [From Lovenox] Allergy (Intermediate, Verified 10/10/24 10:05) rash/swelling seafood Allergy (Intermediate, Verified 10/10/24 10:05) rash/swelling Tobacco use date assessed: 08/20/23 Dental Screening Dental Screen Date: 08/20/23 HPI f/u HTN, chronic conditions HPI Details 64 y/o male presents to f/u HTN, chronic conditions. TSH had been mildly elevated from labs drawn in July. Blood pressure today 110/70, 76p. He is on valsartan 40mg b.i.d, metoprolol 100mg. [facility] Medical History Chronic HFrEF (heart failure with reduced ejection fraction) Paroxysmal atrial fibrillation Recurrent cellulitis of lower leg COVID-19 vaccine series completed Supraventricular tachycardia COPD (chronic obstructive pulmonary disease) Myocardial infarction History of COVID-19 Morbid obesity Chronic bronchitis GERD (gastroesophageal reflux disease) Chronic renal failure, stage 3 (moderate) CAD (coronary artery disease) Essential hypertension Surgical History History of inferior vena caval filter placement H/O colonoscopy History of sleeve gastrectomy History of heart artery stent History of carpal tunnel release History of knee replacement Family History Father CVD (cardiovascular disease) Mother Diabetes mellitus Cancer Brother No problems noted. Brother No problems noted. Son No problems noted. Sister No problems noted. Sister No problems noted. Sister No problems noted. Sister No problems noted. Sister No problems noted. Sister No problems noted. Other Mental health disorder Substance use disorder Social History Household Members: Spouse Household Members Other:: & son Housing: Apartment Are you a primary adult care manager to a significant other at home: No Do you presently have visiting nurse or other home services: Yes (private duty care when needed) Comment: uses cane on occasion Patient Tobacco Use Status: Former Tobacco user Tobacco use type: Cigarette Years Smoked: 40 e-Cigarette/Vaping Use: Never Used Second Hand Smoke Exposure: No Advance Directives Date on File: 08/21/21 service: Yes Current occupational status: disabled Current occupational exposures/hazards: No Cognitive needs: No Hearing needs: No Vision needs: No Questionnaire Thrive Questionnaire Date Thrive assessed: 06/10/24 I am a: Patient What is your living situation today?: I have a steady place to live Within the past 12 months, did the food you bought not last and you didn't have the money to get more?: Never true Within the past 12 months, did you worry whether your food would run out before you got money to buy more?: Never true Do you have trouble paying for medicines?: No Do you have trouble getting transportation to medical appointments?: No Do you have trouble paying your heating and electricity bill?: No Do you have trouble taking care of your child, family member or friend?: No Do you have trouble with day-to-day activities such as bathing, preparing meals, shopping, managing finances, etc.?: No Are you currently unemployed and looking for a job?: No Are you interested in more education?: No Please select the resources that you would like help with: None Currently or been in a relationship where the following occur: No concerns reported THRIVE Score: 0 MARIAH-7 AMB Questionnaire MARIAH-7 Date MARIAH - 7 assessed: 08/20/23 Source: Developed by Drs. Alex Adam, Bhumi Mckinley, Jam Gibson and colleagues, with an educational edgar from [employer]. Review of Systems Const Denies chills, Denies fatigue, Denies fever(s), Denies headache(s) and Denies weakness ENT Denies dizziness and Denies headache(s) Card Denies dyspnea Resp Denies cough, Denies dyspnea, Denies wheezing and Denies other (shortness of breath) Musc Denies numbness and Denies tingling Neuro Denies dizziness, Denies headache(s), Denies numbness, Denies tingling and Denies weakness Psych Denies anxiety and Denies depression Endo Denies fatigue Aller/Immun Denies wheezing Physical exam (Primary Care) Vital Signs: Last Vital Signs Temp 97.5 F 10/10/24 10:08 Pulse 76 10/10/24 10:08 Resp 20 10/10/24 10:08 BP 110/70 10/10/24 10:08 Pulse Ox 97 10/10/24 10:08 Oxygen Delivery Method Room Air 10/10/24 10:08 BMI result Body Mass Index 49.2 Tobacco/Smoking Status: Tobacco use Status Tobacco use date assessed 08/20/23 10/10/24 10:12 Patient Tobacco Use Status Former Tobacco user 10/10/24 10:12 Tobacco use type Cigarette 10/10/24 10:12 e-Cigarette/Vaping Use Never Used 10/10/24 10:12 Thrive Assessment: Date of Thrive Assessment Date Thrive assessed 06/10/24 10/10/24 10:12 Currently or been in a relationship where the following occur: No concerns reported Const General: well developed; No acute distress Nutritional Appearance: well nourished Orientation/consciousness: patient oriented x3 HENMT Head: Yes normocephalic and Yes atraumatic Eyes General: appearance normal, both eyes and all related structures Pupils: Equal, round and reactive pupils present EOM: EOMs intact bilaterally Resp Effort & Inspection: normal respiratory effort Neuro General: patient oriented x3 and gait normal Cranial nerves: Yes Equal, round and reactive pupils present Psych Affect: normal affect Coding Level of Care Code Est Pt Level 3 (59247) Diagnoses Essential hypertension I10 Elevated TSH R79.89 Persistent atrial fibrillation I48.19 CAD (coronary artery disease) I25.10 Assessment & Plan Assessment & Plan (1) Essential hypertension: Code(s): I10 - Essential (primary) hypertension Category: Medical Plan: Blood?pressure?is?controlled.??Goal?is?less?than?130/80 Continue?current?medications (2) Elevated TSH: Code(s): R79.89 - Other specified abnormal findings of blood chemistry Category: Medical Plan: Mild?elevation?in?TSH?at?last?check He?will?have?this?repeated?with?his?next?blood?draw (3) Persistent atrial fibrillation: Code(s): I48.19 - Other persistent atrial fibrillation Category: Medical Plan: Stable (4) CAD (coronary artery disease): Code(s): I25.10 - Atherosclerotic heart disease of [place] coronary artery without angina pectoris Category: Medical Plan: Stable Orders: Orders Prostate Specific Antigen Scr Today Z12.5 - Encounter for screening for malignant neoplasm of prostate Comprehensive [place]. Panel Fast Today I50.22 - Chronic systolic (congestive) heart failure, Z00.00 - Encounter for general adult medical examination without abnormal findings Hemoglobin A1c Today I50.22 - Chronic systolic (congestive) heart failure, R73.01 - Impaired fasting glucose Medications: Changed From Jardiance (empagliflozin) 10 mg PO DAILY 90 tabs 3RF NS To Jardiance (empagliflozin) 10 mg PO DAILY 90 days 90 tabs 3RF NS Refilled metoprolol tartrate 100 mg PO Q12H 180 tabs 1RF
[2024-10-10 10:08] VITALS: BP 110/70; PULSE 76; RESP 20; TEMP 36.4; O2SAT 97; BMI 49.2
== END 2024-10-10 13:13 | disposition home or self-care (01) ==
LOC: HO.HMCFM 09:58
PROVIDERS: PCP Family Medicine; Visit Provider Family Medicine
DX: I10 Essential (primary) hypertension (principal); R79.89 Other specified abnormal findings of blood chemistry; I48.19 Other persistent atrial fibrillation; I25.10 Atherosclerotic heart disease of native coronary artery without angina pectoris

== ENCOUNTER → 2024-10-10 09:56 | Outpatient (BNVA) | payer MEDICARE, SELFPAY | PROVIDERS: PCP Family Medicine; Visit Provider Family Medicine | DX: I10 Essential (primary) hypertension (principal); I48.19 Other persistent atrial fibrillation; I25.10 Atherosclerotic heart disease of native coronary artery without angina pectoris; R79.89 Other specified abnormal findings of blood chemistry | CPT/HCPCS: 99212 ==

== ENCOUNTER 2024-11-21 09:32 | Outpatient (REF) | payer MEDICARE, SELFPAY ==
--- OUTSIDE RECORDS SUMMARY | 2024-11-21 05:04 | XMS_ITS | Continuity of Care Document ---
Author Name [facility] Organization [facility] Care Team Providers Care Marine Engineering Consultant Name Role Phone [facility] Unavailable Unavailable Problems Combined list of problems from Department of Defense and Veterans Affairs facilities. It does not include entries that were removed or entered in error. Problem Status Onset Date Problem Type Date of Resolution Comments Source Atherosclerotic occlusive disease Active Condition September 30 Entered By: STELLA SHANE Comment: s/p DE 01/29/17 - stent x 1 LAD [facility] Chronic obstructive pulmonary disease Active Condition [facility] Chronic systolic heart failure Active Condition [facility] Colonoscopy Screening Active Condition Nov 26, 2018 Entered By: STELLA SHANE Comment: 01/22/18 - Dr Wyatt ([place]) - 4 tubular adenomas and 2 tubulovillous adenomas - repeat 6 2019 Entered By: STELLA SHANE Comment: 03/17/2019 - normal per vet - repeat 2021 - Dr Wyatt [facility] Gastroesophageal reflux disease Active Condition [facility] Hypertension Active Condition [facility] Mixed Hyperlipidemia (SCT [id number]) Active Condition [facility] Morbid obesity Active Condition [facility] NON [facility] Providers Active Condition Nov 25, 2019 Entered By: STELLA SHANE Comment: PCP - Dr Salvador Jarrett 2017 Entered By: STELLA SHANE Comment: Cardiology - Dr Veloz [facility] Paroxysmal atrial fibrillation Active Condition September 30, 2017 Entered By: STELLA SHANE [facility] Entered By: STELLA SHANE Comment: Loop Recorder implanted 04/21/17 [facility] Sleep apnea Active Condition September 30, 2017 Entered By: STELLA SHANE Comment: Mild - dxed 08/2017 - not on CPAP [facility] Diagnosis: ICD-10-CM J44.9 Chronic obstructive pulmonary disease, unspecified Active Diagnosis [facility] Diagnosis: ICD-10-CM W19.XXXD Unspecified fall, subsequent encounter Active Diagnosis [facility] Diagnosis: ICD-10-CM I10 Essential (primary) hypertension Active Diagnosis [facility] Medications [facility] list of outpatient medications from Department of Defense and [facility] facilities.Medications provided include 1) outpatient medications from the last 15 months, and 2) patient-reported medications. Medication Details Route Status Patient Instructions Prescription Expires Prescription Number Last Dispense Date Ordering Provider Order Date Order Qty Source ALBUTEROL 90MCG/ACTUA T (CFC-F) INHL,ORAL,8 .5GM DOSE COUNTER INHALE 1 PUFF BY MOUTH EVERY 4 HOURS NEEDED RESPIR ATORY (INHAL ATION) ACTIVE DAVI SHANE SA [facility] APIXABAN 5MG TAB TAKE ONE TABLET BY MOUTH TWICE DAILY ORAL ACTIVE DAVI SHANE SA [facility] ATORVASTATI N CA 80MG TAB TAKE ONE TABLET BY MOUTH DAILY ORAL ACTIVE DAVI SHANE SA 2017 [facility] BUDESONIDE 80MCG/FORMO TEROL FUM 4.5MCG/SPRA Y INHL,ORAL,1 0.2GM INHALE 2 PUFFS BY MOUTH TWICE DAILY RESPIR ATORY (INHAL ATION) ACTIVE DAVI SHANE SA 2019 [facility] EZETIMIBE 10MG TAB TAKE ONE TABLET BY MOUTH ONCE DAILY ORAL ACTIVE DAVI SHANE SA 2022 [facility] FAMOTIDINE 20MG TAB TAKE ONE TABLET BY MOUTH ONCE DAILY ORAL ACTIVE [facility] SHANE [facility] FUROSEMIDE 40MG TAB TAKE ONE TABLET BY MOUTH ONCE DAILY ORAL ACTIVE DAVI SHANE SA 2023 [facility] METOPROLOL TARTRATE 100MG TAB TAKE ONE TABLET BY MOUTH TWICE DAILY ORAL ACTIVE DAVI SHAEN SA 2023 [facility] TIOTROPIUM (SPIRIVA HANDIHALER) CAP,INHL INHALE IN INHALER BY MOUTH DAILY RESPIR ATORY (INHAL ATION) ACTIVE DAVI SHANE SA 2017 [facility] VALSARTAN 40MG TAB TAKE ONE TABLET BY MOUTH TWICE DAILY ORAL ACTIVE DAVI SHANE SA 2023 [facility] Allergies, Adverse Reactions, Alerts Combined list of allergies from Department of Defense and Veterans Affairs facilities. It does not include entries that were removed or entered in error. Substance Category Reaction Severity Reaction type Status Date Reported Comments Source SEAFOOD Propensity to adverse reactions to food (finding) active 8 [facility] [place] [facility] Immunizations Combined list of available immunizations from the Department of Defense and Veterans Affairs facilities. Immunization Series Date Given Administered By Site Reaction Lot Number CVX Code Drug Software Team Leader Status Comments Source COVID-19 (MODERNA), MRNA, LNP-S, PF, 100 MCG/0.5 ML DOSE 2 2020 207 complet ed MOD; [id number]; 1 [place] COVID-19 (MODERNA), MRNA, LNP-S, PF, 100 MCG/0.5 ML DOSE 1 2020 207 complet ed MOD; [id number]; 1 [place] ZOSTER RECOMBINANT 2 2020 187 complet ed [place] ZOSTER RECOMBINANT 1 2019 187 complet ed [place] INFLUENZA, SEASONAL, INJECTABLE 2016 141 complet ed [facility] [facility] Vital Signs Combined list of inpatient and outpatient Vital Signs from Department of Defense and Veterans Affairs, ranging from 12 months to all on record, depending upon the facility. Vital Sign Value Date Comments Source SYSTOLIC BLOOD PRESSURE 104 12/16/19 24 10:36:24 [facility] [place] [facility] DIASTOLIC BLOOD PRESSURE 73 024 10:36:24 [facility] [place] [facility] PULSE OXIMETRY 98 12/16/2023 10:36:24 [facility] WEIGHT 282.6 12/16/2023 10:36:24 [facility] BMI 50 kg/m2 12/16/2023 10:36:24 [facility] PAIN 0 12/16/2023 10:36:24 [facility] HEIGHT 63 12/16/2023 10:36:24 [facility] TEMPERATURE 98.2 12/16/2023 10:36:24 [facility] PULSE 49 12/16/2023 10:36:24 [facility] RESPIRATION 16 12/16/2023 10:36:24 [facility] Encounters Combined list of: 1) Encounters from Department of Veterans Affairs facilities going backup to the last 18 months, not all VA inpatient encounters are included; 2) Encounters from the Department of [facility] facilities going backup to 280 months. Location Location Details Encounter Type Encounter Number Reason For Visit Attending Provider ADM Date DC Date Status Disposition Source [facility] Outpatient Encounter [id number] 12/15 [facility] [place] [facility] O/P EST LOW 20 MIN [id number] Diagnos is: ICD-10- CM I10 Essenti al (primar y) hyperte nsion KAREN SHANE 12/15 [place] [facility] OT EVAL LOW COMPLEX 30 MIN [id number] 1. Diagnos is: ICD-10- CM W19.XXX D Unspeci fied fall, subsequ ent encount er ROBEL SARMIENTO 12/20 [facility] WHEELCHAIR MNGMENT TRAINING [id number] 1. Diagnos is: ICD-10- CM J44.9 Chronic obstruc tive pulmona ry disease , unspeci fied ORTEGA,PREETHI ICA L 02/24 [facility] Outpatient Encounter [id number] 04/08 [facility] Outpatient Encounter [id number] 04/28 [facility] WHEELCHAIR MNGMENT TRAINING [id number] Diagnos is: ICD-10- CM J44.9 Chronic obstruc tive pulmona ry disease , unspeci PREETHI Wild ICA L 05/25 [facility] Outpatient Encounter [id number] 09/19 [facility] Social History Combined list of available smoking, tobacco, and other social history from Department of Defense and Veterans Affairs facilities. Social History Type Response Date Comment Sour e Tobacco smoking status UTIS PR-TOBACCO FORMER USER 12/16/2023 [place] History of tobacco use PR-TOBACCO QUIT 15 YRS OR MORE 12/16/2023 [place] History of tobacco use PR-TOBACCO FORMER USER 12/18/2022 [place] History of tobacco use PR-TOBACCO FORMER USER 12/04/2021 [place] History of tobacco use PR-TOBACCO FORMER USER 12/18/2020 [place] History of tobacco use PR-TOBACCO QUIT 5 TO < 15 YRS 11/26/2018 [place] History of tobacco use PR-TOBACCO QUIT 5 TO < 15 YRS 11/27/2017 [place] History of tobacco use QUIT TOBACCO USE > 7 YEARS AGO 09/25/2017 [facility] Plan of Care List of future care activities from Department of Veterans Affairs facilities. Additional future care activities may be listed in the Assessment and Plan section. Date/Time Care Activity Care Activity Detail Facili ty 12/14/2024 AMBULATORY - MEDICINE [facility] Advance Directives List of completed, amended, or rescinded Advance Directives on record at Department of [facility] facilities. An actual copy of the Directive is not included. Date Advance Directive Provider Source 09/10/2017 ADVANCE DIRECTIVE KAY NOVAK
--- OUTSIDE RECORDS SUMMARY | 2024-11-21 10:05 | XMS_ITS | Encounter Summary ---
Author Organization [facility] Address [address] [place] [address] Phone Care Team Providers Care Franchise Development Manager Name Role Phone Oswaldo Zamora MD Primary Care Provider + Encounter Details Date Type Department Care Team (Late st Contact Info) Description 05/16/2021 Procedure Pass [facility] [address] [place] [address] Social History Tobacco Use Types Packs/Day Years Used Date Smoking Tobacco: Never Assessed Sex and Gender Information Value Date Recorded Sex Assigned at Not on file Legal Sex Male 2:54 PM EDT Gender Identity Not on file Sexual Orientation Not on file documented as of this encounter Plan of Treatment Not on file documented as of this encounter Visit Diagnoses Not on filedocumented in this encounter Care Teams Franchise Development Manager Relationship Specialty Start Date End Date Oswaldo Zamora MD [address] [facility] [address] [place] [address] PCP - General Internal Medicine 08/13/18 documented as of this encounter Additional Source Comments The information contained in this document represents components of the legal health record. It is not the complete legal health record.[facility]
[2024-11-21 11:26] LABS: Appearance Urine Clear; Glucose Urine UA 250 mg/dL (Negative); PH 5.5 (5.0-9.0); Specific Gravity - Urine <= 1.005 (1.005-1.025)
[2024-11-21 11:31] LABS: Hemoglobin A1C 129.9960 umol/L; Total Hemoglobin (HGBA1C) 3734.3432 umol/L
[2024-11-21 11:48] LABS: B Type Natriuretic Peptide 128 pg/mL (<100)
[2024-11-21 11:49] LABS: Alanine Aminotransferase 16 U/L (0-40); Albumin Level 4.0 g/dL (3.5-5.0); Alkaline Phosphatase 125 U/L (39-117); Anion Gap 12 (12-20); Aspartate Amino Transferase 23 U/L (5-37); Blood Urea Nitrogen 9 mg/dL (9-16); Calcium 8.7 mg/dL (8.4-10.2); Carbon Dioxide 30 mmol/L (22-29); Chloride 106 mmol/L (96-108); Estimated Glomerular Filt Rate > 60; Potassium 4.2 mmol/L (3.3-5.1); Sodium 144 mmol/L (135-145); Total Protein 6.5 g/dL (6.5-8.0)
[2024-11-21 11:57] LABS: Free T4 (Free Thyroxine) 1.01 ng/dL (0.71-1.85); Thyroid Stimulating Hormone 2.51 uIU/mL (0.32-4.0)
== END 2024-11-21 09:33 | disposition home or self-care (01) ==
LOC: HO.WFDLDS 09:32
PROVIDERS: Visit Provider Family Medicine
DX: Z00.00 Encounter for general adult medical examination without abnormal findings (principal); I50.22 Chronic systolic (congestive) heart failure; R73.01 Impaired fasting glucose; I10 Essential (primary) hypertension; I50.9 Heart failure, unspecified; Z12.5 Encounter for screening for malignant neoplasm of prostate; E03.9 Hypothyroidism, unspecified; R79.89 Other specified abnormal findings of blood chemistry
CPT/HCPCS: 36415; 80053; 81003; 82570; 83036; 83880; 84153; 84439; 84443; 84480

== ENCOUNTER 2024-11-28 14:54 | Outpatient (AMB) | payer MEDICARE, MEDICAID, SELFPAY ==
--- OUTSIDE RECORDS SUMMARY | 2024-11-21 05:04 | XMS_ITS | Continuity of Care Document ---
Author Name [facility] Organization [facility] Care Team Providers Care Consulting Solution Manager Name Role Phone [facility] Unavailable Unavailable Problems Combined list of problems from Department of Defense and Veterans Affairs facilities. It does not include entries that were removed or entered in error. Problem Status Onset Date Problem Type Date of Resolution Comments Source Atherosclerotic occlusive disease Active Condition September 30 Entered By: STELLA SHANE Comment: s/p [place] 01/29/17 - [facility] Mixed Hyperlipidemia (SCT [id number]) Active Condition [facility] Morbid obesity Active Condition [facility] Providers Active Condition Nov 25, 2019 Entered By: STELLA SHANE Comment: PCP - Dr Salvador Jarrett 2017 Entered By: STELLA SHANE Comment: Cardiology - Dr Veloz [place] [facility] Paroxysmal atrial fibrillation Active Condition September 30, 2017 Entered By: STELLA SHANE Comment: [facility] Entered By: STELLA SHANE Comment: Loop Recorder implanted 04/21/17 [facility] Sleep apnea Active Condition September 30, 2017 Entered By: STELLA SHANE Comment: Mild - dxed 08/2017 - not on CPAP [facility] Diagnosis: ICD-10-CM J44.9 Chronic obstructive pulmonary disease, unspecified Active Diagnosis [facility] Diagnosis: ICD-10-CM W19.XXXD Unspecified fall, subsequent encounter Active Diagnosis [facility] Diagnosis: ICD-10-CM I10 Essential (primary) hypertension Active Diagnosis [place] Medications [facility] list of outpatient medications from Department of Defense and [facility] facilities.Medications provided include 1) outpatient medications from the last 15 months, and 2) patient-reported medications. Medication Details Route Status Patient Instructions Prescription Expires Prescription Number Last Dispense Date Ordering Provider Order Date Order Qty Source ALBUTEROL 90MCG/ACTUA T (CFC-F) INHL,ORAL,8 .5GM DOSE COUNTER INHALE 1 PUFF BY MOUTH EVERY 4 HOURS NEEDED RESPIR ATORY (INHAL ATION) ACTIVE DAVI SHANE SA [facility] APIXABAN 5MG TAB TAKE ONE TABLET BY MOUTH TWICE DAILY ORAL ACTIVE DAVI SHANE SA 2019 [facility] ATORVASTATI N CA 80MG TAB TAKE ONE TABLET BY MOUTH DAILY ORAL ACTIVE DAVI SHANE SA 2017 [facility] BUDESONIDE 80MCG/FORMO TEROL FUM 4.5MCG/SPRA Y INHL,ORAL,1 0.2GM INHALE 2 PUFFS BY MOUTH TWICE DAILY RESPIR ATORY (INHAL ATION) ACTIVE DAVI SHANE SA 2019 [facility] EZETIMIBE 10MG TAB TAKE ONE TABLET BY MOUTH ONCE DAILY ORAL ACTIVE DAVI SHANE SA 2022 [facility] FAMOTIDINE 20MG TAB TAKE ONE TABLET BY MOUTH ONCE DAILY ORAL ACTIVE DAVI SHANE SA 2018 [facility] FUROSEMIDE 40MG TAB TAKE ONE TABLET BY MOUTH ONCE DAILY ORAL ACTIVE DAVI SHANE SA 2023 [facility] METOPROLOL TARTRATE 100MG TAB TAKE ONE TABLET BY MOUTH TWICE DAILY ORAL ACTIVE DAVI SHANE SA 2023 [facility] TIOTROPIUM (SPIRIVA HANDIHALER) CAP,INHL INHALE IN INHALER BY MOUTH DAILY RESPIR ATORY (INHAL ATION) ACTIVE DAVI SHANE SA 2017 [facility] VALSARTAN 40MG TAB TAKE ONE TABLET BY MOUTH TWICE DAILY ORAL ACTIVE DAIV SHANE SA 2023 [facility] Allergies, Adverse Reactions, Alerts Combined list of allergies from Department of Defense and Veterans Affairs facilities. It does not include entries that were removed or entered in error. Substance Category Reaction Severity Reaction type Status Date Reported Comments Source SEAFOOD Propensity to adverse reactions to food (finding) active 8 [place] [facility] Immunizations Combined list of available immunizations from the Department of Defense and Veterans Affairs facilities. Immunization Series Date Given Administered By Site Reaction Lot Number CVX Code Drug Physician Interventional Cardiologist Status Comments Source COVID-19 (MODERNA), MRNA, LNP-S, PF, 100 MCG/0.5 ML DOSE 2 2020 207 complet ed MOD; [id number]; 1 [place] COVID-19 (MODERNA), MRNA, LNP-S, PF, 100 MCG/0.5 ML DOSE 1 2020 207 complet ed MOD; [id number]; 1 [place] ZOSTER RECOMBINANT 2 2020 187 complet ed [place] ZOSTER RECOMBINANT 1 2019 187 complet ed [place] INFLUENZA, SEASONAL, INJECTABLE 2016 141 complet ed [facility] Vital Signs Combined list of inpatient and outpatient Vital Signs from Department of Defense and Veterans Affairs, ranging from 12 months to all on record, depending upon the facility. Vital Sign Value Date Comments Source SYSTOLIC BLOOD PRESSURE 104 12/16/19 24 10:36:24 [place] [facility] [facility] DIASTOLIC BLOOD PRESSURE 73 024 10:36:24 [place] [facility] [place] [facility] PULSE OXIMETRY 98 12/16/2023 10:36:24 [...] included; 2) Encounters from the Department of [facility] facilities going backup to 280 months. Location Location Details Encounter Type Encounter Number Reason For Visit Attending Provider ADM Date DC Date Status Disposition Source [facility] Outpatient Encounter [id number] 12/15 [facility] [place] O/P EST LOW 20 MIN [id number] Diagnos is: ICD-10- CM I10 Essenti al (primar y) hyperte nsion KAREN SHANE 12/15 [place] [facility] OT EVAL LOW COMPLEX 30 MIN [id number] 1. Diagnos is: ICD-10- CM W19.XXX D Unspeci fied fall, subsequ ent encount er ROBEL SARMIENTO 12/20 [facility] WHEELCHAIR MNGMENT TRAINING [id number] 1. Diagnos is: ICD-10- CM J44.9 Chronic obstruc tive pulmona ry disease , unspeci fied ORTEGA,PREETHI ICA L 02/24 [place] [facility] Outpatient Encounter [id number] 04/08 [facility] Outpatient Encounter [id number] 04/28 [place] [facility] WHEELCHAIR MNGMENT TRAINING [id number] Diagnos is: ICD-10- CM J44.9 Chronic obstruc tive pulmona ry disease , unspeci PREETHI Wild ICA L 05/25 [place] [facility] Outpatient Encounter [id number] 09/19 [place] [facility] Social History Combined list of available smoking, tobacco, and other social history from Department of Defense and Veterans Affairs facilities. Social History Type Response Date Comment Sour e Tobacco smoking status SDIS [place]-TOBACCO FORMER USER 12/16/2023 [place] History of tobacco use FL-TOBACCO QUIT 15 YRS OR MORE 12/16/2023 [place] History of tobacco use FL-TOBACCO FORMER USER 12/18/2022 [place] History of tobacco use FL-TOBACCO FORMER USER 12/04/2021 [place] History of tobacco use FL-TOBACCO FORMER USER 12/18/2020 [place] History of tobacco use FL-TOBACCO QUIT 5 TO < 15 YRS 11/26/2018 [place] History of tobacco use FL-TOBACCO QUIT 5 TO < 15 YRS 11/27/2017 [place] History of tobacco use QUIT TOBACCO USE > 7 YEARS AGO 09/25/2017 quit [facility] Plan of Care List of future care activities from Department of Veterans Affairs facilities. Additional future care activities may be listed in the Assessment and Plan section. Date/Time Care Activity Care Activity Detail Facili ty 12/14/2024 AMBULATORY - MEDIC[facility] Advance Directives List of completed, amended, or rescinded Advance Directives on record at Department of [facility] facilities. An actual copy of the Directive is not included. Date Advance Directive Provider Source 09/10/2017 ADVANCE DIRECTIVE KAY NOVAK
--- NOTE | 2024-11-28 15:13 | MHC.PC.OV ---
Vital Signs 11/28/24 15:17 Height 5 ft 3 in Weight 272 lb 8 oz BMI 48.3 BP 104/68 Blood Pressure Location Rt brachial Position Sitting Respiration 16 Pulse 76 Pulse Source Pulse Oximeter Temp 97.9 F Temp Source Oral Pulse Oximetry (%) 95 Oxygen Delivery Method Room Air Intake Visit Reasons: CPE with f/u labs and health maint - see comments Intake Note: patient is schedule for a CPE Blue Crabber Required: No Allergies enoxaparin (From Lovenox) Allergy (Intermediate, Verified 11/28/24 15:15) rash/swelling seafood Allergy (Intermediate, Verified 11/28/24 15:15) rash/swelling Tobacco use date assessed: 11/28/24 Fall risk assessment: No Falls in past year Last assessed Fall Risk: 11/28/24 Dental Screening Dental Screen Date: 11/28/24 Did you have a dental visit in the last 12 months?: No Did you have a dental problem in the last 6 months where you did not have access to dental care?: No Was dental information given to patient?: Patient has dentist HPI CPE with f/u labs and health maint - see comments HPI Details 64 y/o male presents for a CPE with f/u labs and health maint. No recent CPE-labs to review. BP today 104/68, 76p. He is on valsartan 40mg b.i.d, metoprolol 100mg. A1c 5.3% 11/21/24. Continues to f/u with Cardiology. HPI Comments History of Present Illness Details Documentation assistance for Salvador Leon MD, was provided by Umang Lawson, Material Handling Crew Supervisor on 11/28/2024 at 4:03 PM EST. I, Dr. Leon, have read, observed, and verified documentation. [facility] Medical History Chronic HFrEF (heart failure with reduced ejection fraction) Paroxysmal atrial fibrillation Recurrent cellulitis of lower leg COVID-19 vaccine series completed Supraventricular tachycardia COPD (chronic obstructive pulmonary disease) Myocardial infarction History of COVID-19 Morbid obesity Chronic bronchitis GERD (gastroesophageal reflux disease) Chronic renal failure, stage 3 (moderate) CAD (coronary artery disease) Essential hypertension Surgical History History of inferior vena caval filter placement H/O colonoscopy History of sleeve gastrectomy History of heart artery stent History of carpal tunnel release History of knee replacement Family History Father CVD (cardiovascular disease) Mother Diabetes mellitus Cancer Brother No problems noted. Brother No problems noted. Son No problems noted. Sister No problems noted. Sister No problems noted. Sister No problems noted. Sister No problems noted. Sister No problems noted. Sister No problems noted. Other Mental health disorder Substance use disorder Social History Household Members: Spouse Household Members Other:: & son Housing: Apartment Are you a primary palliative care coordinator to a significant other at home: No Do you presently have visiting nurse or other home services: Yes (private duty care when needed) Comment: uses cane on occasion Patient Tobacco Use Status: Former Tobacco user Tobacco use type: Cigarette Years Smoked: 40 e-Cigarette/Vaping Use: Never Used Second Hand Smoke Exposure: No Advance Directives Date on File: 08/21/21 service: Yes Current occupational status: disabled Current occupational exposures/hazards: No Cognitive needs: No Hearing needs: No Vision needs: No Questionnaire PHQ-9 Over the last 2 weeks, how often have you been bothered by any of the following problems? 1. Little interest or pleasure in doing things: not at all 2. Feeling down, depressed, or hopeless: not at all 3. Trouble falling or staying asleep, or sleeping too much: not at all 4. Feeling tired or having little energy: not at all 5. Poor appetite or overeating: not at all 6. Feeling bad about yourself - or that you are a failure or have let yourself or your family down: not at all 7. Trouble concentrating on things, such as reading the newspaper or watching television: not at all 8. Moving or speaking so slowly that other people could have noticed. Or the opposite - being so fidgety or restless that you have been moving around a lot more than usual: not at all 9. Thoughts that you would be better off or of hurting yourself in some way: not at all Total score: 0 Depression Screening Interpretation: Negative Depression Screening Done: Yes 25191 - PHQ-9 Billing: Yes Source: Developed by Drs. Alex Adam, Bhumi Mckinley, Jam Gibson and colleagues, with an educational edgar from [employer] Thrive Questionnaire Date Thrive assessed: 11/28/24 I am a: Patient What is your living situation today?: I have a steady place to live Within the past 12 months, did the food you bought not last and you didn't have the money to get more?: Never true Within the past 12 months, did you worry whether your food would run out before you got money to buy more?: Never true Do you have trouble paying for medicines?: No Do you have trouble getting transportation to medical appointments?: No Do you have trouble paying your heating and electricity bill?: No Do you have trouble taking care of your child, family member or friend?: No Do you have trouble with day-to-day activities such as bathing, preparing meals, shopping, managing finances, etc.?: No Are you currently unemployed and looking for a job?: No Are you interested in more education?: No Please select the resources that you would like help with: None Currently or been in a relationship where the following occur: No concerns reported THRIVE Score: 0 MARIAH-7 AMB Questionnaire MARIAH-7 Date MARIAH - 7 assessed: 11/28/24 Feeling nervous, anxious, or on edge: 0 = Not at all Not being able to stop or control worryin = Not at all Worrying too much about different things: 0 = Not at all Trouble relaxin = Not at all Being so restless that it is hard to sit still: 0 = Not at all Becoming easily annoyed or irritable: 0 = Not at all Feeling afraid as if something awful might happen: 0 = Not at all Total MARIAH-7 score (0-4 normal; 5-9 mild; 10-14 moderate; 15-21 severe): 0 Source: Developed by Drs. Alex Adam, Jam Richardson and colleagues, with an educational edgar from [employer] MARIAH-7 Assessment Billing MARIAH-7 Assessment Tool: MARIAH-7 Assessment 80978 Review of Systems Const Denies chills, Denies fatigue, Denies fever(s), Denies headache(s) and Denies weakness Eyes Denies change in vision ENT Denies dizziness, Denies headache(s), Denies hearing loss, Denies nasal congestion, Denies sinus pain, Denies sinus pressure and Denies sore throat Card Denies chest pain, Denies lightheadedness, Denies dyspnea and Denies other (palpitations) Resp Denies cough, Denies dyspnea and Denies wheezing GI Denies abdominal pain, Denies melena, Denies hematochezia, Denies change in bowel habits, Denies dyspepsia and Denies nausea Denies hematuria and Denies dysuria Musc Denies abnormal gait, Denies myalgias, Denies arthralgias, Denies numbness and Denies tingling Skin/Breast Denies rash, Denies unusual bruising and Denies wounds Neuro Denies abnormal gait, Denies dizziness, Denies headache(s), Denies memory loss, Denies numbness, Denies Sensory deficit (Neuro), Denies tingling and Denies weakness Psych Denies anxiety, Denies depression and Denies memory loss Endo Denies cold intolerance, Denies fatigue, Denies heat intolerance, Denies polydipsia and Denies polyuria Taran/Lymph Denies easy bleeding and Denies easy bruising Aller/Immun Denies wheezing Physical exam (Primary Care) Vital Signs: Last Vital Signs Temp 97.9 F 11/28/24 15:17 Pulse 76 11/28/24 15:17 Resp 16 11/28/24 15:17 BP 104/68 11/28/24 15:17 Pulse Ox 95 11/28/24 15:17 Oxygen Delivery Method Room Air 11/28/24 15:17 BMI result Body Mass Index 48.3 Tobacco/Smoking Status: Tobacco use Status Tobacco use date assessed 11/28/24 11/28/24 15:20 Patient Tobacco Use Status Former Tobacco user 11/28/24 15:20 Tobacco use type Cigarette 11/28/24 15:20 e-Cigarette/Vaping Use Never Used 11/28/24 15:20 PHQ-9: PHQ-9 Score PHQ-9: Total score 0 11/28/24 15:47 Depression Screening Interpretation: Negative Thrive Assessment: Date of Thrive Assessment Date Thrive assessed 11/28/24 11/28/24 15:20 Currently or been in a relationship where the following occur: No concerns reported Const General: no acute distress, well developed, alert and awake Nutritional Appearance: well nourished and obese morbidly obese Orientation/consciousness: patient oriented x3 [facility] Head: Yes normocephalic and Yes atraumatic Ears: hearing grossly normal bilaterally and TM's normal bilaterally General nose exam: Normal external nose present and Normal nares present Mouth: Normal oral and palatal mucosa present and moist mucous membranes Teeth and gingiva: dentition normal Throat: Yes posterior oropharynx normal Eyes General: appearance normal, both eyes and all related structures Pupils: Equal, round and reactive pupils present and Pupil accommodation reflex normal EOM: EOMs intact bilaterally Neck Neck: Yes normal visual inspection, Yes no lymphadenopathy and Yes trachea midline Thyroid: Thyroid normal Carotids: no bruits Lymphatic: no lymphadenopathy noted Chest Chest palpation & inspection: normal inspection of the chest Resp Effort & Inspection: normal respiratory effort Auscultation: clear to auscultation bilaterally Cardio Rate: regular rate Rhythm: regular rhythm Heart sounds: S1 normal heart sound present, S2 normal heart sound present, no gallops, no murmurs and no rubs Bruits: no abdominal aortic bruits and no carotid bruits GI Palpation (GI): No Abdominal aortic bruit present, Soft to palpation, nontender, No hepatosplenomegaly present and No Rebound tenderness present Auscultation: normal bowel sounds General: Yes no CVA tenderness Back/Spine/Pelvis Back: no CVA tenderness Cervical Spine: cervical ROM normal and No Cervical spine tenderness Thoracic/Lumbar Spine: thoraco-lumbar ROM normal, No pain with thoraco-lumbar ROM, No thoracic spinal tenderness and No lumbar spinal tenderness Skin Lesions: no lesions Rashes: no rashes Trauma: no lacerations or abrasions Wounds: no wounds Nails: normal Neuro General: patient oriented x3 and No gait normal Cranial nerves: Yes Equal, round and reactive pupils present Cognition (Neuro): normal cognition Gait exam (Neuro): gait abnormal Motor exam (neuro): 5/5 motor strength present throughout Sensory Exam: No Sensory deficit (Neuro) Deep tendon reflexes (DTR's): Right patellar reflex intensity grade: 2+ and Left patellar reflex intensity grade: 2+ Extrem General: Yes normal to inspection and No edema Psych Appearance: grossly normal Affect: normal affect Attitude: cooperative Thought process: Normal thought process present Coding Level of Care Code Est Pt Level 3 (18036) Est Pt Prev Care >65y(63188) Diagnoses Adult general medical exam Z00.00 Essential hypertension I10 CAD (coronary artery disease) I25.10 Persistent atrial fibrillation I48.19 Pure hypercholesterolemia E78.00 Hyperlipidemia type: pure hypercholesterolemia Unsteady gait R26.81 Chronic HFrEF (heart failure with reduced ejection fraction) I50.22 Immunization counseling Z71.85 Screening for colon cancer Z12.11 Screening for prostate cancer Z12.5 Additional Codes MARIAH-7 Assessment Billing - MARIAH-7 Assessment Tool: MARIAH-7 Assessment 85027 ([id number]) PHQ-9 - 65117 - PHQ-9 Billing: Yes ([id number]) Assessment & Plan Assessment & Plan (1) Adult general medical exam: Code(s): Z00.00 - Encounter for general adult medical examination without abnormal findings Category: Medical Plan: 64-year-old male presents for complete physical exam Encouraged healthy diet (2) Essential hypertension: Code(s): I10 - Essential (primary) hypertension Category: Medical Plan: Blood pressure is controlled. Goal is less than 130/80 Continue current medications (3) CAD (coronary artery disease): Code(s): I25.10 - Atherosclerotic heart disease of [place] coronary artery without angina pectoris Category: Medical Plan: Stable [place] [facility] [place] Follow-up as recommended (4) Persistent atrial fibrillation: Code(s): I48.19 - Other persistent atrial fibrillation Category: Medical Plan: Stable He is on apixaban 5 mg b.i.d. Continue current medication Follow-up with Cardiology (5) Hyperlipidemia: Code(s): E78.5 - Hyperlipidemia, unspecified Category: Medical Qualifiers: Hyperlipidemia type: pure hypercholesterolemia Qualified Code(s): E78.00 - Pure hypercholesterolemia, unspecified Plan: Lipids have been well controlled. Will continue to monitor periodically Continue atorvastatin 80 mg daily (6) Unsteady gait: Code(s): R26.81 - Unsteadiness on feet Category: Medical Plan: He uses a wheelchair Encouraged wheelchair use Lower extremity strength is 5/5 bilaterally Does have unsteady gait however and I recommended a cane or walking stick when walking short distances without his wheelchair. (7) Chronic HFrEF (heart failure with reduced ejection fraction): Code(s): I50.22 - Chronic systolic (congestive) heart failure Category: Medical Plan: Lungs are clear to auscultation bilaterally BNP is at baseline Continue furosemide Will continue to monitor Follow-up with Cardiology as recommended (8) Immunization counseling: Code(s): Z71.85 - Encounter for immunization safety counseling Category: Medical Plan: Discussed high-dose flu shot with patient today He will get this in fall (9) Screening for colon cancer: Code(s): Z12.11 - Encounter for screening for malignant neoplasm of colon Category: Medical Plan: Recent colonoscopy with Dr. De Leon and he will follow-up as recommended Up-to-date (10) Screening for prostate cancer: Code(s): Z12.5 - Encounter for screening for malignant neoplasm of prostate Category: Medical Plan: PSA was within normal limits Will continue annual screening
[2024-11-28 15:17] VITALS: BP 104/68; PULSE 76; RESP 16; TEMP 36.6; O2SAT 95; BMI 48.3
--- OUTSIDE RECORDS SUMMARY | 2024-11-28 15:27 | XMS_ITS | Encounter Summary ---
Author Organization Located Within [facility] Address [address] [facility] [address] [place] [id number] Phone Care Team Providers Care Emergency Veterinarian Name Role Phone Oswaldo Zamora MD Primary Care Provider + Encounter Details Date Type Department Care Team (Late st Contact Info) Description 05/16/2021 Procedure Pass [facility] [address] [place] [address] Social History Tobacco Use Types Packs/Day Years [...] on filedocumented in this encounter Care Teams Emergency Veterinarian Relationship Specialty Start Date End Date Oswaldo Zamora MD [address] [facility] 1 [place] [address] PCP - General Internal Medicine 08/13/18 documented as of this encounter Additional Source Comments The information contained in this document represents components of the legal health record. It is not the complete legal health record.[facility]
== END 2024-11-28 16:03 | disposition home or self-care (01) ==
LOC: HO.HMCFM 14:55
PROVIDERS: PCP Family Medicine; Visit Provider Family Medicine
DX: Z00.00 Encounter for general adult medical examination without abnormal findings (principal); I48.19 Other persistent atrial fibrillation; I50.22 Chronic systolic (congestive) heart failure; I10 Essential (primary) hypertension; I25.10 Atherosclerotic heart disease of native coronary artery without angina pectoris; E78.00 Pure hypercholesterolemia, unspecified; R26.81 Unsteadiness on feet; Z71.85 Encounter for immunization safety counseling; Z12.11 Encounter for screening for malignant neoplasm of colon; Z12.5 Encounter for screening for malignant neoplasm of prostate

== ENCOUNTER → 2024-11-28 14:54 | Outpatient (BNVA) | payer MEDICARE, SELFPAY | PROVIDERS: PCP Family Medicine; Visit Provider Family Medicine | DX: Z00.00 Encounter for general adult medical examination without abnormal findings (principal); I25.10 Atherosclerotic heart disease of native coronary artery without angina pectoris; I48.19 Other persistent atrial fibrillation; E78.00 Pure hypercholesterolemia, unspecified; R26.81 Unsteadiness on feet; I11.0 Hypertensive heart disease with heart failure; I50.22 Chronic systolic (congestive) heart failure | CPT/HCPCS: 96127; 99212; 99397 ==

== ENCOUNTER 2025-03-27 08:24 | Outpatient (AMB) | payer MEDICARE, SELFPAY ==
--- OUTSIDE RECORDS SUMMARY | 2025-03-27 08:31 | XMS_ITS | Encounter Summary ---
Author Organization Formerly [facility] Address [address] [facility] [address] [place] [phone] Phone Care Team Providers Care Human Resources Designate Name Role Phone Oswaldo Zamora MD Primary Care Provider + Encounter Details Date Type Department Care Team (Late st Contact Info) Description 05/16/2021 Procedure Pass [facility]iology [address] [place] [address] Social History Tobacco Use Types Packs/Day Years [...] on filedocumented in this encounter Care Teams Human Resources Designate Relationship Specialty Start Date End Date Oswaldo Zamora MD [address] [facility] 1 [place] [address] PCP - General Internal Medicine 08/13/18 documented as of this encounter Additional Source Comments The information contained in this document represents components of the legal health record. It is not the complete legal health record.[facility]
--- OUTSIDE RECORDS SUMMARY | 2025-03-27 08:31 | XMS_ITS | Clinical Summary ---
Author Organization [facility] Address [address] [id number] Phone Care Team Providers Care Front Desk Assistant Name Role Phone Oswaldo Zamora MD Primary Care Provider + Allergies Active Allergy Reactions Criticality Noted Date Comments Enoxaparin Hives 07/01/2021 Fish Derived 07/01/2021 Shellfish Containing Products Anaphylaxis High 07/01 Medications albuterol 90 mcg/actuation inhaler INHALE 1 PUFF BY MOUTH EVERY 4 HOURS NEEDED FOR WHEEZE 06/23/2021 Active ELIQUIS 5 mg tablet TAKE 1 TABLET BY MOUTH TWICE A DAY FOR 90 DAYS 05/28/2021 Active atorvastatin (LIPITOR) 80 MG tablet Take 80 mg by mouth daily. 05/27/2021 Active famotidine (PEPCID) 20 MG tablet Take 20 mg by mouth daily. 05/27/2021 Active furosemide (LASIX) 40 MG tablet Take 40 mg by mouth as directed. , , Thursday , Thursday05/27/2021 Active ipratropium bromide 0.02 % nebulizer solution INHALE 1 AMPULE (2.5 MLS) VIA UPDRAFT ONCE DAILY NEEDED 02/06/2020 Active metoprolol tartrate (LOPRESSOR) 50 MG tablet TAKE 1 AND 1/2 TABLETS BY MOUTH TWICE DAILY 06/03/2021 Active penicillin V potassium (VEETIDS) 250 MG tablet 06/28/2021 Active spironolactone (ALDACTONE) 25 MG tablet TAKE ONE TABLET BY MOUTH ON THURSDAY, THURSDAY, AND Thursday02/01/2020 Active aspirin 81 MG EC tablet Take 81 mg by mouth daily. Active Social History Tobacco Use Types Packs/Day Years Used Date Smoking Tobacco: Never Assessed Education Answer Date Recorded Are you interested in more education? Not on garrett e 08/29/2022 Are you concerned about learning? Not on file 08/29/2022 No 08/29/2022 No 08/29/2022 Digital Access Answer Date Recorded No 09/27/2022 No 09/27/2022 Reliable internet access at home? Not on file 09/27/2022 Device with a working camera? Not on file Sex and Gender Information Value Date Recorded Sex Assigned at Not on file Legal Sex Male 2:54 PM EDT Gender Identity Not on file Sexual Orientation Not on file Last Filed Vital Signs Vital Sign Reading Time Taken Comments Blood Pressure 114/62 02/23/2019 11:24 AM EDT Pulse - - Temperature - - Respiratory Rate - - Oxygen Saturation - - Inhaled Oxygen Concentration - - Weight - - Height - - Body Mass Index - - Plan of Treatment Health Maintenance Due Date Last Done Comments Adult Td,Tdap Booster 1958 LIPID PANEL 1958 DEPRESSION SCREENING 1970 SMOKING Hx and SMOKELESS TOBACCO SCREENING 07/22/1971 HEPATITIS C SCREENING 1976 COLOGUARD 07/22/2003 COLONOSCOPY 07/22/2003 COLORECTAL CANCER SCREENING 07/22/2003 FIT TEST 07/22/2003 FOBT 07/22/2003 SIGMOIDOSCOPY 07/22/2003 VIRTUAL COLONOSCOPY 07/22/2003 PNEUMOCOCCAL VACCINES (50+ years) (1 of 1 - PCV) 2008 CREATININE LEVEL 07/01/2022 07/01/2021 POTASSIUM LEVEL 07/01/2022 07/01/2021 INFLUENZA VACCINE (#1) 2024 , 02/20/2019, 01/31/2017 COVID-19 VACCINE (3 - 2024-2 6 season) 2025 09/04/2020, 08/07/2020 RSV VACCINE (1 - 1-dose 75+ series) 2033 ZOSTER VACCINES Completed 05/29/2020, 11/25/2019 HEPATITIS A VACCINES Aged Out No long er eligible based on patient's age to complete this topic HIB VACCINES Aged Out No longer eligi ble based on patient's age to complete this topic MENINGOCOCCAL VACCINES (ACWY) Aged Out No longer eligible based on patient's age to complete this topic MENINGOCOCCAL VACCINES (B) Aged Out N o longer eligible based on patient's age to complete this topic Medical Devices Not on file Procedures Procedure Name Priority Date/Time Associated Diagnosis Comments BASIC METABOLIC PANEL (BMP) STAT 07/01/2021 9:07 AM EST from Last 3 Months or Most Recently Relevant to Health Maintenance Results * Basic metabolic panel (07/01/2021 9:07 AM EST) SODIUM 138 133 - 146 mmol/L [facility] CHLORIDE 101 96 - 108 mmol/L [facility] POTASSIUM 3.9 3.3 - 5.1 mmol/L [facility] CO2 31 21 - 35 mmol/L [facility] BUN 12 6 - 19 mg/dL [facility] CREATININE 0.80 0.5 - 1.5 mg/dL [facility] GLUCOSE 96 70 - 99 mg/dL [facility] CALCIUM 8.8 8.4 - 10.3 mg/dL [facility] EGFR 100 >59 mL/min/1.7 3m2 [facility] Comment:Estimated glomerular filtration rate calculated using the CKD-EPI refit equation. ANION GAP 10 10 - 20 mmol/L [facility] Blood 07/01/2021 9:07 AM EST 07/01/2021 9:19 AM EST Suha De La O MD LAB BLOOD BKR ORDERABLE S Final Result [facility] [address] [place] [address] from Last 3 Months or Most Recently Relevant to Health Maintenance [place] [address] [place] [id number] [facility] REPLACEMENT [address]IC[address] [place] [id number] [facility] MEDICARE REPLACEMENT [facility] MEDIC[facility]PLACEMENT [facility] MEDIC[facility] REPLACEMENT [facility] REPLACEMENT [facility] MEDIC[facility] REPLACEMENT [facility] MEDIC[facility] REPLACEMENT [facility] MEDIC[facility] REPLACEMENT [facility] MEDIC[facility] REPLACEMENT Care Teams Front Desk Assistant Relationship Specialty Start Date End Date Oswaldo Zamora MD [address] [place] [address] [place] [address] [place] [address] PCP - General Internal Medicine 08/13/18 Additional Source Comments The information contained in this document represents components of the legal health record. It is not the complete legal health record.[facility]
--- OUTSIDE RECORDS SUMMARY | 2025-03-27 08:31 | XMS_ITS | Encounter Summary ---
Author Organization [facility] Address [address] [facility] [address] [place] [phone] Phone Care Team Providers Care Self Contained Behavior Unit Teacher Name Role Phone Oswaldo Zamora MD Primary Care Provider + Encounter Details Date Type Department Care Team (Late st Contact Info) Description 07/01/2021 Procedure Pass [facility] [address] [place] [address] Social History Tobacco Use Types Packs/Day Years [...] on filedocumented in this encounter Care Teams Self Contained Behavior Unit Teacher Relationship Specialty Start Date End Date Oswaldo Zamora MD [address] [facility] 1 [place] [address] PCP - General Internal Medicine 08/13/18 documented as of this encounter Additional Source Comments The information contained in this document represents components of the legal health record. It is not the complete legal health record.[facility]
[2025-03-27 08:36] VITALS: BP 112/66; PULSE 69; O2SAT 98; BMI 43.9
--- NOTE | 2025-03-27 08:36 | MHC.PC.OV ---
Vital Signs 03/27/25 08:36 Height 5 ft 3 in Weight 248 lb BMI 43.9 BP 112/66 Blood Pressure Location Rt brachial Position Sitting Pulse 69 Pulse Source Pulse Oximeter Pulse Oximetry (%) 98 Oxygen Delivery Method Room Air Intake Visit Reasons: f/u HTN, chronic conditions Allergies enoxaparin (From Lovenox) Allergy (Intermediate, Verified 03/27/25 08:38) rash/swelling seafood Allergy (Intermediate, Verified 03/27/25 08:38) rash/swelling Medication List - Last Reconciled 03/27/25 by Salvador Leon MD albuterol sulfate 1.25 mg (3 mL) inhalation QID PRN albuterol sulfate 90 mcg/actuation 1 puff inhalation Q4H PRN apixaban 5 mg PO BID 90 days atorvastatin 80 mg PO BEDTIME 90 days bisacodyl (Dulcolax (bisacodyl)) 20 mg (4 x 5 mg) PO ONCE 1 day bisacodyl (Dulcolax (bisacodyl)) 10 mg (2 x 5 mg) PO BEDTIME blood pressure monitor Automatic, Digital. Dx: I10. Daily As directed, 999 days/lifetime budesonide-formoterol 80-4.5 mcg/actuation 2 puffs PO BID clotrimazole-betamethasone 1-0.05 % 1 appl topical BID 2 weeks ezetimibe 10 mg PO DAILY famotidine 20 mg PO DAILY furosemide 40 mg PO ONCE Jardiance (empagliflozin) 10 mg PO DAILY 90 days NS melatonin 10 mg PO BEDTIME metoprolol tartrate 100 mg PO Q12H miscellaneous medical supply Reclining chair. Daily As directed 999 days. miscellaneous medical supply Hoveround mobility?device and 2 batteries. Daily?As directed, 999 days nebulizers (Altera Nebulizer Handset) As directed polyethylene glycol 3350 (Miralax) 238 grams PO ONCE tiotropium bromide 1 cap inhalation DAILY valsartan 40 mg PO BID Tobacco use date assessed: 03/27/25 Fall risk assessment: 1 Fall in past year Last assessed Fall Risk: 03/27/25 Dental Screening Dental Screen Date: 03/27/25 Did you have a dental visit in the last 12 months?: No Did you have a dental problem in the last 6 months where you did not have access to dental care?: No Was dental information given to patient?: No [facility] Medical History Chronic HFrEF (heart failure with reduced ejection fraction) Paroxysmal atrial fibrillation Recurrent cellulitis of lower leg COVID-19 vaccine series completed Supraventricular tachycardia COPD (chronic obstructive pulmonary disease) Myocardial infarction History of COVID-19 Morbid obesity Chronic bronchitis GERD (gastroesophageal reflux disease) Chronic renal failure, stage 3 (moderate) CAD (coronary artery disease) Essential hypertension Surgical History History of inferior vena caval filter placement H/O colonoscopy History of sleeve gastrectomy History of heart artery stent History of carpal tunnel release History of knee replacement Family History Father CVD (cardiovascular disease) Mother Diabetes mellitus Cancer Brother No problems noted. Brother No problems noted. Son No problems noted. Sister No problems noted. Sister No problems noted. Sister No problems noted. Sister No problems noted. Sister No problems noted. Sister No problems noted. Other Mental health disorder Substance use disorder Social History Household Members: Spouse Household Members Other:: & son Housing: Apartment Are you a primary manager care to a significant other at home: No Do you presently have visiting nurse or other home services: Yes (private duty care when needed) Comment: uses cane on occasion Patient Tobacco Use Status: Former Tobacco user Tobacco use type: Cigarette Years Smoked: 40 e-Cigarette/Vaping Use: Never Used Second Hand Smoke Exposure: No Advance Directives Date on File: 08/21/21 service: Yes Current occupational status: disabled Current occupational exposures/hazards: No Cognitive needs: No Hearing needs: No Vision needs: No Questionnaire PHQ-9 Over the last 2 weeks, how often have you been bothered by any of the following problems? 1. Little interest or pleasure in doing things: not at all 2. Feeling down, depressed, or hopeless: not at all 3. Trouble falling or staying asleep, or sleeping too much: not at all 4. Feeling tired or having little energy: not at all 5. Poor appetite or overeating: not at all 6. Feeling bad about yourself - or that you are a failure or have let yourself or your family down: not at all 7. Trouble concentrating on things, such as reading the newspaper or watching television: not at all 8. Moving or speaking so slowly that other people could have noticed. Or the opposite - being so fidgety or restless that you have been moving around a lot more than usual: not at all 9. Thoughts that you would be better off or of hurting yourself in some way: not at all Total score: 0 Depression Screening Interpretation: Negative Depression Screening Done: Yes Source: Developed by Drs. Alex Adam, Bhumi Mckinley, Jam Gibson and colleagues, with an educational edgar from [employer]. Thrive Questionnaire Date Thrive assessed: 06/10/24 I am a: Patient What is your living situation today?: I have a steady place to live Within the past 12 months, did the food you bought not last and you didn't have the money to get more?: Never true Within the past 12 months, did you worry whether your food would run out before you got money to buy more?: Never true Do you have trouble paying for medicines?: No Do you have trouble getting transportation to medical appointments?: No Do you have trouble paying your heating and electricity bill?: No Do you have trouble taking care of your child, family member or friend?: No Do you have trouble with day-to-day activities such as bathing, preparing meals, shopping, managing finances, etc.?: No Are you currently unemployed and looking for a job?: No Are you interested in more education?: No Please select the resources that you would like help with: None Currently or been in a relationship where the following occur: No concerns reported THRIVE Score: 0 AUDIT C Alcohol Use Questionnaire (AUDIT-C) 1. How often do you have a drink containing alcohol?: Never 3. How often do you have six or more drinks on one occasion?: Never Total Score: 0 MARIAH-7 AMB Questionnaire MARIAH-7 Date MARIAH - 7 assessed: 11/28/24 Feeling nervous, anxious, or on edge: 0 = Not at all Not being able to stop or control worryin = Not at all Worrying too much about different things: 0 = Not at all Trouble relaxin = Not at all Being so restless that it is hard to sit still: 0 = Not at all Becoming easily annoyed or irritable: 0 = Not at all Feeling afraid as if something awful might happen: 0 = Not at all Total MARIAH-7 score (0-4 normal; 5-9 mild; 10-14 moderate; 15-21 severe): 0 Source: Developed by Drs. Alex Adam, Bhumi Mckinley, Jam Gibson and colleagues, with an educational edgar from [employer]. Physical exam (Primary Care) Vital Signs: Last Vital Signs Pulse 69 03/27/25 08:36 BP 112/66 03/27/25 08:36 Pulse Ox 98 03/27/25 08:36 Oxygen Delivery Method Room Air 03/27/25 08:36 BMI result Body Mass Index 43.9 Tobacco/Smoking Status: Tobacco use Status Tobacco use date assessed 03/27/25 03/27/25 08:41 Patient Tobacco Use Status Former Tobacco user 03/27/25 08:41 Tobacco use type Cigarette 03/27/25 08:41 e-Cigarette/Vaping Use Never Used 03/27/25 08:41 PHQ-9: PHQ-9 Score PHQ-9: Total score 0 03/27/25 08:41 Depression Screening Interpretation: Negative Thrive Assessment: Date of Thrive Assessment Date Thrive assessed 06/10/24 03/27/25 08:41 Currently or been in a relationship where the following occur: No concerns reported Coding Level of Care Code Est Pt Level 3 (78507) Diagnoses CAD (coronary artery disease) I25.10 Chronic HFrEF (heart failure with reduced ejection fraction) I50.22 Persistent atrial fibrillation I48.19 COPD (chronic obstructive pulmonary disease) J44.9 Ankle swelling M25.473 Assessment & Plan Assessment & Plan (1) CAD (coronary artery disease): Code(s): I25.10 - Atherosclerotic heart disease of [place] coronary artery without angina pectoris Category: Medical (2) Chronic HFrEF (heart failure with reduced ejection fraction): Code(s): I50.22 - Chronic systolic (congestive) heart failure Category: Medical (3) Persistent atrial fibrillation: Code(s): I48.19 - Other persistent atrial fibrillation Category: Medical (4) COPD (chronic obstructive pulmonary disease): Code(s): J44.9 - Chronic obstructive pulmonary disease, unspecified Category: Medical (5) Ankle swelling: Code(s): M25.473 - Effusion, unspecified ankle Category: Medical Plan 64-year-old male with history of CAD, heart failure with reduced ejection fraction, COPD and hypertension, presents to follow-up hypertension. Blood pressure remains well controlled on metoprolol and valsartan. Goal is less than 130/80 Continue current medication He is breathing easily. Taking furosemide and his inhaled medications as prescribed Patient notes ankle swelling. Had wheel chair roll over his leg and had small fracture. Referred to ortho Orders: Orders Comprehensive [place]. Panel Fast Today Z00.00 - Encounter for general adult medical examination without abnormal findings Lipid Panel Today Z00.00 - Encounter for general adult medical examination without abnormal findings Referrals Orthopedics Referral S82.231P - Other fracture of right lower leg, initial encounter for closed fracture
== END 2025-03-27 08:53 | disposition home or self-care (01) ==
LOC: HO.HMCFM 08:24
PROVIDERS: PCP Family Medicine; Visit Provider Family Medicine
DX: I25.10 Atherosclerotic heart disease of native coronary artery without angina pectoris (principal); I50.22 Chronic systolic (congestive) heart failure; I48.19 Other persistent atrial fibrillation; J44.9 Chronic obstructive pulmonary disease, unspecified; M25.473 Effusion, unspecified ankle

== ENCOUNTER → 2025-03-27 08:24 | Outpatient (BNVA) | payer MEDICARE, SELFPAY | PROVIDERS: PCP Family Medicine; Visit Provider Family Medicine | DX: I25.10 Atherosclerotic heart disease of native coronary artery without angina pectoris (principal); I50.22 Chronic systolic (congestive) heart failure; I48.19 Other persistent atrial fibrillation; J44.9 Chronic obstructive pulmonary disease, unspecified; M25.473 Effusion, unspecified ankle | CPT/HCPCS: 99212 ==

== ENCOUNTER 2025-04-06 12:28 | Outpatient (AMB) | payer MEDICARE, SELFPAY ==
[2025-04-06 12:45] VITALS: BMI 43.4
--- NOTE | 2025-04-06 12:45 | A.OFFVIS_ITS ---
Vital Signs 04/06/25 12:45 Height 5 ft 3 in Weight 245 lb BMI 43.4 Intake Visit Reasons: rt ankle fx back in january Intake Note: Andrew is a 64 year old male who presents today as a new patient for an evaluation of his right ankle fractured that had occurred back in January. Patient reports a power chair had rolled over his ankle and he is currently experiencing slight pain on the lateral aspect. He was seen at [facility] where he was provided with a cam boot and X rays were taken. He denies taking any OTC pain medication at this time. Patient has previous history of bilateral ankle sprain. Allergies enoxaparin (From Lovenox) Allergy (Intermediate, Verified 03/27/25 08:38) rash/swelling seafood Allergy (Intermediate, Verified 03/27/25 08:38) rash/swelling HPI Comments Details: The patient is a 64-year-old male with a past medical history as seen below presenting for a right ankle injury sustained in January. The injury occurred when he ran himself over with his power wheelchair. He reports mild pain localized to the lateral aspect of the ankle along the fibula. Initial X-rays were performed at [facility], which confirmed a fracture. He initially used Tylenol for pain but has not required it for the past four weeks. He has been using a short CAM boot when outside but remains in socks or barefoot at home. He sleeps in a hospital bed and notes that his ankle sometimes cracks, which he perceives as a sign of improving mobility. He has not undergone any physical therapy for the ankle. He denies any other pedal concerns. [facility] Medical History (Updated 04/09/25 @ 12:14 by Ashley Prakash DPM) Right ankle pain Right ankle injury Chronic HFrEF (heart failure with reduced ejection fraction) Paroxysmal atrial fibrillation Recurrent cellulitis of lower leg COVID-19 vaccine series completed Supraventricular tachycardia COPD (chronic obstructive pulmonary disease) Myocardial infarction History of COVID-19 Morbid obesity Chronic bronchitis GERD (gastroesophageal reflux disease) Chronic renal failure, stage 3 (moderate) CAD (coronary artery disease) Essential hypertension Surgical History History of inferior vena caval filter placement H/O colonoscopy History of sleeve gastrectomy History of heart artery stent History of carpal tunnel release History of knee replacement Family History Father CVD (cardiovascular disease) Mother Diabetes mellitus Cancer Brother No problems noted. Brother No problems noted. Son No problems noted. Sister No problems noted. Sister No problems noted. Sister No problems noted. Sister No problems noted. Sister No problems noted. Sister No problems noted. Other Mental health disorder Substance use disorder Social History Household Members: Spouse Household Members Other:: & son Housing: Apartment Are you a primary care process manager to a significant other at home: No Do you presently have visiting nurse or other home services: Yes (private duty care when needed) Comment: uses cane on occasion Patient Tobacco Use Status: Former Tobacco user Tobacco use type: Cigarette Years Smoked: 40 e-Cigarette/Vaping Use: Never Used Second Hand Smoke Exposure: No Advance Directives Date on File: 08/21/21 service: Yes Current occupational status: disabled Current occupational exposures/hazards: No Cognitive needs: No Hearing needs: No Vision needs: No Review of Systems Const Details: - Musculoskeletal: Reports mild pain on the lateral aspect of the right ankle along the fibula. All systems reviewed & are unremarkable except as noted in HPI and below Physical Exam Vital Signs: BMI result Body Mass Index 43.4 Extrem Other: Right lower extremity focused physical exam: Derm: No open lesions abrasions or wounds noted. No hyperkeratotic or macerated areas noted. Skin supple and turgor within normal limits. No ecchymosis or discoloration noted. No clinical signs of infection noted. Vasc: DP/PT pulses palpable. Capillary refill time less than 3 seconds. Temperature gradient warm to warm. Pedal hair present. Varicosities noted. No edema noted. Neuro: Protective sensation is grossly intact. MSK: Pain on palpation to the medially laterally, distally, or proximally. Range of motion of the ankle within normal limits and without pain. MMT 5/5. Range of motion of the forefoot and hindfoot within normal limits. Slow gait with the use of an assistive device noted. Office Procedures AMB Podiatry Dressing Details of Procedure: Applied a stockinette, cast padding, an Jose bandage to the right lower extremity with the use of the cam boot. 24681 - Short leg splint Procedure code (CPT) selection complete Results Reviewed Results Reviewed: Ordered right ankle and tib-fib three-view x-rays weightbearing to be performed prior to next visit. Patient reports x-rays were done in an outside facility and confirmed a fracture. Assessment & Plan Assessment & Plan (1) Closed right ankle fracture: Code(s): S82.891A - Other fracture of right lower leg, initial encounter for closed fracture Category: Medical Qualifiers: Encounter type: initial encounter Qualified Code(s): S82.891A - Other fracture of right lower leg, initial encounter for closed fracture (2) Right ankle injury: Code(s): S99.911A - Unspecified injury of right ankle, initial encounter Category: Medical Qualifiers: Encounter type: initial encounter Qualified Code(s): S99.911A - Unspecified injury of right ankle, initial encounter (3) Right ankle pain: Code(s): M25.571 - Pain in right ankle and joints of right foot Category: Medical Plan Patient was informed and verbally consented to the use of an ambient scribe for clinic note documentation during this visit. I discussed with the patient the need to obtain new x-rays to properly assess the condition, as we do not have his prior images. I educated him on the importance of wearing the CAM boot consistently to protect the ankle, rather than only when outdoors. I applied a compression wrap for added cushion and protection and instructed him to keep it clean dry and intact. We also discussed that bone healing typically takes about two months. A follow-up visit was scheduled in one week to review the imaging results and determine the next steps for his care. - Ordered right ankle and tib-fib x-rays to be performed prior to next visit. - Applied a stockinette, cast padding, and Jose bandage to the right lower extremity with the use of the cam boot. - Advised patient to limit weight-bearing as much as possible with the use of an assistive device. - Patient may continue to take Tylenol as needed for pain. - Adhere to rice protocol. RTC in 1 week. Orders: Orders XR ankle RT min 3V 04/06/25 M25.571 - Pain in right ankle and joints of right foot, S82.891A - Other fracture of right lower leg, initial encounter for closed fracture, S99.911A - Unspecified injury of right ankle, initial encounter XR tibia fibula RT 2V 04/06/25 M25.571 - Pain in right ankle and joints of right foot, S82.891A - Other fracture of right lower leg, initial encounter for closed fracture, S99.911A - Unspecified injury of right ankle, initial encounter AMB Podiatry Dressing 04/06/25 M25.571 - Pain in right ankle and joints of right foot, S82.891A - Other fracture of right lower leg, initial encounter for closed fracture, S99.911A - Unspecified injury of right ankle, initial encounter Coding Level of Care Code New Pt Level 4 (28154) Diagnoses Closed fracture of right ankle, initial encounter S82.891A Encounter type: initial encounter Injury of right ankle, initial encounter S99.911A Encounter type: initial encounter Right ankle pain M25.571 CPT Codes Podiatry Dressing - CPT: 99579 - Short leg splint ([id number]) Time Spent (min) 48
== END 2025-04-06 13:01 | disposition home or self-care (01) ==
LOC: HO.HPODS 12:28
PROVIDERS: PCP Family Medicine; Visit Provider Student in an Organized Health Care Education/Training Program
DX: S82.891A Other fracture of right lower leg, initial encounter for closed fracture (principal); M25.571 Pain in right ankle and joints of right foot
CPT/HCPCS: 29515; 99204

== ENCOUNTER → 2025-04-06 12:28 | Outpatient (BNVA) | payer MEDICARE, SELFPAY | PROVIDERS: PCP Family Medicine; Visit Provider Student in an Organized Health Care Education/Training Program | DX: S82.891A Other fracture of right lower leg, initial encounter for closed fracture (principal); S99.911A Unspecified injury of right ankle, initial encounter; X58.XXXA Exposure to other specified factors, initial encounter; Y93.9 Activity, unspecified; Y92.9 Unspecified place or not applicable; Y99.9 Unspecified external cause status | CPT/HCPCS: 29515; 99202 ==

== ENCOUNTER 2025-04-10 10:28 | Outpatient (REF) | payer MEDICARE, SELFPAY ==
--- NOTE | ~2025-04-10 | XR_ITS ---
EXAMINATION: XR ANKLE, RIGHT CLINICAL INFORMATION: S99.911A - Unspecified injury of right ankle, initial encounter COMPARISON: None available. TECHNIQUE: AP, lateral, and mortise views of the right ankle. FINDINGS: There is diffuse osteopenia. There is an oblique fracture involving the distal fibula. Fracture extends cephalad and posteriorly from the region of the anterior syndesmophyte ligament. Vein courses congruent. Talar dome is intact. There are Achilles tendon and plantar fascial calcaneal spurs that are small. XR/XR ankle RT min 3V IMPRESSION: Distal fibular fracture extends cephalad and posterior from the anterior syndesmotic ligament. Osteopenia. Calcaneus Spurs. Electronically signed by: Leighton Covarrubias MD 04/10/2025 11:10 AM ANDREAS LANGE
--- NOTE | ~2025-04-10 | XR_ITS ---
EXAMINATION: XR TIBIA AND FIBULA, RIGHT CLINICAL INFORMATION: S82.891A - Other fracture of right lower leg, initial encounter for clos... COMPARISON: Right knee x-ray from May 30, 2022 TECHNIQUE: AP and lateral views of the right tibia and fibula were obtained. FINDINGS: Again noted are changes of total knee arthroplasty. There is generalized osteopenia in the tibial plateau without strong suspicion for hardware loosening. There is stable irregular nodular appearance of the medial aspect of the medial femoral condyle. The distal end of the tibia and fibula are not included on this x-ray, but are included on x-rays of the ankle. There is a x-rays demonstrate an oblique fibular fracture extending posterior and cephalad from the syndesmotic ligament. XR/XR tibia fibula RT 2V IMPRESSION: Osteopenia. Distal fibular fracture extending cephalad and posterior from the anterior syndesmotic ligament. Total knee replacement Electronically signed by: Leighton Covarrubias MD 04/10/2025 11:06 AM ANDRE[facility] LANGE
== END 2025-04-10 10:29 | disposition home or self-care (01) ==
LOC: HO.XRAY 10:28
PROVIDERS: PCP Family Medicine; Visit Provider Student in an Organized Health Care Education/Training Program
DX: S99.911A Unspecified injury of right ankle, initial encounter (principal); S82.891A Other fracture of right lower leg, initial encounter for closed fracture
CPT/HCPCS: 73590; 73610

== ENCOUNTER → 2025-04-10 10:36 | Outpatient (BNV) | payer MEDICARE, SELFPAY | PROVIDERS: PCP Family Medicine; Visit Provider Radiology Diagnostic Radiology | DX: S99.911A Unspecified injury of right ankle, initial encounter (principal); M77.31 Calcaneal spur, right foot; S82.891A Other fracture of right lower leg, initial encounter for closed fracture; M85.862 Other specified disorders of bone density and structure, left lower leg | CPT/HCPCS: 73590; 73610 ==

== ENCOUNTER 2025-05-03 08:14 | Outpatient (REF) | payer MEDICARE, SELFPAY ==
[2025-05-03 17:24] LABS: Alanine Aminotransferase 12 U/L (0-40); Albumin Level 4.1 g/dL (3.5-5.0); Alkaline Phosphatase 127 U/L (39-117); Anion Gap 11 (12-20); Aspartate Amino Transferase 42 U/L (5-37); Blood Urea Nitrogen 9 mg/dL (9-16); Calcium 9.2 mg/dL (8.4-10.2); Carbon Dioxide 27 mmol/L (22-29); Chloride 108 mmol/L (96-108); Cholesterol 92 mg/dL (<200); Estimated Glomerular Filt Rate > 60; HDL Cholesterol 35 mg/dL (>40); Potassium 4.3 mmol/L (3.3-5.1); Sodium 142 mmol/L (135-145); Total Protein 6.5 g/dL (6.5-8.0); Triglycerides 65 mg/dL (<150)
== END 2025-05-03 08:15 | disposition home or self-care (01) ==
LOC: HO.WFDLDS 08:14
PROVIDERS: PCP Family Medicine; Visit Provider Family Medicine
DX: S82.891P Other fracture of right lower leg, subsequent encounter for closed fracture with malunion (principal); M25.571 Pain in right ankle and joints of right foot; E78.5 Hyperlipidemia, unspecified; X58.XXXD Exposure to other specified factors, subsequent encounter
CPT/HCPCS: 29540; 36415; 80053; 80061; 99212

== ENCOUNTER 2025-05-03 08:14 | Outpatient (AMB) | payer MEDICARE, SELFPAY ==
--- OUTSIDE RECORDS SUMMARY | 2025-05-03 08:20 | XMS_ITS | Encounter Summary ---
Author Organization [facility] Address [address] [place] [id number] Phone Care Team Providers Care Corporate Treasurer Name Role Phone Oswaldo Zamora MD Primary Care Provider + Encounter Details Date Type Department Care Team (Late st Contact Info) Description 05/16/2021 Procedure Pass [facility] [address] [place] [address] Social History Tobacco Use Types Packs/Day Years [...] on filedocumented in this encounter Care Teams Corporate Treasurer Relationship Specialty Start Date End Date Oswaldo Zamora MD [address] [facility] [address] [place] [address] PCP - General Internal Medicine 08/13/18 documented as of this encounter Additional Source Comments The information contained in this document represents components of the legal health record. It is not the complete legal health record.[facility]
--- OUTSIDE RECORDS SUMMARY | 2025-05-03 08:21 | XMS_ITS | Encounter Summary ---
Author Organization [facility] Address [address] [facility] [address] [place] [id number] Phone Care Team Providers Care Stage Set Up Worker Name Role Phone Oswaldo Zamora MD Primary Care Provider + Encounter Details Date Type Department Care Team (Late st Contact Info) Description 07/01/2021 Procedure Pass [facility] [address] [place] [address] Social History Tobacco Use Types Packs/Day Years [...] on filedocumented in this encounter Care Teams Stage Set Up Worker Relationship Specialty Start Date End Date Oswaldo Zamora MD [address] [facility] [address] [place] [address] PCP - General Internal Medicine 08/13/18 documented as of this encounter Additional Source Comments The information contained in this document represents components of the legal health record. It is not the complete legal health record.[facility]
--- OUTSIDE RECORDS SUMMARY | 2025-05-03 08:21 | XMS_ITS | Clinical Summary ---
Author Organization [facility] Address [address] [address] Phone Care Team Providers Care Retort Forker Name Role Phone Oswaldo Zamora MD Primary [...] EST) SODIUM 138 133 - 146 mmol/L [facility] CHLORIDE 101 96 - 108 mmol/L [facility] POTASSIUM 3.9 3.3 - 5.1 mmol/L [facility] CO2 31 21 - 35 mmol/L [facility] BUN 12 6 - 19 mg/dL [facility] CREATININE 0.80 0.5 - 1.5 mg/dL [facility] GLUCOSE 96 70 - 99 mg/dL [facility] CALCIUM 8.8 8.4 - 10.3 mg/dL [facility] EGFR 100 >59 mL/min/1.7 3m2 [facility] Comment:Estimated glomerular filtration rate calculated using the CKD-EPI refit equation. ANION GAP 10 10 - 20 mmol/L [facility] Blood 07/01/2021 9:07 AM EST 07/01/2021 9:19 AM EST Suha De La O MD LAB BLOOD BKR ORDERABLE S Final Result [facility] [address] [place] [address] from Last 3 Months or Most Recently Relevant to Health Maintenance [place] [address] [place] [id number] [facility] MEDICARE REPLACEMENT MEDICARE [place] [id number] [facility] MEDICARE [facility]PLACEMENT [facility] MEDICARE [facility]PLACEMENT [facility] MEDICARE REPLACEMENT [facility] MEDICARE [facility]PLACEMENT [facility] MEDICARE [facility]PLACEMENT [facility] MEDICARE [facility]PLACEMENT [facility] MEDICARE REPLACEMENT [facility] MEDICARE REPLACEMENT Care Teams Retort Forker Relationship Specialty Start Date End Date Oswaldo Zamora MD [address] [place] [address] [place] [address] [place] [address] PCP - General Internal Medicine 08/13/18 Additional Source Comments The information contained in this document represents components of the legal health record. It is not the complete legal health record.[facility]
--- NOTE | 2025-05-03 08:26 | A.OFFVIS_ITS ---
Intake Visit Reasons: f/u xrays ; right ankle fx Intake Note: 64 year old male here for a follow up on right foot x-rays done 04/10/25 pain comes and goes swelling happens mostly at night and he will use the R.I.C.E mothod using boot regularly when walking Allergies enoxaparin (From Lovenox) Allergy (Intermediate, Verified 03/27/25 08:38) rash/swelling seafood Allergy (Intermediate, Verified 03/27/25 08:38) rash/swelling HPI Comments Details: The patient is a 64-year-old male presenting for a follow-up visit for a right ankle fracture. He reports that the pain has been okay and denies any numbness, or tingling. He states he has been NWB with the use of an assistive device. He states he experiences pain to the area with palpation or pressure to the area. He denies any new pedal injuries. He denies any other pedal concerns. [facility] Medical History (Updated 05/05/25 @ 09:51 by Ashley Prakash DPM) Closed fracture of right ankle with malunion Right ankle pain Right ankle injury Chronic HFrEF (heart failure with reduced ejection fraction) Paroxysmal atrial fibrillation Recurrent cellulitis of lower leg COVID-19 vaccine series completed Supraventricular tachycardia COPD (chronic obstructive pulmonary disease) Myocardial infarction History of COVID-19 Morbid obesity Chronic bronchitis GERD (gastroesophageal reflux disease) Chronic renal failure, stage 3 (moderate) CAD (coronary artery disease) Essential hypertension Surgical History History of inferior vena caval filter placement H/O colonoscopy History of sleeve gastrectomy History of heart artery stent History of carpal tunnel release History of knee replacement Family History Father CVD (cardiovascular disease) Mother Diabetes mellitus Cancer Brother No problems noted. Brother No problems noted. Son No problems noted. Sister No problems noted. Sister No problems noted. Sister No problems noted. Sister No problems noted. Sister No problems noted. Sister No problems noted. Other Mental health disorder Substance use disorder Social History Household Members: Spouse Household Members Other:: & son Housing: Apartment Are you a primary housekeeper child care to a significant other at home: No Do you presently have visiting nurse or other home services: Yes (private duty care when needed) Comment: uses cane on occasion Patient Tobacco Use Status: Former Tobacco user Tobacco use type: Cigarette Years Smoked: 40 e-Cigarette/Vaping Use: Never Used Second Hand Smoke Exposure: No Advance Directives Date on File: 08/21/21 service: Yes Current occupational status: disabled Current occupational exposures/hazards: No Cognitive needs: No Hearing needs: No Vision needs: No Review of Systems Const Details: - Musculoskeletal: Reports mild pain on the lateral aspect of the right ankle along the fibula. Reports right leg swelling. All systems reviewed & are unremarkable except as noted in HPI and below Physical Exam Extrem Other: Right lower extremity focused physical exam: Derm: No open lesions abrasions or wounds noted. No hyperkeratotic or macerated areas noted. Skin supple and turgor within normal limits. No ecchymosis or discoloration noted. No clinical signs of infection noted. Vasc: DP/PT pulses palpable. Capillary refill time less than 3 seconds. Temperature gradient warm to warm. Pedal hair present. Varicosities noted. No edema noted. Neuro: Protective sensation is grossly intact. MSK: Pain on palpation to the ankle medially, laterally, distally, or proxima lly, worse along the distal fibula. ROM of the right ankle reduced. Range of motion of the left ankle within normal limits and without pain. MMT 4/5. Range of motion of the forefoot and hindfoot within normal limits. Slow antalgic gait with the use of an assistive device noted. Office Procedures AMB Podiatry Dressing Details of Procedure: Applied a stockinette, cast padding, an Jose bandage to the right lower extremity with the use of the camboot. Provided patient with a tall CAMboot. 93120 - Short leg splint Procedure code (CPT) selection complete Results Reviewed Results Reviewed: Podiatry Read of Right ankle xray (04/10/25): Malunion spiral intra-articular fracture noted to distal fibula with shortening. Posterior calcaneal spur noted. Right ankle xray (04/10/25): FINDINGS: There is diffuse osteopenia. There is an oblique fracture involving the distal fibula. Fracture extends cephalad and posteriorly from the region of the anterior syndesmophyte ligament. Vein courses congruent. Talar dome is intact. There are Achilles tendon and plantar fascial calcaneal spurs that are small. IMPRESSION: Distal fibular fracture extends cephalad and posterior from the anterior syndesmotic ligament. Osteopenia. Calcaneus Spurs. Podiatry Read of Right tib/fib xray (04/10/25): Noted of a total knee replacement with hardware intact. No acute fractures or dislocations noted. Right tib/fib xray (04/10/25): FINDINGS: Again noted are changes of total knee arthroplasty. There is generalized osteopenia in the tibial plateau without strong suspicion for hardware loosening. There is stable irregular nodular appearance of the medial aspect of the medial femoral condyle. The distal end of the tibia and fibula are not included on this x-ray, but are included on x-rays of the ankle. There is a x-rays demonstrate an oblique fibular fracture extending posterior and cephalad from the syndesmotic ligament. IMPRESSION: Osteopenia. Distal fibular fracture extending cephalad and posterior from the anterior syndesmotic ligament. Total knee replacement Assessment & Plan Assessment & Plan (1) Right ankle injury: Code(s): S99.911A - Unspecified injury of right ankle, initial encounter Category: Medical Qualifiers: Encounter type: initial encounter Qualified Code(s): S99.911A - Unspecified injury of right ankle, initial encounter (2) Closed right ankle fracture: Code(s): S82.891A - Other fracture of right lower leg, initial encounter for closed fracture Category: Medical Qualifiers: Encounter type: initial encounter Qualified Code(s): S82.891A - Other fracture of right lower leg, initial encounter for closed fracture (3) Closed fracture of right ankle with malunion: Code(s): S82.891P - Other fracture of right lower leg, subsequent encounter for closed fracture with malunion Category: Medical (4) Right ankle pain: Code(s): M25.571 - Pain in right ankle and joints of right foot Category: Medical Plan Patient was informed and verbally consented to the use of an ambient scribe for clinic note documentation during this visit. I discussed the patient's recent x-ray findings with him. I explained that the ankle fracture, which occurred three months ago, is not healing properly, as evidenced by the persistent fracture lines and inadequate positioning on the radiograph, indicating a malunion. I informed him that because of the improper healing, surgical intervention is necessary to prevent further complications such as bone shortening and ankle instability. I detailed the surgical plan for a right ankle ORIF and syndesmotic repair with possible arthroscopy with extensive debridement. I explained the preoperative process, including obtaining a CT scan for surgical planning. We discussed post-operative care, which will include being [id number]. The patient acknowledged this and mentioned he has both manual and motorized wheelchairs at home. A follow-up appointment was scheduled in two weeks to finalize the surgical plans. - Planning surgical intervention. - Ordered right ankle CT scan to be performed prior to next visit. - Applied a stockinet, cast padding, and JOSE bandage to the RLE with the use of a CAMboot. Provided patient with a tall CAMboot in office. - Patient is to keep the boot on at all times, even while sleeping. Patient is to keep the boot and dressing clean, dry, and intact. - Patient is to be NWB to the RLE with the use of an assistive device. RTC in 2 weeks for pre-operative planning. Will provide patient with Rx for knee scooter at this appt. Orders: Orders AMB Podiatry Dressing 05/03/25 M25.571 - Pain in right ankle and joints of right foot, S82.891A - Other fracture of right lower leg, initial encounter for closed fracture, S82.891P - Other fracture of right lower leg, subsequent encounter for closed fracture with malunion, S99.911A - Unspecified injury of right ankle, initial encounter CT ankle RT wo IV con Today M25.571 - Pain in right ankle and joints of right foot, S82.891A - Other fracture of right lower leg, initial encounter for closed fracture, S82.891P - Other fracture of right lower leg, subsequent encounter for closed fracture with malunion, S99.911A - Unspecified injury of right ankle, initial encounter Referrals Podiatry Procedure Notification S82.891A - Other fracture of right lower leg, initial encounter for closed fracture, S82.891P - Other fracture of right lower leg, subsequent encounter for closed fracture with malunion, S99.911A - Unspecified injury of right ankle, initial encounter Coding Level of Care Code Est Pt Level 4 (72015) Diagnoses Injury of right ankle, initial encounter S99.911A Encounter type: initial encounter Closed fracture of right ankle, initial encounter S82.891A Encounter type: initial encounter Closed fracture of right ankle with malunion S82.891P Right ankle pain M25.571 CPT Codes Podiatry Dressing - CPT: 62110 - Short leg splint ([id number]) Time Spent (min) 35
== END 2025-05-03 09:11 | disposition home or self-care (01) ==
LOC: HO.HPODS 08:15
PROVIDERS: PCP Family Medicine; Visit Provider Student in an Organized Health Care Education/Training Program
DX: S99.911A Unspecified injury of right ankle, initial encounter (principal); S82.891A Other fracture of right lower leg, initial encounter for closed fracture; S82.891P Other fracture of right lower leg, subsequent encounter for closed fracture with malunion; M25.571 Pain in right ankle and joints of right foot
CPT/HCPCS: 29540; 99214